=== PATIENT | female | born 1955 | race Two or more races ===

== ENCOUNTER → 2016-12-12 | Outpatient (CLI) | payer MEDICARE, MEDICAID ==
[~2016-12-12] MED LIST: ALPR0.254 PO; CAR3125T PO; CARV6.2551 PO; LEVO50TA7 PO; LOSA25TA9 PO; NIFE30TA66 PO; SEVE800T8 PO; SIMV-8 PO; WARF5TAB PO
== END | disposition home or self-care (01) ==
LOC: Rad HDHVI 11:39
PROVIDERS: ATTEND Internal Medicine Cardiovascular Disease
DX: S22.39XA Fracture of one rib, unspecified side, initial encounter for closed fracture (principal); J90 Pleural effusion, not elsewhere classified; E78.5 Hyperlipidemia, unspecified; R55 Syncope and collapse; R09.89 Other specified symptoms and signs involving the circulatory and respiratory systems; X58.XXXA Exposure to other specified factors, initial encounter; Y93.89 Activity, other specified; Y92.89 Other specified places as the place of occurrence of the external cause; Y99.8 Other external cause status
CPT/HCPCS: 71250

== ENCOUNTER → 2017-09-11 | Outpatient (CLI) | payer MEDICARE, MEDICAID | END | disposition home or self-care (01) | LOC: Rad HDHVI 13:44 | PROVIDERS: ATTEND Internal Medicine Cardiovascular Disease | DX: I08.8 Other rheumatic multiple valve diseases (principal); I25.10 Atherosclerotic heart disease of native coronary artery without angina pectoris; Z95.1 Presence of aortocoronary bypass graft; Z95.2 Presence of prosthetic heart valve | CPT/HCPCS: 93306 ==

== ENCOUNTER 2017-11-11 18:50 | Inpatient (IN) | payer MEDICARE, MEDICAID ==
[~2017-11-11] VITALS: Ht 30.5 cm; Wt 54.2 kg
[2017-11-11 20:08] LABS: Basophils # (auto) 0.1 uL; Eosinophils # (auto) 0 uL; Eosinophils % (auto) 0.4 % (0.0-7.0); Lymphocytes # (auto) 0.9 uL; Monocytes # (auto) 0.3 uL; Neutrophils # (auto) 7.7 uL
[2017-11-11 20:10] LABS: Basophils % (auto) 0.8 % (0.0-2.0); Hematocrit 37.6 % (36.0-46.0); Hemoglobin 12.3 g/dL (12.2-16.2); Lymphocytes % (auto) 10.1 % (10.0-50.0); Mean Corpuscular Hemoglobin 32.7 pg (28.0-32.0); Mean Corpuscular Hgb Conc. 32.7 g/dL (32.0-36.0); Mean Corpuscular Volume 100.1 fL (80.0-100.0); Monocytes % (auto) 3.2 % (0.0-12.0); Neutrophils % (auto) 85.5 % (37.0-80.0); Platelet Count (auto) 133 10^3/uL (140-450); Red Blood Cells 3.76 10^6/uL (4.0-5.20); Red Cell Distribution Width 17.2 % (11.8-14.3)
[2017-11-11 20:28] LABS: Albumin 3.9 g/dL (3.4-5.0); Anion Gap 16 (5-15); Aspartate Aminotransferase 8 U/L (15-37); BUN/Creatinine Ratio 9.5; Blood Urea Nitrogen 68 mg/dL (7-18); Calcium 8.1 mg/dL (8.5-10.1); Carbon Dioxide 25 mmol/L (21-32); Chloride 97 mmol/L (98-107); GFR African American 7 mL/min; GFR Non-African American 6 mL/min; Glucose 131 mg/dL (74-106); Magnesium 3.3 mg/dL (1.6-2.6); Sodium 138 mmol/L (136-145)
[2017-11-11 20:36] LABS: Alanine Aminotransferase 26 U/L (13-56); Alkaline Phosphatase 408 U/L (45-117); Bilirubin, Total 0.2 mg/dL (0.2-1.0); Total Protein 8.9 g/dL (6.4-8.2)
[2017-11-11 20:45] LABS: Potassium 7.4 mmol/L (3.5-5.1)
[2017-11-11] MEDS ORDERED: InsuLIN REG 1unit/0.01ml Soln (100units/ml) IV ONE (21:30)
[2017-11-11] MEDS ORDERED: SODIUM BICARBONATE 8.4 % INJ 50ML VIAL IV ONE (21:30)
[2017-11-11] MEDS ORDERED: SODIUM POLYSTYRENE SULF 15GM/60ML SUSP PO ONE (21:30)
[2017-11-11] MEDS ORDERED: CALCIUM GLUC 4.65meq/50ml D5AE 50 ML IV ONE (21:30)
[2017-11-11] MEDS ORDERED: DEXTROSE (50%) 50ML SYRG IV ONE (21:30)
[2017-11-12] MEDS ORDERED: SODIUM POLYSTYRENE SULF 15GM/60ML SUSP PO ONE ×3 (00:15→01:30)
[2017-11-12] MEDS ORDERED: SODIUM POLYSTYRENE SULF 15GM/60ML SUSP ONE ×3 (00:19→01:19)
[2017-11-12] MEDS ORDERED: cloNIDine HCL 0.1 MG TAB PO ONE (02:00)
[2017-11-12] MEDS ORDERED: NITROGLYCERIN 0.4 MG SL TAB SL PRN (02:45)
[2017-11-12] MEDS ORDERED: MORPHINE SULFATE 8mg/ml INJ SDV IV PRN (02:45)
[2017-11-12] MEDS ORDERED: SODIUM CHL 0.9% 1000 ML BAG XX ONE (10:15)
[2017-11-12] MEDS ORDERED: EPOETIN ALFA 10,000 UNIT/1 ML VIAL IV ONE (10:15)
[2017-11-12 18:28] VITALS: BP 158/78
[2017-11-12] MEDS ORDERED: ALPRAZolam 0.25 MG TAB PO PRN (19:00)
[2017-11-12 20:00] VITALS: BP 143/68
[2017-11-12 20:19] LABS: INR 2.81 (0.9-1.15)
[2017-11-12 20:20] VITALS: BP 163/85
[2017-11-12 22:00] VITALS: BP 143/68
[2017-11-12] MEDS: ATORVASTATIN 20 MG TAB PO SCH (22:06)
[2017-11-12] MEDS: CARVEDILOL 12.5 MG TAB PO SCH (22:07)
[2017-11-12] MEDS: TEMAZEPAM 15 MG CAP PO PRN (23:27)
[2017-11-13] VITALS (7 sets, daily range): BP systolic 121–162; BP diastolic 47–82
[2017-11-13 06:06] LABS: Basophils # (auto) 0 uL; Basophils % (auto) 0.5 % (0.0-2.0); Eosinophils # (auto) 0.1 uL; Eosinophils % (auto) 1.3 % (0.0-7.0); Hematocrit 35.8 % (36.0-46.0); Hemoglobin 11.6 g/dL (12.2-16.2); Lymphocytes # (auto) 1.1 uL; Lymphocytes % (auto) 20.2 % (10.0-50.0); Mean Corpuscular Hemoglobin 32.6 pg (28.0-32.0); Mean Corpuscular Hgb Conc. 32.4 g/dL (32.0-36.0); Mean Corpuscular Volume 100.8 fL (80.0-100.0); Monocytes # (auto) 0.6 uL; Monocytes % (auto) 11.3 % (0.0-12.0); Neutrophils # (auto) 3.5 uL; Neutrophils % (auto) 66.7 % (37.0-80.0); Nucleated Red Blood Cells % 0.1 %; Platelet Count (auto) 135 10^3/uL (140-450); Red Blood Cells 3.55 10^6/uL (4.0-5.20); Red Cell Distribution Width 17.4 % (11.8-14.3); White Blood Cell 5.2 10^3/uL (4.4-10.8)
[2017-11-13 06:18] LABS: INR 2.38 (0.9-1.15); Partial Thromboplastin Time 59.2 sec (22.64-33.71); Prothrombin Time 26.2 sec (9.37-12.3)
[2017-11-13 06:23] LABS: Calcium 8.6 mg/dL (8.5-10.1); Potassium 3.9 mmol/L (3.5-5.1)
[2017-11-13 06:33] LABS: BUN/Creatinine Ratio 5.8
[2017-11-13] MEDS: LEVOTHYROXINE SODIUM 50 MCG TAB PO SCH (06:54)
[2017-11-13] MEDS: SEVELAMER 800 MG TAB PO SCH ×3 (08:00→16:46)
[2017-11-13 09:10] LABS: Urine Bacteria MOD /hpf (None Seen); Urine Blood 1+ /uL (Negative); Urine Specific Gravity 1.009 (1.001-1.035); Urine WBC 13 /hpf (0 - 5)
[2017-11-13] MEDS ORDERED: ACETAMINOPHEN 325 MG TAB PO PRN (10:00)
[2017-11-13] MEDS: CARVEDILOL 12.5 MG TAB PO SCH ×2 (10:29→22:48)
[2017-11-13] MEDS: NIFEdipine ER 30 MG TAB PO SCH (10:29)
[2017-11-13] MEDS ORDERED: hydrALAZINE HCL 25 MG TAB PO ONE (14:45)
[2017-11-13] MEDS ORDERED: WARFARIN SODIUM 5 MG TAB PO SCH (17:00)
[2017-11-13] MEDS: hydrALAZINE HCL 25 MG TAB PO SCH (22:47)
[2017-11-13] MEDS: ATORVASTATIN 20 MG TAB PO SCH (22:48)
[2017-11-13] MEDS: TEMAZEPAM 15 MG CAP PO PRN (22:49)
[2017-11-13] MEDS ORDERED: ONDANSETRON HCL 4 MG/2 ML VIAL IV PRN (23:15)
[2017-11-14 05:00] VITALS: BP 148/73
[2017-11-14] MEDS: hydrALAZINE HCL 25 MG TAB PO SCH ×2 (05:47→16:19)
[2017-11-14 06:02] LABS: INR 1.82 (0.9-1.15)
[2017-11-14] MEDS: LEVOTHYROXINE SODIUM 50 MCG TAB PO SCH (06:10)
[2017-11-14] MEDS: SEVELAMER 800 MG TAB PO SCH ×2 (08:38→11:48)
[2017-11-14 08:55] VITALS: BP 156/77
[2017-11-14] MEDS ORDERED: SODIUM CHL 0.9% 1000 ML BAG XX ONE (09:00)
[2017-11-14 09:14] VITALS: BP 156/77
[2017-11-14] MEDS ORDERED: EPOETIN ALFA 10,000 UNIT/1 ML VIAL IV ONE (10:00)
[2017-11-14] MEDS: NIFEdipine ER 30 MG TAB PO SCH (10:23)
[2017-11-14] MEDS: CARVEDILOL 12.5 MG TAB PO SCH (10:25)
[2017-11-14 16:41] VITALS: BP 147/76
[2017-11-14 17:22] VITALS: BP 154/94
== END 2017-11-14 17:15 | disposition home or self-care (01) | DRG 682 ==
LOC: ER 18:50 → TELE 18:51 → TELE-WESTW 11-12 17:17
PROVIDERS: ADMIT Internal Medicine Cardiovascular Disease; ATTEND Internal Medicine Cardiovascular Disease
PROC: 5A1D70Z Performance of Urinary Filtration, Intermittent, Less than 6 Hours Per Day (ICD-10-PCS; principal; 2017-11-12)
PROC: 5A1D70Z Performance of Urinary Filtration, Intermittent, Less than 6 Hours Per Day (ICD-10-PCS; 2017-11-14)
DX: I12.0 Hypertensive chronic kidney disease with stage 5 chronic kidney disease or end stage renal disease (principal); N18.6 End stage renal disease; E87.5 Hyperkalemia; K31.84 Gastroparesis; I25.10 Atherosclerotic heart disease of native coronary artery without angina pectoris; K29.70 Gastritis, unspecified, without bleeding; K57.30 Diverticulosis of large intestine without perforation or abscess without bleeding; Z83.3 Family history of diabetes mellitus; Z95.1 Presence of aortocoronary bypass graft; Z99.2 Dependence on renal dialysis; Z79.899 Other long term (current) drug therapy
CPT/HCPCS: 36415; 74176; 80048; 80053; 81001; 83735; 84132; 84484; 85025; 85610; 85730; 87081; 90935; 93005; 99291; J0610; J1642; J1815; J2405

== ENCOUNTER 2017-12-31 16:12 | Emergency (ER) | payer MEDICARE, MEDICAID ==
[~2017-12-31] VITALS: Ht 152.4 cm; Wt 57.6 kg
[2017-12-31] MEDS ORDERED: LORazepam 2MG/ML-1ML VIAL IV ONE (18:45)
[2017-12-31] MEDS ORDERED: LORazepam 2MG/ML-1ML VIAL IM ONE (20:00)
[2017-12-31 20:09] VITALS: BP 145/96
== END 2017-12-31 20:10 | disposition home or self-care (01) ==
LOC: MERGE 16:12 → ER 16:12 → EDBD 16:12 → ER 20:10
DX: F41.9 Anxiety disorder, unspecified (principal); R07.9 Chest pain, unspecified; N18.9 Chronic kidney disease, unspecified; K21.9 Gastro-esophageal reflux disease without esophagitis; Z95.0 Presence of cardiac pacemaker
CPT/HCPCS: 93005; 96372; 99284; J2060

== ENCOUNTER → 2018-01-10 | Outpatient (CLI) | payer MEDICARE, MEDICAID | END | disposition home or self-care (01) | LOC: Rad HDHVI 13:02 | PROVIDERS: ATTEND Internal Medicine Cardiovascular Disease | DX: I10 Essential (primary) hypertension (principal); E78.5 Hyperlipidemia, unspecified; F43.9 Reaction to severe stress, unspecified; F41.9 Anxiety disorder, unspecified; K21.9 Gastro-esophageal reflux disease without esophagitis; I12.9 Hypertensive chronic kidney disease with stage 1 through stage 4 chronic kidney disease, or unspecified chronic kidney disease; N18.9 Chronic kidney disease, unspecified; Z79.899 Other long term (current) drug therapy | CPT/HCPCS: 93306 ==

== ENCOUNTER → 2018-02-20 | Outpatient (CLI) | payer MEDICARE, MEDICAID ==
[~2018-02-20] VITALS: Ht 30.5 cm; Wt 0.5 kg
[~2018-02-20] MED LIST changes: +ADENOSINE 47 MG in GIVE UN-DILUTED 0 ML IV ONE; +ADENOSINE 90 MG/30 ML INJ IV ONE
[2018-02-20 12:16] LABS: Urine Blood Negative /uL (Negative)
[2018-02-20 12:38] LABS: Basophils # (auto) 0 uL; Eosinophils # (auto) 0.1 uL; Eosinophils % (auto) 1.3 % (0.0-7.0); Hematocrit 36.7 % (36.0-46.0); Hemoglobin 11.8 g/dL (12.2-16.2); Lymphocytes # (auto) 0.9 uL; Lymphocytes % (auto) 18.7 % (10.0-50.0); Mean Corpuscular Hemoglobin 32.6 pg (28.0-32.0); Mean Corpuscular Hgb Conc. 32.1 g/dL (32.0-36.0); Mean Corpuscular Volume 101.5 fL (80.0-100.0); Monocytes # (auto) 0.6 uL; Monocytes % (auto) 12.1 % (0.0-12.0); Neutrophils # (auto) 3.1 uL; Neutrophils % (auto) 66.9 % (37.0-80.0); Nucleated Red Blood Cells % 0.3 %; Red Blood Cells 3.62 10^6/uL (4.0-5.20); Red Cell Distribution Width 16.7 % (11.8-14.3); White Blood Cell 4.6 10^3/uL (4.4-10.8)
[2018-02-20 12:39] LABS: Platelet Count (auto) 74 10^3/uL (140-450)
[2018-02-20 13:01] LABS: Free T4 (Free Thyroxine) 0.79 ng/dL (0.89-1.76)
[2018-02-20 13:31] LABS: Albumin 3.5 g/dL (3.4-5.0); BUN/Creatinine Ratio 6.5; Bilirubin, Total 0.5 mg/dL (0.2-1.0); Calcium 8.1 mg/dL (8.5-10.1); Potassium 4.6 mmol/L (3.5-5.1); Total Protein 7.5 g/dL (6.4-8.2)
== END | disposition home or self-care (01) ==
LOC: Rad HDHVI 07:55
PROVIDERS: ATTEND Internal Medicine
DX: Z00.01 Encounter for general adult medical examination with abnormal findings (principal); I12.9 Hypertensive chronic kidney disease with stage 1 through stage 4 chronic kidney disease, or unspecified chronic kidney disease; E11.22 Type 2 diabetes mellitus with diabetic chronic kidney disease; N18.3 Chronic kidney disease, stage 3 (moderate); E03.9 Hypothyroidism, unspecified; E55.9 Vitamin D deficiency, unspecified; D51.9 Vitamin B12 deficiency anemia, unspecified; N39.0 Urinary tract infection, site not specified; R07.89 Other chest pain; E78.5 Hyperlipidemia, unspecified; F43.9 Reaction to severe stress, unspecified; F41.9 Anxiety disorder, unspecified; G47.00 Insomnia, unspecified; G47.33 Obstructive sleep apnea (adult) (pediatric)
CPT/HCPCS: 36415; 78452; 80053; 80061; 81003; 82306; 82607; 83036; 84439; 84443; 85025; 87086; 93005; 96374; 96375; A9500; J0153

== ENCOUNTER 2018-03-22 16:49 | Inpatient (IN) | payer MEDICARE, MEDICAID ==
[~2018-03-22] VITALS: Ht 157.5 cm; Wt 57.7 kg
[~2018-03-22 16:49] MED LIST changes: -ADENOSINE 47 MG in GIVE UN-DILUTED 0 ML IV ONE; -ADENOSINE 90 MG/30 ML INJ IV ONE
[2018-03-22] MEDS ORDERED: LORazepam 2MG/ML-1ML VIAL IV ONE (17:00)
[2018-03-22] MEDS ORDERED: SODIUM CHLORIDE 0.9% 1,000 ML IV ONE (17:00)
[2018-03-22 17:40] LABS: Basophils # (auto) 0 uL; Eosinophils # (auto) 0.1 uL; Eosinophils % (auto) 1.9 % (0.0-7.0); Hematocrit 28.3 % (36.0-46.0); Hemoglobin 9.7 g/dL (12.2-16.2); Lymphocytes # (auto) 1.1 uL; Lymphocytes % (auto) 22.1 % (10.0-50.0); Mean Corpuscular Hemoglobin 33.1 pg (28.0-32.0); Mean Corpuscular Hgb Conc. 34.2 g/dL (32.0-36.0); Mean Corpuscular Volume 96.9 fL (80.0-100.0); Monocytes # (auto) 0.5 uL; Monocytes % (auto) 10.5 % (0.0-12.0); Neutrophils # (auto) 3.1 uL; Neutrophils % (auto) 64.5 % (37.0-80.0); Platelet Count (auto) 69 10^3/uL (140-450); Red Blood Cells 2.92 10^6/uL (4.0-5.20); Red Cell Distribution Width 15.4 % (11.8-14.3); White Blood Cell 4.8 10^3/uL (4.4-10.8)
[2018-03-22 17:52] LABS: INR 1.15 (0.9-1.15); Partial Thromboplastin Time 27.5 sec (23.78-33.04); Prothrombin Time 12.2 sec (9.27-12.13)
[2018-03-22 18:02] LABS: Alanine Aminotransferase 69 U/L (13-56); Albumin 3.3 g/dL (3.4-5.0); Alkaline Phosphatase 404 U/L (45-117); Anion Gap 10 (5-15); Aspartate Aminotransferase 23 U/L (15-37); BUN/Creatinine Ratio 5.9; Bilirubin, Total 0.3 mg/dL (0.2-1.0); Blood Urea Nitrogen 33 mg/dL (7-18); Calcium 7.1 mg/dL (8.5-10.1); Carbon Dioxide 26 mmol/L (21-32); Chloride 95 mmol/L (98-107); GFR African American 10 mL/min; GFR Non-African American 8 mL/min; Glucose 132 mg/dL (74-106); Magnesium 2.5 mg/dL (1.6-2.6); Potassium 4.8 mmol/L (3.5-5.1); Sodium 131 mmol/L (136-145); Total Protein 7.3 g/dL (6.4-8.2)
[2018-03-22] MEDS ORDERED: FUROSEMIDE 40 MG/4 ML VIAL IV ONE (19:00)
[2018-03-22] MEDS ORDERED: ALPRAZolam 0.25 MG TAB PO PRN (19:30)
[2018-03-22] MEDS ORDERED: PROMETHAZINE HCL 25 MG/ML 1ML IV PRN (19:30)
[2018-03-22] MEDS ORDERED: NITROGLYCERIN 0.4 MG SL TAB SL PRN (19:30)
[2018-03-22] MEDS ORDERED: ALBUTEROL SULF 2.5 MG/0.5ML(0.5%) NEB SOLN NEB PRN (19:30)
[2018-03-22] MEDS ORDERED: LORazepam 0.5 MG TAB PO PRN (19:30)
[2018-03-22] MEDS ORDERED: LACTULOSE 20Gm/30ML SOLN PO PRN (19:30)
[2018-03-22] MEDS ORDERED: ACETAMINOPHEN 500 MG TAB PO PRN (19:30)
[2018-03-22] MEDS ORDERED: MORPHINE SULF INJ 2 MG/ML SYRINGE 1ML IV PRN ×2 (19:30)
[2018-03-22] MEDS ORDERED: DEXTROSE (50%) 50ML SYRG IV PRN (19:30)
[2018-03-22 21:05] VITALS: BP 164/94
[2018-03-22 22:00] VITALS: BP 164/94
[2018-03-22] MEDS: SODIUM CHLOR 0.9% PF (SALINE LOCK) 10ML VIAL/SYR IV SCH (22:00)
[2018-03-22] MEDS: CARVEDILOL 12.5 MG TAB PO SCH (22:39)
[2018-03-22] MEDS: ATORVASTATIN 20 MG TAB PO SCH (22:39)
[2018-03-22] MEDS: TEMAZEPAM 15 MG CAP PO PRN (22:40)
[2018-03-22 22:56] VITALS: BP 165/79
[2018-03-23 05:00] VITALS: BP 145/81
[2018-03-23 06:33] LABS: Albumin 3.3 g/dL (3.4-5.0); BUN/Creatinine Ratio 6.1; Bilirubin, Total 0.4 mg/dL (0.2-1.0); Potassium 4.3 mmol/L (3.5-5.1); Total Protein 6.9 g/dL (6.4-8.2)
[2018-03-23] MEDS: LEVOTHYROXINE SODIUM 50 MCG TAB PO SCH (07:29)
[2018-03-23] MEDS: ACCU-CHEK COMFORT CURVE STRIP VI SCH ×5 (07:29→23:43)
[2018-03-23] MEDS: SODIUM CHLOR 0.9% PF (SALINE LOCK) 10ML VIAL/SYR IV SCH ×3 (07:29→22:08)
[2018-03-23 08:00] VITALS: BP 145/81
[2018-03-23] MEDS: SEVELAMER 800 MG TAB PO SCH ×3 (08:00→17:52)
[2018-03-23 08:30] VITALS: BP 152/75
[2018-03-23] MEDS: HYDROcodone-ACET 5/325MG TAB PO PRN ×2 (09:41→16:06)
[2018-03-23] MEDS: CARVEDILOL 12.5 MG TAB PO SCH ×2 (09:42→22:09)
[2018-03-23] MEDS: LOSARTAN POTASSIUM 25 MG TAB PO SCH (09:42)
[2018-03-23] MEDS: NIFEdipine ER 30 MG TAB PO SCH (09:43)
[2018-03-23] MEDS: NITROGLYCERIN 0.2MG/HR TOPICAL PATCH TD SCH (09:45)
[2018-03-23] MEDS ORDERED: ENOXAPARIN SOD 30 MG/0.3 ML SYRINGE SC SCH (10:00)
[2018-03-23] MEDS ORDERED: ASPirin 81 mg TAB PO SCH (10:00)
[2018-03-23] MEDS ORDERED: WARFARIN SODIUM 5 MG TAB PO SCH (10:00)
[2018-03-23 11:59] VITALS: BP 157/84
[2018-03-23] MEDS: ALPRAZolam 0.5 MG TAB PO SCH ×2 (12:41→22:09)
[2018-03-23 17:01] VITALS: BP 159/81
[2018-03-23] MEDS: ATORVASTATIN 20 MG TAB PO SCH (22:09)
[2018-03-23] MEDS: TEMAZEPAM 15 MG CAP PO PRN (22:09)
[2018-03-23 22:18] VITALS: BP 156/86
[2018-03-24] VITALS (7 sets, daily range): BP systolic 149–168; BP diastolic 81–96
[2018-03-24] MEDS: SODIUM CHLOR 0.9% PF (SALINE LOCK) 10ML VIAL/SYR IV SCH ×3 (05:49→21:24)
[2018-03-24] MEDS: ACCU-CHEK COMFORT CURVE STRIP VI SCH ×3 (05:49→18:00)
[2018-03-24 06:30] LABS: Albumin 3.3 g/dL (3.4-5.0); BUN/Creatinine Ratio 8.1; Bilirubin, Total 0.4 mg/dL (0.2-1.0); Calcium 7.7 mg/dL (8.5-10.1); Total Protein 6.9 g/dL (6.4-8.2)
[2018-03-24] MEDS: LEVOTHYROXINE SODIUM 50 MCG TAB PO SCH (06:39)
[2018-03-24] MEDS: SEVELAMER 800 MG TAB PO SCH ×3 (08:03→18:22)
[2018-03-24] MEDS: ALPRAZolam 0.5 MG TAB PO SCH ×2 (09:57→21:25)
[2018-03-24] MEDS: HYDROcodone-ACET 5/325MG TAB PO PRN ×2 (09:57→16:55)
[2018-03-24] MEDS: NIFEdipine ER 30 MG TAB PO SCH (10:00)
[2018-03-24] MEDS: CARVEDILOL 12.5 MG TAB PO SCH ×2 (10:00→21:25)
[2018-03-24] MEDS: LOSARTAN POTASSIUM 25 MG TAB PO SCH (10:00)
[2018-03-24] MEDS: NITROGLYCERIN 0.2MG/HR TOPICAL PATCH TD SCH (10:00)
[2018-03-24] MEDS ORDERED: EPOETIN ALFA 10,000 UNIT/1 ML VIAL IV ONE (14:45)
[2018-03-24] MEDS: ATORVASTATIN 20 MG TAB PO SCH (21:25)
[2018-03-24] MEDS: TEMAZEPAM 15 MG CAP PO PRN (21:26)
[2018-03-25 05:00] VITALS: BP 166/76
[2018-03-25] MEDS: ACCU-CHEK COMFORT CURVE STRIP VI SCH ×5 (05:51→22:18)
[2018-03-25] MEDS: SODIUM CHLOR 0.9% PF (SALINE LOCK) 10ML VIAL/SYR IV SCH ×3 (05:51→22:17)
[2018-03-25] MEDS: LEVOTHYROXINE SODIUM 50 MCG TAB PO SCH (06:05)
[2018-03-25 06:51] LABS: Albumin 3.4 g/dL (3.4-5.0); BUN/Creatinine Ratio 7.2; Bilirubin, Total 0.5 mg/dL (0.2-1.0); Potassium 4.4 mmol/L (3.5-5.1); Total Protein 7.1 g/dL (6.4-8.2)
[2018-03-25 09:00] VITALS: BP 159/74
[2018-03-25] MEDS: NITROGLYCERIN 0.2MG/HR TOPICAL PATCH TD SCH (10:00)
[2018-03-25] MEDS: ALPRAZolam 0.5 MG TAB PO SCH (10:07)
[2018-03-25] MEDS: NIFEdipine ER 30 MG TAB PO SCH (10:08)
[2018-03-25] MEDS: CARVEDILOL 12.5 MG TAB PO SCH ×2 (10:08→22:00)
[2018-03-25] MEDS: LOSARTAN POTASSIUM 25 MG TAB PO SCH (10:09)
[2018-03-25] MEDS: SEVELAMER 800 MG TAB PO SCH ×2 (10:13→17:25)
[2018-03-25] MEDS ORDERED: DILTIAZEM HCL 25 MG/5 ML VIAL IV ONE (12:00)
[2018-03-25] MEDS ORDERED: hydrALAZINE HCL 20 MG/ML VL IV ONE (12:30)
[2018-03-25 13:00] VITALS: BP 182/85
[2018-03-25] MEDS ORDERED: ONDANSETRON HCL 4 MG/2 ML VIAL IV PRN (14:15)
[2018-03-25] MEDS ORDERED: cloNIDine HCL 0.1 MG TAB PO ONE (14:15)
[2018-03-25] MEDS ORDERED: ALPRAZolam 0.5 MG TAB PO PRN (15:15)
[2018-03-25 17:33] VITALS: BP 114/59
[2018-03-25 21:30] VITALS: BP 94/60
[2018-03-25] MEDS: ATORVASTATIN 20 MG TAB PO SCH (22:14)
[2018-03-26 04:54] VITALS: BP 112/63
[2018-03-26] MEDS: ACCU-CHEK COMFORT CURVE STRIP VI SCH ×2 (06:00→11:58)
[2018-03-26] MEDS: SODIUM CHLOR 0.9% PF (SALINE LOCK) 10ML VIAL/SYR IV SCH (06:00)
[2018-03-26] MEDS: LEVOTHYROXINE SODIUM 50 MCG TAB PO SCH (06:17)
[2018-03-26 08:07] VITALS: BP 113/68
[2018-03-26] MEDS: SEVELAMER 800 MG TAB PO SCH ×2 (08:32→12:08)
[2018-03-26] MEDS: LOSARTAN POTASSIUM 25 MG TAB PO SCH (10:26)
[2018-03-26] MEDS: CARVEDILOL 12.5 MG TAB PO SCH (10:26)
[2018-03-26] MEDS: NIFEdipine ER 30 MG TAB PO SCH (10:27)
[2018-03-26 11:33] VITALS: BP 134/72
[2018-03-26 15:07] VITALS: BP 134/72
== END 2018-03-26 15:56 | disposition home or self-care (01) | DRG 291 ==
LOC: EDBD 16:49 → EDUNIT# 16:49 → ER 16:54 → TELE 16:55 → TELE-WESTW 21:06
PROVIDERS: ADMIT Internal Medicine; ATTEND Family Medicine
PROC: 5A1D70Z Performance of Urinary Filtration, Intermittent, Less than 6 Hours Per Day (ICD-10-PCS; principal; 2018-03-24)
DX: I13.2 Hypertensive heart and chronic kidney disease with heart failure and with stage 5 chronic kidney disease, or end stage renal disease (principal); I50.33 Acute on chronic diastolic (congestive) heart failure; N18.6 End stage renal disease; I24.9 Acute ischemic heart disease, unspecified; E78.5 Hyperlipidemia, unspecified; I25.10 Atherosclerotic heart disease of native coronary artery without angina pectoris; E03.9 Hypothyroidism, unspecified; D64.9 Anemia, unspecified; D69.6 Thrombocytopenia, unspecified; E78.00 Pure hypercholesterolemia, unspecified; F41.9 Anxiety disorder, unspecified; Z83.3 Family history of diabetes mellitus; Z95.1 Presence of aortocoronary bypass graft; I25.2 Old myocardial infarction; Z95.5 Presence of coronary angioplasty implant and graft; Z99.2 Dependence on renal dialysis
CPT/HCPCS: 36415; 71045; 80053; 80061; 82550; 82962; 83036; 83735; 83880; 84443; 84484; 85025; 85379; 85610; 85652; 85730; 86141; 87040; 87081; 90935; 93005; 96374; 96375; J0885; J2405

== ENCOUNTER 2018-03-27 12:40 | Inpatient (IN) | payer MEDICARE, MEDICAID ==
[~2018-03-27] VITALS: Ht 162.6 cm; Wt 64.9 kg
[~2018-03-27 12:40] MED LIST changes: -CARV6.2551 PO; +LOSA25TA40 PO; -LOSA25TA9 PO
[2018-03-27] MEDS ORDERED: ALPRAZolam 0.5 MG TAB PO ONE (17:15)
[2018-03-27 17:53] LABS: Urine Bacteria NONE SEEN /hpf (None Seen); Urine Blood TRACE /uL (Negative); Urine Specific Gravity 1.008 (1.001-1.035); Urine WBC 13 /hpf (0 - 5)
[2018-03-27 18:26] LABS: Basophils # (auto) 0 uL; Basophils % (auto) 0.6 % (0.0-2.0); Eosinophils # (auto) 0.1 uL; Eosinophils % (auto) 2.2 % (0.0-7.0); Hematocrit 33.3 % (36.0-46.0); Hemoglobin 11.2 g/dL (12.2-16.2); Lymphocytes % (auto) 14.6 % (10.0-50.0); Mean Corpuscular Hemoglobin 32.6 pg (28.0-32.0); Mean Corpuscular Hgb Conc. 33.6 g/dL (32.0-36.0); Mean Corpuscular Volume 97.3 fL (80.0-100.0); Monocytes # (auto) 0.5 uL; Monocytes % (auto) 7.8 % (0.0-12.0); Neutrophils # (auto) 5.1 uL; Neutrophils % (auto) 74.8 % (37.0-80.0); Nucleated Red Blood Cells % 0.1 %; Platelet Count (auto) 113 10^3/uL (140-450); Red Blood Cells 3.43 10^6/uL (4.0-5.20); Red Cell Distribution Width 15.2 % (11.8-14.3); White Blood Cell 6.8 10^3/uL (4.4-10.8)
[2018-03-27 18:32] LABS: Albumin 3.9 g/dL (3.4-5.0); BUN/Creatinine Ratio 8.3; Bilirubin, Total 0.4 mg/dL (0.2-1.0); Calcium 7.9 mg/dL (8.5-10.1); Total Protein 8.1 g/dL (6.4-8.2)
[2018-03-27 19:02] LABS: Potassium 5.6 mmol/L (3.5-5.1)
[2018-03-27] MEDS ORDERED: InsuLIN REG 1unit/0.01ml Soln (100units/ml) IV ONE (19:15)
[2018-03-27] MEDS ORDERED: SODIUM BICARBONATE 8.4% INJ 50ML SYRINGE IV ONE (19:15)
[2018-03-27] MEDS ORDERED: DEXTROSE (50%) 50ML SYRG IV ONE (19:15)
[2018-03-27] MEDS ORDERED: CALCIUM GLUC 4.65meq/50ml D5AE 50 ML IV ONE (19:15)
[2018-03-27 20:58] LABS: Magnesium 2.8 mg/dL (1.6-2.6)
[2018-03-27 21:45] LABS: INR 1.05 (0.9-1.15); Prothrombin Time 11.2 sec (9.27-12.13)
[2018-03-28] MEDS ORDERED: ONDANSETRON HCL 4 MG/2 ML VIAL IV PRN (06:00)
[2018-03-28] MEDS ORDERED: DEXTROSE (50%) 50ML SYRG IV PRN (06:00)
[2018-03-28] MEDS ORDERED: ACETAMINOPHEN 325 MG TAB PO PRN (06:00)
[2018-03-28] MEDS ORDERED: NIFEdipine 10 MG CAP ONE (06:06)
[2018-03-28] MEDS: ACCU-CHEK COMFORT CURVE STRIP VI SCH ×3 (06:28→17:58)
[2018-03-28] MEDS: InsuLIN REG 1unit/0.01ml Soln (100units/ml) SC SCH ×3 (06:38→17:58)
[2018-03-28] MEDS: LEVOTHYROXINE SODIUM 50 MCG TAB PO SCH (06:54)
[2018-03-28 07:28] LABS: INR 1.06 (0.9-1.15); Partial Thromboplastin Time 33.8 sec (23.78-33.04); Prothrombin Time 11.3 sec (9.27-12.13)
[2018-03-28 07:36] LABS: Albumin 3.6 g/dL (3.4-5.0); BUN/Creatinine Ratio 8.7; Bilirubin, Total 0.4 mg/dL (0.2-1.0); Potassium 5.4 mmol/L (3.5-5.1); Total Protein 7.6 g/dL (6.4-8.2)
[2018-03-28] MEDS: SEVELAMER 800 MG TAB PO SCH ×3 (08:30→17:58)
[2018-03-28] MEDS: NIFEdipine ER 30 MG TAB PO SCH (09:44)
[2018-03-28] MEDS: cefTRIAXone 1GM/10ml IVPUSH 10 ML IV SCH (09:44)
[2018-03-28] MEDS: LOSARTAN POTASSIUM 25 MG TAB PO SCH (09:44)
[2018-03-28] MEDS: PANTOPRAZOLE 40 MG TAB PO SCH (09:44)
[2018-03-28] MEDS: CARVEDILOL 12.5 MG TAB PO SCH ×2 (09:44→21:51)
[2018-03-28] MEDS ORDERED: DOPamine 1600MCG/ML D5W 250 ML IV SCH (10:30)
[2018-03-28] MEDS ORDERED: ATROPINE SULF 1 MG/10ml SYR IV ONE (10:30)
[2018-03-28] MEDS: HYDROcodone-ACET 5/325MG TAB PO PRN ×3 (11:18→23:03)
[2018-03-28] MEDS ORDERED: WARFARIN SODIUM 5 MG TAB PO ONE (17:00)
[2018-03-28 17:04] VITALS: BP 143/59
[2018-03-28] MEDS: ATORVASTATIN 20 MG TAB PO SCH (21:50)
[2018-03-28] MEDS: TEMAZEPAM 15 MG CAP PO PRN (21:51)
[2018-03-28 22:46] VITALS: BP 148/47
[2018-03-29] MEDS: ACCU-CHEK COMFORT CURVE STRIP VI SCH ×4 (00:44→18:10)
[2018-03-29 05:42] VITALS: BP 145/69
[2018-03-29] MEDS: InsuLIN REG 1unit/0.01ml Soln (100units/ml) SC SCH ×4 (06:00→18:00)
[2018-03-29] MEDS: LEVOTHYROXINE SODIUM 50 MCG TAB PO SCH (06:38)
[2018-03-29 07:17] LABS: Basophils # (auto) 0.1 uL; Eosinophils # (auto) 0.2 uL; Eosinophils % (auto) 2.9 % (0.0-7.0); Hematocrit 29.7 % (36.0-46.0); Hemoglobin 10.1 g/dL (12.2-16.2); Lymphocytes % (auto) 18.2 % (10.0-50.0); Mean Corpuscular Hemoglobin 32.7 pg (28.0-32.0); Mean Corpuscular Volume 96.4 fL (80.0-100.0); Monocytes # (auto) 0.8 uL; Monocytes % (auto) 14.8 % (0.0-12.0); Neutrophils # (auto) 3.5 uL; Neutrophils % (auto) 63.1 % (37.0-80.0); Nucleated Red Blood Cells % 0.1 %; Platelet Count (auto) 93 10^3/uL (140-450); Red Blood Cells 3.08 10^6/uL (4.0-5.20); Red Cell Distribution Width 15.7 % (11.8-14.3); White Blood Cell 5.6 10^3/uL (4.4-10.8)
[2018-03-29 07:24] LABS: INR 1.12 (0.9-1.15); Partial Thromboplastin Time 37.6 sec (23.78-33.04); Prothrombin Time 11.9 sec (9.27-12.13)
[2018-03-29 07:29] LABS: Albumin 3.2 g/dL (3.4-5.0); BUN/Creatinine Ratio 6.3; Calcium 8.2 mg/dL (8.5-10.1); Potassium 4.4 mmol/L (3.5-5.1)
[2018-03-29 07:32] LABS: Bilirubin, Total 0.4 mg/dL (0.2-1.0); Total Protein 6.9 g/dL (6.4-8.2)
[2018-03-29 09:00] VITALS: BP 132/87
[2018-03-29] MEDS: cefTRIAXone 1GM/10ml IVPUSH 10 ML IV SCH (09:10)
[2018-03-29] MEDS: SEVELAMER 800 MG TAB PO SCH ×3 (09:10→18:07)
[2018-03-29] MEDS: CARVEDILOL 12.5 MG TAB PO SCH ×2 (09:11→22:43)
[2018-03-29] MEDS: LOSARTAN POTASSIUM 25 MG TAB PO SCH (09:11)
[2018-03-29] MEDS: NIFEdipine ER 30 MG TAB PO SCH (09:12)
[2018-03-29] MEDS: PANTOPRAZOLE 40 MG TAB PO SCH (09:12)
[2018-03-29] MEDS ORDERED: LIDOCAINE 2% JELLY 11ml (GLYDO) ONE (11:47)
[2018-03-29 13:00] VITALS: BP 161/95
[2018-03-29] MEDS ORDERED: PROMETHAZINE HCL 25 MG/ML 1ML IV PRN (15:15)
[2018-03-29] MEDS ORDERED: METOCLOPRAMIDE HCL 5MG/ml INJ 2ml VIAL IV PRN (15:30)
[2018-03-29] MEDS: METOCLOPRAMIDE HCL 5MG/ml INJ 2ml VIAL IV PRN (16:36)
[2018-03-29] MEDS ORDERED: WARFARIN SODIUM 5 MG TAB PO ONE (17:00)
[2018-03-29 18:02] VITALS: BP 163/82
[2018-03-29] MEDS: ALPRAZolam 0.25 MG TAB PO PRN (18:07)
[2018-03-29] MEDS: ATORVASTATIN 20 MG TAB PO SCH (22:40)
[2018-03-29] MEDS: TEMAZEPAM 15 MG CAP PO PRN (22:40)
[2018-03-30] MEDS: ACCU-CHEK COMFORT CURVE STRIP VI SCH ×4 (00:17→18:00)
[2018-03-30 04:41] VITALS: BP 138/75
[2018-03-30] MEDS: InsuLIN REG 1unit/0.01ml Soln (100units/ml) SC SCH ×4 (06:00→18:00)
[2018-03-30] MEDS: LEVOTHYROXINE SODIUM 50 MCG TAB PO SCH (06:02)
[2018-03-30] MEDS: ALPRAZolam 0.25 MG TAB PO PRN (06:19)
[2018-03-30] MEDS: METOCLOPRAMIDE HCL 5MG/ml INJ 2ml VIAL IV PRN (06:38)
[2018-03-30 06:59] LABS: Basophils # (auto) 0.1 uL; Basophils % (auto) 1.1 % (0.0-2.0); Eosinophils # (auto) 0.1 uL; Eosinophils % (auto) 1.7 % (0.0-7.0); Hematocrit 31.2 % (36.0-46.0); Hemoglobin 10.7 g/dL (12.2-16.2); Lymphocytes # (auto) 1.1 uL; Lymphocytes % (auto) 16.9 % (10.0-50.0); Mean Corpuscular Hemoglobin 33.3 pg (28.0-32.0); Mean Corpuscular Hgb Conc. 34.2 g/dL (32.0-36.0); Mean Corpuscular Volume 97.3 fL (80.0-100.0); Monocytes # (auto) 0.8 uL; Monocytes % (auto) 12.5 % (0.0-12.0); Neutrophils # (auto) 4.5 uL; Neutrophils % (auto) 67.8 % (37.0-80.0); Platelet Count (auto) 113 10^3/uL (140-450); Red Blood Cells 3.21 10^6/uL (4.0-5.20); Red Cell Distribution Width 15.7 % (11.8-14.3); White Blood Cell 6.7 10^3/uL (4.4-10.8)
[2018-03-30 07:05] LABS: INR 1.37 (0.9-1.15); Prothrombin Time 14.4 sec (9.27-12.13)
[2018-03-30 07:19] LABS: Calcium 8.5 mg/dL (8.5-10.1); Potassium 4.9 mmol/L (3.5-5.1)
[2018-03-30 09:00] VITALS: BP 169/85
[2018-03-30] MEDS ORDERED: diphenhdrAMINE HCL 50 MG/1 ML VL IV PRN (09:00)
[2018-03-30] MEDS: SEVELAMER 800 MG TAB PO SCH ×3 (09:31→18:19)
[2018-03-30] MEDS: ONDANSETRON HCL 4 MG/2 ML VIAL IV PRN (09:32)
[2018-03-30] MEDS: cefTRIAXone 1GM/10ml IVPUSH 10 ML IV SCH (12:38)
[2018-03-30] MEDS: LOSARTAN POTASSIUM 25 MG TAB PO SCH (12:38)
[2018-03-30] MEDS: NIFEdipine ER 30 MG TAB PO SCH (12:39)
[2018-03-30] MEDS: CARVEDILOL 12.5 MG TAB PO SCH ×2 (12:39→21:51)
[2018-03-30] MEDS: PANTOPRAZOLE 40 MG TAB PO SCH (12:40)
[2018-03-30 13:00] VITALS: BP 152/80
[2018-03-30 17:00] VITALS: BP 157/81
[2018-03-30] MEDS ORDERED: WARFARIN SODIUM 5 MG TAB PO ONE (17:00)
[2018-03-30] MEDS ORDERED: BISACODYL 10 MG RECT SUPP PR ONE (17:30)
[2018-03-30] MEDS: ATORVASTATIN 20 MG TAB PO SCH (21:50)
[2018-03-30] MEDS: TEMAZEPAM 15 MG CAP PO PRN (21:50)
[2018-03-30 22:00] VITALS: BP 148/76
[2018-03-31] MEDS: ACCU-CHEK COMFORT CURVE STRIP VI SCH ×3 (00:24→12:22)
[2018-03-31 05:26] VITALS: BP 142/69
[2018-03-31] MEDS: InsuLIN REG 1unit/0.01ml Soln (100units/ml) SC SCH ×3 (06:00→12:00)
[2018-03-31] MEDS: LEVOTHYROXINE SODIUM 50 MCG TAB PO SCH (06:35)
[2018-03-31 07:36] LABS: Basophils # (auto) 0.1 uL; Basophils % (auto) 1.1 % (0.0-2.0); Eosinophils # (auto) 0.2 uL; Eosinophils % (auto) 2.8 % (0.0-7.0); Hematocrit 28.9 % (36.0-46.0); Hemoglobin 9.5 g/dL (12.2-16.2); Lymphocytes % (auto) 16.6 % (10.0-50.0); Mean Corpuscular Hemoglobin 31.9 pg (28.0-32.0); Mean Corpuscular Hgb Conc. 32.7 g/dL (32.0-36.0); Mean Corpuscular Volume 97.5 fL (80.0-100.0); Monocytes # (auto) 0.8 uL; Monocytes % (auto) 13.4 % (0.0-12.0); Neutrophils # (auto) 3.8 uL; Neutrophils % (auto) 66.1 % (37.0-80.0); Platelet Count (auto) 73 10^3/uL (140-450); Red Blood Cells 2.97 10^6/uL (4.0-5.20); Red Cell Distribution Width 15.7 % (11.8-14.3); White Blood Cell 5.7 10^3/uL (4.4-10.8)
[2018-03-31 07:48] LABS: INR 1.96 (0.9-1.15); Prothrombin Time 20.2 sec (9.27-12.13)
[2018-03-31 08:00] VITALS: BP_SYST 135; BP_SYST 158; BP_DIAS 71; BP_DIAS 73
[2018-03-31] MEDS: ONDANSETRON HCL 4 MG/2 ML VIAL IV PRN (09:01)
[2018-03-31] MEDS: SEVELAMER 800 MG TAB PO SCH ×2 (09:01→14:39)
[2018-03-31] MEDS: cefTRIAXone 1GM/10ml IVPUSH 10 ML IV SCH (09:01)
[2018-03-31] MEDS: PANTOPRAZOLE 40 MG TAB PO SCH (09:01)
[2018-03-31] MEDS: CARVEDILOL 12.5 MG TAB PO SCH (09:02)
[2018-03-31] MEDS: NIFEdipine ER 30 MG TAB PO SCH (09:03)
[2018-03-31] MEDS: LOSARTAN POTASSIUM 25 MG TAB PO SCH (09:04)
[2018-03-31 10:49] VITALS: BP 135/72
[2018-03-31 12:00] VITALS: BP 148/69
== END 2018-03-31 14:25 | disposition home or self-care (01) | DRG 291 ==
LOC: ER 12:40 → EDBD 12:40 → OVERFLOW 12:41 → EAST 03-28 15:18
PROVIDERS: ADMIT Nurse Practitioner; ATTEND Internal Medicine Cardiovascular Disease
PROC: 5A1D70Z Performance of Urinary Filtration, Intermittent, Less than 6 Hours Per Day (ICD-10-PCS; principal; 2018-03-28)
PROC: 5A1D70Z Performance of Urinary Filtration, Intermittent, Less than 6 Hours Per Day (ICD-10-PCS; 2018-03-30)
DX: I13.2 Hypertensive heart and chronic kidney disease with heart failure and with stage 5 chronic kidney disease, or end stage renal disease (principal); N18.6 End stage renal disease; N39.0 Urinary tract infection, site not specified; J98.11 Atelectasis; I50.32 Chronic diastolic (congestive) heart failure; E87.5 Hyperkalemia; E11.65 Type 2 diabetes mellitus with hyperglycemia; E11.22 Type 2 diabetes mellitus with diabetic chronic kidney disease; D63.1 Anemia in chronic kidney disease; E78.5 Hyperlipidemia, unspecified; F41.9 Anxiety disorder, unspecified; F32.9 Major depressive disorder, single episode, unspecified; Z83.3 Family history of diabetes mellitus; Z95.5 Presence of coronary angioplasty implant and graft; I25.2 Old myocardial infarction; Z95.1 Presence of aortocoronary bypass graft; Z95.2 Presence of prosthetic heart valve; Z99.2 Dependence on renal dialysis; Z79.4 Long term (current) use of insulin
CPT/HCPCS: 36415; 71045; 80048; 80053; 81001; 82962; 83735; 83880; 84132; 84443; 84484; 85025; 85610; 85730; 87081; 90935; 93005; 94761; 96374; 96375; J0610; J0696; J1815; J2405

== ENCOUNTER 2018-06-01 13:03 | Inpatient (IN) | payer MEDICARE, MEDICAID ==
[~2018-06-01] VITALS: Ht 154.9 cm; Wt 60.2 kg
[2018-06-01] MEDS ORDERED: SODIUM CHLORIDE 0.9% 1,000 ML IV ONE (13:53)
[2018-06-01] MEDS ORDERED: ALBUTEROL SULF 2.5 MG/0.5ML(0.5%) NEB SOLN NEB ONE (14:00)
[2018-06-01] MEDS ORDERED: IPRATROPIUM BROM 0.5 MG/2.5ML INH SOL NEB ONE (14:00)
[2018-06-01 14:26] LABS: Eosinophils # (auto) 0 uL; Eosinophils % (auto) 0.3 % (0.0-7.0); Lymphocytes # (auto) 0.3 uL; Lymphocytes % (auto) 4.6 % (10.0-50.0); Monocytes # (auto) 0.3 uL; Neutrophils % (auto) 90.7 % (37.0-80.0)
[2018-06-01 14:27] LABS: Basophils # (auto) 0 uL; Basophils % (auto) 0.4 % (0.0-2.0); Hematocrit 35.4 % (36.0-46.0); Hemoglobin 11.6 g/dL (12.2-16.2); Mean Corpuscular Hemoglobin 32.8 pg (28.0-32.0); Mean Corpuscular Hgb Conc. 32.8 g/dL (32.0-36.0); Mean Corpuscular Volume 99.9 fL (80.0-100.0); Neutrophils # (auto) 6.7 uL; Nucleated Red Blood Cells % 0.1 %; Red Blood Cells 3.54 10^6/uL (4.0-5.20); Red Cell Distribution Width 16.4 % (11.8-14.3); White Blood Cell 7.4 10^3/uL (4.4-10.8)
[2018-06-01 14:54] LABS: Albumin 3.3 g/dL (3.4-5.0); Calcium 7.3 mg/dL (8.5-10.1); Magnesium 2.5 mg/dL (1.6-2.6); Potassium 3.9 mmol/L (3.5-5.1)
[2018-06-01 15:00] LABS: BUN/Creatinine Ratio 8.4; Bilirubin, Total 0.3 mg/dL (0.2-1.0); Total Protein 7.4 g/dL (6.4-8.2)
[2018-06-01] MEDS ORDERED: ONDANSETRON HCL 4 MG/2 ML VIAL IV ONE ×2 (15:15→16:15)
[2018-06-01] MEDS ORDERED: MORPHINE SULFATE 4 MG/ML SYR/VIAL IV ONE ×2 (15:15→16:15)
[2018-06-01 15:29] LABS: Platelet Count (auto) 55 10^3/uL (140-450)
[2018-06-01] MEDS ORDERED: FUROSEMIDE 40 MG/4 ML VIAL IV ONE (15:45)
[2018-06-01] MEDS ORDERED: cloNIDine HCL 0.1 MG TAB PO PRN (17:30)
[2018-06-01] MEDS ORDERED: DEXTROSE (50%) 50ML SYRG IV PRN (17:30)
[2018-06-01] MEDS ORDERED: NITROGLYCERIN 0.4 MG SL TAB SL PRN ×2 (17:45)
[2018-06-01] MEDS ORDERED: MORPHINE SULFATE 4 MG/ML SYR/VIAL IV PRN ×2 (17:45)
[2018-06-01] MEDS ORDERED: METOCLOPRAMIDE HCL 10 MG TAB PO PRN (17:45)
[2018-06-01] MEDS ORDERED: ACETAMINOPHEN 325 MG TAB PO PRN (17:45)
[2018-06-01] MEDS ORDERED: ALUM & MAG HYDROX-SIMETH LIQ(MAALOX) 30 ML PO ONE (17:45)
[2018-06-01] MEDS ORDERED: LORazepam 0.5 MG TAB PO PRN (17:45)
[2018-06-01] MEDS: SEVELAMER 800 MG TAB PO SCH (18:20)
[2018-06-01] MEDS ORDERED: ENOXAPARIN SOD 60 MG/0.6 ML SYRINGE SC SCH (19:00)
[2018-06-01] MEDS: ATORVASTATIN 20 MG TAB PO SCH (22:00)
[2018-06-01 22:03] LABS: INR 1.36 (0.9-1.15); Partial Thromboplastin Time 41.4 sec (23.78-33.04); Prothrombin Time 14.3 sec (9.27-12.13)
[2018-06-01] MEDS: ACCU-CHEK COMFORT CURVE STRIP VI SCH (22:30)
[2018-06-01] MEDS: SODIUM CHLOR 0.9% PF (SALINE LOCK) 10ML VIAL/SYR IV SCH (22:35)
[2018-06-01] MEDS: InsuLIN REG 1unit/0.01ml Soln (100units/ml) SC SCH (22:37)
[2018-06-01] MEDS: QUEtiapine FUMARATE 100 MG TAB PO SCH (22:44)
[2018-06-01] MEDS: cloNIDine HCL 0.1 MG TAB PO SCH (23:11)
[2018-06-01] MEDS: CARVEDILOL 3.125 MG TAB PO SCH (23:24)
[2018-06-02] VITALS (7 sets, daily range): BP systolic 91–118; BP diastolic 48–62
[2018-06-02 05:45] LABS: Basophils # (auto) 0 uL; Basophils % (auto) 0.2 % (0.0-2.0); Eosinophils # (auto) 0 uL; Hematocrit 31.7 % (36.0-46.0); Hemoglobin 10.4 g/dL (12.2-16.2); Lymphocytes # (auto) 0.6 uL; Lymphocytes % (auto) 4.8 % (10.0-50.0); Mean Corpuscular Hemoglobin 32.8 pg (28.0-32.0); Mean Corpuscular Hgb Conc. 32.9 g/dL (32.0-36.0); Mean Corpuscular Volume 99.7 fL (80.0-100.0); Monocytes # (auto) 1.6 uL; Neutrophils # (auto) 10.2 uL; Platelet Count (auto) 65 10^3/uL (140-450); Red Blood Cells 3.18 10^6/uL (4.0-5.20); Red Cell Distribution Width 16.4 % (11.8-14.3); White Blood Cell 12.4 10^3/uL (4.4-10.8)
[2018-06-02 05:57] LABS: INR 1.59 (0.9-1.15); Prothrombin Time 16.6 sec (9.27-12.13)
[2018-06-02 06:11] LABS: Albumin 2.8 g/dL (3.4-5.0); Calcium 7.8 mg/dL (8.5-10.1); Magnesium 2.5 mg/dL (1.6-2.6)
[2018-06-02 06:15] LABS: BUN/Creatinine Ratio 8.4; Bilirubin, Total 0.4 mg/dL (0.2-1.0); Total Protein 6.3 g/dL (6.4-8.2)
[2018-06-02] MEDS: InsuLIN REG 1unit/0.01ml Soln (100units/ml) SC SCH ×4 (06:34→22:00)
[2018-06-02] MEDS: SODIUM CHLOR 0.9% PF (SALINE LOCK) 10ML VIAL/SYR IV SCH ×3 (06:34→22:30)
[2018-06-02] MEDS: ACCU-CHEK COMFORT CURVE STRIP VI SCH ×4 (06:34→22:29)
[2018-06-02] MEDS: LEVOTHYROXINE SODIUM 50 MCG TAB PO SCH (06:34)
[2018-06-02] MEDS: SEVELAMER 800 MG TAB PO SCH ×3 (08:05→22:28)
[2018-06-02] MEDS ORDERED: HEPARIN SODIUM (PORCINE) 5000 UNITS/ML 1ML VIAL ONE (09:37)
[2018-06-02] MEDS: PANTOPRAZOLE 40 MG TAB PO SCH (09:44)
[2018-06-02] MEDS: CARVEDILOL 3.125 MG TAB PO SCH ×2 (09:45→22:28)
[2018-06-02] MEDS: DOCUSATE SOD 100 MG CAP PO SCH (09:47)
[2018-06-02] MEDS: cloNIDine HCL 0.1 MG TAB PO SCH (09:49)
[2018-06-02] MEDS: ASCORBIC ACID 500 MG TAB PO SCH (09:50)
[2018-06-02] MEDS: HEPARIN SODIUM (PORCINE) 5000 UNITS/ML 1ML VIAL SC SCH ×2 (09:51→22:00)
[2018-06-02] MEDS ORDERED: LOSARTAN POTASSIUM 50 MG TAB PO SCH (10:00)
[2018-06-02] MEDS ORDERED: NIFEdipine ER 30 MG TAB PO SCH (10:00)
[2018-06-02] MEDS ORDERED: CAR3125T OR ×2 (12:58)
[2018-06-02] MEDS ORDERED: CAR3125T PO (12:58)
[2018-06-02] MEDS ORDERED: ALBUTEROL SULF 2.5 MG/0.5ML(0.5%) NEB SOLN NEB PRN (13:00)
[2018-06-02] MEDS ORDERED: WARF4TAB33 PO (13:00)
[2018-06-02] MEDS ORDERED: PANT1INJ3 IV (13:03)
[2018-06-02] MEDS ORDERED: NIFE30TA76 PO (13:03)
[2018-06-02] MEDS ORDERED: MET2I IM (13:03)
[2018-06-02] MEDS ORDERED: LOSA-46 PO (13:03)
[2018-06-02] MEDS ORDERED: LEVOFLOXACIN 250MG 50 ML IV ONE (13:18)
[2018-06-02] MEDS: CLINDAMYCIN 600MG IV 50 ML IV SCH ×2 (13:27→22:30)
[2018-06-02] MEDS: HYDROcodone-ACET 5/325MG TAB PO PRN (15:27)
[2018-06-02] MEDS: IPRATROPIUM BROM 0.5 MG/2.5ML INH SOL NEB SCH (18:22)
[2018-06-02] MEDS: ALBUTEROL SULF 2.5 MG/0.5ML(0.5%) NEB SOLN NEB SCH (18:22)
[2018-06-02 19:18] LABS: Urine Bacteria NONE SEEN /hpf (None Seen); Urine Blood TRACE /uL (Negative); Urine Specific Gravity 1.015 (1.001-1.035); Urine WBC 2 /hpf (0 - 5)
[2018-06-02] MEDS: ATORVASTATIN 20 MG TAB PO SCH (22:28)
[2018-06-02] MEDS: QUEtiapine FUMARATE 100 MG TAB PO SCH (22:28)
[2018-06-02] MEDS: ZOLPIDEM TARTRATE 5 MG TAB PO PRN (23:50)
[2018-06-03] VITALS (15 sets, daily range): BP systolic 96–123; BP diastolic 49–65
[2018-06-03] MEDS: IPRATROPIUM BROM 0.5 MG/2.5ML INH SOL NEB SCH ×4 (00:08→18:44)
[2018-06-03] MEDS: ALBUTEROL SULF 2.5 MG/0.5ML(0.5%) NEB SOLN NEB SCH ×4 (00:08→18:44)
[2018-06-03 05:01] LABS: Basophils # (auto) 0 uL; Basophils % (auto) 0.3 % (0.0-2.0); Eosinophils # (auto) 0.2 uL; Eosinophils % (auto) 1.7 % (0.0-7.0); Hemoglobin 9.8 g/dL (12.2-16.2); Lymphocytes # (auto) 0.7 uL; Lymphocytes % (auto) 6.1 % (10.0-50.0); Mean Corpuscular Hemoglobin 32.1 pg (28.0-32.0); Mean Corpuscular Hgb Conc. 32.6 g/dL (32.0-36.0); Mean Corpuscular Volume 98.7 fL (80.0-100.0); Monocytes % (auto) 8.9 % (0.0-12.0); Neutrophils # (auto) 9.6 uL; Platelet Count (auto) 69 10^3/uL (140-450); Red Blood Cells 3.04 10^6/uL (4.0-5.20); Red Cell Distribution Width 16.8 % (11.8-14.3); White Blood Cell 11.6 10^3/uL (4.4-10.8)
[2018-06-03 05:09] LABS: Albumin 2.8 g/dL (3.4-5.0); BUN/Creatinine Ratio 9.5; Calcium 8.1 mg/dL (8.5-10.1)
[2018-06-03 05:11] LABS: Bilirubin, Total 0.5 mg/dL (0.2-1.0); Total Protein 6.6 g/dL (6.4-8.2)
[2018-06-03 05:14] LABS: Potassium 5.6 mmol/L (3.5-5.1)
[2018-06-03 05:22] LABS: INR 1.66 (0.9-1.15); Partial Thromboplastin Time 53.7 sec (23.78-33.04); Prothrombin Time 17.3 sec (9.27-12.13)
[2018-06-03] MEDS: CLINDAMYCIN 600MG IV 50 ML IV SCH ×3 (05:33→21:20)
[2018-06-03] MEDS: SODIUM CHLOR 0.9% PF (SALINE LOCK) 10ML VIAL/SYR IV SCH ×3 (05:33→21:54)
[2018-06-03] MEDS: ACCU-CHEK COMFORT CURVE STRIP VI SCH ×4 (05:56→21:54)
[2018-06-03] MEDS: InsuLIN REG 1unit/0.01ml Soln (100units/ml) SC SCH ×4 (05:56→21:54)
[2018-06-03] MEDS ORDERED: SODIUM BICARBONATE 8.4 % INJ 50ML VIAL IV ONE (06:00)
[2018-06-03] MEDS ORDERED: CALCIUM GLUC 4.65meq/50ml D5AE 50 ML IV ONE (06:00)
[2018-06-03] MEDS ORDERED: DEXTROSE (50%) 50ML SYRG IV ONE (06:00)
[2018-06-03] MEDS ORDERED: InsuLIN REG 1unit/0.01ml Soln (100units/ml) IV ONE (06:15)
[2018-06-03] MEDS: LEVOTHYROXINE SODIUM 50 MCG TAB PO SCH (06:22)
[2018-06-03] MEDS: SEVELAMER 800 MG TAB PO SCH ×3 (08:00→17:56)
[2018-06-03] MEDS ORDERED: LIDOCAINE 2%HCL (LOCAL ANESTH.) INJ 20ML MDV ONE (08:43)
[2018-06-03] MEDS ORDERED: IOHEXOL 350 MG/ML 100ML IJ ONE (08:43)
[2018-06-03] MEDS ORDERED: ANGIOMAX 250 MG VIAL IV ONE (09:26)
[2018-06-03] MEDS ORDERED: fentaNYL CITRATE 100 MCG/2 ML VL ONE (09:26)
[2018-06-03] MEDS ORDERED: MIDAZOLAM HCL 1MG/1ML-2 ML VIAL ONE (09:26)
[2018-06-03] MEDS ORDERED: SODIUM CHL 0.9% 0 ML ONE (09:27)
[2018-06-03] MEDS: ASCORBIC ACID 500 MG TAB PO SCH (10:00)
[2018-06-03] MEDS: ASPirin 81 mg TAB PO SCH (10:00)
[2018-06-03] MEDS: PANTOPRAZOLE 40 MG TAB PO SCH (10:00)
[2018-06-03] MEDS: CARVEDILOL 3.125 MG TAB PO SCH ×2 (10:00→21:21)
[2018-06-03] MEDS: DOCUSATE SOD 100 MG CAP PO SCH (10:00)
[2018-06-03] MEDS ORDERED: LEVOFLOXACIN 250MG 50 ML IV SCH (10:00)
[2018-06-03] MEDS: ONDANSETRON HCL 4 MG/2 ML VIAL IV PRN (15:51)
[2018-06-03] MEDS ORDERED: WARFARIN SODIUM 2 MG TAB PO ONE (17:00)
[2018-06-03] MEDS: HYDROcodone-ACET 5/325MG TAB PO PRN (20:10)
[2018-06-03] MEDS: ATORVASTATIN 20 MG TAB PO SCH (21:21)
[2018-06-03] MEDS: QUEtiapine FUMARATE 100 MG TAB PO SCH (21:21)
[2018-06-03] MEDS: ZOLPIDEM TARTRATE 5 MG TAB PO PRN (21:55)
[2018-06-04] VITALS (8 sets, daily range): BP systolic 89–146; BP diastolic 48–86
[2018-06-04] MEDS: ALBUTEROL SULF 2.5 MG/0.5ML(0.5%) NEB SOLN NEB SCH ×4 (01:21→18:59)
[2018-06-04] MEDS: IPRATROPIUM BROM 0.5 MG/2.5ML INH SOL NEB SCH ×4 (01:21→18:59)
[2018-06-04 05:42] LABS: INR 1.85 (0.9-1.15); Prothrombin Time 19.1 sec (9.27-12.13)
[2018-06-04] MEDS: CLINDAMYCIN 600MG IV 50 ML IV SCH ×3 (06:14→22:12)
[2018-06-04] MEDS: InsuLIN REG 1unit/0.01ml Soln (100units/ml) SC SCH (06:15)
[2018-06-04] MEDS: SODIUM CHLOR 0.9% PF (SALINE LOCK) 10ML VIAL/SYR IV SCH ×3 (06:15→21:54)
[2018-06-04] MEDS: LEVOTHYROXINE SODIUM 50 MCG TAB PO SCH (06:15)
[2018-06-04] MEDS: ACCU-CHEK COMFORT CURVE STRIP VI SCH (06:17)
[2018-06-04] MEDS: SEVELAMER 800 MG TAB PO SCH ×3 (08:00→18:19)
[2018-06-04] MEDS ORDERED: diphenhdrAMINE HCL 50 MG/1 ML VL IV ONE (10:15)
[2018-06-04] MEDS: DOCUSATE SOD 100 MG CAP PO SCH (12:11)
[2018-06-04] MEDS: LEVOFLOXACIN 500MG 100 ML IV SCH (12:11)
[2018-06-04] MEDS: PANTOPRAZOLE 40 MG TAB PO SCH (12:12)
[2018-06-04] MEDS: ASCORBIC ACID 500 MG TAB PO SCH (12:12)
[2018-06-04] MEDS: ASPirin 81 mg TAB PO SCH (12:13)
[2018-06-04 12:41] LABS: BUN/Creatinine Ratio 7.9; Calcium 8.4 mg/dL (8.5-10.1); Magnesium 2.6 mg/dL (1.6-2.6)
[2018-06-04 12:44] LABS: Bilirubin, Total 0.5 mg/dL (0.2-1.0); Total Protein 7.8 g/dL (6.4-8.2)
[2018-06-04] MEDS: CARVEDILOL 3.125 MG TAB PO SCH ×2 (14:34→22:13)
[2018-06-04] MEDS: HYDROcodone-ACET 5/325MG TAB PO PRN ×2 (17:18→21:58)
[2018-06-04] MEDS: QUEtiapine FUMARATE 100 MG TAB PO SCH (21:54)
[2018-06-04] MEDS: ATORVASTATIN 20 MG TAB PO SCH (21:54)
[2018-06-04] MEDS: CINACALCET HYDROCHLORIDE 30 MG TAB PO SCH (21:54)
[2018-06-04] MEDS: ALPRAZolam 0.5 MG TAB PO PRN (22:00)
[2018-06-04] MEDS: ZOLPIDEM TARTRATE 5 MG TAB PO PRN (22:00)
[2018-06-05] VITALS (9 sets, daily range): BP systolic 94–126; BP diastolic 57–88
[2018-06-05] MEDS ORDERED: TEMAZEPAM 15 MG CAP PO ONE (02:30)
[2018-06-05 05:14] LABS: Basophils # (auto) 0 uL; Basophils % (auto) 0.4 % (0.0-2.0); Eosinophils # (auto) 0.1 uL; Eosinophils % (auto) 1.7 % (0.0-7.0); Hematocrit 28.8 % (36.0-46.0); Hemoglobin 9.5 g/dL (12.2-16.2); Lymphocytes # (auto) 0.6 uL; Lymphocytes % (auto) 8.9 % (10.0-50.0); Mean Corpuscular Hemoglobin 32.5 pg (28.0-32.0); Mean Corpuscular Hgb Conc. 32.8 g/dL (32.0-36.0); Mean Corpuscular Volume 98.9 fL (80.0-100.0); Monocytes # (auto) 0.7 uL; Monocytes % (auto) 11.1 % (0.0-12.0); Neutrophils # (auto) 4.9 uL; Neutrophils % (auto) 77.9 % (37.0-80.0); Platelet Count (auto) 106 10^3/uL (140-450); Red Blood Cells 2.91 10^6/uL (4.0-5.20); Red Cell Distribution Width 16.6 % (11.8-14.3); White Blood Cell 6.4 10^3/uL (4.4-10.8)
[2018-06-05 05:24] LABS: INR 2.95 (0.9-1.15); Prothrombin Time 29.7 sec (9.27-12.13)
[2018-06-05 05:28] LABS: Albumin 2.6 g/dL (3.4-5.0); Potassium 4.8 mmol/L (3.5-5.1)
[2018-06-05 05:31] LABS: BUN/Creatinine Ratio 7.6
[2018-06-05 05:33] LABS: Bilirubin, Total 0.5 mg/dL (0.2-1.0); Total Protein 6.7 g/dL (6.4-8.2)
[2018-06-05] MEDS: CLINDAMYCIN 600MG IV 50 ML IV SCH ×3 (05:58→21:15)
[2018-06-05] MEDS: SODIUM CHLOR 0.9% PF (SALINE LOCK) 10ML VIAL/SYR IV SCH ×3 (05:58→21:15)
[2018-06-05] MEDS: ALBUTEROL SULF 2.5 MG/0.5ML(0.5%) NEB SOLN NEB SCH ×4 (06:22→17:39)
[2018-06-05] MEDS: IPRATROPIUM BROM 0.5 MG/2.5ML INH SOL NEB SCH ×4 (06:22→17:39)
[2018-06-05] MEDS: LEVOTHYROXINE SODIUM 50 MCG TAB PO SCH (06:52)
[2018-06-05] MEDS: SEVELAMER 800 MG TAB PO SCH ×4 (08:18→18:21)
[2018-06-05] MEDS: PANTOPRAZOLE 40 MG TAB PO SCH (10:48)
[2018-06-05] MEDS: ASPirin 81 mg TAB PO SCH (10:51)
[2018-06-05] MEDS: ASCORBIC ACID 500 MG TAB PO SCH (10:51)
[2018-06-05] MEDS: DOCUSATE SOD 100 MG CAP PO SCH (10:51)
[2018-06-05] MEDS: CARVEDILOL 3.125 MG TAB PO SCH ×2 (10:52→21:20)
[2018-06-05] MEDS ORDERED: WARFARIN SODIUM 5 MG TAB PO ONE (17:00)
[2018-06-05] MEDS: CINACALCET HYDROCHLORIDE 30 MG TAB PO SCH (21:15)
[2018-06-05] MEDS: QUEtiapine FUMARATE 100 MG TAB PO SCH (21:15)
[2018-06-05] MEDS: ATORVASTATIN 20 MG TAB PO SCH (21:15)
[2018-06-05] MEDS: ZOLPIDEM TARTRATE 5 MG TAB PO PRN (22:58)
[2018-06-06] VITALS: BP 135/89
[2018-06-06] MEDS: HYDROcodone-ACET 5/325MG TAB PO PRN ×2 (00:13→12:32)
[2018-06-06] MEDS: IPRATROPIUM BROM 0.5 MG/2.5ML INH SOL NEB SCH ×4 (00:20→18:13)
[2018-06-06] MEDS: ALBUTEROL SULF 2.5 MG/0.5ML(0.5%) NEB SOLN NEB SCH ×4 (00:20→18:13)
[2018-06-06 04:00] VITALS: BP 98/63
[2018-06-06 05:21] LABS: INR 2.57 (0.9-1.15); Prothrombin Time 26.1 sec (9.27-12.13)
[2018-06-06] MEDS: CLINDAMYCIN 600MG IV 50 ML IV SCH ×3 (06:17→22:06)
[2018-06-06] MEDS: LEVOTHYROXINE SODIUM 50 MCG TAB PO SCH (06:17)
[2018-06-06] MEDS: SODIUM CHLOR 0.9% PF (SALINE LOCK) 10ML VIAL/SYR IV SCH ×3 (06:17→22:05)
[2018-06-06 08:00] VITALS: BP 110/78
[2018-06-06] MEDS: SEVELAMER 800 MG TAB PO SCH ×3 (09:01→17:25)
[2018-06-06] MEDS: DOCUSATE SOD 100 MG CAP PO SCH (09:58)
[2018-06-06] MEDS: ASCORBIC ACID 500 MG TAB PO SCH (09:58)
[2018-06-06] MEDS: PANTOPRAZOLE 40 MG TAB PO SCH (09:58)
[2018-06-06] MEDS: LEVOFLOXACIN 500MG 100 ML IV SCH (09:58)
[2018-06-06] MEDS: CARVEDILOL 3.125 MG TAB PO SCH ×2 (10:00→22:06)
[2018-06-06] MEDS: ASPirin 81 mg TAB PO SCH (10:00)
[2018-06-06 11:53] VITALS: BP 123/83
[2018-06-06] MEDS ORDERED: SODIUM CHL 0.9% 1000 ML BAG XX ONE (12:45)
[2018-06-06] MEDS ORDERED: EPOETIN ALFA 10,000 UNIT/1 ML VIAL IV ONE (12:45)
[2018-06-06] MEDS ORDERED: diphenhdrAMINE HCL 25 MG CAP PO PRN (14:15)
[2018-06-06 15:49] VITALS: BP 153/82
[2018-06-06] MEDS ORDERED: WARFARIN SODIUM 1 MG TAB PO ONE (17:00)
[2018-06-06 19:46] VITALS: BP 135/76
[2018-06-06] MEDS: QUEtiapine FUMARATE 100 MG TAB PO SCH (22:04)
[2018-06-06] MEDS: ATORVASTATIN 20 MG TAB PO SCH (22:05)
[2018-06-06] MEDS: CINACALCET HYDROCHLORIDE 30 MG TAB PO SCH (22:08)
[2018-06-06] MEDS: ALPRAZolam 0.5 MG TAB PO PRN (22:16)
[2018-06-07] VITALS: BP 132/72
[2018-06-07] MEDS: ALBUTEROL SULF 2.5 MG/0.5ML(0.5%) NEB SOLN NEB SCH ×4 (00:08→18:33)
[2018-06-07] MEDS: IPRATROPIUM BROM 0.5 MG/2.5ML INH SOL NEB SCH ×4 (00:08→18:33)
[2018-06-07 04:00] VITALS: BP 122/78
[2018-06-07 05:54] LABS: INR 3.24 (0.9-1.15); Prothrombin Time 32.4 sec (9.27-12.13)
[2018-06-07] MEDS: SODIUM CHLOR 0.9% PF (SALINE LOCK) 10ML VIAL/SYR IV SCH ×3 (05:56→21:55)
[2018-06-07] MEDS: CLINDAMYCIN 600MG IV 50 ML IV SCH ×3 (05:56→21:51)
[2018-06-07] MEDS: LEVOTHYROXINE SODIUM 50 MCG TAB PO SCH (06:00)
[2018-06-07 08:20] VITALS: BP 125/63
[2018-06-07] MEDS: SEVELAMER 800 MG TAB PO SCH ×3 (08:54→17:36)
[2018-06-07] MEDS: DOCUSATE SOD 100 MG CAP PO SCH (09:07)
[2018-06-07] MEDS: PANTOPRAZOLE 40 MG TAB PO SCH (09:07)
[2018-06-07] MEDS: CARVEDILOL 3.125 MG TAB PO SCH ×2 (09:07→21:51)
[2018-06-07] MEDS: ASCORBIC ACID 500 MG TAB PO SCH (09:07)
[2018-06-07] MEDS: ASPirin 81 mg TAB PO SCH (09:08)
[2018-06-07] MEDS ORDERED: DIGOXIN 0.125 MG TAB PO SCH (10:00)
[2018-06-07 12:00] VITALS: BP 130/71
[2018-06-07] MEDS: HYDROcodone-ACET 5/325MG TAB PO PRN (13:09)
[2018-06-07 15:54] VITALS: BP 130/70
[2018-06-07 19:54] VITALS: BP 131/70
[2018-06-07] MEDS: QUEtiapine FUMARATE 100 MG TAB PO SCH (21:49)
[2018-06-07] MEDS: ATORVASTATIN 20 MG TAB PO SCH (21:51)
[2018-06-07] MEDS: CINACALCET HYDROCHLORIDE 30 MG TAB PO SCH (21:52)
[2018-06-07] MEDS: ZOLPIDEM TARTRATE 5 MG TAB PO PRN (23:24)
[2018-06-08] VITALS: BP_SYST 124; BP_SYST 140; BP_DIAS 69; BP_DIAS 80
[2018-06-08] MEDS: ONDANSETRON HCL 4 MG/2 ML VIAL IV PRN (00:30)
[2018-06-08] MEDS: IPRATROPIUM BROM 0.5 MG/2.5ML INH SOL NEB SCH ×3 (00:36→12:10)
[2018-06-08] MEDS: ALBUTEROL SULF 2.5 MG/0.5ML(0.5%) NEB SOLN NEB SCH ×3 (00:36→12:10)
[2018-06-08 04:00] VITALS: BP 103/47
[2018-06-08] MEDS: CLINDAMYCIN 600MG IV 50 ML IV SCH (05:29)
[2018-06-08] MEDS: SODIUM CHLOR 0.9% PF (SALINE LOCK) 10ML VIAL/SYR IV SCH (05:29)
[2018-06-08 05:48] LABS: INR 3.06 (0.9-1.15); Prothrombin Time 30.7 sec (9.27-12.13)
[2018-06-08] MEDS: LEVOTHYROXINE SODIUM 50 MCG TAB PO SCH (06:26)
[2018-06-08 08:00] VITALS: BP 119/63
[2018-06-08] MEDS: SEVELAMER 800 MG TAB PO SCH (08:00)
[2018-06-08] MEDS ORDERED: EPOETIN ALFA 10,000 UNIT/1 ML VIAL IV ONE (09:45)
[2018-06-08] MEDS: LEVOFLOXACIN 500MG 100 ML IV SCH (10:32)
[2018-06-08] MEDS: ASPirin 81 mg TAB PO SCH (10:33)
[2018-06-08] MEDS: ASCORBIC ACID 500 MG TAB PO SCH (10:34)
[2018-06-08] MEDS: DOCUSATE SOD 100 MG CAP PO SCH (10:34)
[2018-06-08] MEDS: PANTOPRAZOLE 40 MG TAB PO SCH (10:34)
[2018-06-08 11:53] VITALS: BP 141/82
[2018-06-08] MEDS: CARVEDILOL 3.125 MG TAB PO SCH (11:53)
[2018-06-08 11:58] VITALS: BP 141/82
[2018-06-08] MEDS ORDERED: WARFARIN SODIUM 2 MG TAB PO ONE (17:00)
== END 2018-06-08 14:50 | disposition home or self-care (01) | DRG 280 ==
LOC: EDBD 13:03 → EDUNIT# 13:07 → ER 13:07 → TELE 17:44 → DOU IN ICU 23:30
PROVIDERS: ADMIT Internal Medicine; ATTEND Family Medicine
PROC: B2111ZZ Fluoroscopy of Multiple Coronary Arteries using Low Osmolar Contrast (ICD-10-PCS; principal; 2018-06-03)
PROC: 4A023N8 Measurement of Cardiac Sampling and Pressure, Bilateral, Percutaneous Approach (ICD-10-PCS; 2018-06-03)
PROC: B2151ZZ Fluoroscopy of Left Heart using Low Osmolar Contrast (ICD-10-PCS; 2018-06-03)
PROC: 5A1D70Z Performance of Urinary Filtration, Intermittent, Less than 6 Hours Per Day (ICD-10-PCS; 2018-06-04)
PROC: 5A1D70Z Performance of Urinary Filtration, Intermittent, Less than 6 Hours Per Day (ICD-10-PCS; 2018-06-06)
PROC: 5A1D70Z Performance of Urinary Filtration, Intermittent, Less than 6 Hours Per Day (ICD-10-PCS; 2018-06-08)
DX: I21.4 Non-ST elevation (NSTEMI) myocardial infarction (principal); N18.6 End stage renal disease; I50.31 Acute diastolic (congestive) heart failure; I13.2 Hypertensive heart and chronic kidney disease with heart failure and with stage 5 chronic kidney disease, or end stage renal disease; I48.92 Unspecified atrial flutter; E44.1 Mild protein-calorie malnutrition; I25.10 Atherosclerotic heart disease of native coronary artery without angina pectoris; E11.22 Type 2 diabetes mellitus with diabetic chronic kidney disease; E83.51 Hypocalcemia; I27.20 Pulmonary hypertension, unspecified; I35.0 Nonrheumatic aortic (valve) stenosis; I48.0 Paroxysmal atrial fibrillation; Z95.0 Presence of cardiac pacemaker; Z95.1 Presence of aortocoronary bypass graft; Z95.2 Presence of prosthetic heart valve; Z99.2 Dependence on renal dialysis; D64.9 Anemia, unspecified; E03.9 Hypothyroidism, unspecified; F32.9 Major depressive disorder, single episode, unspecified; J44.9 Chronic obstructive pulmonary disease, unspecified; Z79.01 Long term (current) use of anticoagulants; Z68.25 Body mass index [BMI] 25.0-25.9, adult
CPT/HCPCS: 36415; 36600; 71045; 71046; 80053; 80061; 81001; 82805; 82962; 83036; 83735; 83880; 84443; 84484; 85025; 85610; 85730; 86850; 86900; 86901; 87070; 87077; 87081; 87086; 87186; 87205; 87804; 90935; 93005; 94640; 94761; 96372; 96374; 96375; 96376; 97163; A6257; G0378; J0610; J0885; J1815; J1956; J2250; J2405; J3490

== ENCOUNTER 2018-06-16 10:53 | Emergency (ER) | payer MEDICARE, MEDICAID ==
[~2018-06-16] VITALS: Ht 170.2 cm; Wt 56.7 kg
[~2018-06-16 10:53] MED LIST changes: -ALPR0.254 PO; +CAR3125T OR; -CAR3125T PO; +LOSA-46 PO; -LOSA25TA40 PO; +MET2I IM; -NIFE30TA66 PO; +NIFE30TA76 PO; +PANT1INJ3 IV; -SEVE800T8 PO; -SIMV-8 PO; +WARF4TAB33 PO; -WARF5TAB PO
[2018-06-16 11:00] VITALS: BP 138/58
[2018-06-16] MEDS ORDERED: methylPREDNISolone SOD SUCC 125 MG/2 ML VL IM ONE (13:30)
== END 2018-06-16 14:30 | disposition home or self-care (01) ==
LOC: ER 10:53
DX: T78.40XA Allergy, unspecified, initial encounter (principal); R22.9 Localized swelling, mass and lump, unspecified; E11.22 Type 2 diabetes mellitus with diabetic chronic kidney disease; I12.0 Hypertensive chronic kidney disease with stage 5 chronic kidney disease or end stage renal disease; N18.6 End stage renal disease; Z99.2 Dependence on renal dialysis; Z79.899 Other long term (current) drug therapy; Z79.01 Long term (current) use of anticoagulants; X58.XXXA Exposure to other specified factors, initial encounter; Z95.0 Presence of cardiac pacemaker
CPT/HCPCS: 96372; 99283; J2930

== ENCOUNTER → 2018-06-20 | Outpatient (CLI) | payer MEDICARE, MEDICAID ==
[2018-06-20 15:55] VITALS: BP 140/80
[2018-06-20 16:39] VITALS: BP 152/65
== END | disposition home or self-care (01) ==
LOC: CHF HDHVI 15:51
PROVIDERS: ATTEND Internal Medicine
DX: I27.21 Secondary pulmonary arterial hypertension (principal); R06.00 Dyspnea, unspecified
CPT/HCPCS: 93701; 94618; G0463

== ENCOUNTER → 2018-06-24 | Outpatient (CLI) | payer MEDICARE, MEDICAID ==
[2018-06-24 09:40] VITALS: BP 143/73
[2018-06-24 10:06] VITALS: BP 134/67
[2018-06-24 13:21] LABS: Potassium 4.7 mmol/L (3.5-5.1)
[2018-06-24 13:35] LABS: Calcium 7.3 mg/dL (8.5-10.1)
== END | disposition home or self-care (01) ==
LOC: CHF HDHVI 09:39
PROVIDERS: ATTEND Internal Medicine
DX: I10 Essential (primary) hypertension (principal); I27.20 Pulmonary hypertension, unspecified; R00.2 Palpitations
CPT/HCPCS: 36415; 80048; G0463

== ENCOUNTER → 2018-07-17 | Outpatient (CLI) | payer MEDICARE, MEDICAID ==
[~2018-07-17] VITALS: Ht 165.1 cm; Wt 57.0 kg
[~2018-07-17] MED LIST changes: +CYANOCOBALAMIN (B-12) 1000 MCG/1 ML VIAL IM ONE; +CYANOCOBALAMIN (B-12) 1000 MCG/1 ML VIAL ONE
[2018-07-17 11:25] VITALS: BP 125/66
--- NOTE | 2018-07-17 11:25 | NUR ---
CHF PT TO CHF CLINIC FOR 1 WEEK F/U AFTER STARTED ON NEW MEDICATION SILDENAFIL X 1 WEEK.
[2018-07-17 12:20] VITALS: BP 128/70
--- NOTE | 2018-07-17 12:20 | NUR ---
CHF Discharge Instructions See e-MAR for any mediations given with this visit. Patient education given on disease process. Patient verbalized understanding. VIT B 12 1000MCG IM R DELTOID. CARDIODYNAMICS PROVIDED. Previous labs reviewed. RESUME COUMADIN 5 MG 1 PO QD . Patient discharged in stable condition with after care instructions and follow up appointment. FOLLOW UP IN 1 WEEK FOR PTINR AND MEDICATION MANAGEMENT AND EFFECT.
== END | disposition home or self-care (01) ==
LOC: CHF HDHVI 11:26
PROVIDERS: ATTEND Internal Medicine Cardiovascular Disease
DX: I27.21 Secondary pulmonary arterial hypertension (principal); I13.2 Hypertensive heart and chronic kidney disease with heart failure and with stage 5 chronic kidney disease, or end stage renal disease; E11.22 Type 2 diabetes mellitus with diabetic chronic kidney disease; N18.6 End stage renal disease; I50.32 Chronic diastolic (congestive) heart failure; I25.10 Atherosclerotic heart disease of native coronary artery without angina pectoris; I48.0 Paroxysmal atrial fibrillation; I25.2 Old myocardial infarction; J44.9 Chronic obstructive pulmonary disease, unspecified; E03.9 Hypothyroidism, unspecified; E78.5 Hyperlipidemia, unspecified; F32.9 Major depressive disorder, single episode, unspecified; K21.9 Gastro-esophageal reflux disease without esophagitis; F41.9 Anxiety disorder, unspecified; Z79.4 Long term (current) use of insulin; Z79.01 Long term (current) use of anticoagulants; Z79.899 Other long term (current) drug therapy; Z95.1 Presence of aortocoronary bypass graft; Z95.5 Presence of coronary angioplasty implant and graft; E78.00 Pure hypercholesterolemia, unspecified; Z99.2 Dependence on renal dialysis
CPT/HCPCS: 85610; 93701; 96372; G0463; J3420

== ENCOUNTER → 2018-07-24 | Outpatient (CLI) | payer MEDICARE, MEDICAID ==
[~2018-07-24] MED LIST changes: -CYANOCOBALAMIN (B-12) 1000 MCG/1 ML VIAL IM ONE; -CYANOCOBALAMIN (B-12) 1000 MCG/1 ML VIAL ONE
[2018-07-24 09:45] VITALS: BP 147/83
--- NOTE | 2018-07-24 09:45 | NUR ---
CHF PT TO CHF CLINIC FOR MD DARNELL ORDERED CARDIODYNAMICS AND PTINR
[2018-07-24 10:23] VITALS: BP 155/75
--- NOTE | 2018-07-24 10:23 | NUR ---
CHF Discharge Instructions See e-MAR for any mediations given with this visit. Patient education given on disease process. Patient verbalized understanding. Previous labs reviewed. Patient discharged in stable condition with after care instructions and follow up appointment. F/U WITH DR. FAEY 07/31/18
== END | disposition home or self-care (01) ==
LOC: CHF HDHVI 09:49
PROVIDERS: ATTEND Internal Medicine Cardiovascular Disease
DX: I12.0 Hypertensive chronic kidney disease with stage 5 chronic kidney disease or end stage renal disease (principal); E11.22 Type 2 diabetes mellitus with diabetic chronic kidney disease; N18.6 End stage renal disease; I27.21 Secondary pulmonary arterial hypertension; R06.02 Shortness of breath; R79.1 Abnormal coagulation profile
CPT/HCPCS: 85610; 93701; G0463

== ENCOUNTER 2019-01-08 16:24 | Inpatient (IN) | payer MEDICARE, MEDICAID ==
[~2019-01-08] VITALS: Ht 152.4 cm; Wt 63.9 kg
[2019-01-08 17:58] LABS: Basophils # (auto) 0.1 uL; Eosinophils # (auto) 0 uL; Hematocrit 31.1 % (36.0-46.0); Lymphocytes # (auto) 0.7 uL; Monocytes # (auto) 0.7 uL; Neutrophils # (auto) 7.6 uL; White Blood Cell 9.1 10^3/uL (4.4-10.8)
[2019-01-08 17:59] LABS: Basophils % (auto) 0.6 % (0.0-2.0); Eosinophils % (auto) 0.3 % (0.0-7.0); Hemoglobin 10.4 g/dL (12.2-16.2); Lymphocytes % (auto) 7.7 % (10.0-50.0); Mean Corpuscular Hemoglobin 34.5 pg (28.0-32.0); Mean Corpuscular Hgb Conc. 33.3 g/dL (32.0-36.0); Mean Corpuscular Volume 103.6 fL (80.0-100.0); Monocytes % (auto) 7.6 % (0.0-12.0); Neutrophils % (auto) 83.8 % (37.0-80.0); Nucleated Red Blood Cells % 0.1 %; Platelet Count (auto) 133 10^3/uL (140-450); Red Cell Distribution Width 18.4 % (11.8-14.3)
[2019-01-08 18:13] LABS: Alanine Aminotransferase 20 U/L (13-56); Albumin 4.1 g/dL (3.4-5.0); Anion Gap 10 (5-15); Aspartate Aminotransferase 10 U/L (15-37); BUN/Creatinine Ratio 7.8; Blood Urea Nitrogen 49 mg/dL (7-18); Carbon Dioxide 28 mmol/L (21-32); Chloride 98 mmol/L (98-107); GFR African American 9 mL/min; GFR Non-African American 7 mL/min; Glucose 106 mg/dL (74-106); Potassium 3.9 mmol/L (3.5-5.1); Sodium 136 mmol/L (136-145)
[2019-01-08 18:18] LABS: Alkaline Phosphatase 679 U/L (45-117); Bilirubin, Total 0.3 mg/dL (0.2-1.0); Total Protein 8.2 g/dL (6.4-8.2)
[2019-01-08] MEDS ORDERED: SODIUM CHLORIDE 0.9% 1,000 ML IV ONE (23:30)
[2019-01-08] MEDS ORDERED: MORPHINE SULFATE 4 MG/ML SYR/VIAL IV ONE (23:30)
[2019-01-08] MEDS ORDERED: ONDANSETRON HCL 4 MG/2 ML VIAL IV ONE (23:30)
[2019-01-09] MEDS ORDERED: LORazepam 2MG/ML-1ML VIAL IV ONE (02:30)
[2019-01-09] MEDS ORDERED: DEXTROSE (50%) 50ML SYRG IV PRN (04:45)
[2019-01-09] MEDS ORDERED: HYDROcodone-ACET 5/325MG TAB PO PRN (04:45)
[2019-01-09] MEDS: cefTRIAXone 1GM/50ML D5W 50 ML IV SCH ×2 (04:45→11:14)
[2019-01-09] MEDS: SODIUM CHLORIDE 0.9% 1,000 ML IV SCH ×3 (05:12→11:35)
[2019-01-09 05:40] VITALS: BP 132/68
--- NOTE | 2019-01-09 05:40 | NUR ---
MS admit from ER TRAV [facility] admitted to tele/MS. Patient oriented to Chloe Kaiser, primary RN, unit, room, bed, and unit policies regarding patient care and visiting hours. Patient weighed by bed scale and encouraged to call if they need something. All questions and concerns addressed, patient verbalized understanding.
--- NOTE | 2019-01-09 05:57 | NUR ---
Home medications: Patient verbalized she will have son bring her home medications when he visits for review of home medications.
[2019-01-09] MEDS: ACCU-CHEK COMFORT CURVE STRIP VI SCH ×3 (05:59→18:00)
[2019-01-09] MEDS: InsuLIN REG 1unit/0.01ml Soln (100units/ml) SC SCH ×3 (06:00→18:00)
[2019-01-09] MEDS: MORPHINE SULFATE 4 MG/ML SYR/VIAL IV PRN ×2 (06:05→19:11)
[2019-01-09] MEDS: ACETAMINOPHEN 325 MG TAB PO PRN (06:12)
[2019-01-09 06:31] LABS: INR 1.54 (0.9-1.15); Partial Thromboplastin Time 42.6 sec (23.64-32.05)
[2019-01-09] MEDS ORDERED: metroNIDAZOLE 500MG/100ML 100 ML IV ONE (07:30)
--- NOTE | 2019-01-09 07:30 | NUR ---
Opening Shift Note Assuming care of patient at this time. Patient is awake, alert, and oriented. Patient denies pain at this time. Bed is locked and lowered with side rails up x2. Instructed patient on the plan of care for today and to call for assistance as needed. Call light within reach. Will continue to round hourly and as needed.
[2019-01-09] MEDS: LEVOTHYROXINE SODIUM 50 MCG TAB PO SCH (07:51)
--- NOTE | 2019-01-09 07:54 | NUR ---
[facility] SWAB SENT TO LAB.
[2019-01-09 09:00] VITALS: BP 127/72
[2019-01-09] MEDS: PANTOPRAZOLE 40 MG TAB PO SCH (11:22)
[2019-01-09] MEDS: NIFEdipine ER 30 MG TAB PO SCH (11:23)
[2019-01-09] MEDS: LOSARTAN POTASSIUM 50 MG TAB PO SCH (11:29)
[2019-01-09] MEDS: CARVEDILOL 3.125 MG TAB PO SCH ×2 (11:30→21:24)
--- NOTE | 2019-01-09 11:48 | NUR ---
Call to Dr. Alcantar Office Patient is a Tues/Thurs/Sat dialysis patient. Left a message with office to contact and acute nurse to see about getting patient placed on the schedule for today.
[2019-01-09 13:00] VITALS: BP 141/67
[2019-01-09] MEDS: metroNIDAZOLE 500MG/100ML 100 ML IV SCH ×2 (14:00→21:23)
[2019-01-09] MEDS ORDERED: SODIUM CHL 0.9% 1000 ML BAG XX ONE (14:30)
[2019-01-09] MEDS ORDERED: PHYTONADIONE (VIT K)10 MG/ML 1ML VIAL SUBCUT ONE ×2 (15:30→19:00)
[2019-01-09 16:22] LABS: Basophils # (auto) 0 uL; Eosinophils # (auto) 0 uL; Hematocrit 29.4 % (36.0-46.0); Lymphocytes # (auto) 0.4 uL; Mean Corpuscular Volume 104.3 fL (80.0-100.0); Neutrophils # (auto) 6.3 uL
[2019-01-09 16:24] LABS: Basophils % (auto) 0.3 % (0.0-2.0); Hemoglobin 9.8 g/dL (12.2-16.2); Lymphocytes % (auto) 5.7 % (10.0-50.0); Mean Corpuscular Hemoglobin 34.7 pg (28.0-32.0); Mean Corpuscular Hgb Conc. 33.2 g/dL (32.0-36.0); Monocytes # (auto) 0.3 uL; Monocytes % (auto) 4.8 % (0.0-12.0); Neutrophils % (auto) 89.2 % (37.0-80.0); Platelet Count (auto) 87 10^3/uL (140-450); Red Blood Cells 2.82 10^6/uL (4.0-5.20); Red Cell Distribution Width 17.8 % (11.8-14.3); White Blood Cell 7.1 10^3/uL (4.4-10.8)
[2019-01-09 17:00] VITALS: BP 171/76
[2019-01-09 17:10] LABS: Phosphorus 2.2 mg/dL (2.5-4.90); Uric Acid 4.2 mg/dL (2.6-6.0)
--- NOTE | 2019-01-09 19:00 | NUR ---
Dialysis Patient has received dialysis. 3L taken off, BP is 131/70.
--- NOTE | 2019-01-09 19:28 | NUR ---
Closing Note Patient is resting in bed. Dialysis has been completed. Patient is medicated for pain. Family, daughter, at bedside. Report given. Will endorse care to the textile machine maintenance mechanic RN.
[2019-01-09] MEDS ORDERED: EPOETIN ALFA 4,000 UNIT/ML VL SC ONE (21:00)
[2019-01-09 22:00] VITALS: BP 135/69
[2019-01-10] MEDS: ACCU-CHEK COMFORT CURVE STRIP VI SCH ×3 (00:24→12:00)
[2019-01-10 05:00] VITALS: BP 94/43
[2019-01-10] MEDS: InsuLIN REG 1unit/0.01ml Soln (100units/ml) SC SCH ×3 (05:39→12:00)
[2019-01-10] MEDS: metroNIDAZOLE 500MG/100ML 100 ML IV SCH ×3 (05:39→22:30)
[2019-01-10] MEDS: LEVOTHYROXINE SODIUM 50 MCG TAB PO SCH (05:39)
--- NOTE | 2019-01-10 07:30 | NUR ---
Opening Shift Note Assuming care of patient at this time. Patient is awake, alert, and oriented. Patient denies pain at this time. Bed is locked and lowered with side rails up x2. Instructed patient on the plan of care for today and to call for assistance as needed. Patient is aware of surgery today and to not have anything to eat or drink before procedure. Call light within reach. Will continue to round hourly and as needed.
--- NOTE | 2019-01-10 08:45 | NUR ---
Patient off Unit Took patient to OR at this time for procedure. Belongings left in room. No family at bedside or in waiting room.
[2019-01-10] MEDS ORDERED: ceFAZolin 1GM/50ML 50 ML IV ONE (08:51)
[2019-01-10] MEDS: CARVEDILOL 3.125 MG TAB PO SCH ×2 (08:59→22:00)
[2019-01-10 09:00] VITALS: BP 89/46
[2019-01-10] MEDS: NIFEdipine ER 30 MG TAB PO SCH (09:00)
[2019-01-10] MEDS: LOSARTAN POTASSIUM 50 MG TAB PO SCH (09:00)
[2019-01-10 09:17] LABS: Basophils # (auto) 0.1 uL; Basophils % (auto) 0.7 % (0.0-2.0); Eosinophils # (auto) 0.1 uL; Eosinophils % (auto) 0.7 % (0.0-7.0); Hematocrit 30.1 % (36.0-46.0); Hemoglobin 9.8 g/dL (12.2-16.2); Lymphocytes # (auto) 0.9 uL; Lymphocytes % (auto) 11.1 % (10.0-50.0); Mean Corpuscular Hemoglobin 35.1 pg (28.0-32.0); Mean Corpuscular Hgb Conc. 32.6 g/dL (32.0-36.0); Mean Corpuscular Volume 107.8 fL (80.0-100.0); Monocytes # (auto) 0.9 uL; Monocytes % (auto) 10.9 % (0.0-12.0); Neutrophils # (auto) 6.2 uL; Neutrophils % (auto) 76.6 % (37.0-80.0); Nucleated Red Blood Cells % 0.1 %; Platelet Count (auto) 104 10^3/uL (140-450); Red Blood Cells 2.79 10^6/uL (4.0-5.20); Red Cell Distribution Width 19.3 % (11.8-14.3); White Blood Cell 8.1 10^3/uL (4.4-10.8)
[2019-01-10 09:23] LABS: Alanine Aminotransferase 12 U/L (13-56); Albumin 3.1 g/dL (3.4-5.0); Anion Gap 6 (5-15); Aspartate Aminotransferase 6 U/L (15-37); Bilirubin, Direct < 0.1 mg/dL (0-0.2); Blood Urea Nitrogen 33 mg/dL (7-18); Calcium 7.1 mg/dL (8.5-10.1); Carbon Dioxide 30 mmol/L (21-32); Chloride 102 mmol/L (98-107); Glucose 85 mg/dL (74-106); INR 1.4 (0.9-1.15); Magnesium 2.7 mg/dL (1.6-2.6); Partial Thromboplastin Time 46.6 sec (23.64-32.05); Potassium 3.9 mmol/L (3.5-5.1); Sodium 138 mmol/L (136-145)
[2019-01-10 09:26] LABS: Alkaline Phosphatase 436 U/L (45-117); BUN/Creatinine Ratio 6.1; Bilirubin, Total 0.4 mg/dL (0.2-1.0); GFR African American 10 mL/min; GFR Non-African American 8 mL/min; Total Protein 6.8 g/dL (6.4-8.2)
[2019-01-10] MEDS ORDERED: POVIDONE IODINE 10 % TOPICAL OINT 30GM TOP ONE (09:38)
[2019-01-10] MEDS: PANTOPRAZOLE 40 MG TAB PO SCH (10:00)
[2019-01-10] MEDS ORDERED: NEOSTIGMINE 1 MG/ML INJ (10mg/10ML VIAL) IV ONE (10:06)
[2019-01-10] MEDS ORDERED: SUCCINYLCHOLINE CHLORIDE 20 MG/ML 10ML VIAL IV ONE (10:06)
[2019-01-10] MEDS ORDERED: MIDAZOLAM HCL 1MG/1ML-2 ML VIAL ONE (10:10)
[2019-01-10] MEDS ORDERED: fentaNYL CITRATE 100 MCG/2 ML VL ONE (10:10)
[2019-01-10] MEDS ORDERED: MEPERIDINE HCL (25 MG/ML) 1ML VIAL ONE (10:10)
[2019-01-10] MEDS ORDERED: ETOMIDATE (2MG/ML) 20ML VIAL IV ONE (10:30)
[2019-01-10] MEDS ORDERED: DexAMETHasone SOD PHOS 10MG/1ML VIAL INJ ONE (10:30)
[2019-01-10] MEDS ORDERED: ROCURONIUM 10MG/ML 10ML VIAL IV ONE (10:53)
[2019-01-10] MEDS ORDERED: GLYCOPYRROLATE 0.2 MG/ML 1ML VIAL ONE (11:33)
--- NOTE | 2019-01-10 12:50 | NUR ---
Back on Unit Patient is back on unit at this time. 3 incisions to abdomen appear to be dry and intact, discoloration from betadine. Patient is verbalizing pain of 7/10. Will medicate per doctor's orders.
--- NOTE | 2019-01-10 12:52 | NUR ---
Abdominal Binder Abdominal binder applied with Mame fast food assistant restaurant manager. Patient tolerated well.
[2019-01-10] MEDS: MORPHINE SULFATE 4 MG/ML SYR/VIAL IV PRN (13:04)
[2019-01-10] MEDS: ONDANSETRON HCL 4 MG/2 ML VIAL IV PRN (13:11)
[2019-01-10] MEDS: SODIUM CHLORIDE 0.9% 1,000 ML IV SCH (16:30)
[2019-01-10 17:00] VITALS: BP 99/62
--- NOTE | 2019-01-10 18:00 | NUR ---
Refusing Accuchecks Patient is still refusing accuchecks. Patient states that she is not diabetic. Educated patient, however, patient continues to refuse.
[2019-01-10] MEDS: cefTRIAXone 1GM/50ML D5W 50 ML IV SCH (19:01)
--- NOTE | 2019-01-10 19:08 | NUR ---
Closing Shift Note Patient is resting in bed. Patient denies pain. Patient states that she is tired and wants something to help her sleep tonight. Report given. Will endorse care to the j2ee developer RN.
--- NOTE | 2019-01-10 19:09 | NUR ---
Page to hospitalist Patient is requesting something to help her sleep. Page to hospitalist at this time.
--- NOTE | 2019-01-10 19:15 | NUR ---
Call from hospitalist Dr. Lovelace has called back. New orders given.
--- NOTE | 2019-01-10 20:00 | NUR ---
OPENING NOTE RECEIVED REPORT FROM DAYSHIFT RN. ASSUMING ROLE OF CARE OF PATIENT AT THIS TIME. PATIENT SHOWING NO SIGN OF DISTRESS, SHORTNESS OF BREATH, AND PATIENT STATES PAIN IS 7/10 FROM ABDOMEN. WILL MEDICATE PATIENT PER PROTOCOL. PATIENT EDUCATED ON PLAN OF CARE FOR THE NIGHT AND PATIENT VERBALIZED UNDERSTANDING. BED LOWERED, CALL LIGHT WITHIN REACH, DRESSINGS ARE CLEAN DRY AND INTACT. WILL CONTINUE TO MONITOR AND ROUND EVERY HOUR AND NEEDED.
[2019-01-10 22:00] VITALS: BP 101/42
[2019-01-10] MEDS: TEMAZEPAM 15 MG CAP PO PRN (22:32)
[2019-01-11] VITALS (14 sets, daily range): BP systolic 83–143; BP diastolic 43–67
--- NOTE | 2019-01-11 | NUR ---
HOSPITALIST PAGED PATIENT'S BP WAS 80/34 HIGHEST WITH LOWEST BEING 67/34. PATIENT'S CURRENTLY ON 60ML/HR OF NS. PATIENT HAD A LAP APPE TODAY AND COMPLAINING OF 8/10 PAIN FROM ABDOMEN. PATIENT DENYING CHEST PAIN AT THE TIME. PATIENT STATES THEY FEEL SHORT OF BREATH BUT O2 IS SATURATING AT 94% ON ROOM AIR. WILL AWAIT CALL BACK OR ORDERS.
[2019-01-11] MEDS ORDERED: SODIUM CHLORIDE 0.9% 500 ML IV ONE (01:00)
--- NOTE | 2019-01-11 02:29 | NUR ---
BP RECHECKED BP IS 86/55. MAP IS 66. WILL CONTINUE TO MONITOR.
[2019-01-11] MEDS: SODIUM CHLORIDE 0.9% 1,000 ML IV SCH ×2 (04:13→17:10)
[2019-01-11 05:56] LABS: INR 1.21 (0.9-1.15)
[2019-01-11] MEDS ORDERED: ALPR-140 PO (05:59)
[2019-01-11] MEDS ORDERED: QUET100T46 PO (05:59)
[2019-01-11 06:00] LABS: Hematocrit 22.6 % (36.0-46.0)
[2019-01-11] MEDS: LEVOTHYROXINE SODIUM 50 MCG TAB PO SCH (06:02)
[2019-01-11] MEDS: metroNIDAZOLE 500MG/100ML 100 ML IV SCH ×3 (06:02→22:04)
[2019-01-11 06:03] LABS: Hemoglobin 7.1 g/dL (12.2-16.2)
[2019-01-11 06:12] LABS: Potassium 4.5 mmol/L (3.5-5.1)
[2019-01-11 06:17] LABS: Calcium 6.4 mg/dL (8.5-10.1)
--- NOTE | 2019-01-11 06:18 | NUR ---
HGB DROPPED TO 7.8 FROM 9.2 THIS MORNING AWAITING CALL FROM HOSPITALIST. WILL ENDORSE TO DAYSHIFT NEEDED. Addendum: 01/11/19 at 0621 by VIRAJ NUR RN INCISION FROM PROCEDURE ASSESSED. NO SIGNS OF BLEEDING OR HEMATOMA NOTED AT THIS TIME.
--- NOTE | 2019-01-11 06:35 | NUR ---
HOSPITALIST PAGED AGAIN AWAITING CALL BACK FOR ORDERS.
[2019-01-11] MEDS ORDERED: SODIUM CHL 0.9% 1000 ML BAG XX ONE (07:00)
--- NOTE | 2019-01-11 07:18 | NUR ---
HOSPITALIST INFORMED OF PATIENT'S HGB. NO ORDERS PLACED AT THIS TIME AND WILL CONTINUE TO MONITOR.
--- NOTE | 2019-01-11 07:30 | NUR ---
Opening Shift Note Assumed care of patient, awake and alert. No S/S of distress/SOB or pain. Instructed on POC and to call for assist PRN, will continue to monitor for changes Q1hr and PRN. PT IS SIN[place] SPEAKING. SPEAKING SPEAKING STAFF AT BEDSIDE TO INTERPRET.
--- NOTE | 2019-01-11 08:20 | NUR ---
DIALYSIS SPOKE TO RECOVERY AUDITOR. SCHEDULE PUSHED BACK TO TOMORROW MORNING PER MD ORDER.
[2019-01-11] MEDS: PANTOPRAZOLE 40 MG TAB PO SCH (09:01)
[2019-01-11] MEDS: CARVEDILOL 3.125 MG TAB PO SCH ×2 (09:01→22:04)
[2019-01-11] MEDS: cefTRIAXone 1GM/50ML D5W 50 ML IV SCH (09:01)
--- NOTE | 2019-01-11 10:15 | NUR ---
DR MEADE MADE AWARE OF PT'S HGB LEVEL AND DROPPING BLOOD PRESSURE. NEW ORDERS RECEIVED AND CARRIED OUT.
[2019-01-11] MEDS ORDERED: POLYETHYLENE GLYCOL 17 GM PWDR PO ONE (11:15)
--- NOTE | 2019-01-11 11:15 | NUR ---
PATIENT REPORTS THAT SHE IS WALKING FINE AND DOES NOT NEED P.T.
[2019-01-11 11:46] LABS: Hemoglobin 7.1 g/dL (12.2-16.2)
[2019-01-11 11:48] LABS: Hematocrit 22.5 % (36.0-46.0)
--- NOTE | 2019-01-11 13:53 | NUR ---
NUTRITION ASSESSMENT NOTES Please refer to link notes of nutrition screen form filed under the intervention section of the plan of care for further details. Est. Needs: 1250 kcal to 1550 kcal (20-25 kcal/kgBW), 75 gms to 93 gms pro (1.2-1.5 gms/kgBW d/t ESRD on HD). Will continue to monitor pertinent labs and reassess nutrient need prn Thank you. Addendum: 01/11/19 at [address] Amended: Links added. Addendum: 01/11/19 at [address] CORRECTION on Nutrition Notes: Pt's s/p Appy yesterday, not lap griffin. Thank you.
--- NOTE | 2019-01-11 17:12 | NUR ---
BLOOD TRANSFUSION STARTED PT EDUCATED ON ADVERSE REACTIONS TO WATCH OUT FOR. PT VERBALIZED UNDERSTANDING. NO DISTRESS NOTED.
--- NOTE | 2019-01-11 20:00 | NUR ---
OPENING SHIFT NOTE RECEIVED REPORT FROM DAYSHIFT RN. PATIENT RESTING COMFORTABLY IN BED TALKING ON PHONE. NO S/S OF DISTRESS OR SOB, PATIENT DENIES PAIN AT THIS TIME. PATIENT A/O X4, AMBULATORY. BLOOD IS INFUSING TO RIGHT WRIST IV AT 100 MLS/HR, PATIENT TOLERATING WELL, NO S/S OF ADVERSE REACTION. PT IS S/P LAP APPI ON 01/10, 3 MIDLINE ABDOMINAL INCISIONS ARE CLEAN, DRY, AND INTACT, BETADINE STILL ON DRESSINGS FROM 01/10. PATIENT DENIES ABDOMINAL PAIN, ABDOMINAL BINDER IN PLACE. UPDATED PATIENT ON POC, VERBALIZED UNDERSTANDING. BED LOCKED IN LOW POSITION, CALL LIGHT WITHIN REACH. WILL CONTINUE TO MONITOR PATIENT Q1HR AND PRN.
--- NOTE | 2019-01-11 20:12 | NUR ---
BLOOD TRANSFUSION COMPLETE PATIENT TOLERATED WELL, NO S/S OF ADVERSE REACTION. VS STABLE AND WNL. WILL CONTINUE TO MONITOR PATIENT.
[2019-01-11] MEDS ORDERED: EPOETIN ALFA 4,000 UNIT/ML VL SC ONE (21:00)
[2019-01-11] MEDS: TEMAZEPAM 15 MG CAP PO PRN (22:05)
[2019-01-11] MEDS: ONDANSETRON HCL 4 MG/2 ML VIAL IV PRN (22:53)
[2019-01-12 05:33] VITALS: BP 151/70
[2019-01-12] MEDS: metroNIDAZOLE 500MG/100ML 100 ML IV SCH ×3 (05:47→21:43)
[2019-01-12] MEDS: SODIUM CHLORIDE 0.9% 1,000 ML IV SCH ×2 (05:47→19:50)
[2019-01-12] MEDS: LEVOTHYROXINE SODIUM 50 MCG TAB PO SCH (06:28)
[2019-01-12 07:05] LABS: Basophils # (auto) 0 uL; Basophils % (auto) 0.6 % (0.0-2.0); Eosinophils # (auto) 0 uL; Eosinophils % (auto) 0.3 % (0.0-7.0); Hematocrit 25.9 % (36.0-46.0); Hemoglobin 7.9 g/dL (12.2-16.2); Lymphocytes # (auto) 0.8 uL; Lymphocytes % (auto) 11.3 % (10.0-50.0); Mean Corpuscular Hemoglobin 33.1 pg (28.0-32.0); Mean Corpuscular Hgb Conc. 30.6 g/dL (32.0-36.0); Mean Corpuscular Volume 108.4 fL (80.0-100.0); Monocytes # (auto) 0.8 uL; Monocytes % (auto) 11.4 % (0.0-12.0); Neutrophils # (auto) 5.6 uL; Neutrophils % (auto) 76.4 % (37.0-80.0); Nucleated Red Blood Cells % 0.4 %; Platelet Count (auto) 138 10^3/uL (140-450); Red Blood Cells 2.39 10^6/uL (4.0-5.20); White Blood Cell 7.3 10^3/uL (4.4-10.8)
[2019-01-12 07:08] LABS: Red Cell Distribution Width 23.8 % (11.8-14.3)
[2019-01-12 07:11] LABS: Calcium 7.2 mg/dL (8.5-10.1); Potassium 4.2 mmol/L (3.5-5.1)
[2019-01-12 07:14] LABS: BUN/Creatinine Ratio 7.9
--- NOTE | 2019-01-12 07:30 | NUR ---
Opening Shift Note Assumed care of patient, awake and alert. No S/S of distress/SOB or pain. Instructed on POC and to call for assist PRN, will continue to monitor for changes Q1hr and PRN.
--- NOTE | 2019-01-12 08:30 | NUR ---
HEMODIALYSIS AT BEDSIDE.
[2019-01-12 09:51] VITALS: BP 145/69
[2019-01-12] MEDS: ONDANSETRON HCL 4 MG/2 ML VIAL IV PRN ×2 (10:03→19:54)
[2019-01-12] MEDS: PANTOPRAZOLE 40 MG TAB PO SCH (10:04)
[2019-01-12] MEDS: cefTRIAXone 1GM/50ML D5W 50 ML IV SCH (10:04)
[2019-01-12] MEDS: CARVEDILOL 3.125 MG TAB PO SCH ×2 (13:05→21:42)
--- NOTE | 2019-01-12 15:40 | NUR ---
Rounds Patient awake and alert. No S/S of distress/SOB or pain. Will continue to monitor changes q1hr and PRN. FAMILY AT BEDSIDE.
[2019-01-12 16:18] VITALS: BP 154/76
--- NOTE | 2019-01-12 19:08 | NUR ---
CLOSING NOTES Patient awake and alert. No S/S of distress/SOB or pain.
--- NOTE | 2019-01-12 19:40 | NUR ---
OPENING SHIFT NOTE RECEIVED REPORT FROM DAYSHIFT RN. PATIENT SITTING IN BEDSIDE CHAIR. NO S/S OF DISTRESS OR SOB, PATIENT DENIES PAIN AT THIS TIME. PATIENT A/O X4, AMBULATORY WITH ASSIST. UPDATED PATIENT ON POC, VERBALIZED UNDERSTANDING. BED LOCKED IN LOW POSITION, CALL LIGHT WITHIN REACH. WILL CONTINUE TO MONITOR PATIENT Q1HR AND PRN.
[2019-01-12 21:30] VITALS: BP 148/75
[2019-01-12] MEDS ORDERED: EPOETIN ALFA 10,000 UNIT/1 ML VIAL ONE (21:52)
[2019-01-13 05:00] VITALS: BP 128/58
[2019-01-13] MEDS: metroNIDAZOLE 500MG/100ML 100 ML IV SCH (06:42)
[2019-01-13] MEDS: LEVOTHYROXINE SODIUM 50 MCG TAB PO SCH (06:43)
--- NOTE | 2019-01-13 07:05 | NUR ---
Opening Shift Note Assumed care of patient, awake and alert, sitting up in bed. No S/S of distress/SOB, no pain noted or reported at this time. Respirations are even and unlabored. Instructed on POC and instructed to call for assistance as needed, pt. verbalized understanding. Bed locked in lowest position, side rails up x2, call light within reach. Will continue to monitor for changes Q1hr and PRN.
[2019-01-13 08:37] VITALS: BP 139/61
[2019-01-13 08:41] LABS: Eosinophils # (auto) 0.1 uL; Hemoglobin 7.6 g/dL (12.2-16.2); Lymphocytes # (auto) 0.5 uL; Monocytes # (auto) 0.7 uL; Neutrophils # (auto) 4.1 uL; Nucleated Red Blood Cells % 0.1 %; White Blood Cell 5.4 10^3/uL (4.4-10.8)
[2019-01-13 08:43] LABS: Basophils # (auto) 0.1 uL; Eosinophils % (auto) 1.5 % (0.0-7.0); Lymphocytes % (auto) 9.1 % (10.0-50.0); Mean Corpuscular Hemoglobin 33.2 pg (28.0-32.0); Mean Corpuscular Volume 100.5 fL (80.0-100.0); Monocytes % (auto) 12.6 % (0.0-12.0); Neutrophils % (auto) 75.8 % (37.0-80.0); Platelet Count (auto) 93 10^3/uL (140-450); Red Blood Cells 2.29 10^6/uL (4.0-5.20)
[2019-01-13 08:55] LABS: BUN/Creatinine Ratio 5.7; Calcium 7.5 mg/dL (8.5-10.1); Potassium 3.9 mmol/L (3.5-5.1)
[2019-01-13] MEDS: SODIUM CHLORIDE 0.9% 1,000 ML IV SCH (09:10)
[2019-01-13 09:56] LABS: Folate (Folic Acid) 16.86 ng/mL (5.38-24)
[2019-01-13] MEDS: cefTRIAXone 1GM/50ML D5W 50 ML IV SCH (10:13)
[2019-01-13] MEDS: PANTOPRAZOLE 40 MG TAB PO SCH (10:13)
[2019-01-13] MEDS: CARVEDILOL 3.125 MG TAB PO SCH (10:13)
[2019-01-13] MEDS ORDERED: HYDROcodone-ACET 5/325MG TAB PO PRN (11:15)
[2019-01-13] MEDS ORDERED: METR500T PO (11:24)
[2019-01-13] MEDS ORDERED: LEVO500T21 PO (11:24)
[2019-01-13] MEDS ORDERED: LEVOFLOXACIN 250 MG TAB PO SCH (11:30)
[2019-01-13] MEDS: ACETAMINOPHEN 325 MG TAB PO PRN (12:12)
[2019-01-13 13:00] VITALS: BP 164/82
[2019-01-13] MEDS ORDERED: metroNIDAZOLE 500 MG TAB PO SCH (14:00)
[2019-01-13 17:00] VITALS: BP 143/68
[2019-01-13] MEDS ORDERED: WARFARIN SODIUM 2 MG TAB PO ONE (17:00)
--- NOTE | 2019-01-13 17:11 | NUR ---
assessment Patient is a 63 year old Estonian speaking female. Sabrina PEREA translated for us. Prior to admission patient lived home with her son Augustine and functioned with Augustine's assistance. Patient has been informed of consult for SNF placement. Patient agrees to SNF. Patient has been given [facility], [facility], and [facility] for choice. Patient request [facility]. Ss consult SNF placement faxed to [facility] ph:[phone] fx: [phone]. Per Jeet [facility] and accepting MD is Dr. Neeraj Esquivel. General transport to p/u pt between [id number]. Reported to Kristin PEREA. Pt agrees to discharge plan to [facility]. Addendum: 01/13/19 at 1721 by Althea Worthington Amended: Links added.
--- NOTE | 2019-01-13 18:43 | NUR ---
Care endorsed to night nurse RN. No S/s of distress or SOB.
--- NOTE | 2019-01-13 19:34 | NUR ---
Report given to Jessenia at [facility].
--- NOTE | 2019-01-13 19:45 | NUR ---
OPENING SHIFT NOTE RECEIVED REPORT FROM DAYSHIFT RN. PATIENT SITTING IN BEDSIDE CHAIR. NO S/S OF DISTRESS OR SOB, PATIENT DENIES PAIN AT THIS TIME. PATIENT A/O X4, AMBULATORY WITH ASSIST. UPDATED PATIENT ON POC, VERBALIZED UNDERSTANDING. PATIENT AWARE OF TRANSFER TO [facility] ONCE TRANSPORT ARRIVES. WILL CONTINUE TO MONITOR PATIENT Q1HR AND PRN.
--- NOTE | 2019-01-13 20:00 | NUR ---
PATIENT DISCHARGED TO SNF PATIENT TRANSPORTED OFF FLOOR VIA WHEELCHAIR. ALL QUESTIONS AND CONCERNS ADDRESSED AND PATIENT VERBALIZED AND ACKNOWLEDGED TRANSFER. IV TO RIGHT WRIST REMOVED, CATHETER INTACT, PATIENT TOLERATED WELL. NO S/S OF DISTRESS OR SOB. PATIENT REMAINS STABLE. PATIENT TAKEN OFF FLOOR WITH ALL BELONGINGS.
[2019-01-14] MEDS ORDERED: LEVOFLOXACIN 250 MG TAB PO SCH (10:00)
== END 2019-01-13 20:00 | DRG 853 ==
LOC: EDUNIT# 16:24 → EDBD 16:24 → ER 16:35 → WEST WING 16:36
PROVIDERS: ADMIT Nurse Practitioner; ATTEND Internal Medicine
PROC: 5A1D70Z Performance of Urinary Filtration, Intermittent, Less than 6 Hours Per Day (ICD-10-PCS; 2019-01-09)
PROC: 0DTJ4ZZ Resection of Appendix, Percutaneous Endoscopic Approach (ICD-10-PCS; principal; 2019-01-10 10:23)
PROC: 5A1D70Z Performance of Urinary Filtration, Intermittent, Less than 6 Hours Per Day (ICD-10-PCS; 2019-01-12)
DX: A41.9 Sepsis, unspecified organism (principal); N18.6 End stage renal disease; K35.80 Unspecified acute appendicitis; D68.9 Coagulation defect, unspecified; I13.2 Hypertensive heart and chronic kidney disease with heart failure and with stage 5 chronic kidney disease, or end stage renal disease; J84.9 Interstitial pulmonary disease, unspecified; E03.9 Hypothyroidism, unspecified; D63.8 Anemia in other chronic diseases classified elsewhere; K80.20 Calculus of gallbladder without cholecystitis without obstruction; I25.10 Atherosclerotic heart disease of native coronary artery without angina pectoris; Z95.1 Presence of aortocoronary bypass graft; E11.22 Type 2 diabetes mellitus with diabetic chronic kidney disease; I50.9 Heart failure, unspecified; D53.9 Nutritional anemia, unspecified; D63.1 Anemia in chronic kidney disease; F41.9 Anxiety disorder, unspecified; K38.1 Appendicular concretions; E78.5 Hyperlipidemia, unspecified; I48.0 Paroxysmal atrial fibrillation; I70.0 Atherosclerosis of aorta; K21.9 Gastro-esophageal reflux disease without esophagitis; K44.9 Diaphragmatic hernia without obstruction or gangrene; K57.30 Diverticulosis of large intestine without perforation or abscess without bleeding; N28.1 Cyst of kidney, acquired; Z99.2 Dependence on renal dialysis; I25.2 Old myocardial infarction; Z83.3 Family history of diabetes mellitus; Z86.73 Personal history of transient ischemic attack (TIA), and cerebral infarction without residual deficits; Z95.2 Presence of prosthetic heart valve; Z79.899 Other long term (current) drug therapy
CPT/HCPCS: 36415; 71045; 74176; 76700; 76705; 80048; 80053; 80076; 82306; 82746; 82962; 83036; 83690; 83735; 83970; 84100; 84439; 84443; 84484; 84550; 85014; 85018; 85025; 85610; 85730; 86850; 86900; 86901; 86920; 87040; 87081; 90935; 93005; 94761; 96361; 96365; 96367; 96375; G0378; J0330; J0690; J0696; J0885; J1100; J2250; J2405; J3430; J3490

== ENCOUNTER → 2019-01-31 | Outpatient (CLI) | payer MEDICARE, MEDICAID ==
[~2019-01-31] MED LIST changes: +ALPR-140 PO; +LEVO500T21 PO; +METR500T PO; +QUET100T46 PO
[2019-01-31 12:06] LABS: Urine Blood Negative /uL (Negative); Urine Specific Gravity 1.007 (1.001-1.035)
[2019-01-31 12:17] LABS: Basophils # (auto) 0 uL; Basophils % (auto) 0.9 % (0.0-2.0); Eosinophils # (auto) 0.1 uL; Hematocrit 33.5 % (36.0-46.0); Hemoglobin 11.1 g/dL (12.2-16.2); Lymphocytes # (auto) 0.7 uL; Lymphocytes % (auto) 15.1 % (10.0-50.0); Mean Corpuscular Hemoglobin 33.2 pg (28.0-32.0); Mean Corpuscular Volume 100.7 fL (80.0-100.0); Monocytes # (auto) 0.4 uL; Monocytes % (auto) 8.7 % (0.0-12.0); Neutrophils # (auto) 3.6 uL; Neutrophils % (auto) 74.3 % (37.0-80.0); Platelet Count (auto) 119 10^3/uL (140-450); Red Blood Cells 3.33 10^6/uL (4.0-5.20); Red Cell Distribution Width 19.6 % (11.8-14.3); White Blood Cell 4.9 10^3/uL (4.4-10.8)
[2019-01-31 12:26] LABS: Albumin 3.3 g/dL (3.4-5.0); Calcium 7.6 mg/dL (8.5-10.1); Potassium 4.5 mmol/L (3.5-5.1)
[2019-01-31 12:32] LABS: BUN/Creatinine Ratio 5.1; Bilirubin, Total 0.4 mg/dL (0.2-1.0); Total Protein 7.3 g/dL (6.4-8.2)
[2019-01-31 12:47] LABS: Free T4 (Free Thyroxine) 1.17 ng/dL (0.89-1.76)
== END | disposition home or self-care (01) ==
LOC: Rad HDHVI 09:37
PROVIDERS: ATTEND Internal Medicine Cardiovascular Disease
DX: I08.3 Combined rheumatic disorders of mitral, aortic and tricuspid valves (principal); E03.9 Hypothyroidism, unspecified; D51.9 Vitamin B12 deficiency anemia, unspecified; I13.2 Hypertensive heart and chronic kidney disease with heart failure and with stage 5 chronic kidney disease, or end stage renal disease; N18.6 End stage renal disease; I50.9 Heart failure, unspecified; N39.0 Urinary tract infection, site not specified; I27.21 Secondary pulmonary arterial hypertension; Z79.899 Other long term (current) drug therapy
CPT/HCPCS: 36415; 80053; 80061; 81003; 82306; 82607; 83036; 84439; 84443; 85025; 87086; 93306

== ENCOUNTER → 2019-02-17 | Outpatient (CLI) | payer MEDICARE, MEDICAID ==
[~2019-02-17] VITALS: Ht 152.4 cm; Wt 60.8 kg
[~2019-02-17] MED LIST changes: +ADENOSINE 51 MG in GIVE UN-DILUTED 0 ML IV ONE; +ADENOSINE 90 MG/30 ML INJ IV ONE; -LOSA-46 PO; +LOSA-69 PO
== END | disposition home or self-care (01) ==
LOC: Rad HDHVI 13:50
PROVIDERS: ATTEND Internal Medicine Cardiovascular Disease
DX: I12.0 Hypertensive chronic kidney disease with stage 5 chronic kidney disease or end stage renal disease (principal); N18.6 End stage renal disease; I27.21 Secondary pulmonary arterial hypertension; N28.9 Disorder of kidney and ureter, unspecified; Z90.49 Acquired absence of other specified parts of digestive tract; Z79.01 Long term (current) use of anticoagulants
CPT/HCPCS: 78452; 93005; 96374; 96375; A9500; J0153

== ENCOUNTER 2019-02-18 13:40 | Emergency (ER) | payer MEDICARE, MEDICAID ==
[~2019-02-18] VITALS: Ht 162.6 cm; Wt 52.2 kg
[~2019-02-18 13:40] MED LIST changes: -ADENOSINE 51 MG in GIVE UN-DILUTED 0 ML IV ONE; -ADENOSINE 90 MG/30 ML INJ IV ONE
[2019-02-18 15:13] VITALS: BP 162/82
[2019-02-18 15:36] LABS: Partial Thromboplastin Time 61.3 sec (23.64-32.05)
[2019-02-18 15:39] LABS: Albumin 3.2 g/dL (3.4-5.0); Calcium 7.9 mg/dL (8.5-10.1); Potassium 3.8 mmol/L (3.5-5.1)
[2019-02-18 15:43] LABS: BUN/Creatinine Ratio 4.2; Bilirubin, Total 0.4 mg/dL (0.2-1.0); Total Protein 7.1 g/dL (6.4-8.2)
[2019-02-18 15:57] LABS: INR 7.06 (0.9-1.15)
[2019-02-18 16:10] LABS: Basophils # (auto) 0 uL; Basophils % (auto) 0.9 % (0.0-2.0); Eosinophils # (auto) 0.1 uL; Eosinophils % (auto) 1.5 % (0.0-7.0); Hematocrit 35.3 % (36.0-46.0); Lymphocytes # (auto) 0.9 uL; Lymphocytes % (auto) 19.3 % (10.0-50.0); Mean Corpuscular Hemoglobin 33.7 pg (28.0-32.0); Mean Corpuscular Volume 99.3 fL (80.0-100.0); Monocytes # (auto) 0.6 uL; Monocytes % (auto) 11.7 % (0.0-12.0); Neutrophils # (auto) 3.3 uL; Neutrophils % (auto) 66.6 % (37.0-80.0); Nucleated Red Blood Cells % 0.2 %; Platelet Count (auto) 101 10^3/uL (140-450); Red Blood Cells 3.56 10^6/uL (4.0-5.20); Red Cell Distribution Width 18.3 % (11.8-14.3); White Blood Cell 4.9 10^3/uL (4.4-10.8)
== END 2019-02-18 17:49 | disposition home or self-care (01) ==
LOC: EDUNIT# 13:40 → EDBD 13:40 → ER 13:43
DX: T82.838A Hemorrhage due to vascular prosthetic devices, implants and grafts, initial encounter (principal); E11.22 Type 2 diabetes mellitus with diabetic chronic kidney disease; I12.0 Hypertensive chronic kidney disease with stage 5 chronic kidney disease or end stage renal disease; N18.6 End stage renal disease; I48.91 Unspecified atrial fibrillation; E78.5 Hyperlipidemia, unspecified; I25.2 Old myocardial infarction; K21.9 Gastro-esophageal reflux disease without esophagitis; Z86.73 Personal history of transient ischemic attack (TIA), and cerebral infarction without residual deficits; Z99.2 Dependence on renal dialysis; Z79.4 Long term (current) use of insulin; Z79.899 Other long term (current) drug therapy
CPT/HCPCS: 36415; 80053; 85610; 85730; 93005

== ENCOUNTER → 2019-03-12 | Outpatient (CLI) | payer MEDICARE, MEDICAID ==
[~2019-03-12] MED LIST changes: +CYANOCOBALAMIN (B-12) 1000 MCG/1 ML VIAL IM ONE; +CYANOCOBALAMIN (B-12) 1000 MCG/1 ML VIAL ONE
[2019-03-12 14:01] VITALS: BP 154/86
[2019-03-12 14:07] VITALS: BP 154/86
--- NOTE | 2019-03-12 14:07 | NUR ---
IN FOR PAH FOLLOW UP. INR CHECK 2.2 WITH NO CHANGE TO COUMADIN DOSING AT 5 MG DAILY. CONTINUE SAME DOSING OF PAH MEDICATIONS. ALL LABS AND STATUS AND EDUCATION DONE WITH USE OF CHAIR UPHOLSTERER. REPEAT BACK INSTRUCTIONS OBTAINED. Discharge Instructions See e-MAR for any mediations given with this visit. Patient education given on disease process. Patient verbalized understanding. Previous labs reviewed. Patient discharged in stable condition with after care instructions and follow up appointment FOR 03/18/[address] FAYE. MEDICATION ADMINISTRATION VIT B12 IM TO RIGHT DELTOID AT 1401
== END | disposition home or self-care (01) ==
LOC: CHF HDHVI 12:57
PROVIDERS: ATTEND Internal Medicine Cardiovascular Disease
DX: I13.2 Hypertensive heart and chronic kidney disease with heart failure and with stage 5 chronic kidney disease, or end stage renal disease (principal); E11.22 Type 2 diabetes mellitus with diabetic chronic kidney disease; I50.9 Heart failure, unspecified; N18.6 End stage renal disease; R53.83 Other fatigue; I25.2 Old myocardial infarction; I48.91 Unspecified atrial fibrillation; I27.21 Secondary pulmonary arterial hypertension; K21.9 Gastro-esophageal reflux disease without esophagitis; E03.9 Hypothyroidism, unspecified; E78.5 Hyperlipidemia, unspecified; Z90.49 Acquired absence of other specified parts of digestive tract; Z79.899 Other long term (current) drug therapy; Z79.4 Long term (current) use of insulin; Z86.73 Personal history of transient ischemic attack (TIA), and cerebral infarction without residual deficits; Z99.2 Dependence on renal dialysis; Z79.01 Long term (current) use of anticoagulants
CPT/HCPCS: 96372; G0463; J3420

== ENCOUNTER → 2019-03-28 | Outpatient (CLI) | payer MEDICARE, MEDICAID ==
[~2019-03-28] MED LIST changes: -CYANOCOBALAMIN (B-12) 1000 MCG/1 ML VIAL IM ONE; -CYANOCOBALAMIN (B-12) 1000 MCG/1 ML VIAL ONE
[2019-03-28 09:20] VITALS: BP 164/76
[2019-03-28 09:55] VITALS: BP 179/78
--- NOTE | 2019-03-28 13:16 | NUR ---
IN TO CLINIC FOR CHF FOLLOWUP. USE OF REMOTE SENSING ANALYST FOR VISIT. INR RESULT DOWN AFTER BEING ELEVATED LAST WEEK. CLINIC PROVIDER CONSULTED AND ORDERS RECEIVED. CONTINUE COUMADIN 5 MG ON ODD DAYS AND COUMADIN 6 MG ON EVEN DAYS AND RTC ON NEXT Sunday04/04/19. DISCHARGED TO SELF CARE IN NO DISTRESS OR DISCOMFORT.
== END | disposition home or self-care (01) ==
LOC: CHF HDHVI 09:35
PROVIDERS: ATTEND Internal Medicine Cardiovascular Disease
DX: I13.2 Hypertensive heart and chronic kidney disease with heart failure and with stage 5 chronic kidney disease, or end stage renal disease (principal); I50.9 Heart failure, unspecified; N18.6 End stage renal disease
CPT/HCPCS: 85610; G0463

== ENCOUNTER → 2019-04-04 | Outpatient (CLI) | payer MEDICARE, MEDICAID ==
[~2019-04-04] MED LIST changes: +CYANOCOBALAMIN (B-12) 1000 MCG/1 ML VIAL IM ONE; +CYANOCOBALAMIN (B-12) 1000 MCG/1 ML VIAL ONE
[2019-04-04 13:00] VITALS: BP 141/69
[2019-04-04 13:19] VITALS: BP 138/67
--- NOTE | 2019-04-04 13:19 | NUR ---
CHF CLINIC Discharge Instructions See e-MAR for any mediations given with this visit. Patient education given on disease process. Patient verbalized understanding. Previous labs reviewed. Patient discharged in stable condition with after care instructions and follow up appointment. NOTE B12 IM R DELTOID ADMIN BY KAYA PRESTON INR 3.3, PATIENT DOSE CHANGED BACK TO 5MG DAILY, PATIENT VERBALIZED UNDERSTANDING.
== END | disposition home or self-care (01) ==
LOC: CHF HDHVI 12:53
PROVIDERS: ATTEND Internal Medicine Cardiovascular Disease
DX: I13.0 Hypertensive heart and chronic kidney disease with heart failure and stage 1 through stage 4 chronic kidney disease, or unspecified chronic kidney disease (principal); E11.22 Type 2 diabetes mellitus with diabetic chronic kidney disease; N18.6 End stage renal disease; I50.9 Heart failure, unspecified; R53.83 Other fatigue; I48.91 Unspecified atrial fibrillation; I27.21 Secondary pulmonary arterial hypertension; I25.2 Old myocardial infarction; K21.9 Gastro-esophageal reflux disease without esophagitis; E78.5 Hyperlipidemia, unspecified; E03.9 Hypothyroidism, unspecified; Z79.01 Long term (current) use of anticoagulants; Z79.4 Long term (current) use of insulin; Z79.899 Other long term (current) drug therapy; Z86.73 Personal history of transient ischemic attack (TIA), and cerebral infarction without residual deficits; Z90.49 Acquired absence of other specified parts of digestive tract; Z95.2 Presence of prosthetic heart valve; Z99.2 Dependence on renal dialysis
CPT/HCPCS: 96372; G0463; J3420

== ENCOUNTER → 2019-04-11 | Outpatient (CLI) | payer MEDICARE, MEDICAID ==
[~2019-04-11] MED LIST changes: -CYANOCOBALAMIN (B-12) 1000 MCG/1 ML VIAL IM ONE; -CYANOCOBALAMIN (B-12) 1000 MCG/1 ML VIAL ONE
[2019-04-11 10:30] VITALS: BP 146/79
[2019-04-11 10:43] VITALS: BP 145/76
--- NOTE | 2019-04-11 10:43 | NUR ---
CHF CLINIC Discharge Instructions See e-MAR for any mediations given with this visit. Patient education given on disease process. Patient verbalized understanding. Previous labs reviewed. Patient discharged in stable condition with after care instructions and follow up appointment IN ONE WEEK. NOTE INR 1.7 ON 5MG COUMADIN DAILY, PATIENT MEDICATION ADJUSTED TO 5MG/6MG ALTERNATING DAYS.
== END | disposition home or self-care (01) ==
LOC: CHF HDHVI 10:57
PROVIDERS: ATTEND Internal Medicine
DX: I13.2 Hypertensive heart and chronic kidney disease with heart failure and with stage 5 chronic kidney disease, or end stage renal disease (principal); E11.22 Type 2 diabetes mellitus with diabetic chronic kidney disease; I50.9 Heart failure, unspecified; N18.6 End stage renal disease; Z95.2 Presence of prosthetic heart valve
CPT/HCPCS: 85610; G0463

== ENCOUNTER → 2019-04-18 | Outpatient (CLI) | payer MEDICARE, MEDICAID ==
[2019-04-18 16:20] LABS: INR 1.26 (0.9-1.15); Partial Thromboplastin Time 33.1 sec (23.64-32.05)
== END | disposition home or self-care (01) ==
LOC: LAB 14:01
PROVIDERS: ATTEND Internal Medicine
DX: R79.1 Abnormal coagulation profile (principal); I13.2 Hypertensive heart and chronic kidney disease with heart failure and with stage 5 chronic kidney disease, or end stage renal disease; E11.22 Type 2 diabetes mellitus with diabetic chronic kidney disease; N18.6 End stage renal disease; I50.9 Heart failure, unspecified
CPT/HCPCS: 36415; 85610; 85730

== ENCOUNTER → 2019-05-02 | Outpatient (CLI) | payer MEDICARE, MEDICAID ==
[~2019-05-02] MED LIST changes: +CARV3.1240 PO; +CLON0.1T PO; +LEVO100T8 PO; -PANT1INJ3 IV; +PANT1INJ3 PO; +SILD50TA42 PO; +WARF5TAB71 PO
== END | disposition home or self-care (01) ==
LOC: LAB 11:49
PROVIDERS: ATTEND Internal Medicine
DX: R79.1 Abnormal coagulation profile (principal)
CPT/HCPCS: 85610

== ENCOUNTER → 2019-05-09 | Outpatient (CLI) | payer MEDICARE, MEDICAID ==
[~2019-05-09] MED LIST changes: -CARV3.1240 PO; -CLON0.1T PO; +CYANOCOBALAMIN (B-12) 1000 MCG/1 ML VIAL IM ONE; +CYANOCOBALAMIN (B-12) 1000 MCG/1 ML VIAL ONE; -LEVO100T8 PO; +PANT1INJ3 IV; -PANT1INJ3 PO; -SILD50TA42 PO; -WARF5TAB71 PO
[2019-05-09 11:50] VITALS: BP 148/62
[2019-05-09 12:11] VITALS: BP 122/67
--- NOTE | 2019-05-09 12:11 | NUR ---
IN TO CLINIC FOR INR CHECK. INR RESULT 1.8 WITH PT TAKING 5 MG PO DAILY. CONTINUE TO REINFORCE TEACHING AND DIET PRECAUTION REGARDING INTERACTIONS WITH COUMADIN AND DIETARY ITEMS HIGH IN VITAMIN K. USE OF GANG PUSHER WITH REPEAT BACK INSTRUCTIONS OBTAINED. DECLINES QUESTIONS. DISCHARGED TO SELF CARE IN NO DISTRESS OR DISCOMFORT. MEDICATION ADMINISTRATION VITAMIN B12 1000 MCG IM TO RIGHT DELTOID AT 1209
== END | disposition home or self-care (01) ==
LOC: CHF HDHVI 11:45
PROVIDERS: ATTEND Internal Medicine Cardiovascular Disease
DX: I13.2 Hypertensive heart and chronic kidney disease with heart failure and with stage 5 chronic kidney disease, or end stage renal disease (principal); N18.6 End stage renal disease; I50.9 Heart failure, unspecified; I48.91 Unspecified atrial fibrillation; I27.21 Secondary pulmonary arterial hypertension; I25.2 Old myocardial infarction; K21.9 Gastro-esophageal reflux disease without esophagitis; E78.5 Hyperlipidemia, unspecified; E03.9 Hypothyroidism, unspecified; Z79.01 Long term (current) use of anticoagulants; Z79.899 Other long term (current) drug therapy; Z90.49 Acquired absence of other specified parts of digestive tract; Z79.4 Long term (current) use of insulin; Z86.73 Personal history of transient ischemic attack (TIA), and cerebral infarction without residual deficits
CPT/HCPCS: 85610; 96372; G0463; J3420

== ENCOUNTER → 2019-05-16 | Outpatient (CLI) | payer MEDICARE, MEDICAID ==
[~2019-05-16] MED LIST changes: -CYANOCOBALAMIN (B-12) 1000 MCG/1 ML VIAL IM ONE; -CYANOCOBALAMIN (B-12) 1000 MCG/1 ML VIAL ONE
[2019-05-16 12:05] VITALS: BP 112/57
[2019-05-16 12:24] VITALS: BP 114/57
--- NOTE | 2019-05-16 12:24 | NUR ---
CHF CLINIC Discharge Instructions See e-MAR for any mediations given with this visit. Patient education given on disease process. Patient verbalized understanding. Previous labs reviewed. Patient discharged in stable condition with after care instructions and follow up appointment. NOTE PATIENT INR 6.5, HOLD COUMADIN TONIGHT AND RESUME TOMORROW. RETURN NEXT WEEK FOR RECHECK.
== END | disposition home or self-care (01) ==
LOC: CHF HDHVI 12:29
PROVIDERS: ATTEND Internal Medicine Cardiovascular Disease
DX: E78.5 Hyperlipidemia, unspecified (principal); I13.0 Hypertensive heart and chronic kidney disease with heart failure and stage 1 through stage 4 chronic kidney disease, or unspecified chronic kidney disease; I50.9 Heart failure, unspecified; N18.6 End stage renal disease; R79.1 Abnormal coagulation profile
CPT/HCPCS: 85610; G0463

== ENCOUNTER → 2019-05-23 | Outpatient (CLI) | payer MEDICARE, MEDICAID ==
[~2019-05-23] MED LIST changes: +CARV3.1240 PO; +CLON0.1T PO; +LEVO100T8 PO; -PANT1INJ3 IV; +PANT1INJ3 PO; +SILD50TA42 PO; +WARF5TAB71 PO
== END | disposition home or self-care (01) ==
LOC: CHF HDHVI 13:33
PROVIDERS: ATTEND Internal Medicine Cardiovascular Disease
DX: R79.1 Abnormal coagulation profile (principal); I13.2 Hypertensive heart and chronic kidney disease with heart failure and with stage 5 chronic kidney disease, or end stage renal disease; E11.22 Type 2 diabetes mellitus with diabetic chronic kidney disease; N18.6 End stage renal disease; I50.9 Heart failure, unspecified; F32.9 Major depressive disorder, single episode, unspecified; F41.9 Anxiety disorder, unspecified; Z98.890 Other specified postprocedural states; Z83.3 Family history of diabetes mellitus
CPT/HCPCS: 85610

== ENCOUNTER → 2019-05-29 | Outpatient (CLI) | payer MEDICARE, MEDICAID ==
[~2019-05-29] MED LIST changes: -CAR3125T OR; -LEVO500T21 PO; -LEVO50TA7 PO; -LOSA-69 PO; -MET2I IM; -METR500T PO; -NIFE30TA76 PO; -WARF4TAB33 PO
== END | disposition home or self-care (01) ==
LOC: LAB 12:59
PROVIDERS: ATTEND Internal Medicine Cardiovascular Disease
DX: R79.1 Abnormal coagulation profile (principal); F32.9 Major depressive disorder, single episode, unspecified; F41.9 Anxiety disorder, unspecified; E11.22 Type 2 diabetes mellitus with diabetic chronic kidney disease; I13.2 Hypertensive heart and chronic kidney disease with heart failure and with stage 5 chronic kidney disease, or end stage renal disease; I50.9 Heart failure, unspecified; N18.6 End stage renal disease; I25.2 Old myocardial infarction; Z95.1 Presence of aortocoronary bypass graft; Z95.0 Presence of cardiac pacemaker
CPT/HCPCS: 85610

== ENCOUNTER 2019-06-02 07:10 | Day surgery (SDC) | payer MEDICARE, MEDICAID ==
[~2019-06-02] VITALS: Ht 154.9 cm; Wt 57.0 kg
[2019-06-02 07:55] LABS: Basophils # (auto) 0 uL; Eosinophils # (auto) 0.1 uL; Hemoglobin 9.4 g/dL (12.2-16.2); Lymphocytes # (auto) 0.8 uL; Monocytes # (auto) 0.4 uL; White Blood Cell 4.1 10^3/uL (4.4-10.8)
[2019-06-02 07:58] LABS: Basophils % (auto) 0.8 % (0.0-2.0); Eosinophils % (auto) 1.6 % (0.0-7.0); Hematocrit 27.1 % (36.0-46.0); Lymphocytes % (auto) 19.6 % (10.0-50.0); Mean Corpuscular Hemoglobin 34.1 pg (28.0-32.0); Mean Corpuscular Hgb Conc. 34.6 g/dL (32.0-36.0); Mean Corpuscular Volume 98.6 fL (80.0-100.0); Monocytes % (auto) 9.2 % (0.0-12.0); Neutrophils # (auto) 2.8 uL; Neutrophils % (auto) 68.8 % (37.0-80.0); Platelet Count (auto) 124 10^3/uL (140-450); Red Blood Cells 2.74 10^6/uL (4.0-5.20); Red Cell Distribution Width 17.2 % (11.8-14.3)
[2019-06-02] MEDS ORDERED: LIDOCAINE VISCOUS 2% 15ML UD ONE (08:27)
[2019-06-02] MEDS ORDERED: NALOXONE HCL 0.4 MG/ML VIAL ONE (08:27)
[2019-06-02] MEDS ORDERED: SODIUM CHLORIDE LOCK 10 ML ONE (08:27)
[2019-06-02] MEDS ORDERED: FLUMAZENIL 0.1 MG/ML INJ 10ML MDV IV ONE (08:27)
[2019-06-02] MEDS ORDERED: diphenhdrAMINE HCL 50 MG/1 ML VL ONE (08:29)
[2019-06-02 08:51] LABS: Partial Thromboplastin Time 27.1 sec (23.64-32.05)
[2019-06-02] MEDS: fentaNYL CITRATE 100 MCG/2 ML VL ONE ×4 (09:11→09:32)
[2019-06-02] MEDS: MIDAZOLAM HCL 5 MG/ML-1ML VIAL ONE ×3 (09:11→09:29)
[2019-06-02 10:07] VITALS: BP 121/68
== END 2019-06-02 10:20 | disposition home or self-care (01) ==
LOC: GI 07:10
PROVIDERS: ATTEND Internal Medicine Gastroenterology
DX: K92.1 Melena (principal); R12 Heartburn; K59.00 Constipation, unspecified; K57.30 Diverticulosis of large intestine without perforation or abscess without bleeding; K64.8 Other hemorrhoids; I10 Essential (primary) hypertension; E03.9 Hypothyroidism, unspecified; I25.2 Old myocardial infarction; Z95.0 Presence of cardiac pacemaker; Z98.890 Other specified postprocedural states; Z79.891 Long term (current) use of opiate analgesic; Z79.01 Long term (current) use of anticoagulants; Z79.890 Hormone replacement therapy; Z79.899 Other long term (current) drug therapy
CPT/HCPCS: 36415; 43235; 45378; 85025; 85610; 85730; J1200; J2250; J3010; J7030; 99153; G0500

== ENCOUNTER → 2019-06-02 | Outpatient (CLI) | payer MEDICARE, MEDICAID | END | disposition home or self-care (01) | LOC: LAB 11:29 | PROVIDERS: ATTEND Internal Medicine Cardiovascular Disease | DX: R79.1 Abnormal coagulation profile (principal); I48.91 Unspecified atrial fibrillation; F41.9 Anxiety disorder, unspecified; I63.9 Cerebral infarction, unspecified; E11.22 Type 2 diabetes mellitus with diabetic chronic kidney disease; I13.11 Hypertensive heart and chronic kidney disease without heart failure, with stage 5 chronic kidney disease, or end stage renal disease; N18.6 End stage renal disease; Z95.0 Presence of cardiac pacemaker | CPT/HCPCS: 85610 ==

== ENCOUNTER → 2019-06-06 | Outpatient (CLI) | payer MEDICARE, MEDICAID | END | disposition home or self-care (01) | LOC: CHF HDHVI 10:22 | PROVIDERS: ATTEND Internal Medicine Cardiovascular Disease | DX: R79.1 Abnormal coagulation profile (principal); I48.91 Unspecified atrial fibrillation; F41.9 Anxiety disorder, unspecified; E11.22 Type 2 diabetes mellitus with diabetic chronic kidney disease; I12.0 Hypertensive chronic kidney disease with stage 5 chronic kidney disease or end stage renal disease; N18.6 End stage renal disease; K21.9 Gastro-esophageal reflux disease without esophagitis; I25.2 Old myocardial infarction; Z86.73 Personal history of transient ischemic attack (TIA), and cerebral infarction without residual deficits; Z95.0 Presence of cardiac pacemaker | CPT/HCPCS: 85610 ==

== ENCOUNTER → 2019-06-12 | Outpatient (CLI) | payer MEDICARE, MEDICAID | END | disposition home or self-care (01) | LOC: CHF HDHVI 12:15 | PROVIDERS: ATTEND Internal Medicine Cardiovascular Disease | DX: R79.1 Abnormal coagulation profile (principal) | CPT/HCPCS: 85610 ==

== ENCOUNTER → 2019-06-24 | Outpatient (CLI) | payer MEDICARE, MEDICAID ==
[~2019-06-24] MED LIST changes: +ALPR0.25 PO; +CYANOCOBALAMIN (B-12) 1000 MCG/1 ML VIAL IM ONE; +CYANOCOBALAMIN (B-12) 1000 MCG/1 ML VIAL ONE; +HYDR-4833 PO; +LACT10SO3 PO; +NIFE30TA76 PO; +PANT40TA2 PO; +SEVE800T8 PO; +SILD20TA12 PO; +SUCR1TAB38 PO
[2019-06-24 11:03] VITALS: BP 116/57
--- NOTE | 2019-06-24 11:03 | NUR ---
CHF PT ARRIVED TO THE CHF CLINIC FOR WEEKLY INR CHECK AND PAH F/U
[2019-06-24 13:07] VITALS: BP 146/70
--- NOTE | 2019-06-24 13:07 | NUR ---
Discharge Instructions See e-MAR for any mediations given with this visit. Patient education given on disease process. Patient verbalized understanding. Previous labs reviewed. Patient discharged in stable condition with after care instructions and follow up appointment. MEDICATIONS VITAMIN B12 IM LOT #[id number] EXP 02/[address] FAYE TODAY INR 0F 7 ADDRESSED ORDERS RECEIVED TOO HOLD COUMADIN TONIGHT THEN TAKE 3MG SUNDAY EVENING AND 5 MG SUNDAY EVENING AND RETURN TO CLINIC ON SUNDAY FOR INR BEFORE HEMODIALYSIS
== END | disposition home or self-care (01) ==
LOC: CHF HDHVI 11:15
PROVIDERS: ATTEND Internal Medicine
DX: I27.21 Secondary pulmonary arterial hypertension (principal); I13.2 Hypertensive heart and chronic kidney disease with heart failure and with stage 5 chronic kidney disease, or end stage renal disease; E11.22 Type 2 diabetes mellitus with diabetic chronic kidney disease; N18.6 End stage renal disease; I50.9 Heart failure, unspecified; I25.2 Old myocardial infarction; I48.91 Unspecified atrial fibrillation; F41.9 Anxiety disorder, unspecified; K21.9 Gastro-esophageal reflux disease without esophagitis; E03.9 Hypothyroidism, unspecified; F32.9 Major depressive disorder, single episode, unspecified; E78.5 Hyperlipidemia, unspecified; Z79.01 Long term (current) use of anticoagulants; Z79.891 Long term (current) use of opiate analgesic; Z79.899 Other long term (current) drug therapy; Z86.73 Personal history of transient ischemic attack (TIA), and cerebral infarction without residual deficits; Z95.1 Presence of aortocoronary bypass graft
CPT/HCPCS: 85610; 93701; 96372; G0463; J3420

== ENCOUNTER → 2019-06-26 | Outpatient (CLI) | payer MEDICARE, MEDICAID ==
[~2019-06-26] MED LIST changes: -ALPR0.25 PO; -CYANOCOBALAMIN (B-12) 1000 MCG/1 ML VIAL IM ONE; -CYANOCOBALAMIN (B-12) 1000 MCG/1 ML VIAL ONE; -HYDR-4833 PO; -LACT10SO3 PO; -NIFE30TA76 PO; -PANT40TA2 PO; -SEVE800T8 PO; -SILD20TA12 PO; -SUCR1TAB38 PO
[2019-06-26 09:50] VITALS: BP 114/65
--- NOTE | 2019-06-26 09:50 | NUR ---
CHF PT A/0 X 3 O DISTRESS VS STABLE . PT IS A DIALYSIS PT AND HAD HER FISTULA ACCESSED YESTERDAY AND IT BLED A LITTLE. THE RN PLACED A 4X4 ON TOP AND WRAPPED LIGHTLY WITH COBAN. PT FELT IT MIGHT BE A LITTLE WET. REMOVED DRESSING 4X4 HAD MODERATE AMOUNT OF DRY BLOOD ON DRESSING. CLEANSED WITH CHLORAPREP, COVERED WITH CLEAN DRESSING AND LIGHT COBAN. PT HAS APPOINTMENT WITH DIALYSIS DOCTOR TOMORROW. ADVISED TO KEEP AN EYE ON IT AND GO INTO THE ER IF BLEEDING STARTS AGAIN. KAYA PRESTON EXPLAINED IN [place]
[2019-06-26 10:10] VITALS: BP 119/61
== END | disposition home or self-care (01) ==
LOC: CHF HDHVI 10:07
PROVIDERS: ATTEND Internal Medicine
DX: L98.8 Other specified disorders of the skin and subcutaneous tissue (principal)
CPT/HCPCS: G0463

== ENCOUNTER → 2019-07-04 | Outpatient (CLI) | payer MEDICARE, MEDICAID ==
[~2019-07-04] MED LIST changes: +ALPR0.25 PO; +HYDR-4833 PO; +LACT10SO3 PO; +NIFE30TA76 PO; +PANT40TA2 PO; +SEVE800T8 PO; +SILD20TA12 PO; +SUCR1TAB38 PO
[2019-07-04 11:21] VITALS: BP 126/70
[2019-07-04 12:00] VITALS: BP 139/58
--- NOTE | 2019-07-04 12:00 | NUR ---
Pre-Op Discharge Summary: See e-MAR for any medications given for this visit. Pre-op orders received and carried out per MD of EKG, LABS and chest xrays. Patient given a copy of EKG with instructions to go to [facility] out patient for further follow up care. NOTE INR 2.8, PATIENT WILL CONTINUE 5MG DAILY DOSE OF COUMADIN.
[2019-07-04 12:03] LABS: Basophils # (auto) 0 uL; Eosinophils # (auto) 0.1 uL; Eosinophils % (auto) 1.4 % (0.0-7.0); Hemoglobin 11.1 g/dL (12.2-16.2); Lymphocytes # (auto) 0.9 uL; Lymphocytes % (auto) 17.4 % (10.0-50.0); Monocytes # (auto) 0.5 uL; Red Cell Distribution Width 15.5 % (11.8-14.3)
[2019-07-04 12:05] LABS: Potassium 4.6 mmol/L (3.5-5.1)
[2019-07-04 12:06] LABS: Basophils % (auto) 0.7 % (0.0-2.0); Mean Corpuscular Hemoglobin 35.6 pg (28.0-32.0); Mean Corpuscular Hgb Conc. 33.8 g/dL (32.0-36.0); Mean Corpuscular Volume 105.6 fL (80.0-100.0); Monocytes % (auto) 9.7 % (0.0-12.0); Neutrophils # (auto) 3.7 uL; Neutrophils % (auto) 70.8 % (37.0-80.0); Platelet Count (auto) 122 10^3/uL (140-450); Red Blood Cells 3.12 10^6/uL (4.0-5.20); White Blood Cell 5.2 10^3/uL (4.4-10.8)
[2019-07-04 12:09] LABS: INR 2.12 (0.9-1.15); Partial Thromboplastin Time 40.7 sec (23.64-32.05)
== END | disposition home or self-care (01) ==
LOC: Rad HDHVI 09:59
PROVIDERS: ATTEND Internal Medicine Cardiovascular Disease
DX: Z01.812 Encounter for preprocedural laboratory examination (principal); I70.0 Atherosclerosis of aorta; M40.209 Unspecified kyphosis, site unspecified; M47.9 Spondylosis, unspecified
CPT/HCPCS: 36415; 71046; 80048; 85025; 85610; 85730; 93005; G0463

== ENCOUNTER 2019-07-11 07:43 | Day surgery (SDC) | payer MEDICARE, MEDICAID ==
[~2019-07-11] VITALS: Ht 152.4 cm; Wt 58.0 kg
[~2019-07-11 07:43] MED LIST changes: -ALPR-140 PO; -PANT1INJ3 PO; -SILD50TA42 PO
== END 2019-07-11 10:45 | disposition home or self-care (01) ==
LOC: CATH 07:43
PROVIDERS: ATTEND Internal Medicine
DX: Z53.8 Procedure and treatment not carried out for other reasons (principal); R06.02 Shortness of breath; Z95.1 Presence of aortocoronary bypass graft; E78.5 Hyperlipidemia, unspecified; I11.0 Hypertensive heart disease with heart failure; I50.9 Heart failure, unspecified

== ENCOUNTER → 2019-07-18 | Outpatient (CLI) | payer MEDICARE, MEDICAID | END | disposition home or self-care (01) | LOC: LAB 11:10 | PROVIDERS: ATTEND Internal Medicine | DX: R79.1 Abnormal coagulation profile (principal) | CPT/HCPCS: 85610 ==

== ENCOUNTER → 2019-07-25 | Outpatient (CLI) | payer MEDICARE, MEDICAID | END | disposition home or self-care (01) | LOC: LAB 12:26 | PROVIDERS: ATTEND Internal Medicine Cardiovascular Disease | DX: R79.1 Abnormal coagulation profile (principal) | CPT/HCPCS: 85610 ==

== ENCOUNTER → 2019-07-28 | Outpatient (CLI) | payer MEDICARE, MEDICAID ==
[~2019-07-28] MED LIST changes: +NIFE1TAB31 PO; -NIFE30TA76 PO
== END | disposition home or self-care (01) ==
LOC: LAB 11:02
PROVIDERS: ATTEND Internal Medicine
DX: R79.1 Abnormal coagulation profile (principal)
CPT/HCPCS: 85610

== ENCOUNTER → 2019-08-01 | Outpatient (CLI) | payer MEDICARE, MEDICAID | END | disposition home or self-care (01) | LOC: LAB 09:29 | PROVIDERS: ATTEND Internal Medicine Cardiovascular Disease | DX: R79.1 Abnormal coagulation profile (principal) | CPT/HCPCS: 85610 ==

== ENCOUNTER → 2019-08-08 | Outpatient (CLI) | payer MEDICARE, MEDICAID | END | disposition home or self-care (01) | LOC: LAB 10:27 | PROVIDERS: ATTEND Internal Medicine | DX: R79.1 Abnormal coagulation profile (principal) | CPT/HCPCS: 85610 ==

== ENCOUNTER → 2019-08-15 | Outpatient (CLI) | payer MEDICARE, MEDICAID | END | disposition home or self-care (01) | LOC: CHF HDHVI 10:50 | PROVIDERS: ATTEND Internal Medicine | DX: R79.1 Abnormal coagulation profile (principal) | CPT/HCPCS: 85610 ==

== ENCOUNTER → 2019-08-22 | Outpatient (CLI) | payer MEDICARE, MEDICAID | END | disposition home or self-care (01) | LOC: LAB 09:44 | PROVIDERS: ATTEND Internal Medicine | DX: R79.1 Abnormal coagulation profile (principal) | CPT/HCPCS: 85610 ==

== ENCOUNTER → 2019-08-29 | Outpatient (CLI) | payer MEDICARE, MEDICAID | END | disposition home or self-care (01) | LOC: LAB 10:31 | PROVIDERS: ATTEND Internal Medicine | DX: R79.1 Abnormal coagulation profile (principal) | CPT/HCPCS: 85610 ==

== ENCOUNTER → 2019-09-05 | Outpatient (CLI) | payer MEDICARE, MEDICAID | END | disposition home or self-care (01) | LOC: LAB 09:33 | PROVIDERS: ATTEND Internal Medicine | DX: R79.1 Abnormal coagulation profile (principal) | CPT/HCPCS: 85610 ==

== ENCOUNTER → 2019-09-12 | Outpatient (CLI) | payer MEDICARE, MEDICAID ==
[~2019-09-12] MED LIST changes: +CYANOCOBALAMIN (B-12) 1000 MCG/1 ML VIAL IM ONE; +CYANOCOBALAMIN (B-12) 1000 MCG/1 ML VIAL ONE
[2019-09-12 09:30] VITALS: BP 143/74
--- NOTE | 2019-09-12 09:30 | NUR ---
CHF PT AT THE CLINIC FOR TX AND MONTHLY PAH FOLLOW UP. A/O VSS
--- NOTE | 2019-09-12 10:30 | NUR ---
Discharge Instructions See e-MAR for any mediations given with this visit. Patient education given on disease process. Patient verbalized understanding. Previous labs reviewed. Patient discharged in stable condition with after care instructions and follow up appointment. MEDICATIONS VITAMIN B12 1000 MCG IM RIGHT DELTOID LOT # [id number] EXP 02/09 CARDIODYNAMICS DONE BY NERY PRESTON REVIEWED BY JAMEL PEREA PT CURRENTLY ON SILDENAFIL 20 MG TID TOLERATING THERAPY
[2019-09-15 14:56] VITALS: BP 143/74
== END | disposition home or self-care (01) ==
LOC: LAB 09:31
PROVIDERS: ATTEND Internal Medicine
DX: I27.21 Secondary pulmonary arterial hypertension (principal); R53.83 Other fatigue; R79.1 Abnormal coagulation profile
CPT/HCPCS: 85610; 93701; 96372; G0463; J3420

== ENCOUNTER → 2019-09-26 | Outpatient (CLI) | payer MEDICARE, MEDICAID ==
[~2019-09-26] MED LIST changes: -CYANOCOBALAMIN (B-12) 1000 MCG/1 ML VIAL IM ONE; -CYANOCOBALAMIN (B-12) 1000 MCG/1 ML VIAL ONE
== END | disposition home or self-care (01) ==
LOC: LAB 08:59
PROVIDERS: ATTEND Internal Medicine
DX: R79.1 Abnormal coagulation profile (principal)
CPT/HCPCS: 85610

== ENCOUNTER → 2019-10-03 | Outpatient (CLI) | payer MEDICARE, MEDICAID | END | disposition home or self-care (01) | LOC: LAB 09:48 | PROVIDERS: ATTEND Internal Medicine Cardiovascular Disease | DX: R79.1 Abnormal coagulation profile (principal) | CPT/HCPCS: 85610 ==

== ENCOUNTER → 2019-10-06 | Outpatient (CLI) | payer MEDICARE, MEDICAID ==
--- NOTE | 2019-10-06 10:10 | NUR ---
PATIENT INR 1.3 AFTER HOLDING COUMADIN FOR 5 DAYS FOR A DENTAL PROCEDURE, ON 3MG/5MG. PATIENT INSTRUCTED IN [place] TO TAKE 6MG/5MG AND RETURN IN ONE WEEK FOR RECHECK, PATIENT VERBALIZED UNDERSTANDING.
== END | disposition home or self-care (01) ==
LOC: LAB 09:57
PROVIDERS: ATTEND Internal Medicine Cardiovascular Disease
DX: R79.1 Abnormal coagulation profile (principal)
CPT/HCPCS: 85610

== ENCOUNTER 2019-11-26 19:49 | Inpatient (IN) | payer MEDICARE, MEDICAID ==
[~2019-11-26] VITALS: Ht 162.6 cm; Wt 64.9 kg
[2019-11-26] MEDS ORDERED: ACCU-CHEK COMFORT CURVE STRIP VI ONE (20:00)
[2019-11-26 21:04] LABS: Calcium 8.1 mg/dL (8.5-10.1); Potassium 3.5 mmol/L (3.5-5.1)
[2019-11-26 21:05] LABS: Lymphocytes # (auto) 0.6 10 ^3/uL (0.4-5.4)
[2019-11-26 21:07] LABS: Albumin 3.2 g/dL (3.4-5.0); BUN/Creatinine Ratio 5.5; Bilirubin, Total 0.3 mg/dL (0.2-1.0); Magnesium 2.2 mg/dL (1.6-2.6); Total Protein 7.6 g/dL (6.4-8.2)
[2019-11-26 21:15] LABS: Basophils # (auto) 0 10 ^3/uL (0-0.2); Basophils % (auto) 0.5 % (0.0-2.0); Eosinophils # (auto) 0.3 10 ^3/uL (0-0.8); Eosinophils % (auto) 3.4 % (0.0-7.0); Hemoglobin 9.5 g/dL (12.2-16.2); Mean Corpuscular Hemoglobin 32.2 pg (28.0-32.0); Mean Corpuscular Hgb Conc. 32.9 g/dL (32.0-36.0); Mean Corpuscular Volume 97.9 fL (80.0-100.0); Monocytes # (auto) 0.8 10 ^3/uL (0-1.3); Monocytes % (auto) 10.1 % (0.0-12.0); Neutrophils # (auto) 5.9 10 ^3/uL (1.6-8.6); Nucleated Red Blood Cells % 0.1 %; Platelet Count (auto) 74 10^3/uL (140-450); Red Blood Cells 2.96 10^6/uL (4.0-5.20); Red Cell Distribution Width 14.8 % (11.8-14.3); White Blood Cell 7.5 10^3/uL (4.4-10.8)
[2019-11-26 21:21] LABS: INR 1.07 (0.9-1.15); Partial Thromboplastin Time 26.8 sec (23.64-32.05)
[2019-11-26 22:00] VITALS: BP 160/93
[2019-11-26] MEDS ORDERED: TEMAZEPAM 15 MG CAP PO PRN (22:15)
[2019-11-26] MEDS ORDERED: MORPHINE SULF INJ 2 MG/ML SYRINGE 1ML IV PRN (22:15)
[2019-11-26] MEDS ORDERED: ACETAMINOPHEN 325 MG TAB PO PRN (22:15)
[2019-11-26] MEDS ORDERED: ONDANSETRON HCL 4 MG/2 ML VIAL IV PRN (22:15)
[2019-11-26] MEDS ORDERED: NITROGLYCERIN 0.4 MG SL TAB SL PRN (22:15)
[2019-11-27 05:00] VITALS: BP 136/74
[2019-11-27 05:47] LABS: Basophils # (auto) 0 10 ^3/uL (0-0.2); Basophils % (auto) 0.8 % (0.0-2.0); Eosinophils # (auto) 0.1 10 ^3/uL (0-0.8); Eosinophils % (auto) 1.6 % (0.0-7.0); Hematocrit 26.5 % (36.0-46.0); Hemoglobin 8.9 g/dL (12.2-16.2); Lymphocytes # (auto) 0.9 10 ^3/uL (0.4-5.4); Lymphocytes % (auto) 16.5 % (10.0-50.0); Mean Corpuscular Hemoglobin 32.4 pg (28.0-32.0); Mean Corpuscular Hgb Conc. 33.3 g/dL (32.0-36.0); Mean Corpuscular Volume 97.1 fL (80.0-100.0); Monocytes # (auto) 0.5 10 ^3/uL (0-1.3); Monocytes % (auto) 8.6 % (0.0-12.0); Neutrophils # (auto) 4.1 10 ^3/uL (1.6-8.6); Neutrophils % (auto) 72.5 % (37.0-80.0); Platelet Count (auto) 73 10^3/uL (140-450); Red Blood Cells 2.73 10^6/uL (4.0-5.20); Red Cell Distribution Width 14.5 % (11.8-14.3); White Blood Cell 5.6 10^3/uL (4.4-10.8)
[2019-11-27 06:01] LABS: INR 1.09 (0.9-1.15)
[2019-11-27 06:07] LABS: Calcium 8.5 mg/dL (8.5-10.1); Potassium 4.4 mmol/L (3.5-5.1)
[2019-11-27 06:13] LABS: BUN/Creatinine Ratio 5.5
[2019-11-27] MEDS ORDERED: LEVOTHYROXINE SODIUM 25 MCG TAB PO SCH (07:00)
[2019-11-27] MEDS: SEVELAMER 800 MG TAB PO SCH ×3 (07:47→17:55)
[2019-11-27] MEDS: SILDENAFIL CITRATE 20 MG TAB PO SCH ×3 (08:10→20:09)
[2019-11-27 09:00] VITALS: BP 137/67
[2019-11-27] MEDS: PANTOPRAZOLE 40 MG TAB PO SCH (09:43)
[2019-11-27] MEDS: NIFEdipine ER 30 MG TAB PO SCH (09:45)
[2019-11-27] MEDS ORDERED: CARVEDILOL 3.125 MG TAB PO SCH (10:00)
[2019-11-27] MEDS: CARVEDILOL 12.5 MG TAB PO SCH ×2 (12:30→22:03)
[2019-11-27 13:00] VITALS: BP 145/75
[2019-11-27 17:00] VITALS: BP 113/60
[2019-11-27] MEDS ORDERED: WARFARIN SODIUM 1 MG TAB PO ONE (17:00)
[2019-11-27] MEDS: QUEtiapine FUMARATE 100 MG TAB PO SCH ×2 (20:09→21:37)
[2019-11-27] MEDS: ALPRAZolam 0.25 MG TAB PO SCH ×2 (20:09→21:37)
[2019-11-27 22:00] VITALS: BP 132/69
[2019-11-28] VITALS (7 sets, daily range): BP systolic 135–155; BP diastolic 67–95
[2019-11-28 06:11] LABS: Basophils # (auto) 0.1 10 ^3/uL (0-0.2); Eosinophils # (auto) 0.3 10 ^3/uL (0-0.8); Eosinophils % (auto) 6.5 % (0.0-7.0); Hemoglobin 8.5 g/dL (12.2-16.2); Lymphocytes # (auto) 1.2 10 ^3/uL (0.4-5.4); Lymphocytes % (auto) 24.6 % (10.0-50.0); Mean Corpuscular Hemoglobin 31.2 pg (28.0-32.0); Mean Corpuscular Hgb Conc. 32.6 g/dL (32.0-36.0); Mean Corpuscular Volume 95.8 fL (80.0-100.0); Monocytes # (auto) 0.5 10 ^3/uL (0-1.3); Monocytes % (auto) 10.9 % (0.0-12.0); Neutrophils # (auto) 2.9 10 ^3/uL (1.6-8.6); Nucleated Red Blood Cells % 0.1 %; Platelet Count (auto) 92 10^3/uL (140-450); Red Blood Cells 2.71 10^6/uL (4.0-5.20); Red Cell Distribution Width 14.5 % (11.8-14.3)
[2019-11-28 06:17] LABS: % Iron Saturation 23.8 % (15-50); INR 1.05 (0.9-1.15)
[2019-11-28 06:19] LABS: Calcium 8.1 mg/dL (8.5-10.1); Potassium 4.5 mmol/L (3.5-5.1)
[2019-11-28 06:30] LABS: Magnesium 2.4 mg/dL (1.6-2.6)
[2019-11-28] MEDS ORDERED: SODIUM CHL 0.9% 1000 ML BAG XX ONE (07:00)
[2019-11-28] MEDS: SILDENAFIL CITRATE 20 MG TAB PO SCH ×2 (08:00→14:00)
[2019-11-28] MEDS: SEVELAMER 800 MG TAB PO SCH (08:00)
[2019-11-28] MEDS: CARVEDILOL 12.5 MG TAB PO SCH ×2 (09:52→09:55)
[2019-11-28] MEDS: PANTOPRAZOLE 40 MG TAB PO SCH (09:53)
[2019-11-28] MEDS: NIFEdipine ER 30 MG TAB PO SCH ×2 (09:53→09:56)
[2019-11-28] MEDS ORDERED: WARFARIN SODIUM 2.5 MG TAB PO ONE (17:00)
[2019-11-28] MEDS ORDERED: EPOETIN ALFA 10,000 UNIT/1 ML VIAL SC ONE (21:00)
== END 2019-11-28 16:55 | disposition home or self-care (01) | DRG 280 ==
LOC: EDBD 19:49 → ER 19:52 → TELE-WESTW 19:53
PROVIDERS: ADMIT Nurse Practitioner; ATTEND Internal Medicine
PROC: 4B02XSZ Measurement of Cardiac Pacemaker, External Approach (ICD-10-PCS; 2019-11-27)
PROC: 5A1D70Z Performance of Urinary Filtration, Intermittent, Less than 6 Hours Per Day (ICD-10-PCS; principal; 2019-11-28)
DX: I13.2 Hypertensive heart and chronic kidney disease with heart failure and with stage 5 chronic kidney disease, or end stage renal disease (principal); I21.A1 Myocardial infarction type 2; N18.6 End stage renal disease; R55 Syncope and collapse; I25.110 Atherosclerotic heart disease of native coronary artery with unstable angina pectoris; D63.8 Anemia in other chronic diseases classified elsewhere; I50.9 Heart failure, unspecified; D69.6 Thrombocytopenia, unspecified; E03.9 Hypothyroidism, unspecified; E05.90 Thyrotoxicosis, unspecified without thyrotoxic crisis or storm; E78.5 Hyperlipidemia, unspecified; K57.30 Diverticulosis of large intestine without perforation or abscess without bleeding; I48.0 Paroxysmal atrial fibrillation; E86.9 Volume depletion, unspecified; K21.9 Gastro-esophageal reflux disease without esophagitis; F41.9 Anxiety disorder, unspecified; F17.200 Nicotine dependence, unspecified, uncomplicated; Z90.49 Acquired absence of other specified parts of digestive tract; Z86.73 Personal history of transient ischemic attack (TIA), and cerebral infarction without residual deficits; Z83.3 Family history of diabetes mellitus; Z79.01 Long term (current) use of anticoagulants; Z95.0 Presence of cardiac pacemaker; Z95.1 Presence of aortocoronary bypass graft; Z95.2 Presence of prosthetic heart valve; Z88.1 Allergy status to other antibiotic agents
CPT/HCPCS: 36415; 70450; 71045; 74176; 78582; 80048; 80053; 80061; 82150; 82728; 82962; 83540; 83550; 83690; 83735; 83880; 84443; 84484; 85025; 85379; 85610; 85730; 87081; 90935; 93005; 93306; 93886; G0378; J0885; J1642

== ENCOUNTER → 2019-12-11 | Outpatient (CLI) | payer MEDICARE, MEDICAID ==
[~2019-12-11] MED LIST changes: -LEVO100T8 PO
== END | disposition home or self-care (01) ==
LOC: Rad HDHVI 08:49
PROVIDERS: ATTEND Internal Medicine Cardiovascular Disease
DX: I08.8 Other rheumatic multiple valve diseases (principal); I10 Essential (primary) hypertension; Z95.2 Presence of prosthetic heart valve; Z87.898 Personal history of other specified conditions
CPT/HCPCS: 85610; 93306

== ENCOUNTER → 2019-12-30 | Outpatient (CLI) | payer MEDICARE, MEDICAID ==
[~2019-12-30] VITALS: Ht 154.9 cm; Wt 62.6 kg
[~2019-12-30] MED LIST changes: +ADENOSINE 53 MG in GIVE UN-DILUTED 0 ML IV ONE; +ADENOSINE 90 MG/30 ML INJ IV ONE; +LEV100T PO; +WARF1TAB36 PO
== END | disposition home or self-care (01) ==
LOC: Rad HDHVI 08:49
PROVIDERS: ATTEND Internal Medicine
DX: I10 Essential (primary) hypertension (principal); I25.10 Atherosclerotic heart disease of native coronary artery without angina pectoris; R79.1 Abnormal coagulation profile
CPT/HCPCS: 78452; 85610; 93005; 96374; 96375; A9500; J0153

== ENCOUNTER 2020-01-03 09:59 | Emergency (ER) | payer MEDICARE, MEDICAID ==
[~2020-01-03] VITALS: Ht 154.9 cm; Wt 63.5 kg
[~2020-01-03 09:59] MED LIST changes: -ADENOSINE 53 MG in GIVE UN-DILUTED 0 ML IV ONE; -ADENOSINE 90 MG/30 ML INJ IV ONE; -LEV100T PO; -WARF1TAB36 PO
[2020-01-03 10:16] VITALS: BP 135/66
== END 2020-01-03 11:26 | disposition left against medical advice (07) ==
LOC: ER 09:59
DX: R07.9 Chest pain, unspecified (principal); Z53.21 Procedure and treatment not carried out due to patient leaving prior to being seen by health care provider
CPT/HCPCS: 71045

== ENCOUNTER 2020-01-05 03:06 | Inpatient (IN) | payer MEDICARE, MEDICAID ==
[~2020-01-05] VITALS: Ht 154.9 cm; Wt 65.7 kg
[2020-01-05 04:12] LABS: Basophils # (auto) 0 10 ^3/uL (0-0.2); Basophils % (auto) 0.9 % (0.0-2.0); Eosinophils # (auto) 0.2 10 ^3/uL (0-0.8); Eosinophils % (auto) 4.2 % (0.0-7.0); Hematocrit 31.7 % (36.0-46.0); Hemoglobin 10.1 g/dL (12.2-16.2); Lymphocytes # (auto) 0.9 10 ^3/uL (0.4-5.4); Lymphocytes % (auto) 16.2 % (10.0-50.0); Mean Corpuscular Hgb Conc. 31.9 g/dL (32.0-36.0); Mean Corpuscular Volume 100.1 fL (80.0-100.0); Monocytes # (auto) 0.5 10 ^3/uL (0-1.3); Monocytes % (auto) 10.4 % (0.0-12.0); Neutrophils # (auto) 3.6 10 ^3/uL (1.6-8.6); Neutrophils % (auto) 68.3 % (37.0-80.0); Nucleated Red Blood Cells % 0.2 %; Platelet Count (auto) 82 10^3/uL (140-450); Red Blood Cells 3.16 10^6/uL (4.0-5.20); Red Cell Distribution Width 18.2 % (11.8-14.3); White Blood Cell 5.3 10^3/uL (4.4-10.8)
[2020-01-05 04:29] LABS: INR 1.23 (0.9-1.15); Partial Thromboplastin Time 32.3 sec (23.64-32.05)
[2020-01-05 04:30] LABS: Albumin 3.1 g/dL (3.4-5.0); Anion Gap 9 (5-15); Blood Urea Nitrogen 38 mg/dL (7-18); Calcium 8.3 mg/dL (8.5-10.1); Carbon Dioxide 24 mmol/L (21-32); Chloride 102 mmol/L (98-107); Glucose 90 mg/dL (74-106); Magnesium 2.9 mg/dL (1.6-2.6); Potassium 4.8 mmol/L (3.5-5.1); Sodium 135 mmol/L (136-145)
[2020-01-05 04:50] LABS: Alanine Aminotransferase 43 U/L (13-56); Alkaline Phosphatase 295 U/L (45-117); Aspartate Aminotransferase 16 U/L (15-37); BUN/Creatinine Ratio 5.4; Bilirubin, Total 0.3 mg/dL (0.2-1.0); GFR African American 7 mL/min; GFR Non-African American 6 mL/min; Total Protein 6.4 g/dL (6.4-8.2)
[2020-01-05] MEDS ORDERED: IOHEXOL 350 MG/ML 100ML IJ ONE (05:58)
[2020-01-05] MEDS ORDERED: HYDROcodone-ACET 5/325MG TAB PO PRN ×2 (06:15)
[2020-01-05] MEDS ORDERED: ACETAMINOPHEN 325 MG TAB PO PRN (06:15)
[2020-01-05] MEDS ORDERED: ONDANSETRON HCL 4 MG/2 ML VIAL IV PRN (06:15)
[2020-01-05] MEDS ORDERED: cloNIDine HCL 0.1 MG TAB PO PRN (06:15)
[2020-01-05] MEDS ORDERED: DOCUSATE SOD 100 MG CAP PO PRN (06:15)
[2020-01-05] MEDS ORDERED: MORPHINE SULF INJ 2 MG/ML SYRINGE 1ML IV PRN (06:15)
[2020-01-05 07:49] LABS: Basophils # (auto) 0 10 ^3/uL (0-0.2); Eosinophils # (auto) 0.2 10 ^3/uL (0-0.8); Eosinophils % (auto) 3.7 % (0.0-7.0); Hematocrit 30.5 % (36.0-46.0); Hemoglobin 9.8 g/dL (12.2-16.2); Lymphocytes # (auto) 0.7 10 ^3/uL (0.4-5.4); Lymphocytes % (auto) 14.9 % (10.0-50.0); Mean Corpuscular Hemoglobin 32.3 pg (28.0-32.0); Mean Corpuscular Hgb Conc. 32.2 g/dL (32.0-36.0); Mean Corpuscular Volume 100.5 fL (80.0-100.0); Monocytes # (auto) 0.5 10 ^3/uL (0-1.3); Monocytes % (auto) 10.7 % (0.0-12.0); Neutrophils # (auto) 3.2 10 ^3/uL (1.6-8.6); Neutrophils % (auto) 69.7 % (37.0-80.0); Nucleated Red Blood Cells % 0.1 %; Platelet Count (auto) 75 10^3/uL (140-450); Red Blood Cells 3.04 10^6/uL (4.0-5.20); White Blood Cell 4.6 10^3/uL (4.4-10.8)
[2020-01-05 08:07] LABS: Potassium 5.2 mmol/L (3.5-5.1)
[2020-01-05 08:21] LABS: BUN/Creatinine Ratio 5.2
[2020-01-05] MEDS: SEVELAMER 800 MG TAB PO SCH ×3 (08:29→17:59)
[2020-01-05 09:34] VITALS: BP 157/92
[2020-01-05 09:52] VITALS: BP 157/92
[2020-01-05] MEDS: NIFEdipine ER 30 MG TAB PO SCH (10:00)
[2020-01-05] MEDS ORDERED: WARFARIN SODIUM 5 MG TAB PO SCH ×2 (10:00→17:00)
[2020-01-05] MEDS: PANTOPRAZOLE 40 MG TAB PO SCH (10:00)
[2020-01-05] MEDS: CARVEDILOL 3.125 MG TAB PO SCH ×2 (10:02→21:37)
[2020-01-05 13:00] VITALS: BP 159/82
[2020-01-05] MEDS: SILDENAFIL CITRATE 20 MG TAB PO SCH ×2 (14:37→21:37)
[2020-01-05] MEDS: ALPRAZolam 0.25 MG TAB PO SCH ×2 (14:37→21:38)
[2020-01-05 16:49] VITALS: BP 174/91
[2020-01-05 21:00] VITALS: BP 156/79
[2020-01-05] MEDS ORDERED: QUEtiapine FUMARATE 100 MG TAB PO SCH (22:00)
[2020-01-06 04:30] VITALS: BP 148/70
[2020-01-06] MEDS: SILDENAFIL CITRATE 20 MG TAB PO SCH (05:28)
[2020-01-06] MEDS: ALPRAZolam 0.25 MG TAB PO SCH (05:28)
[2020-01-06 05:50] LABS: Basophils # (auto) 0 10 ^3/uL (0-0.2); Eosinophils # (auto) 0.2 10 ^3/uL (0-0.8); Eosinophils % (auto) 4.6 % (0.0-7.0); Hematocrit 28.6 % (36.0-46.0); Hemoglobin 9.2 g/dL (12.2-16.2); Lymphocytes # (auto) 0.8 10 ^3/uL (0.4-5.4); Lymphocytes % (auto) 16.3 % (10.0-50.0); Mean Corpuscular Hemoglobin 32.1 pg (28.0-32.0); Mean Corpuscular Hgb Conc. 32.2 g/dL (32.0-36.0); Mean Corpuscular Volume 99.6 fL (80.0-100.0); Monocytes # (auto) 0.5 10 ^3/uL (0-1.3); Monocytes % (auto) 10.4 % (0.0-12.0); Neutrophils # (auto) 3.2 10 ^3/uL (1.6-8.6); Neutrophils % (auto) 67.7 % (37.0-80.0); Nucleated Red Blood Cells % 0.2 %; Platelet Count (auto) 83 10^3/uL (140-450); Red Blood Cells 2.87 10^6/uL (4.0-5.20); Red Cell Distribution Width 18.4 % (11.8-14.3); White Blood Cell 4.7 10^3/uL (4.4-10.8)
[2020-01-06 06:09] LABS: INR 1.47 (0.9-1.15)
[2020-01-06 06:23] LABS: Potassium 4.9 mmol/L (3.5-5.1)
[2020-01-06 06:31] LABS: BUN/Creatinine Ratio 5.1; Calcium 8.1 mg/dL (8.5-10.1)
[2020-01-06] MEDS: SEVELAMER 800 MG TAB PO SCH ×2 (08:01→12:29)
[2020-01-06 09:06] VITALS: BP 140/71
[2020-01-06] MEDS: PANTOPRAZOLE 40 MG TAB PO SCH (09:45)
[2020-01-06] MEDS ORDERED: LEV100T PO (11:10)
[2020-01-06] MEDS ORDERED: WARF1TAB36 PO (11:10)
[2020-01-06 12:26] VITALS: BP 140/71
[2020-01-06] MEDS: NIFEdipine ER 30 MG TAB PO SCH (12:29)
[2020-01-06] MEDS: CARVEDILOL 3.125 MG TAB PO SCH (12:30)
[2020-01-06 12:51] VITALS: BP 142/76
[2020-01-06] MEDS ORDERED: EPOETIN ALFA 10,000 UNIT/1 ML VIAL IV ONE (21:00)
== END 2020-01-06 14:00 | disposition home health service (06) | DRG 291 ==
LOC: EDBD 03:06 → ER 03:15 → EDUNIT# 03:15 → TELE 03:16 → TELE-WESTW 09:14
PROVIDERS: ADMIT Hospitalist; ATTEND Internal Medicine
PROC: 5A1D70Z Performance of Urinary Filtration, Intermittent, Less than 6 Hours Per Day (ICD-10-PCS; principal; 2020-01-06)
DX: I13.2 Hypertensive heart and chronic kidney disease with heart failure and with stage 5 chronic kidney disease, or end stage renal disease (principal); N18.6 End stage renal disease; I50.43 Acute on chronic combined systolic (congestive) and diastolic (congestive) heart failure; J91.8 Pleural effusion in other conditions classified elsewhere; E87.1 Hypo-osmolality and hyponatremia; E87.5 Hyperkalemia; I48.0 Paroxysmal atrial fibrillation; I25.10 Atherosclerotic heart disease of native coronary artery without angina pectoris; D63.1 Anemia in chronic kidney disease; I27.21 Secondary pulmonary arterial hypertension; D69.6 Thrombocytopenia, unspecified; E03.9 Hypothyroidism, unspecified; E78.5 Hyperlipidemia, unspecified; Z83.3 Family history of diabetes mellitus; Z95.0 Presence of cardiac pacemaker; Z95.1 Presence of aortocoronary bypass graft; Z95.2 Presence of prosthetic heart valve; Z88.1 Allergy status to other antibiotic agents
CPT/HCPCS: 36415; 71045; 71275; 80048; 80053; 80061; 83735; 83880; 84484; 85025; 85379; 85610; 85730; 87081; 90935; G0378

== ENCOUNTER → 2020-01-09 | Outpatient (CLI) | payer MEDICARE, MEDICAID ==
[~2020-01-09] MED LIST changes: +LEV100T PO; +WARF1TAB36 PO
== END | disposition home or self-care (01) ==
LOC: LAB 09:10
PROVIDERS: ATTEND Internal Medicine
DX: R79.1 Abnormal coagulation profile (principal)
CPT/HCPCS: 85610

== ENCOUNTER → 2020-01-16 | Outpatient (CLI) | payer MEDICARE, MEDICAID ==
[~2020-01-16] MED LIST changes: -WARF5TAB71 PO
== END | disposition home or self-care (01) ==
LOC: CHF HDHVI 11:25
PROVIDERS: ATTEND Internal Medicine
DX: R79.1 Abnormal coagulation profile (principal)
CPT/HCPCS: 85610

== ENCOUNTER → 2020-01-26 | Outpatient (CLI) | payer MEDICARE, MEDICAID | END | disposition home or self-care (01) | LOC: LAB 10:27 | PROVIDERS: ATTEND Internal Medicine Cardiovascular Disease | DX: R79.1 Abnormal coagulation profile (principal) | CPT/HCPCS: 85610 ==

== ENCOUNTER → 2020-02-02 | Outpatient (CLI) | payer MEDICARE, MEDICAID ==
[~2020-02-02] MED LIST changes: +BISA10SU45 PO; +CAR3125T PO; +NIFE1TAB36 PO; +ONDA-144 PO; +PANT40T PO; +SUCR1TAB22 PO; -SUCR1TAB38 PO; +WARF3TAB22 PO
== END | disposition home or self-care (01) ==
LOC: CHF HDHVI 11:17
PROVIDERS: ATTEND Internal Medicine
DX: R79.1 Abnormal coagulation profile (principal)
CPT/HCPCS: 85610

== ENCOUNTER → 2020-02-20 | Outpatient (CLI) | payer MEDICARE, MEDICAID ==
[~2020-02-20] VITALS: Ht 30.5 cm; Wt 0.5 kg
[~2020-02-20] MED LIST changes: -BISA10SU45 PO; -CAR3125T PO; +CYANOCOBALAMIN (B-12) 1000 MCG/1 ML VIAL IM ONE; +CYANOCOBALAMIN (B-12) 1000 MCG/1 ML VIAL ONE; -NIFE1TAB36 PO; -ONDA-144 PO; -PANT40T PO; -WARF3TAB22 PO
[2020-02-20 10:00] VITALS: BP 168/77
[2020-02-20 10:55] VITALS: BP 171/84
--- NOTE | 2020-02-20 10:55 | NUR ---
Discharge Instructions See e-MAR for any mediations given with this visit. Patient education given on disease process. Patient verbalized understanding. Previous labs reviewed. Patient discharged in stable condition with after care instructions and follow up appointment. Note b12 IM R deltoid admin by Glory PRESTON.
[2020-02-20 12:00] LABS: Basophils # (auto) 0 10 ^3/uL (0-0.2); Basophils % (auto) 0.9 % (0.0-2.0); Eosinophils # (auto) 0.1 10 ^3/uL (0-0.8); Eosinophils % (auto) 2.3 % (0.0-7.0); Hematocrit 33.8 % (36.0-46.0); Lymphocytes # (auto) 0.6 10 ^3/uL (0.4-5.4); Lymphocytes % (auto) 12.4 % (10.0-50.0); Mean Corpuscular Hemoglobin 31.6 pg (28.0-32.0); Mean Corpuscular Hgb Conc. 32.5 g/dL (32.0-36.0); Mean Corpuscular Volume 97.4 fL (80.0-100.0); Monocytes # (auto) 0.4 10 ^3/uL (0-1.3); Monocytes % (auto) 9.2 % (0.0-12.0); Neutrophils # (auto) 3.7 10 ^3/uL (1.6-8.6); Neutrophils % (auto) 75.2 % (37.0-80.0); Nucleated Red Blood Cells % 0.2 %; Platelet Count (auto) 73 10^3/uL (140-450); Red Blood Cells 3.47 10^6/uL (4.0-5.20); Red Cell Distribution Width 16.7 % (11.8-14.3); White Blood Cell 4.9 10^3/uL (4.4-10.8)
[2020-02-20 12:07] LABS: Albumin 3.2 g/dL (3.4-5.0); Calcium 7.4 mg/dL (8.5-10.1)
[2020-02-20 12:10] LABS: Bilirubin, Total 0.4 mg/dL (0.2-1.0); Total Protein 7.2 g/dL (6.4-8.2)
[2020-02-20 12:12] LABS: INR 3.77 (0.9-1.15); Partial Thromboplastin Time 47.2 sec (23.0-31.2)
== END | disposition home or self-care (01) ==
LOC: LAB 10:03
PROVIDERS: ATTEND Internal Medicine
DX: I13.2 Hypertensive heart and chronic kidney disease with heart failure and with stage 5 chronic kidney disease, or end stage renal disease (principal); I50.42 Chronic combined systolic (congestive) and diastolic (congestive) heart failure; N18.6 End stage renal disease; R79.1 Abnormal coagulation profile; R53.83 Other fatigue; I25.10 Atherosclerotic heart disease of native coronary artery without angina pectoris; I27.21 Secondary pulmonary arterial hypertension; D64.9 Anemia, unspecified; E78.5 Hyperlipidemia, unspecified; E03.9 Hypothyroidism, unspecified; I48.0 Paroxysmal atrial fibrillation; Z95.1 Presence of aortocoronary bypass graft
CPT/HCPCS: 36415; 80053; 82607; 83735; 85025; 85610; 85730; 96372; G0463; J3420

== ENCOUNTER → 2020-02-27 | Outpatient (CLI) | payer MEDICARE, MEDICAID ==
[~2020-02-27] MED LIST changes: +BISA10SU45 PO; +CAR3125T PO; -CYANOCOBALAMIN (B-12) 1000 MCG/1 ML VIAL IM ONE; -CYANOCOBALAMIN (B-12) 1000 MCG/1 ML VIAL ONE; +NIFE1TAB36 PO; +ONDA-144 PO; +PANT40T PO; +WARF3TAB22 PO
== END | disposition home or self-care (01) ==
LOC: LAB 10:03
PROVIDERS: ATTEND Internal Medicine
DX: R79.1 Abnormal coagulation profile (principal)

== ENCOUNTER → 2020-03-05 | Outpatient (CLI) | payer MEDICARE, MEDICAID ==
[2020-03-05 09:30] VITALS: BP 134/65
[2020-03-05 09:54] VITALS: BP 136/63
[2020-03-05 11:57] LABS: Basophils # (auto) 0 10 ^3/uL (0-0.2); Basophils % (auto) 0.7 % (0.0-2.0); Eosinophils # (auto) 0.1 10 ^3/uL (0-0.8); Eosinophils % (auto) 2.5 % (0.0-7.0); Hematocrit 36.2 % (36.0-46.0); Hemoglobin 11.5 g/dL (12.2-16.2); Lymphocytes # (auto) 0.7 10 ^3/uL (0.4-5.4); Mean Corpuscular Hgb Conc. 31.8 g/dL (32.0-36.0); Mean Corpuscular Volume 97.2 fL (80.0-100.0); Monocytes # (auto) 0.6 10 ^3/uL (0-1.3); Monocytes % (auto) 11.3 % (0.0-12.0); Neutrophils % (auto) 72.5 % (37.0-80.0); Nucleated Red Blood Cells % 0.1 %; Platelet Count (auto) 83 10^3/uL (140-450); Red Blood Cells 3.72 10^6/uL (4.0-5.20); White Blood Cell 5.5 10^3/uL (4.4-10.8)
[2020-03-05 12:19] LABS: INR 1.77 (0.9-1.15); Partial Thromboplastin Time 36.2 sec (23.0-31.2)
[2020-03-05 12:21] LABS: Potassium 4.1 mmol/L (3.5-5.1)
[2020-03-05 12:22] LABS: Calcium 7.6 mg/dL (8.5-10.1)
== END | disposition home or self-care (01) ==
LOC: Rad HDHVI 09:01
PROVIDERS: ATTEND Internal Medicine
DX: Z01.812 Encounter for preprocedural laboratory examination (principal); I51.7 Cardiomegaly
CPT/HCPCS: 36415; 71046; 80048; 85025; 85610; 85730; 93005; G0463

== ENCOUNTER 2020-03-11 08:57 | Day surgery (SDC) | payer MEDICARE, MEDICAID ==
[~2020-03-11] VITALS: Ht 154.9 cm; Wt 70.0 kg
[2020-03-11] MEDS ORDERED: LIDOCAINE 2%HCL (LOCAL ANESTH.) INJ 20ML MDV ONE (10:10)
[2020-03-11] MEDS ORDERED: fentaNYL CITRATE 100 MCG/2 ML VL ONE (10:10)
[2020-03-11] MEDS ORDERED: ANGIOMAX 250 MG VIAL IV ONE (10:10)
[2020-03-11] MEDS ORDERED: MIDAZOLAM HCL 1MG/1ML-2 ML VIAL ONE (10:10)
[2020-03-11] MEDS ORDERED: SODIUM CHL 0.9% 0 ML ONE (10:10)
[2020-03-11] MEDS ORDERED: IODIXANOL 320MG/ML 100ML BTL IV ONE (10:10)
[2020-03-11] MEDS ORDERED: NITROGLYCERIN 5MG/ML 10ML VIAL IV ONE (10:15)
[2020-03-11] MEDS ORDERED: diphenhdrAMINE HCL 50 MG/1 ML VL ONE (10:25)
[2020-03-11] MEDS ORDERED: ONDANSETRON HCL 4 MG/2 ML VIAL IV PRN (11:15)
[2020-03-11] MEDS ORDERED: HYDROcodone-ACET 5/325MG TAB PO PRN (11:15)
[2020-03-11] MEDS ORDERED: ACETAMINOPHEN 500 MG TAB PO PRN (11:15)
== END 2020-03-11 15:30 | disposition home or self-care (01) ==
LOC: CATH 08:57 → MERGE 08:57 → CATH 15:30
PROVIDERS: ATTEND Internal Medicine Cardiovascular Disease
DX: R07.89 Other chest pain (principal); I25.2 Old myocardial infarction; I25.810 Atherosclerosis of coronary artery bypass graft(s) without angina pectoris; I12.0 Hypertensive chronic kidney disease with stage 5 chronic kidney disease or end stage renal disease; N18.6 End stage renal disease; K21.9 Gastro-esophageal reflux disease without esophagitis; Z99.2 Dependence on renal dialysis; Z95.1 Presence of aortocoronary bypass graft; Z79.899 Other long term (current) drug therapy; Z98.890 Other specified postprocedural states; Z11.59 Encounter for screening for other viral diseases
CPT/HCPCS: 93458; C1760; C1894; J1200; J1644; J2250; J3010; J7030; Q9967; U0003; 99152; J3490

== ENCOUNTER → 2020-03-12 | Outpatient (CLI) | payer MEDICARE, MEDICAID | END | disposition home or self-care (01) | LOC: LAB 11:43 | PROVIDERS: ATTEND Internal Medicine Cardiovascular Disease | DX: R79.1 Abnormal coagulation profile (principal) ==

== ENCOUNTER → 2020-03-19 | Outpatient (CLI) | payer MEDICARE, MEDICAID | END | disposition home or self-care (01) | LOC: LAB 11:10 | PROVIDERS: ATTEND Internal Medicine | DX: R79.1 Abnormal coagulation profile (principal) | CPT/HCPCS: 85610 ==

== ENCOUNTER → 2020-03-26 | Outpatient (CLI) | payer MEDICARE, MEDICAID | END | disposition home or self-care (01) | LOC: LAB 11:20 | PROVIDERS: ATTEND Internal Medicine | DX: R79.1 Abnormal coagulation profile (principal) | CPT/HCPCS: 85610 ==

== ENCOUNTER → 2020-04-02 | Outpatient (CLI) | payer MEDICARE, MEDICAID ==
[~2020-04-02] MED LIST changes: +CYANOCOBALAMIN (B-12) 1000 MCG/1 ML VIAL IM ONE; +CYANOCOBALAMIN (B-12) 1000 MCG/1 ML VIAL ONE
[2020-04-02 10:00] VITALS: BP 132/64
[2020-04-02 10:20] VITALS: BP 132/70
[2020-04-02 12:35] LABS: Basophils # (auto) 0 10 ^3/uL (0-0.2); Basophils % (auto) 0.9 % (0.0-2.0); Eosinophils # (auto) 0.2 10 ^3/uL (0-0.8); Eosinophils % (auto) 4.3 % (0.0-7.0); Hematocrit 31.9 % (36.0-46.0); Hemoglobin 10.4 g/dL (12.2-16.2); Lymphocytes # (auto) 0.7 10 ^3/uL (0.4-5.4); Lymphocytes % (auto) 13.6 % (10.0-50.0); Mean Corpuscular Hemoglobin 31.7 pg (28.0-32.0); Mean Corpuscular Hgb Conc. 32.7 g/dL (32.0-36.0); Monocytes # (auto) 0.5 10 ^3/uL (0-1.3); Monocytes % (auto) 10.4 % (0.0-12.0); Neutrophils # (auto) 3.4 10 ^3/uL (1.6-8.6); Neutrophils % (auto) 70.8 % (37.0-80.0); Platelet Count (auto) 77 10^3/uL (140-450); Red Blood Cells 3.29 10^6/uL (4.0-5.20); Red Cell Distribution Width 17.8 % (11.8-14.3); White Blood Cell 4.9 10^3/uL (4.4-10.8)
[2020-04-02 12:47] LABS: Albumin 3.4 g/dL (3.4-5.0); Calcium 7.3 mg/dL (8.5-10.1); Magnesium 2.8 mg/dL (1.6-2.6); Potassium 4.4 mmol/L (3.5-5.1)
[2020-04-02 12:52] LABS: BUN/Creatinine Ratio 5.9; Bilirubin, Total 0.4 mg/dL (0.2-1.0); Total Protein 7.1 g/dL (6.4-8.2)
[2020-04-02 12:55] LABS: INR 2.45 (0.9-1.15); Partial Thromboplastin Time 42.7 sec (23.0-31.2)
== END | disposition home or self-care (01) ==
LOC: CHF HDHVI 09:54
PROVIDERS: ATTEND Internal Medicine
DX: I48.0 Paroxysmal atrial fibrillation (principal); I13.2 Hypertensive heart and chronic kidney disease with heart failure and with stage 5 chronic kidney disease, or end stage renal disease; N18.6 End stage renal disease; I50.42 Chronic combined systolic (congestive) and diastolic (congestive) heart failure; I25.10 Atherosclerotic heart disease of native coronary artery without angina pectoris; I27.21 Secondary pulmonary arterial hypertension; I25.2 Old myocardial infarction; G89.4 Chronic pain syndrome; R79.1 Abnormal coagulation profile; K21.9 Gastro-esophageal reflux disease without esophagitis; E78.5 Hyperlipidemia, unspecified; E03.9 Hypothyroidism, unspecified; Z79.899 Other long term (current) drug therapy; Z95.1 Presence of aortocoronary bypass graft; Z99.2 Dependence on renal dialysis
CPT/HCPCS: 36415; 80053; 82306; 82607; 83036; 83735; 83880; 85025; 85610; 85730; 94618; 96372; G0463; J3420

== ENCOUNTER → 2020-04-09 | Outpatient (CLI) | payer MEDICARE, MEDICAID ==
[~2020-04-09] MED LIST changes: -CYANOCOBALAMIN (B-12) 1000 MCG/1 ML VIAL IM ONE; -CYANOCOBALAMIN (B-12) 1000 MCG/1 ML VIAL ONE
== END | disposition home or self-care (01) ==
LOC: LAB 09:58
PROVIDERS: ATTEND Internal Medicine Cardiovascular Disease
DX: R79.1 Abnormal coagulation profile (principal)
CPT/HCPCS: 85610

== ENCOUNTER → 2020-04-16 | Outpatient (CLI) | payer MEDICARE, MEDICAID | END | disposition home or self-care (01) | LOC: LAB 09:41 | PROVIDERS: ATTEND Internal Medicine Cardiovascular Disease | DX: R79.1 Abnormal coagulation profile (principal) | CPT/HCPCS: 85610 ==

== ENCOUNTER → 2020-04-30 | Outpatient (CLI) | payer MEDICARE, MEDICAID | END | disposition home or self-care (01) | LOC: LAB 10:34 | PROVIDERS: ATTEND Internal Medicine | DX: R79.1 Abnormal coagulation profile (principal) | CPT/HCPCS: 85610 ==

== ENCOUNTER → 2020-05-07 | Outpatient (CLI) | payer MEDICARE, MEDICAID ==
[~2020-05-07] MED LIST changes: +CYANOCOBALAMIN (B-12) 1000 MCG/1 ML VIAL IM ONE; +CYANOCOBALAMIN (B-12) 1000 MCG/1 ML VIAL ONE
[2020-05-07 10:30] VITALS: BP 181/76
--- NOTE | 2020-05-07 10:30 | NUR ---
Patient in clinic for monthly PAH visit, AAOx4, ambulatory, breathing even and unlabored. Patient states she is waiting for a kidney transplant.
[2020-05-07 11:15] VITALS: BP 171/82
--- NOTE | 2020-05-07 11:15 | NUR ---
Discharge Instructions See e-MAR for any mediations given with this visit. Patient education given on disease process. Patient verbalized understanding. Previous labs reviewed. Patient discharged in stable condition with after care instructions and follow up appointment. Note B12 IM R deltoid admin by Glory PRESTON. Unable to draw blood work, pt says she will bring her labs from dialysis. INR 1.5 increased coumadin from 3/4mg to 4mg daily and redraw in one week.
== END | disposition home or self-care (01) ==
LOC: LAB 10:14
PROVIDERS: ATTEND Internal Medicine
DX: R79.1 Abnormal coagulation profile (principal); I13.2 Hypertensive heart and chronic kidney disease with heart failure and with stage 5 chronic kidney disease, or end stage renal disease; I50.42 Chronic combined systolic (congestive) and diastolic (congestive) heart failure; N18.6 End stage renal disease; I25.10 Atherosclerotic heart disease of native coronary artery without angina pectoris; I27.21 Secondary pulmonary arterial hypertension; I25.2 Old myocardial infarction; I48.0 Paroxysmal atrial fibrillation; R53.83 Other fatigue; G89.4 Chronic pain syndrome; K21.9 Gastro-esophageal reflux disease without esophagitis; E78.5 Hyperlipidemia, unspecified; E03.9 Hypothyroidism, unspecified; R06.02 Shortness of breath; Z95.1 Presence of aortocoronary bypass graft; Z95.4 Presence of other heart-valve replacement; Z79.899 Other long term (current) drug therapy; Z99.2 Dependence on renal dialysis
CPT/HCPCS: 96372; G0463; J3420

== ENCOUNTER → 2020-05-14 | Outpatient (CLI) | payer MEDICARE, MEDICAID ==
[~2020-05-14] MED LIST changes: -CYANOCOBALAMIN (B-12) 1000 MCG/1 ML VIAL IM ONE; -CYANOCOBALAMIN (B-12) 1000 MCG/1 ML VIAL ONE
== END | disposition home or self-care (01) ==
LOC: LAB 10:14
PROVIDERS: ATTEND Internal Medicine Cardiovascular Disease
DX: R79.1 Abnormal coagulation profile (principal)
CPT/HCPCS: 85610

== ENCOUNTER → 2020-05-21 | Outpatient (CLI) | payer MEDICARE, MEDICAID | END | disposition home or self-care (01) | LOC: LAB 10:11 | PROVIDERS: ATTEND Internal Medicine Cardiovascular Disease | DX: R79.1 Abnormal coagulation profile (principal) | CPT/HCPCS: 85610 ==

== ENCOUNTER → 2020-06-11 | Outpatient (CLI) | payer MEDICARE, MEDICAID | END | disposition home or self-care (01) | LOC: LAB 09:57 | PROVIDERS: ATTEND Internal Medicine Cardiovascular Disease | DX: R79.1 Abnormal coagulation profile (principal) | CPT/HCPCS: 85610 ==

== ENCOUNTER → 2020-07-13 | Outpatient (CLI) | payer MEDICARE, MEDICAID ==
[~2020-07-13] MED LIST changes: +IOHEXOL 350 MG/ML 100ML IJ ONE
[2020-07-13 10:50] VITALS: BP 180/81
[2020-07-13 11:30] VITALS: BP 178/74
[2020-07-13 12:01] LABS: Basophils # (auto) 0.1 10 ^3/uL (0-0.2); Basophils % (auto) 1.1 % (0.0-2.0); Eosinophils # (auto) 0.2 10 ^3/uL (0-0.8); Eosinophils % (auto) 4.2 % (0.0-7.0); Hematocrit 31.3 % (36.0-46.0); Hemoglobin 10.2 g/dL (12.2-16.2); Lymphocytes # (auto) 0.6 10 ^3/uL (0.4-5.4); Lymphocytes % (auto) 11.3 % (10.0-50.0); Mean Corpuscular Hemoglobin 32.9 pg (28.0-32.0); Mean Corpuscular Hgb Conc. 32.5 g/dL (32.0-36.0); Mean Corpuscular Volume 101.2 fL (80.0-100.0); Monocytes # (auto) 0.5 10 ^3/uL (0-1.3); Monocytes % (auto) 9.8 % (0.0-12.0); Neutrophils # (auto) 3.8 10 ^3/uL (1.6-8.6); Neutrophils % (auto) 73.6 % (37.0-80.0); Nucleated Red Blood Cells % 0.1 %; Platelet Count (auto) 81 10^3/uL (140-450); Red Blood Cells 3.09 10^6/uL (4.0-5.20); Red Cell Distribution Width 18.9 % (11.8-14.3); White Blood Cell 5.1 10^3/uL (4.4-10.8)
[2020-07-13 12:12] LABS: Albumin 3.3 g/dL (3.4-5.0); Calcium 8.3 mg/dL (8.5-10.1); Potassium 4.1 mmol/L (3.5-5.1)
[2020-07-13 12:17] LABS: BUN/Creatinine Ratio 3.8; Bilirubin, Total 0.5 mg/dL (0.2-1.0)
== END | disposition home or self-care (01) ==
LOC: Rad HDHVI 10:20
PROVIDERS: ATTEND Internal Medicine
DX: I67.82 Cerebral ischemia (principal); I67.2 Cerebral atherosclerosis; I27.0 Primary pulmonary hypertension; G31.9 Degenerative disease of nervous system, unspecified; I50.23 Acute on chronic systolic (congestive) heart failure; R55 Syncope and collapse; D64.9 Anemia, unspecified; E55.9 Vitamin D deficiency, unspecified; R79.1 Abnormal coagulation profile; G93.89 Other specified disorders of brain
CPT/HCPCS: 36415; 70470; 80053; 82306; 83735; 83880; 85025; 85610; G0463; Q9967

== ENCOUNTER → 2020-07-19 | Outpatient (CLI) | payer MEDICARE, MEDICAID ==
[~2020-07-19] MED LIST changes: -IOHEXOL 350 MG/ML 100ML IJ ONE
== END | disposition home or self-care (01) ==
LOC: Rad HDHVI 09:14
PROVIDERS: ATTEND Internal Medicine Cardiovascular Disease
DX: R79.1 Abnormal coagulation profile (principal)
CPT/HCPCS: 85610

== ENCOUNTER → 2020-08-24 | Outpatient (CLI) | payer MEDICARE, MEDICAID | END | disposition home or self-care (01) | LOC: LAB 10:02 | PROVIDERS: ATTEND Internal Medicine | DX: R79.1 Abnormal coagulation profile (principal) | CPT/HCPCS: 85610 ==

== ENCOUNTER 2020-09-01 19:02 | Emergency (ER) | payer MEDICARE, MEDICAID ==
[~2020-09-01] VITALS: Ht 165.1 cm; Wt 54.4 kg
[2020-09-01] MEDS ORDERED: hydrALAZINE HCL 20 MG/ML VL IV ONE (20:00)
[2020-09-01 20:46] LABS: Eosinophils # (auto) 0 10 ^3/uL (0-0.8); Hemoglobin 10.5 g/dL (12.2-16.2); Lymphocytes # (auto) 0.7 10 ^3/uL (0.4-5.4); Monocytes # (auto) 0.7 10 ^3/uL (0-1.3); Nucleated Red Blood Cells % 0.1 %
[2020-09-01 20:48] LABS: Basophils # (auto) 0.1 10 ^3/uL (0-0.2); Basophils % (auto) 1.2 % (0.0-2.0); Eosinophils % (auto) 0.5 % (0.0-7.0); Hematocrit 31.8 % (36.0-46.0); Lymphocytes % (auto) 14.7 % (10.0-50.0); Mean Corpuscular Hemoglobin 34.5 pg (28.0-32.0); Mean Corpuscular Hgb Conc. 33.1 g/dL (32.0-36.0); Mean Corpuscular Volume 104.3 fL (80.0-100.0); Monocytes % (auto) 14.2 % (0.0-12.0); Neutrophils # (auto) 3.5 10 ^3/uL (1.6-8.6); Neutrophils % (auto) 69.4 % (37.0-80.0); Platelet Count (auto) 50 10^3/uL (140-450); Red Blood Cells 3.05 10^6/uL (4.0-5.20); Red Cell Distribution Width 18.4 % (11.8-14.3)
[2020-09-01 21:04] LABS: Albumin 3.4 g/dL (3.4-5.0); Calcium 8.6 mg/dL (8.5-10.1); Potassium 4.1 mmol/L (3.5-5.1)
[2020-09-01 21:11] LABS: Bilirubin, Total 0.7 mg/dL (0.2-1.0); Total Protein 7.3 g/dL (6.4-8.2)
[2020-09-01 22:39] LABS: INR 1.38 (0.9-1.15); Partial Thromboplastin Time 30.7 sec (23.0-31.2)
[2020-09-01] MEDS ORDERED: hydrALAZINE HCL 20 MG/ML VL IV STA (22:41)
[2020-09-01 23:07] VITALS: BP 186/83
== END 2020-09-01 23:28 | disposition short-term general hospital (02) ==
LOC: ER 19:02 → EDBD 19:02 → ER 23:28
DX: S06.5X9A Traumatic subdural hemorrhage with loss of consciousness of unspecified duration, initial encounter (principal); S05.11XA Contusion of eyeball and orbital tissues, right eye, initial encounter; I12.0 Hypertensive chronic kidney disease with stage 5 chronic kidney disease or end stage renal disease; N18.6 End stage renal disease; R55 Syncope and collapse; D63.1 Anemia in chronic kidney disease; X58.XXXA Exposure to other specified factors, initial encounter; Y93.89 Activity, other specified; Y92.89 Other specified places as the place of occurrence of the external cause; Y99.8 Other external cause status
CPT/HCPCS: 36415; 70450; 70480; 70486; 71045; 72125; 80053; 83605; 83735; 84484; 85025; 85610; 85730; 93005; 96374; 99291; J0360

== ENCOUNTER 2020-10-11 15:58 | Inpatient (IN) | payer MEDICARE, MEDICAID ==
[~2020-10-11] VITALS: Ht 162.6 cm; Wt 59.3 kg
[2020-10-11 16:59] LABS: Basophils # (auto) 0 10 ^3/uL (0-0.2); Eosinophils # (auto) 0 10 ^3/uL (0-0.8); Eosinophils % (auto) 0.6 % (0.0-7.0); Lymphocytes # (auto) 0.3 10 ^3/uL (0.4-5.4); Lymphocytes % (auto) 4.9 % (10.0-50.0); Mean Corpuscular Hgb Conc. 33.8 g/dL (32.0-36.0); Neutrophils # (auto) 5.8 10 ^3/uL (1.6-8.6); Red Blood Cells 2.75 10^6/uL (4.0-5.20); White Blood Cell 6.5 10^3/uL (4.4-10.8)
[2020-10-11 17:03] LABS: Basophils % (auto) 0.4 % (0.0-2.0); Hematocrit 28.6 % (36.0-46.0); Hemoglobin 9.6 g/dL (12.2-16.2); Mean Corpuscular Hemoglobin 35.1 pg (28.0-32.0); Mean Corpuscular Volume 103.9 fL (80.0-100.0); Monocytes # (auto) 0.3 10 ^3/uL (0-1.3); Monocytes % (auto) 5.2 % (0.0-12.0); Neutrophils % (auto) 88.9 % (37.0-80.0); Nucleated Red Blood Cells % 0.1 %; Platelet Count (auto) 37 10^3/uL (140-450); Red Cell Distribution Width 16.8 % (11.8-14.3)
[2020-10-11 17:14] LABS: INR 1.09 (0.9-1.15); Partial Thromboplastin Time 28.2 sec (23.0-31.2)
[2020-10-11 17:15] LABS: Albumin 3.4 g/dL (3.4-5.0); Calcium 8.8 mg/dL (8.5-10.1); Potassium 5.5 mmol/L (3.5-5.1)
[2020-10-11 17:20] LABS: BUN/Creatinine Ratio 6.2; Bilirubin, Total 0.6 mg/dL (0.2-1.0)
[2020-10-11] MEDS ORDERED: NITROGLYCERIN 0.4 MG SL TAB SL PRN (18:45)
[2020-10-11] MEDS ORDERED: ONDANSETRON ODT 4 MG TAB PO PRN (18:45)
[2020-10-11] MEDS ORDERED: MORPHINE SULF INJ 2 MG/ML SYRINGE 1ML IV PRN (18:45)
[2020-10-11] MEDS ORDERED: HYDROcodone-ACET 10/325MG TAB PO PRN (18:45)
[2020-10-11] MEDS ORDERED: LACTULOSE 20Gm/30ML SOLN PO PRN ×2 (18:45→19:15)
[2020-10-11 22:00] VITALS: BP 159/97
[2020-10-11] MEDS: SUCRALFATE 1 GM TAB PO SCH (23:18)
[2020-10-11] MEDS: SILDENAFIL CITRATE 20 MG TAB PO SCH (23:19)
[2020-10-11] MEDS: CARVEDILOL 3.125 MG TAB PO SCH (23:19)
[2020-10-11] MEDS: ALPRAZolam 0.25 MG TAB PO SCH (23:19)
[2020-10-12 05:00] VITALS: BP 158/97
[2020-10-12] MEDS: SILDENAFIL CITRATE 20 MG TAB PO SCH ×3 (06:19→21:11)
[2020-10-12] MEDS: SUCRALFATE 1 GM TAB PO SCH ×4 (06:20→21:04)
[2020-10-12] MEDS: PANTOPRAZOLE 40 MG TAB PO SCH (06:20)
[2020-10-12] MEDS: ALPRAZolam 0.25 MG TAB PO SCH ×3 (06:20→21:11)
[2020-10-12] MEDS: LEVOTHYROXINE SODIUM 100 MCG TAB PO SCH (06:20)
[2020-10-12 06:45] LABS: Basophils # (auto) 0 10 ^3/uL (0-0.2); Eosinophils # (auto) 0.1 10 ^3/uL (0-0.8); Lymphocytes # (auto) 0.7 10 ^3/uL (0.4-5.4); Monocytes # (auto) 0.5 10 ^3/uL (0-1.3); Monocytes % (auto) 8.7 % (0.0-12.0); Red Cell Distribution Width 17.4 % (11.8-14.3)
[2020-10-12 06:48] LABS: Calcium 9.4 mg/dL (8.5-10.1)
[2020-10-12 06:49] LABS: Basophils % (auto) 0.7 % (0.0-2.0); Eosinophils % (auto) 1.3 % (0.0-7.0); Hematocrit 29.9 % (36.0-46.0); Hemoglobin 10.1 g/dL (12.2-16.2); Mean Corpuscular Hemoglobin 35.4 pg (28.0-32.0); Mean Corpuscular Hgb Conc. 33.7 g/dL (32.0-36.0); Mean Corpuscular Volume 104.9 fL (80.0-100.0); Neutrophils % (auto) 75.3 % (37.0-80.0); Nucleated Red Blood Cells % 0.1 %; Platelet Count (auto) 49 10^3/uL (140-450); Red Blood Cells 2.85 10^6/uL (4.0-5.20); White Blood Cell 5.2 10^3/uL (4.4-10.8)
[2020-10-12 06:52] LABS: INR 1.09 (0.9-1.15)
[2020-10-12 06:54] LABS: Potassium 5.9 mmol/L (3.5-5.1)
[2020-10-12 06:55] LABS: BUN/Creatinine Ratio 6.4
[2020-10-12 08:30] VITALS: BP 177/89
[2020-10-12] MEDS: SEVELAMER 800 MG TAB PO SCH ×3 (08:39→18:12)
[2020-10-12 08:41] VITALS: BP 177/89
[2020-10-12] MEDS: NIFEdipine ER 30 MG TAB PO SCH (09:02)
[2020-10-12] MEDS: CARVEDILOL 3.125 MG TAB PO SCH ×2 (09:02→21:11)
[2020-10-12] MEDS ORDERED: SODIUM CHL 0.9% 1000 ML BAG XX ONE (10:45)
[2020-10-12 13:04] VITALS: BP 166/90
[2020-10-12 16:44] VITALS: BP 186/87
[2020-10-12] MEDS ORDERED: WARFARIN SODIUM 1 MG TAB PO SCH (18:00)
[2020-10-12] MEDS: cloNIDine HCL 0.1 MG TAB PO PRN (18:21)
[2020-10-12] MEDS ORDERED: EPOETIN ALFA-EPBX 10,000 UNIT/1ML VIAL SC ONE (21:00)
[2020-10-12 22:00] VITALS: BP 181/86
[2020-10-13 05:09] VITALS: BP 139/71
[2020-10-13] MEDS: SILDENAFIL CITRATE 20 MG TAB PO SCH ×2 (06:05→14:18)
[2020-10-13] MEDS: ALPRAZolam 0.25 MG TAB PO SCH ×2 (06:05→14:18)
[2020-10-13] MEDS: PANTOPRAZOLE 40 MG TAB PO SCH (06:06)
[2020-10-13] MEDS: SUCRALFATE 1 GM TAB PO SCH ×3 (06:06→16:31)
[2020-10-13] MEDS: LEVOTHYROXINE SODIUM 100 MCG TAB PO SCH (06:06)
[2020-10-13] MEDS: SEVELAMER 800 MG TAB PO SCH ×2 (08:04→12:13)
[2020-10-13 08:05] VITALS: BP 134/60
[2020-10-13 09:00] VITALS: BP 134/60
[2020-10-13] MEDS: NIFEdipine ER 30 MG TAB PO SCH (09:04)
[2020-10-13] MEDS: CARVEDILOL 3.125 MG TAB PO SCH (09:04)
[2020-10-13 10:43] LABS: Albumin 3.5 g/dL (3.4-5.0); Calcium 9.5 mg/dL (8.5-10.1); Potassium 4.8 mmol/L (3.5-5.1)
[2020-10-13 10:47] LABS: BUN/Creatinine Ratio 5.3; Bilirubin, Total 0.5 mg/dL (0.2-1.0); Total Protein 7.4 g/dL (6.4-8.2)
[2020-10-13 10:51] LABS: INR 1.08 (0.9-1.15)
[2020-10-13 13:00] VITALS: BP 166/86
[2020-10-13 15:54] VITALS: BP 166/86
[2020-10-13] MEDS: cloNIDine HCL 0.1 MG TAB PO PRN (16:31)
[2020-10-13 16:50] VITALS: BP 183/103
[2020-10-14] MEDS ORDERED: SODIUM CHL 0.9% 1000 ML BAG XX ONE (07:00)
[2020-10-14] MEDS ORDERED: EPOETIN ALFA-EPBX 10,000 UNIT/1ML VIAL SC ONE (21:00)
[2020-10-14] MEDS ORDERED: EPOETIN ALFA-EPBX 4,000 UNIT/ML VIAL SC ONE (21:00)
== END 2020-10-13 17:25 | disposition home or self-care (01) | DRG 205 ==
LOC: ER 15:58 → EDBD 15:58 → TELE 19:01 → TELE-WESTW 22:49
PROVIDERS: ADMIT Internal Medicine Cardiovascular Disease; ATTEND Internal Medicine Cardiovascular Disease
PROC: 5A1D70Z Performance of Urinary Filtration, Intermittent, Less than 6 Hours Per Day (ICD-10-PCS; principal; 2020-10-12)
DX: M94.0 Chondrocostal junction syndrome [Tietze] (principal); N18.6 End stage renal disease; I50.21 Acute systolic (congestive) heart failure; J96.90 Respiratory failure, unspecified, unspecified whether with hypoxia or hypercapnia; I13.2 Hypertensive heart and chronic kidney disease with heart failure and with stage 5 chronic kidney disease, or end stage renal disease; I16.0 Hypertensive urgency; E87.5 Hyperkalemia; D63.1 Anemia in chronic kidney disease; Z20.822 Contact with and (suspected) exposure to COVID-19; I48.91 Unspecified atrial fibrillation; I25.10 Atherosclerotic heart disease of native coronary artery without angina pectoris; Z99.2 Dependence on renal dialysis; Z88.8 Allergy status to other drugs, medicaments and biological substances; Z95.1 Presence of aortocoronary bypass graft
CPT/HCPCS: 36415; 71045; 80048; 80053; 82306; 83880; 83970; 84100; 84484; 85025; 85610; 85730; 87081; 87426; 90935; 93005; G0378; Q0162

== ENCOUNTER → 2020-12-30 | Outpatient (CLI) | payer MEDICARE, MEDICAID ==
[~2020-12-30] MED LIST changes: +NIFE1TAB30 PO
== END | disposition home or self-care (01) ==
LOC: Rad HDHVI 08:01
PROVIDERS: ATTEND Internal Medicine
DX: I10 Essential (primary) hypertension (principal); E78.5 Hyperlipidemia, unspecified
CPT/HCPCS: 93306

== ENCOUNTER 2021-01-03 14:47 | Inpatient (IN) | payer MEDICARE, MEDICAID ==
[~2021-01-03] VITALS: Ht 152.4 cm; Wt 57.7 kg
[~2021-01-03 14:47] MED LIST changes: -NIFE1TAB30 PO; -QUET100T46 PO; +QUET100T47 PO
[2021-01-03 15:30] LABS: Eosinophils # (auto) 0.3 10 ^3/uL (0-0.8); Eosinophils % (auto) 3.1 % (0.0-7.0); Hemoglobin 9.1 g/dL (12.2-16.2); Lymphocytes # (auto) 0.7 10 ^3/uL (0.4-5.4); Neutrophils # (auto) 7.5 10 ^3/uL (1.6-8.6); Nucleated Red Blood Cells % 0.1 %
[2021-01-03 15:31] LABS: Basophils # (auto) 0 10 ^3/uL (0-0.2); Basophils % (auto) 0.5 % (0.0-2.0); Hematocrit 26.9 % (36.0-46.0); Lymphocytes % (auto) 7.6 % (10.0-50.0); Mean Corpuscular Hemoglobin 34.7 pg (28.0-32.0); Mean Corpuscular Hgb Conc. 33.7 g/dL (32.0-36.0); Monocytes % (auto) 10.5 % (0.0-12.0); Neutrophils % (auto) 78.3 % (37.0-80.0); Red Blood Cells 2.61 10^6/uL (4.0-5.20); Red Cell Distribution Width 15.2 % (11.8-14.3); White Blood Cell 9.5 10^3/uL (4.4-10.8)
[2021-01-03 15:48] LABS: Albumin 3.1 g/dL (3.4-5.0); Anion Gap 8 (5-15); Blood Urea Nitrogen 30 mg/dL (7-18); Calcium 7.7 mg/dL (8.5-10.1); Carbon Dioxide 26 mmol/L (21-32); Chloride 105 mmol/L (98-107); Glucose 134 mg/dL (74-106); Potassium 4.2 mmol/L (3.5-5.1); Sodium 139 mmol/L (136-145)
[2021-01-03 15:50] LABS: Alanine Aminotransferase 19 U/L (13-56); Aspartate Aminotransferase 10 U/L (15-37); BUN/Creatinine Ratio 5.6; GFR African American 10 mL/min; GFR Non-African American 9 mL/min
[2021-01-03 15:53] LABS: Alkaline Phosphatase 298 U/L (45-117); Bilirubin, Total 0.4 mg/dL (0.2-1.0); Total Protein 7.3 g/dL (6.4-8.2)
[2021-01-03] MEDS ORDERED: NIFE1TAB30 PO (17:28)
[2021-01-03] MEDS ORDERED: NITROGLYCERIN 0.4 MG SL TAB SL PRN (17:45)
[2021-01-03] MEDS ORDERED: ONDANSETRON ODT 4 MG TAB PO PRN (17:45)
[2021-01-03] MEDS: SEVELAMER 800 MG TAB PO SCH (18:36)
[2021-01-03] MEDS: MORPHINE SULFATE INJECTION 2 MG/ML SYRG IV PRN (20:05)
[2021-01-03] MEDS: CARVEDILOL 3.125 MG TAB PO SCH (21:36)
[2021-01-03] MEDS: QUEtiapine FUMARATE 100 MG TAB PO SCH (21:36)
[2021-01-03 23:18] VITALS: BP 186/95
[2021-01-04] MEDS: HYDROcodone-ACET 5/325MG TAB PO PRN ×3 (01:03→11:33)
[2021-01-04 05:11] VITALS: BP 145/81
[2021-01-04] MEDS: ALPRAZolam 0.25 MG TAB PO PRN ×2 (06:45→13:19)
[2021-01-04] MEDS: SEVELAMER 800 MG TAB PO SCH ×3 (08:50→18:47)
[2021-01-04] MEDS: CARVEDILOL 3.125 MG TAB PO SCH ×2 (08:56→22:45)
[2021-01-04] MEDS: cloNIDine HCL 0.1 MG TAB PO SCH (08:56)
[2021-01-04] MEDS: LEVOTHYROXINE SODIUM 100 MCG TAB PO SCH (08:57)
[2021-01-04 09:14] VITALS: BP 160/91
[2021-01-04] MEDS ORDERED: CARVEDILOL 3.125 MG TAB PO SCH (10:00)
[2021-01-04 13:00] VITALS: BP 194/106
[2021-01-04] MEDS ORDERED: NIFEdipine ER 30 MG TAB PO ONE ×2 (13:15→16:15)
[2021-01-04] MEDS: MORPHINE SULFATE INJECTION 2 MG/ML SYRG IV PRN (15:20)
[2021-01-04 16:46] VITALS: BP 172/111
[2021-01-04 22:00] VITALS: BP 144/81
[2021-01-04] MEDS: NIFEdipine ER 30 MG TAB PO SCH (22:45)
[2021-01-04] MEDS: QUEtiapine FUMARATE 100 MG TAB PO SCH (22:46)
[2021-01-05 05:00] VITALS: BP 117/61
[2021-01-05 09:30] VITALS: BP 136/72
[2021-01-05] MEDS: cloNIDine HCL 0.1 MG TAB PO SCH ×2 (09:48→10:00)
[2021-01-05] MEDS: LEVOTHYROXINE SODIUM 100 MCG TAB PO SCH (09:48)
[2021-01-05] MEDS: CARVEDILOL 3.125 MG TAB PO SCH ×3 (09:49→21:11)
[2021-01-05] MEDS: NIFEdipine ER 30 MG TAB PO SCH ×3 (09:49→21:11)
[2021-01-05] MEDS: SEVELAMER 800 MG TAB PO SCH ×3 (09:50→18:16)
[2021-01-05 10:00] VITALS: BP 140/76
[2021-01-05 13:00] VITALS: BP 136/76
[2021-01-05 17:03] VITALS: BP 136/76
[2021-01-05] MEDS: QUEtiapine FUMARATE 100 MG TAB PO SCH (21:11)
[2021-01-05] MEDS: ALPRAZolam 0.25 MG TAB PO PRN (21:12)
[2021-01-05 22:00] VITALS: BP 145/76
[2021-01-06 05:00] VITALS: BP 139/78
[2021-01-06 09:19] VITALS: BP 152/78
[2021-01-06] MEDS: LEVOTHYROXINE SODIUM 100 MCG TAB PO SCH (09:26)
[2021-01-06] MEDS: SEVELAMER 800 MG TAB PO SCH (09:45)
[2021-01-06] MEDS: NIFEdipine ER 30 MG TAB PO SCH (09:46)
[2021-01-06] MEDS: CARVEDILOL 3.125 MG TAB PO SCH (09:46)
[2021-01-06] MEDS: cloNIDine HCL 0.1 MG TAB PO SCH (09:46)
[2021-01-06 13:00] VITALS: BP 146/77
[2021-01-06 15:22] VITALS: BP 152/78
[2021-01-06] MEDS ORDERED: ISOSORBIDE MONONITRATE ER 60 MG TAB PO ONE ×2 (15:45→17:00)
[2021-01-06] MEDS ORDERED: traMADol HCL 50 MG TAB PO PRN (15:45)
[2021-01-06] MEDS ORDERED: HYDROcodone-ACET 10/325MG TAB PO PRN (15:45)
[2021-01-06 16:30] VITALS: BP 179/86
[2021-01-06 18:53] VITALS: BP 157/74
[2021-01-06] MEDS ORDERED: ISOSORBIDE MONONITRATE ER 60 MG TAB PO SCH (22:00)
[2021-01-07] MEDS ORDERED: SODIUM CHL 0.9% 1000 ML BAG XX ONE (07:00)
[2021-01-07] MEDS ORDERED: EPOETIN ALFA-EPBX 10,000 UNIT/1ML VIAL SC ONE (21:00)
== END 2021-01-06 19:10 | disposition home or self-care (01) | DRG 312 ==
LOC: EDUNIT# 14:47 → EDBD 14:47 → ER 14:47 → TELE 17:40 → TELE-WESTW 22:15
PROVIDERS: ADMIT Internal Medicine Cardiovascular Disease; ATTEND Internal Medicine Cardiovascular Disease
PROC: 5A1D70Z Performance of Urinary Filtration, Intermittent, Less than 6 Hours Per Day (ICD-10-PCS; principal; 2021-01-05)
DX: I95.3 Hypotension of hemodialysis (principal); N18.6 End stage renal disease; I24.9 Acute ischemic heart disease, unspecified; D68.59 Other primary thrombophilia; I13.2 Hypertensive heart and chronic kidney disease with heart failure and with stage 5 chronic kidney disease, or end stage renal disease; R09.89 Other specified symptoms and signs involving the circulatory and respiratory systems; I50.9 Heart failure, unspecified; I49.5 Sick sinus syndrome; I48.91 Unspecified atrial fibrillation; E78.5 Hyperlipidemia, unspecified; D63.1 Anemia in chronic kidney disease; Z20.822 Contact with and (suspected) exposure to COVID-19; I25.10 Atherosclerotic heart disease of native coronary artery without angina pectoris; Z95.1 Presence of aortocoronary bypass graft; Z99.2 Dependence on renal dialysis
CPT/HCPCS: 36415; 71045; 80053; 83880; 84484; 85025; 87081; 87340; 87426; 90935; 93005; 96374; G0378; Q0162

== ENCOUNTER 2021-01-11 07:58 | Inpatient (IN) | payer MEDICARE, MEDICAID ==
[~2021-01-11] VITALS: Ht 175.3 cm; Wt 55.8 kg
[~2021-01-11 07:58] MED LIST changes: -BISA10SU45 PO; -CAR3125T PO; -LACT10SO3 PO; +NIFE1TAB30 PO; -NIFE1TAB31 PO; -NIFE1TAB36 PO; -PANT40T PO; -PANT40TA2 PO; +QUET100T46 PO; -QUET100T47 PO; -SILD20TA12 PO; -SUCR1TAB22 PO; -WARF1TAB36 PO; -WARF3TAB22 PO
[2021-01-11] MEDS ORDERED: ACETAMINOPHEN 500 MG TAB PO ONE (08:45)
[2021-01-11] MEDS ORDERED: ACETAMINOPHEN 650 MG RECT SUPP PR ONE (09:15)
[2021-01-11] MEDS ORDERED: PIPERACILLIN-TAZOB 3.375GM 100 ML IV ONE (09:15)
[2021-01-11 10:06] LABS: Urine Bacteria NONE SEEN /hpf (None Seen); Urine Blood 2+ /uL (Negative); Urine Specific Gravity 1.011 (1.001-1.035); Urine WBC 25 /hpf (0 - 5)
[2021-01-11 10:09] LABS: Basophils # (auto) 0 10 ^3/uL (0-0.2); Basophils % (auto) 0.2 % (0.0-2.0); Eosinophils # (auto) 0 10 ^3/uL (0-0.8); Hematocrit 29.3 % (36.0-46.0); Hemoglobin 9.8 g/dL (12.2-16.2); Lymphocytes # (auto) 0.5 10 ^3/uL (0.4-5.4); Lymphocytes % (auto) 2.1 % (10.0-50.0); Mean Corpuscular Hemoglobin 34.7 pg (28.0-32.0); Mean Corpuscular Hgb Conc. 33.4 g/dL (32.0-36.0); Monocytes # (auto) 1.7 10 ^3/uL (0-1.3); Monocytes % (auto) 8.2 % (0.0-12.0); Neutrophils # (auto) 18.9 10 ^3/uL (1.6-8.6); Neutrophils % (auto) 89.5 % (37.0-80.0); Nucleated Red Blood Cells % 0.4 %; Red Blood Cells 2.82 10^6/uL (4.0-5.20); Red Cell Distribution Width 17.1 % (11.8-14.3); White Blood Cell 21.1 10^3/uL (4.4-10.8)
[2021-01-11 10:25] LABS: Albumin 2.8 g/dL (3.4-5.0); BUN/Creatinine Ratio 4.3; Calcium 7.7 mg/dL (8.5-10.1)
[2021-01-11 10:29] LABS: Bilirubin, Total 0.9 mg/dL (0.2-1.0); Total Protein 7.1 g/dL (6.4-8.2)
[2021-01-11] MEDS ORDERED: ACETAMINOPHEN 650 MG RECT SUPP PR PRN (14:15)
[2021-01-11] MEDS ORDERED: NITROGLYCERIN 0.4 MG SL TAB SL PRN (14:15)
[2021-01-11] MEDS ORDERED: VANCOMYCIN 750mg/250ml 250 ML IV ONE (16:15)
[2021-01-11] MEDS ORDERED: VANCOMYCIN PER PHARMACY 0 MG IV SCH (16:15)
[2021-01-11] MEDS: MORPHINE SULF INJ 2 MG/ML SYRINGE 1ML IV PRN ×2 (17:07→23:59)
[2021-01-11] MEDS ORDERED: KETOROLAC TROMETH 30 MG/ML 1ML VIAL IV ONE (17:15)
[2021-01-11] MEDS: SEVELAMER 800 MG TAB PO SCH (17:18)
[2021-01-11] MEDS ORDERED: KETOROLAC TROMETH 30 MG/ML 1ML VIAL ONE (17:22)
[2021-01-11] MEDS ORDERED: PIPERACILLIN-TAZO 4.5GM 100 ML IV SCH (18:00)
[2021-01-11] MEDS: QUEtiapine FUMARATE 100 MG TAB PO SCH (21:47)
[2021-01-11] MEDS: CARVEDILOL 3.125 MG TAB PO SCH (21:48)
[2021-01-11] MEDS ORDERED: PIPERACILLIN-TAZOB 2.25GM 50 ML IV SCH (22:00)
[2021-01-12] MEDS: PIPERACILLIN-TAZOB 2.25GM 50 ML IV SCH ×3 (02:36→19:07)
[2021-01-12] MEDS ORDERED: SODIUM CHL 0.9% 1000 ML BAG XX ONE (07:00)
[2021-01-12] MEDS: LEVOTHYROXINE SODIUM 100 MCG TAB PO SCH (07:03)
[2021-01-12 07:44] LABS: Basophils # (auto) 0 10 ^3/uL (0-0.2); Basophils % (auto) 0.1 % (0.0-2.0); Eosinophils # (auto) 0.1 10 ^3/uL (0-0.8); Eosinophils % (auto) 0.3 % (0.0-7.0); Hematocrit 27.2 % (36.0-46.0); Lymphocytes # (auto) 0.6 10 ^3/uL (0.4-5.4); Lymphocytes % (auto) 2.6 % (10.0-50.0); Mean Corpuscular Hemoglobin 34.5 pg (28.0-32.0); Mean Corpuscular Hgb Conc. 33.1 g/dL (32.0-36.0); Monocytes # (auto) 1.7 10 ^3/uL (0-1.3); Monocytes % (auto) 7.1 % (0.0-12.0); Neutrophils # (auto) 21.2 10 ^3/uL (1.6-8.6); Neutrophils % (auto) 89.9 % (37.0-80.0); Nucleated Red Blood Cells % 0.1 %; Red Blood Cells 2.62 10^6/uL (4.0-5.20); Red Cell Distribution Width 17.4 % (11.8-14.3); White Blood Cell 23.6 10^3/uL (4.4-10.8)
[2021-01-12] MEDS ORDERED: PIPERACILLIN-TAZOB 0.75 GM in D5W 5% 50 ML IV SCH (08:00)
[2021-01-12] MEDS: SEVELAMER 800 MG TAB PO SCH ×3 (08:00→18:00)
[2021-01-12] MEDS ORDERED: DOPamine 1600MCG/ML D5W 250 ML IV ONE (08:02)
[2021-01-12] MEDS: DOPamine 1600MCG/ML D5W 250 ML IV SCH (08:07)
[2021-01-12] MEDS: CARVEDILOL 3.125 MG TAB PO SCH (08:17)
[2021-01-12 08:21] LABS: BUN/Creatinine Ratio 3.2
[2021-01-12 08:23] LABS: Calcium 5.4 mg/dL (8.5-10.1); Potassium 6.3 mmol/L (3.5-5.1)
[2021-01-12] MEDS: ONDANSETRON HCL 4 MG/2 ML VIAL IV PRN (08:49)
[2021-01-12] MEDS ORDERED: VANCOMYCIN 1GM/250ML 250 ML IV ONE ×2 (09:30→10:22)
[2021-01-12] MEDS ORDERED: InsuLIN REG 1unit/0.01ml Soln (100units/ml) IV ONE (10:00)
[2021-01-12] MEDS ORDERED: SODIUM BICARBONATE 8.4 % INJ 50ML VIAL IV ONE (10:00)
[2021-01-12] MEDS ORDERED: ALBUTEROL SULF 2.5 MG/0.5ML(0.5%) NEB SOLN NEB ONE (10:00)
[2021-01-12] MEDS ORDERED: DEXTROSE (50%) 50ML SYRG IV ONE (10:00)
[2021-01-12] MEDS ORDERED: CALCIUM GLUC 1,000mg/50ml-NS 50 ML IV ONE (10:00)
[2021-01-12] MEDS ORDERED: NIFEdipine ER 30 MG TAB PO SCH (10:00)
[2021-01-12] MEDS ORDERED: PANTOPRAZOLE 40 MG/10 ML VIAL INJ IV ONE (10:50)
[2021-01-12] MEDS ORDERED: WARF3TAB22 PO (11:10)
[2021-01-12] MEDS ORDERED: PANT40T PO (11:10)
[2021-01-12] MEDS: PANTOPRAZOLE 40 MG/10 ML VIAL INJ IV SCH ×2 (11:10→22:23)
[2021-01-12] MEDS ORDERED: SILD20TA2 PO (11:10)
[2021-01-12] MEDS: MORPHINE SULF INJ 2 MG/ML SYRINGE 1ML IV PRN (11:18)
[2021-01-12] MEDS ORDERED: LORazepam 2MG/ML-1ML VIAL IV PRN (12:30)
[2021-01-12] MEDS ORDERED: HYDROmorphone HCL 2 MG/ML VL IV PRN (12:30)
[2021-01-12] MEDS ORDERED: LORazepam 2MG/ML-1ML VIAL ONE (12:38)
[2021-01-12] MEDS ORDERED: ALBUMIN 25% 100 ML IV ONE (14:00)
[2021-01-12] MEDS ORDERED: VANCOMYCIN IV ONE (14:15)
[2021-01-12] MEDS ORDERED: D5W 5% IV ONE (14:15)
[2021-01-12] MEDS ORDERED: CLON0.3T PO (16:21)
[2021-01-12] MEDS ORDERED: LEVO50TA7 PO (16:21)
[2021-01-12] MEDS ORDERED: CARV12.544 PO (16:21)
[2021-01-12] MEDS ORDERED: NIFE1TAB36 PO (16:21)
[2021-01-12] MEDS ORDERED: WARF4TAB33 PO (16:24)
[2021-01-12 17:50] LABS: Calcium 7.9 mg/dL (8.5-10.1); Potassium 4.1 mmol/L (3.5-5.1)
[2021-01-12 17:53] LABS: BUN/Creatinine Ratio 5.8
[2021-01-12] MEDS ORDERED: EPOETIN ALFA-EPBX 10,000 UNIT/1ML VIAL SC ONE (21:00)
[2021-01-12 21:26] LABS: INR 1.54 (0.9-1.15)
[2021-01-12] MEDS: QUEtiapine FUMARATE 100 MG TAB PO SCH (22:23)
[2021-01-12 22:33] LABS: Basophils # (auto) 0.1 10 ^3/uL (0-0.2); Basophils % (auto) 0.4 % (0.0-2.0); Eosinophils # (auto) 0.1 10 ^3/uL (0-0.8); Eosinophils % (auto) 0.3 % (0.0-7.0); White Blood Cell 20.1 10^3/uL (4.4-10.8)
[2021-01-12 22:35] LABS: Hematocrit 25.9 % (36.0-46.0); Hemoglobin 8.5 g/dL (12.2-16.2); Lymphocytes # (auto) 0.7 10 ^3/uL (0.4-5.4); Lymphocytes % (auto) 3.5 % (10.0-50.0); Mean Corpuscular Hemoglobin 34.1 pg (28.0-32.0); Mean Corpuscular Volume 103.2 fL (80.0-100.0); Monocytes # (auto) 1.5 10 ^3/uL (0-1.3); Monocytes % (auto) 7.4 % (0.0-12.0); Neutrophils # (auto) 17.8 10 ^3/uL (1.6-8.6); Neutrophils % (auto) 88.4 % (37.0-80.0); Nucleated Red Blood Cells % 0.1 %; Red Blood Cells 2.51 10^6/uL (4.0-5.20); Red Cell Distribution Width 17.3 % (11.8-14.3)
[2021-01-13] VITALS (50 sets, daily range): BP systolic 85–139; BP diastolic 39–70
[2021-01-13] MEDS: PIPERACILLIN-TAZOB 2.25GM 50 ML IV SCH ×3 (02:00→17:52)
[2021-01-13] MEDS: DOPamine 1600MCG/ML D5W 250 ML IV SCH (03:41)
[2021-01-13 05:08] LABS: Hemoglobin 9.1 g/dL (12.2-16.2); Mean Corpuscular Hgb Conc. 33.4 g/dL (32.0-36.0); Monocytes # (auto) 1.5 10 ^3/uL (0-1.3); Monocytes % (auto) 8.2 % (0.0-12.0); Nucleated Red Blood Cells % 0.1 %; Red Cell Distribution Width 17.5 % (11.8-14.3)
[2021-01-13 05:10] LABS: Basophils # (auto) 0.1 10 ^3/uL (0-0.2); Basophils % (auto) 0.5 % (0.0-2.0); Eosinophils # (auto) 0.3 10 ^3/uL (0-0.8); Eosinophils % (auto) 1.4 % (0.0-7.0); Hematocrit 27.3 % (36.0-46.0); Lymphocytes # (auto) 0.6 10 ^3/uL (0.4-5.4); Lymphocytes % (auto) 3.3 % (10.0-50.0); Mean Corpuscular Hemoglobin 34.4 pg (28.0-32.0); Mean Corpuscular Volume 102.8 fL (80.0-100.0); Neutrophils # (auto) 15.6 10 ^3/uL (1.6-8.6); Neutrophils % (auto) 86.6 % (37.0-80.0); Red Blood Cells 2.65 10^6/uL (4.0-5.20)
[2021-01-13] MEDS: LEVOTHYROXINE SODIUM 100 MCG TAB PO SCH (07:00)
[2021-01-13] MEDS: SEVELAMER 800 MG TAB PO SCH ×3 (08:00→17:33)
[2021-01-13 08:52] LABS: Basophils # (auto) 0.1 10 ^3/uL (0-0.2); Hemoglobin 8.3 g/dL (12.2-16.2); Monocytes # (auto) 1.1 10 ^3/uL (0-1.3); Monocytes % (auto) 7.3 % (0.0-12.0)
[2021-01-13 08:54] LABS: Basophils % (auto) 0.4 % (0.0-2.0); Eosinophils # (auto) 0.1 10 ^3/uL (0-0.8); Eosinophils % (auto) 0.7 % (0.0-7.0); Hematocrit 24.5 % (36.0-46.0); Lymphocytes # (auto) 0.7 10 ^3/uL (0.4-5.4); Lymphocytes % (auto) 4.2 % (10.0-50.0); Mean Corpuscular Hemoglobin 34.8 pg (28.0-32.0); Mean Corpuscular Hgb Conc. 33.8 g/dL (32.0-36.0); Mean Corpuscular Volume 102.8 fL (80.0-100.0); Neutrophils # (auto) 13.7 10 ^3/uL (1.6-8.6); Neutrophils % (auto) 87.4 % (37.0-80.0); Red Blood Cells 2.39 10^6/uL (4.0-5.20); Red Cell Distribution Width 17.3 % (11.8-14.3); White Blood Cell 15.7 10^3/uL (4.4-10.8)
[2021-01-13 08:57] LABS: INR 1.4 (0.9-1.15)
[2021-01-13 09:14] LABS: Albumin 2.4 g/dL (3.4-5.0); Calcium 7.7 mg/dL (8.5-10.1); Potassium 4.8 mmol/L (3.5-5.1)
[2021-01-13 09:17] LABS: Bilirubin, Total 0.7 mg/dL (0.2-1.0); Total Protein 6.1 g/dL (6.4-8.2)
[2021-01-13 09:21] LABS: BUN/Creatinine Ratio 7.7
[2021-01-13] MEDS: PANTOPRAZOLE 40 MG/10 ML VIAL INJ IV SCH ×2 (11:08→21:17)
[2021-01-13] MEDS: QUEtiapine FUMARATE 100 MG TAB PO SCH (21:17)
[2021-01-13 23:03] LABS: Basophils # (auto) 0.1 10 ^3/uL (0-0.2); Eosinophils # (auto) 0.1 10 ^3/uL (0-0.8); Lymphocytes # (auto) 0.6 10 ^3/uL (0.4-5.4); Nucleated Red Blood Cells % 0.1 %; White Blood Cell 12.5 10^3/uL (4.4-10.8)
[2021-01-13 23:06] LABS: Basophils % (auto) 0.5 % (0.0-2.0); Eosinophils % (auto) 0.7 % (0.0-7.0); Hematocrit 23.2 % (36.0-46.0); Hemoglobin 7.9 g/dL (12.2-16.2); Lymphocytes % (auto) 5.1 % (10.0-50.0); Mean Corpuscular Hemoglobin 34.8 pg (28.0-32.0); Mean Corpuscular Volume 102.5 fL (80.0-100.0); Monocytes # (auto) 1.2 10 ^3/uL (0-1.3); Monocytes % (auto) 9.3 % (0.0-12.0); Neutrophils # (auto) 10.5 10 ^3/uL (1.6-8.6); Neutrophils % (auto) 84.4 % (37.0-80.0); Red Blood Cells 2.26 10^6/uL (4.0-5.20); Red Cell Distribution Width 16.4 % (11.8-14.3)
[2021-01-14] VITALS (15 sets, daily range): BP systolic 94–161; BP diastolic 37–68
[2021-01-14] MEDS: ALPRAZolam 0.25 MG TAB PO PRN (01:06)
[2021-01-14] MEDS: PIPERACILLIN-TAZOB 2.25GM 50 ML IV SCH ×3 (01:21→18:15)
[2021-01-14] MEDS: LEVOTHYROXINE SODIUM 100 MCG TAB PO SCH (06:34)
[2021-01-14 06:43] LABS: BUN/Creatinine Ratio 8.6; Calcium 7.5 mg/dL (8.5-10.1); Potassium 4.7 mmol/L (3.5-5.1)
[2021-01-14] MEDS ORDERED: SODIUM CHL 0.9% 1000 ML BAG XX ONE (07:00)
[2021-01-14] MEDS: SEVELAMER 800 MG TAB PO SCH (07:47)
[2021-01-14] MEDS ORDERED: CALCIUM GLUC 1,000mg/50ml-NS 50 ML IV ONE (09:30)
[2021-01-14] MEDS: PANTOPRAZOLE 40 MG/10 ML VIAL INJ IV SCH ×2 (09:59→21:04)
[2021-01-14] MEDS: CALCIUM ACETATE 667 MG CAP PO SCH ×2 (10:00→18:15)
[2021-01-14 10:38] LABS: Basophils # (auto) 0 10 ^3/uL (0-0.2); Basophils % (auto) 0.4 % (0.0-2.0); Eosinophils # (auto) 0.2 10 ^3/uL (0-0.8); Lymphocytes # (auto) 0.6 10 ^3/uL (0.4-5.4); Nucleated Red Blood Cells % 0.1 %; Red Cell Distribution Width 16.9 % (11.8-14.3)
[2021-01-14 10:40] LABS: Eosinophils % (auto) 2.1 % (0.0-7.0); Hematocrit 23.5 % (36.0-46.0); Hemoglobin 7.8 g/dL (12.2-16.2); Lymphocytes % (auto) 5.9 % (10.0-50.0); Mean Corpuscular Hemoglobin 34.5 pg (28.0-32.0); Mean Corpuscular Hgb Conc. 33.3 g/dL (32.0-36.0); Mean Corpuscular Volume 103.4 fL (80.0-100.0); Monocytes % (auto) 9.3 % (0.0-12.0); Neutrophils # (auto) 8.5 10 ^3/uL (1.6-8.6); Neutrophils % (auto) 82.3 % (37.0-80.0); Red Blood Cells 2.28 10^6/uL (4.0-5.20); White Blood Cell 10.3 10^3/uL (4.4-10.8)
[2021-01-14] MEDS ORDERED: EPOETIN ALFA-EPBX 10,000 UNIT/1ML VIAL SC ONE (21:00)
[2021-01-14] MEDS: QUEtiapine FUMARATE 100 MG TAB PO SCH (21:05)
[2021-01-14] MEDS: HYDROcodone-ACET 5/325MG TAB PO PRN (21:18)
[2021-01-14 22:58] LABS: Basophils # (auto) 0.1 10 ^3/uL (0-0.2); Eosinophils # (auto) 0.2 10 ^3/uL (0-0.8); Hemoglobin 7.8 g/dL (12.2-16.2); Monocytes # (auto) 1.3 10 ^3/uL (0-1.3); Neutrophils # (auto) 8.5 10 ^3/uL (1.6-8.6); Nucleated Red Blood Cells % 0.1 %
[2021-01-14 23:00] LABS: Basophils % (auto) 0.5 % (0.0-2.0); Eosinophils % (auto) 1.7 % (0.0-7.0); Hematocrit 22.9 % (36.0-46.0); Lymphocytes # (auto) 0.7 10 ^3/uL (0.4-5.4); Lymphocytes % (auto) 6.4 % (10.0-50.0); Mean Corpuscular Hemoglobin 34.8 pg (28.0-32.0); Mean Corpuscular Hgb Conc. 33.9 g/dL (32.0-36.0); Mean Corpuscular Volume 102.7 fL (80.0-100.0); Monocytes % (auto) 11.9 % (0.0-12.0); Neutrophils % (auto) 79.5 % (37.0-80.0); Red Blood Cells 2.23 10^6/uL (4.0-5.20); Red Cell Distribution Width 16.8 % (11.8-14.3); White Blood Cell 10.6 10^3/uL (4.4-10.8)
[2021-01-15] MEDS: PIPERACILLIN-TAZOB 2.25GM 50 ML IV SCH ×3 (01:34→18:00)
[2021-01-15 04:53] VITALS: BP 111/53
[2021-01-15] MEDS: LEVOTHYROXINE SODIUM 100 MCG TAB PO SCH (06:34)
[2021-01-15 07:01] LABS: Albumin 2.2 g/dL (3.4-5.0); Calcium 7.7 mg/dL (8.5-10.1); Potassium 5.2 mmol/L (3.5-5.1)
[2021-01-15 07:04] LABS: BUN/Creatinine Ratio 8.2; Bilirubin, Total 0.8 mg/dL (0.2-1.0); Total Protein 6.1 g/dL (6.4-8.2)
[2021-01-15] MEDS: CALCIUM ACETATE 667 MG CAP PO SCH ×3 (08:03→18:00)
[2021-01-15 08:15] VITALS: BP 134/67
[2021-01-15 08:50] VITALS: BP 134/67
[2021-01-15] MEDS: PANTOPRAZOLE 40 MG/10 ML VIAL INJ IV SCH ×2 (10:53→21:13)
[2021-01-15 11:13] LABS: Mean Corpuscular Hemoglobin 33.5 pg (28.0-32.0); Monocytes # (auto) 1.2 10 ^3/uL (0-1.3)
[2021-01-15 11:15] LABS: Basophils # (auto) 0 10 ^3/uL (0-0.2); Basophils % (auto) 0.4 % (0.0-2.0); Eosinophils # (auto) 0.2 10 ^3/uL (0-0.8); Eosinophils % (auto) 1.9 % (0.0-7.0); Hematocrit 25.5 % (36.0-46.0); Hemoglobin 8.2 g/dL (12.2-16.2); Lymphocytes # (auto) 0.7 10 ^3/uL (0.4-5.4); Lymphocytes % (auto) 5.9 % (10.0-50.0); Mean Corpuscular Hgb Conc. 32.1 g/dL (32.0-36.0); Mean Corpuscular Volume 104.2 fL (80.0-100.0); Monocytes % (auto) 10.6 % (0.0-12.0); Neutrophils % (auto) 81.2 % (37.0-80.0); Red Blood Cells 2.45 10^6/uL (4.0-5.20); Red Cell Distribution Width 17.6 % (11.8-14.3); White Blood Cell 11.1 10^3/uL (4.4-10.8)
[2021-01-15 13:00] VITALS: BP 137/70
[2021-01-15 17:10] VITALS: BP 144/66
[2021-01-15] MEDS: HYDROcodone-ACET 5/325MG TAB PO PRN (20:05)
[2021-01-15] MEDS: QUEtiapine FUMARATE 100 MG TAB PO SCH (21:14)
[2021-01-15 22:00] VITALS: BP 148/70
[2021-01-15] MEDS ORDERED: VANCOMYCIN 1GM/250ML 250 ML IV ONE (23:30)
[2021-01-16] MEDS: PIPERACILLIN-TAZOB 2.25GM 50 ML IV SCH ×3 (01:21→18:05)
[2021-01-16 05:00] VITALS: BP 122/55
[2021-01-16] MEDS: LEVOTHYROXINE SODIUM 100 MCG TAB PO SCH (06:36)
[2021-01-16 07:11] LABS: Basophils # (auto) 0 10 ^3/uL (0-0.2); Eosinophils # (auto) 0.2 10 ^3/uL (0-0.8); Hemoglobin 7.6 g/dL (12.2-16.2); Lymphocytes # (auto) 0.8 10 ^3/uL (0.4-5.4); Lymphocytes % (auto) 7.9 % (10.0-50.0); Monocytes # (auto) 1.6 10 ^3/uL (0-1.3); Neutrophils # (auto) 7.7 10 ^3/uL (1.6-8.6); Nucleated Red Blood Cells % 0.1 %; White Blood Cell 10.4 10^3/uL (4.4-10.8)
[2021-01-16 07:12] LABS: Basophils % (auto) 0.4 % (0.0-2.0); Eosinophils % (auto) 1.7 % (0.0-7.0); Hematocrit 22.5 % (36.0-46.0); Mean Corpuscular Hemoglobin 34.9 pg (28.0-32.0); Mean Corpuscular Volume 102.8 fL (80.0-100.0); Monocytes % (auto) 15.4 % (0.0-12.0); Neutrophils % (auto) 74.6 % (37.0-80.0); Red Blood Cells 2.19 10^6/uL (4.0-5.20); Red Cell Distribution Width 17.1 % (11.8-14.3)
[2021-01-16 07:26] LABS: Calcium 8.2 mg/dL (8.5-10.1); Potassium 3.9 mmol/L (3.5-5.1)
[2021-01-16 07:29] LABS: BUN/Creatinine Ratio 6.1
[2021-01-16] MEDS: CALCIUM ACETATE 667 MG CAP PO SCH ×3 (08:08→18:07)
[2021-01-16 08:15] VITALS: BP 123/56
[2021-01-16 08:30] VITALS: BP 123/56
[2021-01-16] MEDS: PANTOPRAZOLE 40 MG/10 ML VIAL INJ IV SCH ×2 (09:50→22:22)
[2021-01-16 11:20] LABS: Hematocrit 23.2 % (36.0-46.0); Hemoglobin 7.7 g/dL (12.2-16.2); Mean Corpuscular Hemoglobin 34.5 pg (28.0-32.0); Mean Corpuscular Hgb Conc. 33.4 g/dL (32.0-36.0); Mean Corpuscular Volume 103.2 fL (80.0-100.0); Red Blood Cells 2.24 10^6/uL (4.0-5.20); Red Cell Distribution Width 17.1 % (11.8-14.3); White Blood Cell 9.9 10^3/uL (4.4-10.8)
[2021-01-16 11:35] LABS: Band Neutrophils % (manual) 0; Basophils % (manual) 0 (0.0-2.0); Blast Cells 0; Metamyelocytes % 0; Myelocytes % 0; Promyelocytes % 0; Reactive Lymphocytes 0
[2021-01-16 12:16] LABS: Eosinophils % (manual) 2 (0-7); Lymphocytes % (manual) 8 (10.0-50.0); Monocytes % (manual) 17 (0-12)
[2021-01-16 13:00] VITALS: BP 130/56
[2021-01-16] MEDS: HYDROcodone-ACET 5/325MG TAB PO PRN (16:45)
[2021-01-16] MEDS: ONDANSETRON HCL 4 MG/2 ML VIAL IV PRN (18:13)
[2021-01-16 22:00] VITALS: BP 144/73
[2021-01-16] MEDS: QUEtiapine FUMARATE 100 MG TAB PO SCH (22:22)
[2021-01-16] MEDS: ALPRAZolam 0.25 MG TAB PO PRN (22:28)
[2021-01-16 22:29] LABS: Hemoglobin 7.8 g/dL (12.2-16.2)
[2021-01-16 22:31] LABS: Hematocrit 24.1 % (36.0-46.0); Mean Corpuscular Hemoglobin 33.8 pg (28.0-32.0); Mean Corpuscular Hgb Conc. 32.5 g/dL (32.0-36.0); Mean Corpuscular Volume 104.1 fL (80.0-100.0); Red Blood Cells 2.31 10^6/uL (4.0-5.20); Red Cell Distribution Width 17.2 % (11.8-14.3)
[2021-01-16 22:40] LABS: Basophils % (manual) 0 (0.0-2.0); Blast Cells 0; Metamyelocytes % 0; Promyelocytes % 0; Reactive Lymphocytes 0
[2021-01-16 22:52] LABS: Band Neutrophils % (manual) 11; Eosinophils % (manual) 2 (0-7); Lymphocytes % (manual) 9 (10.0-50.0); Myelocytes % 1
[2021-01-16 22:53] LABS: Monocytes % (manual) 14 (0-12)
[2021-01-17] VITALS (7 sets, daily range): BP systolic 122–158; BP diastolic 56–80
[2021-01-17] MEDS: PIPERACILLIN-TAZOB 2.25GM 50 ML IV SCH ×3 (01:11→17:59)
[2021-01-17 05:26] LABS: Hematocrit 22.7 % (36.0-46.0); Hemoglobin 7.9 g/dL (12.2-16.2); Mean Corpuscular Hemoglobin 36.2 pg (28.0-32.0); Mean Corpuscular Hgb Conc. 34.6 g/dL (32.0-36.0); Mean Corpuscular Volume 104.5 fL (80.0-100.0); Red Blood Cells 2.18 10^6/uL (4.0-5.20); Red Cell Distribution Width 17.1 % (11.8-14.3); White Blood Cell 8.7 10^3/uL (4.4-10.8)
[2021-01-17 05:28] LABS: Basophils % (manual) 0 (0.0-2.0); Blast Cells 0; Metamyelocytes % 0; Myelocytes % 0; Promyelocytes % 0; Reactive Lymphocytes 0
[2021-01-17 05:34] LABS: Potassium 4.5 mmol/L (3.5-5.1)
[2021-01-17 05:37] LABS: BUN/Creatinine Ratio 6.3; Calcium 8.1 mg/dL (8.5-10.1)
[2021-01-17 06:30] LABS: Eosinophils % (manual) 4 (0-7); Monocytes % (manual) 16 (0-12)
[2021-01-17] MEDS: LEVOTHYROXINE SODIUM 100 MCG TAB PO SCH (06:30)
[2021-01-17 06:31] LABS: Band Neutrophils % (manual) 10; Lymphocytes % (manual) 11 (10.0-50.0)
[2021-01-17] MEDS: CALCIUM ACETATE 667 MG CAP PO SCH ×3 (09:31→17:59)
[2021-01-17] MEDS: PANTOPRAZOLE 40 MG/10 ML VIAL INJ IV SCH ×2 (09:31→21:28)
[2021-01-17] MEDS: HYDROcodone-ACET 5/325MG TAB PO PRN ×2 (12:08→20:19)
[2021-01-17] MEDS: ONDANSETRON HCL 4 MG/2 ML VIAL IV PRN (18:22)
[2021-01-17] MEDS: ALPRAZolam 0.25 MG TAB PO PRN (20:20)
[2021-01-17] MEDS: QUEtiapine FUMARATE 100 MG TAB PO SCH (21:28)
[2021-01-18] MEDS: PIPERACILLIN-TAZOB 2.25GM 50 ML IV SCH ×3 (04:30→17:18)
[2021-01-18 05:00] VITALS: BP 157/68
[2021-01-18] MEDS: LEVOTHYROXINE SODIUM 100 MCG TAB PO SCH (06:58)
[2021-01-18] MEDS ORDERED: SODIUM CHL 0.9% 1000 ML BAG XX ONE (07:00)
[2021-01-18 07:53] LABS: Hemoglobin 7.9 g/dL (12.2-16.2)
[2021-01-18 07:54] LABS: Hematocrit 23.7 % (36.0-46.0); Mean Corpuscular Hemoglobin 34.8 pg (28.0-32.0); Mean Corpuscular Hgb Conc. 33.2 g/dL (32.0-36.0); Mean Corpuscular Volume 104.6 fL (80.0-100.0); Red Blood Cells 2.27 10^6/uL (4.0-5.20); Red Cell Distribution Width 17.3 % (11.8-14.3); White Blood Cell 8.3 10^3/uL (4.4-10.8)
[2021-01-18 08:00] VITALS: BP 176/54
[2021-01-18] MEDS: CALCIUM ACETATE 667 MG CAP PO SCH ×3 (08:00→17:18)
[2021-01-18 08:10] LABS: BUN/Creatinine Ratio 6.4; Calcium 8.3 mg/dL (8.5-10.1); Potassium 5.1 mmol/L (3.5-5.1)
[2021-01-18 08:12] LABS: Blast Cells 0; Promyelocytes % 0; Reactive Lymphocytes 0
[2021-01-18] MEDS: PANTOPRAZOLE 40 MG/10 ML VIAL INJ IV SCH ×2 (08:45→21:48)
[2021-01-18] MEDS: HYDROcodone-ACET 5/325MG TAB PO PRN (08:56)
[2021-01-18 09:46] LABS: Band Neutrophils % (manual) 5; Basophils % (manual) 1 (0.0-2.0); Eosinophils % (manual) 7 (0-7); Lymphocytes % (manual) 9 (10.0-50.0); Metamyelocytes % 3; Monocytes % (manual) 5 (0-12); Myelocytes % 1
[2021-01-18] MEDS ORDERED: LIDOCAINE VISCOUS 2% 15ML UD ONE (11:18)
[2021-01-18] MEDS ORDERED: SODIUM CHLORIDE LOCK 10 ML ONE (11:18)
[2021-01-18] MEDS ORDERED: diphenhdrAMINE HCL 50 MG/1 ML VL ONE (11:19)
[2021-01-18] MEDS ORDERED: fentaNYL CITRATE 100 MCG/2 ML VL ONE (11:19)
[2021-01-18] MEDS: MIDAZOLAM HCL 5 MG/ML-1ML VIAL ONE ×2 (12:55→12:58)
[2021-01-18] MEDS ORDERED: dilTIAZem 25 MG/5 ML VIAL IV ONE (14:15)
[2021-01-18] MEDS: cloNIDine HCL 0.1 MG TAB PO PRN (16:38)
[2021-01-18 17:00] VITALS: BP 166/86
[2021-01-18] MEDS ORDERED: EPOETIN ALFA-EPBX 10,000 UNIT/1ML VIAL SC ONE (21:00)
[2021-01-18] MEDS: QUEtiapine FUMARATE 100 MG TAB PO SCH (21:48)
[2021-01-18] MEDS: ALPRAZolam 0.25 MG TAB PO PRN (21:49)
[2021-01-18 22:05] VITALS: BP 141/60
[2021-01-19] MEDS: PANTOPRAZOLE 40 MG/10 ML VIAL INJ IV SCH ×3 (00:09→21:23)
[2021-01-19] MEDS: HYDROcodone-ACET 5/325MG TAB PO PRN ×2 (00:09→14:15)
[2021-01-19] MEDS: PIPERACILLIN-TAZOB 2.25GM 50 ML IV SCH ×3 (01:08→18:04)
[2021-01-19] MEDS ORDERED: AMIODARONE HCL 200 MG TAB PO ONE (01:15)
[2021-01-19 05:18] VITALS: BP 140/58
[2021-01-19] MEDS: LEVOTHYROXINE SODIUM 100 MCG TAB PO SCH (05:48)
[2021-01-19 07:29] LABS: BUN/Creatinine Ratio 5.6; Calcium 8.4 mg/dL (8.5-10.1); Potassium 4.5 mmol/L (3.5-5.1)
[2021-01-19 09:00] VITALS: BP 136/54
[2021-01-19] MEDS: CALCIUM ACETATE 667 MG CAP PO SCH ×3 (09:14→18:04)
[2021-01-19] MEDS: AMIODARONE HCL 200 MG TAB PO SCH ×2 (09:15→21:24)
[2021-01-19 13:00] VITALS: BP 126/72
[2021-01-19 16:57] VITALS: BP 146/76
[2021-01-19] MEDS: ENOXAPARIN SOD 60 MG/0.6 ML SYRINGE SC SCH (18:04)
[2021-01-19] MEDS: QUEtiapine FUMARATE 100 MG TAB PO SCH (21:24)
[2021-01-19 22:00] VITALS: BP 149/72
[2021-01-20 05:00] VITALS: BP 125/63
[2021-01-20] MEDS: PIPERACILLIN-TAZOB 2.25GM 50 ML IV SCH ×3 (06:07→17:23)
[2021-01-20] MEDS: LEVOTHYROXINE SODIUM 100 MCG TAB PO SCH (06:07)
[2021-01-20 06:11] LABS: Basophils # (auto) 0.1 10 ^3/uL (0-0.2); Basophils % (auto) 0.7 % (0.0-2.0); Eosinophils # (auto) 0.2 10 ^3/uL (0-0.8); Hemoglobin 7.4 g/dL (12.2-16.2); Mean Corpuscular Volume 102.9 fL (80.0-100.0); Monocytes # (auto) 0.7 10 ^3/uL (0-1.3); Monocytes % (auto) 8.5 % (0.0-12.0); White Blood Cell 8.7 10^3/uL (4.4-10.8)
[2021-01-20 06:14] LABS: Eosinophils % (auto) 2.3 % (0.0-7.0); Hematocrit 21.7 % (36.0-46.0); Lymphocytes % (auto) 11.7 % (10.0-50.0); Mean Corpuscular Hemoglobin 35.1 pg (28.0-32.0); Mean Corpuscular Hgb Conc. 34.2 g/dL (32.0-36.0); Neutrophils # (auto) 6.7 10 ^3/uL (1.6-8.6); Neutrophils % (auto) 76.8 % (37.0-80.0); Red Blood Cells 2.11 10^6/uL (4.0-5.20); Red Cell Distribution Width 17.1 % (11.8-14.3)
[2021-01-20 06:29] LABS: BUN/Creatinine Ratio 5.7; Calcium 8.4 mg/dL (8.5-10.1); Potassium 5.2 mmol/L (3.5-5.1)
[2021-01-20] MEDS ORDERED: SODIUM CHL 0.9% 1000 ML BAG XX ONE (07:00)
[2021-01-20] MEDS: PANTOPRAZOLE 40 MG/10 ML VIAL INJ IV SCH ×2 (09:18→21:56)
[2021-01-20] MEDS: CALCIUM ACETATE 667 MG CAP PO SCH ×3 (09:18→18:00)
[2021-01-20] MEDS: AMIODARONE HCL 200 MG TAB PO SCH ×2 (09:19→21:56)
[2021-01-20] MEDS: cloNIDine HCL 0.1 MG TAB PO PRN ×2 (11:20→17:23)
[2021-01-20] MEDS: ALPRAZolam 0.25 MG TAB PO PRN ×2 (12:10→22:15)
[2021-01-20 12:55] VITALS: BP 188/98
[2021-01-20 17:00] VITALS: BP 176/79
[2021-01-20] MEDS: ENOXAPARIN SOD 60 MG/0.6 ML SYRINGE SC SCH (17:23)
[2021-01-20] MEDS ORDERED: EPOETIN ALFA-EPBX 10,000 UNIT/1ML VIAL SC ONE (21:00)
[2021-01-20] MEDS: QUEtiapine FUMARATE 100 MG TAB PO SCH (21:56)
[2021-01-20 22:00] VITALS: BP 137/66
[2021-01-21] VITALS (12 sets, daily range): BP systolic 125–149; BP diastolic 55–87
[2021-01-21] MEDS: PIPERACILLIN-TAZOB 2.25GM 50 ML IV SCH ×3 (02:00→18:00)
[2021-01-21] MEDS: LEVOTHYROXINE SODIUM 100 MCG TAB PO SCH (09:10)
[2021-01-21] MEDS: AMIODARONE HCL 200 MG TAB PO SCH (09:10)
[2021-01-21] MEDS: CALCIUM ACETATE 667 MG CAP PO SCH ×3 (09:10→18:09)
[2021-01-21] MEDS: PANTOPRAZOLE 40 MG/10 ML VIAL INJ IV SCH (09:11)
[2021-01-21] MEDS ORDERED: VANCOMYCIN 750mg/250ml 250 ML IV ONE (15:30)
[2021-01-21] MEDS: ENOXAPARIN SOD 60 MG/0.6 ML SYRINGE SC SCH (16:21)
== END 2021-01-21 20:20 | disposition home or self-care (01) | DRG 871 ==
LOC: ER 07:58 → EDBD 07:58 → TELE 14:12 → DOU IN ICU 01-13 00:06 → TELE-WESTW 01-14 18:04
PROVIDERS: ADMIT Internal Medicine Cardiovascular Disease; ATTEND Internal Medicine Cardiovascular Disease
PROC: 05H933Z Insertion of Infusion Device into Right Brachial Vein, Percutaneous Approach (ICD-10-PCS; 2021-01-11)
PROC: B54MZZA Ultrasonography of Right Upper Extremity Veins, Guidance (ICD-10-PCS; 2021-01-11)
PROC: 5A1D70Z Performance of Urinary Filtration, Intermittent, Less than 6 Hours Per Day (ICD-10-PCS; 2021-01-12)
PROC: 0D9670Z Drainage of Stomach with Drainage Device, Via Natural or Artificial Opening (ICD-10-PCS; 2021-01-12)
PROC: 5A1D70Z Performance of Urinary Filtration, Intermittent, Less than 6 Hours Per Day (ICD-10-PCS; 2021-01-15)
PROC: 0DB68ZX Excision of Stomach, Via Natural or Artificial Opening Endoscopic, Diagnostic (ICD-10-PCS; 2021-01-18)
PROC: 5A1D70Z Performance of Urinary Filtration, Intermittent, Less than 6 Hours Per Day (ICD-10-PCS; 2021-01-18)
PROC: 0DB98ZX Excision of Duodenum, Via Natural or Artificial Opening Endoscopic, Diagnostic (ICD-10-PCS; principal; 2021-01-18 12:50)
PROC: 5A1D70Z Performance of Urinary Filtration, Intermittent, Less than 6 Hours Per Day (ICD-10-PCS; 2021-01-20)
PROC: 30230N1 Transfusion of Nonautologous Red Blood Cells into Peripheral Vein, Open Approach (ICD-10-PCS; 2021-01-21)
DX: A41.89 Other specified sepsis (principal); N18.6 End stage renal disease; J18.9 Pneumonia, unspecified organism; R65.21 Severe sepsis with septic shock; K29.91 Gastroduodenitis, unspecified, with bleeding; K29.71 Gastritis, unspecified, with bleeding; I24.9 Acute ischemic heart disease, unspecified; D68.59 Other primary thrombophilia; I13.2 Hypertensive heart and chronic kidney disease with heart failure and with stage 5 chronic kidney disease, or end stage renal disease; A41.01 Sepsis due to Methicillin susceptible Staphylococcus aureus; Z20.822 Contact with and (suspected) exposure to COVID-19; D63.1 Anemia in chronic kidney disease; E87.5 Hyperkalemia; R09.89 Other specified symptoms and signs involving the circulatory and respiratory systems; E83.51 Hypocalcemia; I25.5 Ischemic cardiomyopathy; R59.0 Localized enlarged lymph nodes; I25.10 Atherosclerotic heart disease of native coronary artery without angina pectoris; I48.91 Unspecified atrial fibrillation; I50.9 Heart failure, unspecified; K31.84 Gastroparesis; K44.9 Diaphragmatic hernia without obstruction or gangrene; Z86.711 Personal history of pulmonary embolism; Z99.2 Dependence on renal dialysis; Z95.1 Presence of aortocoronary bypass graft
CPT/HCPCS: 36415; 36600; 43239; 70450; 71045; 74018; 74176; 80048; 80053; 80202; 81001; 82805; 83605; 83880; 84100; 84484; 85007; 85025; 85027; 85049; 85610; 86850; 86900; 86901; 86920; 87040; 87077; 87081; 87186; 87340; 87426; 90935; 93005; 94640; A4565; C9113; G0378; J1815; J1885; J2250; J2405; J2543; J7060; P9047

== ENCOUNTER → 2021-01-25 | Outpatient (CLI) | payer MEDICARE, MEDICAID ==
[~2021-01-25] MED LIST changes: +CARV12.544 PO; -CARV3.1240 PO; -CLON0.1T PO; +CLON0.3T PO; -LEV100T PO; +LEVO50TA7 PO; -NIFE1TAB30 PO; +NIFE1TAB36 PO; +PANT40T PO; +SILD20TA2 PO; +WARF3TAB22 PO; +WARF4TAB33 PO
== END | disposition home or self-care (01) ==
LOC: Rad HDHVI 12:18
PROVIDERS: ATTEND Internal Medicine
DX: Z03.89 Encounter for observation for other suspected diseases and conditions ruled out (principal)
CPT/HCPCS: 73060

== ENCOUNTER 2021-03-15 12:58 | Emergency (ER) | payer MEDICARE, MEDICAID ==
[~2021-03-15] VITALS: Ht 152.4 cm; Wt 52.6 kg
[2021-03-15 14:10] LABS: Basophils # (auto) 0.1 10 ^3/uL (0-0.2); Eosinophils # (auto) 0.1 10 ^3/uL (0-0.8); Mean Corpuscular Hemoglobin 33.5 pg (28.0-32.0); Red Cell Distribution Width 18.4 % (11.8-14.3)
[2021-03-15 14:12] LABS: Basophils % (auto) 0.9 % (0.0-2.0); Eosinophils % (auto) 1.2 % (0.0-7.0); Hematocrit 26.7 % (36.0-46.0); Hemoglobin 8.7 g/dL (12.2-16.2); Lymphocytes # (auto) 0.7 10 ^3/uL (0.4-5.4); Lymphocytes % (auto) 8.7 % (10.0-50.0); Mean Corpuscular Hgb Conc. 32.7 g/dL (32.0-36.0); Mean Corpuscular Volume 102.5 fL (80.0-100.0); Monocytes # (auto) 0.8 10 ^3/uL (0-1.3); Monocytes % (auto) 10.2 % (0.0-12.0); Neutrophils # (auto) 6.2 10 ^3/uL (1.6-8.6); Red Blood Cells 2.61 10^6/uL (4.0-5.20); White Blood Cell 7.9 10^3/uL (4.4-10.8)
[2021-03-15 14:44] LABS: INR 1.27 (0.9-1.15); Partial Thromboplastin Time 30.5 sec (23.6-33.0)
[2021-03-15 15:29] LABS: Alanine Aminotransferase 18 U/L (13-56); Albumin 2.8 g/dL (3.4-5.0); Anion Gap 7 (5-15); Blood Urea Nitrogen 26 mg/dL (7-18); Calcium 7.4 mg/dL (8.5-10.1); Carbon Dioxide 27 mmol/L (21-32); Chloride 106 mmol/L (98-107); Glucose 128 mg/dL (74-106); Potassium 4.4 mmol/L (3.5-5.1); Sodium 140 mmol/L (136-145)
[2021-03-15 15:33] LABS: Alkaline Phosphatase 326 U/L (45-117); Aspartate Aminotransferase 9 U/L (15-37); BUN/Creatinine Ratio 5.4; Bilirubin, Total 0.5 mg/dL (0.2-1.0); GFR African American 12 mL/min; GFR Non-African American 10 mL/min; Total Protein 7.9 g/dL (6.4-8.2)
[2021-03-15] MEDS ORDERED: HYDROcodone-ACET 5/325MG TAB PO ONE (18:45)
[2021-03-15 20:00] VITALS: BP 174/96
== END 2021-03-16 09:18 | disposition home or self-care (01) ==
LOC: ER 12:58
DX: T82.838A Hemorrhage due to vascular prosthetic devices, implants and grafts, initial encounter (principal); I13.2 Hypertensive heart and chronic kidney disease with heart failure and with stage 5 chronic kidney disease, or end stage renal disease; N18.6 End stage renal disease; I50.9 Heart failure, unspecified; D63.8 Anemia in other chronic diseases classified elsewhere; E44.0 Moderate protein-calorie malnutrition; I48.91 Unspecified atrial fibrillation; I25.810 Atherosclerosis of coronary artery bypass graft(s) without angina pectoris; E78.5 Hyperlipidemia, unspecified; Z99.2 Dependence on renal dialysis; Z95.0 Presence of cardiac pacemaker; Z68.22 Body mass index [BMI] 22.0-22.9, adult; Z79.899 Other long term (current) drug therapy
CPT/HCPCS: 36415; 71045; 80053; 84484; 85025; 85610; 85730

== ENCOUNTER 2021-03-16 13:33 | Emergency (ER) | payer MEDICARE, MEDICAID ==
[~2021-03-16] VITALS: Ht 154.9 cm; Wt 49.9 kg
[2021-03-16] MEDS ORDERED: LIDOCAINE 2%HCL (LOCAL ANESTH.) INJ 20ML MDV ONE (18:25)
[2021-03-16] MEDS ORDERED: HYDROcodone-ACET 5/325MG TAB PO ONE (19:00)
[2021-03-16] MEDS ORDERED: SODIUM CHL 0.9% IV ONE (19:15)
[2021-03-16] MEDS ORDERED: DESMOPRESSIN IV ONE (19:15)
[2021-03-16 19:28] LABS: Basophils # (auto) 0.1 10 ^3/uL (0-0.2); Eosinophils # (auto) 0.1 10 ^3/uL (0-0.8); Hemoglobin 7.8 g/dL (12.2-16.2); Monocytes # (auto) 0.9 10 ^3/uL (0-1.3); Nucleated Red Blood Cells % 0.1 %
[2021-03-16 19:30] LABS: Basophils % (auto) 0.9 % (0.0-2.0); Eosinophils % (auto) 0.7 % (0.0-7.0); Hematocrit 23.7 % (36.0-46.0); Lymphocytes # (auto) 0.6 10 ^3/uL (0.4-5.4); Lymphocytes % (auto) 6.1 % (10.0-50.0); Mean Corpuscular Hemoglobin 33.5 pg (28.0-32.0); Mean Corpuscular Hgb Conc. 32.8 g/dL (32.0-36.0); Monocytes % (auto) 8.9 % (0.0-12.0); Neutrophils # (auto) 8.7 10 ^3/uL (1.6-8.6); Neutrophils % (auto) 83.4 % (37.0-80.0); Red Blood Cells 2.32 10^6/uL (4.0-5.20); Red Cell Distribution Width 18.5 % (11.8-14.3); White Blood Cell 10.5 10^3/uL (4.4-10.8)
[2021-03-16 19:45] LABS: Calcium 7.6 mg/dL (8.5-10.1); Potassium 4.7 mmol/L (3.5-5.1)
[2021-03-16 19:49] LABS: INR 1.28 (0.9-1.15); Partial Thromboplastin Time 31.3 sec (23.6-33.0)
[2021-03-16] MEDS ORDERED: cloNIDine HCL 0.1 MG TAB ONE (22:31)
[2021-03-16] MEDS ORDERED: cloNIDine HCL 0.1 MG TAB PO ONE (22:45)
[2021-03-17] MEDS ORDERED: CALCIUM GLUC 1,000mg/50ml-NS 50 ML IV ONE ×2 (01:00)
[2021-03-17 05:30] VITALS: BP 152/71
[2021-03-17] MEDS ORDERED: HYDROcodone-ACET 5/325MG TAB PO ONE (06:00)
== END 2021-03-17 06:08 | disposition home or self-care (01) ==
LOC: EDBD 13:33 → ER 13:33
DX: T82.838A Hemorrhage due to vascular prosthetic devices, implants and grafts, initial encounter (principal); D64.9 Anemia, unspecified; E83.51 Hypocalcemia; I48.91 Unspecified atrial fibrillation; I25.810 Atherosclerosis of coronary artery bypass graft(s) without angina pectoris; I13.2 Hypertensive heart and chronic kidney disease with heart failure and with stage 5 chronic kidney disease, or end stage renal disease; N18.6 End stage renal disease; I50.9 Heart failure, unspecified; E78.5 Hyperlipidemia, unspecified; Z79.899 Other long term (current) drug therapy; Z99.2 Dependence on renal dialysis
CPT/HCPCS: 12001; 36415; 80048; 85025; 85610; 85730; 86850; 86900; 86901; 86920; 93005; 96365; 96366; 96368; 99285; J0610; J2597; J7030; 96367

== ENCOUNTER 2021-05-15 05:05 | Inpatient (IN) | payer MEDICARE, MEDICAID ==
[~2021-05-15] VITALS: Ht 157.5 cm; Wt 54.4 kg
[~2021-05-15 05:05] MED LIST changes: -QUET100T46 PO; +QUET100T47 PO
[2021-05-15] MEDS ORDERED: ASPirin 81 mg TAB PO ONE (06:45)
[2021-05-15 07:01] LABS: Basophils # (auto) 0.1 10 ^3/uL (0-0.2); Basophils % (auto) 0.7 % (0.0-2.0); Eosinophils # (auto) 0.1 10 ^3/uL (0-0.8); Eosinophils % (auto) 1.3 % (0.0-7.0); Hemoglobin 10.4 g/dL (12.2-16.2); Lymphocytes # (auto) 0.8 10 ^3/uL (0.4-5.4); Lymphocytes % (auto) 8.8 % (10.0-50.0); Mean Corpuscular Hemoglobin 33.9 pg (28.0-32.0); Mean Corpuscular Hgb Conc. 33.6 g/dL (32.0-36.0); Mean Corpuscular Volume 100.9 fL (80.0-100.0); Monocytes # (auto) 0.8 10 ^3/uL (0-1.3); Monocytes % (auto) 9.6 % (0.0-12.0); Neutrophils % (auto) 79.6 % (37.0-80.0); Red Blood Cells 3.08 10^6/uL (4.0-5.20); Red Cell Distribution Width 23.3 % (11.8-14.3); White Blood Cell 8.8 10^3/uL (4.4-10.8)
[2021-05-15 07:05] LABS: Anion Gap 9 (5-15); Blood Urea Nitrogen 55 mg/dL (7-18); Calcium 7.4 mg/dL (8.5-10.1); Carbon Dioxide 23 mmol/L (21-32); Chloride 100 mmol/L (98-107); Glucose 130 mg/dL (74-106); Potassium 5.3 mmol/L (3.5-5.1); Sodium 132 mmol/L (136-145)
[2021-05-15 07:13] LABS: Alanine Aminotransferase 22 U/L (13-56); Alkaline Phosphatase 456 U/L (45-117); Aspartate Aminotransferase 14 U/L (15-37); BUN/Creatinine Ratio 10.1; Bilirubin, Total 0.5 mg/dL (0.2-1.0); GFR African American 10 mL/min; GFR Non-African American 8 mL/min; Total Protein 8.6 g/dL (6.4-8.2)
[2021-05-15 07:14] LABS: INR 1.19 (0.9-1.15)
[2021-05-15] MEDS ORDERED: ONDANSETRON HCL 4 MG/2 ML VIAL IV PRN (07:30)
[2021-05-15] MEDS: MORPHINE SULFATE INJECTION 2 MG/ML SYRG IV PRN ×3 (07:40→20:32)
[2021-05-15] MEDS ORDERED: MORPHINE SULFATE INJECTION 2 MG/ML SYRG IV PRN (10:30)
[2021-05-15] MEDS ORDERED: NITROGLYCERIN 0.4 MG SL TAB SL PRN (10:30)
[2021-05-15] MEDS ORDERED: LORazepam 2MG/ML-1ML VIAL IV ONE (10:30)
[2021-05-15] MEDS ORDERED: BUMETANIDE 2.5mg/10ml (0.25 mg/ml) INJ IV ONE (13:30)
[2021-05-15] MEDS ORDERED: ALUM & MAG HYDROX-SIMETH LIQ(MAALOX) 30 ML PO PRN (14:00)
[2021-05-15] MEDS: SILDENAFIL CITRATE 20 MG TAB PO SCH ×2 (14:00→22:28)
[2021-05-15] MEDS ORDERED: ACETAMINOPHEN 325 MG TAB PO PRN (14:00)
[2021-05-15] MEDS ORDERED: DOCUSATE SOD 100 MG CAP PO PRN (14:00)
[2021-05-15] MEDS: DOXYCYCLINE 100MG/250ML 250 ML IV SCH (14:15)
[2021-05-15] MEDS ORDERED: DOXYCYCLINE 100MG/250ML 250 ML IV ONE (14:15)
[2021-05-15] MEDS ORDERED: WARFARIN SODIUM 2 MG TAB PO ONE (17:00)
[2021-05-15] MEDS: BUMETANIDE 2.5mg/10ml (0.25 mg/ml) INJ IV SCH (17:19)
[2021-05-15] MEDS: SEVELAMER 800 MG TAB PO SCH (17:19)
[2021-05-15 17:36] LABS: Cholesterol 82 mg/dL (< 200); HDL Cholesterol 52 mg/dL (40-59); LDL Cholesterol 31 mg/dL (< 100); Triglycerides 61 mg/dL (< 150)
[2021-05-15] MEDS: LORazepam 0.5 MG TAB PO PRN (20:23)
[2021-05-15 22:00] VITALS: BP 183/112
[2021-05-15] MEDS: QUEtiapine FUMARATE 100 MG TAB PO SCH (22:28)
[2021-05-15] MEDS: ATORVASTATIN 20 MG TAB PO SCH (22:28)
[2021-05-15] MEDS: CARVEDILOL 12.5 MG TAB PO SCH (22:29)
[2021-05-15] MEDS: hydrALAZINE HCL 20 MG/ML VL IV PRN (23:57)
[2021-05-16] MEDS: MORPHINE SULFATE INJECTION 2 MG/ML SYRG IV PRN ×5 (00:19→23:58)
[2021-05-16] MEDS: DOXYCYCLINE 100MG/250ML 250 ML IV SCH ×2 (03:00→13:54)
[2021-05-16 05:00] VITALS: BP 124/75
[2021-05-16] MEDS: SILDENAFIL CITRATE 20 MG TAB PO SCH ×3 (05:48→21:29)
[2021-05-16] MEDS: BUMETANIDE 2.5mg/10ml (0.25 mg/ml) INJ IV SCH ×2 (05:49→17:13)
[2021-05-16 06:46] LABS: Basophils # (auto) 0.1 10 ^3/uL (0-0.2); Basophils % (auto) 0.7 % (0.0-2.0); Eosinophils # (auto) 0.1 10 ^3/uL (0-0.8); Eosinophils % (auto) 0.9 % (0.0-7.0); Lymphocytes # (auto) 0.8 10 ^3/uL (0.4-5.4); Lymphocytes % (auto) 8.2 % (10.0-50.0); Mean Corpuscular Hemoglobin 32.4 pg (28.0-32.0); Mean Corpuscular Hgb Conc. 32.2 g/dL (32.0-36.0); Mean Corpuscular Volume 100.6 fL (80.0-100.0); Monocytes # (auto) 0.9 10 ^3/uL (0-1.3); Monocytes % (auto) 8.9 % (0.0-12.0); Neutrophils # (auto) 8.3 10 ^3/uL (1.6-8.6); Neutrophils % (auto) 81.3 % (37.0-80.0); Nucleated Red Blood Cells % 0.2 %; Red Blood Cells 2.78 10^6/uL (4.0-5.20); Red Cell Distribution Width 21.6 % (11.8-14.3); White Blood Cell 10.2 10^3/uL (4.4-10.8)
[2021-05-16 09:00] VITALS: BP 128/77
[2021-05-16 09:22] LABS: Magnesium 2.7 mg/dL (1.6-2.6); Phosphorus 3.7 mg/dL (2.5-4.90)
[2021-05-16 09:25] LABS: INR 1.34 (0.9-1.15); Partial Thromboplastin Time 27.4 sec (23.6-33.0)
[2021-05-16] MEDS: PANTOPRAZOLE 40 MG TAB PO SCH (09:27)
[2021-05-16] MEDS: SEVELAMER 800 MG TAB PO SCH ×3 (09:27→17:13)
[2021-05-16] MEDS: NIFEdipine ER 30 MG TAB PO SCH (09:28)
[2021-05-16] MEDS: CHOLECALCIFEROL (VITD3) 2,000 UNIT CAP/TAB PO SCH (09:28)
[2021-05-16] MEDS: LEVOTHYROXINE SODIUM 50 MCG TAB PO SCH (09:28)
[2021-05-16] MEDS: CARVEDILOL 12.5 MG TAB PO SCH ×2 (09:29→21:29)
[2021-05-16] MEDS ORDERED: ISOSORBIDE MONONITRATE ER 60 MG TAB PO SCH (10:00)
[2021-05-16 13:00] VITALS: BP 125/72
[2021-05-16] MEDS: DOBUTamine 1000MCG/ML 250 ML IV SCH (13:00)
[2021-05-16 16:34] LABS: INR 1.65 (0.9-1.15); Partial Thromboplastin Time 33.9 sec (23.6-33.0)
[2021-05-16 17:00] VITALS: BP 135/61
[2021-05-16] MEDS ORDERED: WARFARIN SODIUM 2 MG TAB PO ONE (17:00)
[2021-05-16] MEDS: QUEtiapine FUMARATE 100 MG TAB PO SCH (21:28)
[2021-05-16] MEDS: LORazepam 0.5 MG TAB PO PRN (21:28)
[2021-05-16] MEDS: ATORVASTATIN 20 MG TAB PO SCH (21:28)
[2021-05-16 22:21] VITALS: BP 150/101
[2021-05-16 22:51] VITALS: BP 148/95
[2021-05-17] VITALS (58 sets, daily range): BP systolic 89–185; BP diastolic 33–120
[2021-05-17] MEDS: BUMETANIDE 2.5mg/10ml (0.25 mg/ml) INJ IV SCH ×2 (05:32→18:46)
[2021-05-17] MEDS: SILDENAFIL CITRATE 20 MG TAB PO SCH ×3 (05:33→22:25)
[2021-05-17] MEDS: MORPHINE SULFATE INJECTION 2 MG/ML SYRG IV PRN ×2 (05:34→16:41)
[2021-05-17] MEDS ORDERED: SODIUM CHL 0.9% 1000 ML BAG XX ONE (07:00)
[2021-05-17 07:17] LABS: Basophils # (auto) 0 10 ^3/uL (0-0.2); Basophils % (auto) 0.4 % (0.0-2.0); Eosinophils # (auto) 0.2 10 ^3/uL (0-0.8); Hematocrit 25.4 % (36.0-46.0); Hemoglobin 8.4 g/dL (12.2-16.2); Lymphocytes # (auto) 0.7 10 ^3/uL (0.4-5.4); Mean Corpuscular Hemoglobin 33.4 pg (28.0-32.0); Mean Corpuscular Volume 101.4 fL (80.0-100.0); Monocytes # (auto) 0.6 10 ^3/uL (0-1.3); Monocytes % (auto) 7.7 % (0.0-12.0); Neutrophils # (auto) 6.8 10 ^3/uL (1.6-8.6); Neutrophils % (auto) 81.9 % (37.0-80.0); Nucleated Red Blood Cells % 0.1 %; Red Blood Cells 2.51 10^6/uL (4.0-5.20); White Blood Cell 8.3 10^3/uL (4.4-10.8)
[2021-05-17 07:28] LABS: INR 2.05 (0.9-1.15)
[2021-05-17] MEDS: SEVELAMER 800 MG TAB PO SCH ×3 (09:34→18:00)
[2021-05-17] MEDS: cefTRIAXone 1GM/50ML D5W 50 ML IV SCH (09:34)
[2021-05-17] MEDS: CARVEDILOL 12.5 MG TAB PO SCH ×2 (10:00→22:25)
[2021-05-17] MEDS: NIFEdipine ER 30 MG TAB PO SCH (10:00)
[2021-05-17] MEDS: CHOLECALCIFEROL (VITD3) 2,000 UNIT CAP/TAB PO SCH (10:10)
[2021-05-17] MEDS: PANTOPRAZOLE 40 MG TAB PO SCH (10:10)
[2021-05-17] MEDS: LEVOTHYROXINE SODIUM 50 MCG TAB PO SCH (10:10)
[2021-05-17] MEDS: PROPOFOL 100 ML IV SCH ×2 (11:15→18:56)
[2021-05-17] MEDS ORDERED: PROPOFOL 100 ML IV ONE (11:36)
[2021-05-17] MEDS ORDERED: SODIUM BICARBONATE 8.4% INJ 50ML SYRINGE IV ONE (13:09)
[2021-05-17] MEDS ORDERED: EPINEPHrine HCL 1 MG/10 ML SYRG IV ONE (13:09)
[2021-05-17] MEDS ORDERED: CALCIUM CHLOR(10%) 100MG/ML 10ML SYRINGE IV ONE (13:09)
[2021-05-17] MEDS ORDERED: NOREPINEPHRINE 8 MG/250ML KIT 250 ML IV ONE (13:44)
[2021-05-17] MEDS: NOREPINEPHRINE 8 MG/250ML KIT 250 ML IV SCH (13:45)
[2021-05-17] MEDS: fentaNYL Drip 2500mCg/250mlNS 250 ML IV SCH ×2 (13:45→21:44)
[2021-05-17] MEDS: DOBUTamine 1000MCG/ML 250 ML IV SCH (14:08)
[2021-05-17 14:20] LABS: Basophils # (auto) 0 10 ^3/uL (0-0.2); Basophils % (auto) 0.1 % (0.0-2.0); Eosinophils # (auto) 0 10 ^3/uL (0-0.8); Eosinophils % (auto) 0.2 % (0.0-7.0); Hemoglobin 8.2 g/dL (12.2-16.2); Neutrophils # (auto) 9.3 10 ^3/uL (1.6-8.6)
[2021-05-17 14:22] LABS: Hematocrit 24.7 % (36.0-46.0); Lymphocytes # (auto) 0.3 10 ^3/uL (0.4-5.4); Lymphocytes % (auto) 2.6 % (10.0-50.0); Mean Corpuscular Hemoglobin 33.3 pg (28.0-32.0); Mean Corpuscular Hgb Conc. 33.3 g/dL (32.0-36.0); Mean Corpuscular Volume 100.1 fL (80.0-100.0); Monocytes # (auto) 0.4 10 ^3/uL (0-1.3); Monocytes % (auto) 4.1 % (0.0-12.0); Nucleated Red Blood Cells % 0.1 %; Red Blood Cells 2.46 10^6/uL (4.0-5.20); Red Cell Distribution Width 21.6 % (11.8-14.3)
[2021-05-17] MEDS ORDERED: ALBUMIN 25% 100 ML IV ONE ×2 (14:30→15:30)
[2021-05-17 14:33] LABS: Albumin 2.1 g/dL (3.4-5.0); Calcium 7.3 mg/dL (8.5-10.1); Magnesium 2.8 mg/dL (1.6-2.6)
[2021-05-17 14:36] LABS: BUN/Creatinine Ratio 10.5; Bilirubin, Total 0.5 mg/dL (0.2-1.0); Phosphorus 4.8 mg/dL (2.5-4.90); Total Protein 6.4 g/dL (6.4-8.2)
[2021-05-17 14:40] LABS: Potassium 6.6 mmol/L (3.5-5.1)
[2021-05-17 14:42] LABS: Urine Bacteria MANY /hpf (None Seen); Urine Blood 2+ /uL (Negative); Urine Specific Gravity 1.014 (1.001-1.035); Urine WBC 8 /hpf (0 - 5)
[2021-05-17 14:49] LABS: Alcohol, Urine < 3.0 mg/dL (0-10); Amphetamine Screen, Urine NEGATIVE (NEGATIVE); Barbiturate Scree,Urine NEGATIVE (NEGATIVE); Benzodiazephine Screen, Urine NEGATIVE (NEGATIVE); Cannabinoid Screen, Urine NEGATIVE (NEGATIVE); Cocaine Screen, Urine NEGATIVE (NEGATIVE); Opiate Scree,Urine NEGATIVE (NEGATIVE); Phencyclidine Screen, Urine NEGATIVE (NEGATIVE)
[2021-05-17] MEDS ORDERED: ADENOSINE 6 MG/2 ML INJ IV ONE ×2 (15:00→19:25)
[2021-05-17] MEDS ORDERED: EPOETIN ALFA-EPBX 10,000 UNIT/1ML VIAL SC ONE (21:00)
[2021-05-17] MEDS: QUEtiapine FUMARATE 100 MG TAB PO SCH (22:00)
[2021-05-17] MEDS: ATORVASTATIN 20 MG TAB PO SCH (22:25)
[2021-05-17 22:35] LABS: Hematocrit 24.1 % (36.0-46.0); Hemoglobin 8.1 g/dL (12.2-16.2)
[2021-05-18] VITALS (98 sets, daily range): BP systolic 79–134; BP diastolic 25–59
[2021-05-18 04:35] LABS: Basophils # (auto) 0 10 ^3/uL (0-0.2); Eosinophils # (auto) 0.2 10 ^3/uL (0-0.8); Hemoglobin 7.3 g/dL (12.2-16.2); Lymphocytes # (auto) 0.6 10 ^3/uL (0.4-5.4); Neutrophils # (auto) 5.6 10 ^3/uL (1.6-8.6); Nucleated Red Blood Cells % 0.1 %
[2021-05-18 04:39] LABS: Basophils % (auto) 0.5 % (0.0-2.0); Eosinophils % (auto) 2.8 % (0.0-7.0); Hematocrit 22.5 % (36.0-46.0); Lymphocytes % (auto) 8.2 % (10.0-50.0); Mean Corpuscular Hgb Conc. 32.5 g/dL (32.0-36.0); Mean Corpuscular Volume 101.6 fL (80.0-100.0); Monocytes # (auto) 0.5 10 ^3/uL (0-1.3); Monocytes % (auto) 7.6 % (0.0-12.0); Neutrophils % (auto) 80.9 % (37.0-80.0); Red Blood Cells 2.21 10^6/uL (4.0-5.20)
[2021-05-18 04:48] LABS: Red Cell Distribution Width 21.8 % (11.8-14.3)
[2021-05-18 04:51] LABS: Albumin 2.7 g/dL (3.4-5.0); BUN/Creatinine Ratio 8.2; Calcium 7.6 mg/dL (8.5-10.1); Potassium 5.3 mmol/L (3.5-5.1)
[2021-05-18 04:53] LABS: Bilirubin, Total 0.7 mg/dL (0.2-1.0); Total Protein 6.8 g/dL (6.4-8.2)
[2021-05-18 05:00] LABS: INR 1.77 (0.9-1.15); Partial Thromboplastin Time 33.6 sec (23.6-33.0)
[2021-05-18] MEDS: SILDENAFIL CITRATE 20 MG TAB PO SCH ×3 (06:22→21:57)
[2021-05-18] MEDS: BUMETANIDE 2.5mg/10ml (0.25 mg/ml) INJ IV SCH ×2 (06:31→18:33)
[2021-05-18] MEDS: SEVELAMER 800 MG TAB PO SCH ×3 (08:00→18:33)
[2021-05-18] MEDS: cefTRIAXone 1GM/50ML D5W 50 ML IV SCH (09:30)
[2021-05-18] MEDS: PANTOPRAZOLE 40 MG TAB PO SCH (09:56)
[2021-05-18] MEDS: LEVOTHYROXINE SODIUM 50 MCG TAB PO SCH (09:57)
[2021-05-18] MEDS: CHOLECALCIFEROL (VITD3) 2,000 UNIT CAP/TAB PO SCH (09:57)
[2021-05-18] MEDS: NIFEdipine ER 30 MG TAB PO SCH (10:00)
[2021-05-18] MEDS: CARVEDILOL 12.5 MG TAB PO SCH ×2 (10:00→21:57)
[2021-05-18] MEDS ORDERED: SODIUM CHL 0.9% 1000 ML BAG XX ONE (10:30)
[2021-05-18] MEDS: DOBUTamine 1000MCG/ML 250 ML IV SCH (13:00)
[2021-05-18] MEDS: NOREPINEPHRINE 8 MG/250ML KIT 250 ML IV SCH (13:45)
[2021-05-18] MEDS ORDERED: EPOETIN ALFA-EPBX 10,000 UNIT/1ML VIAL SC ONE (21:00)
[2021-05-18] MEDS: ATORVASTATIN 20 MG TAB PO SCH (21:57)
[2021-05-18] MEDS: QUEtiapine FUMARATE 100 MG TAB PO SCH (21:57)
[2021-05-19] VITALS (59 sets, daily range): BP systolic 70–150; BP diastolic 28–72
[2021-05-19 04:17] LABS: Basophils # (auto) 0 10 ^3/uL (0-0.2); Basophils % (auto) 0.4 % (0.0-2.0); Eosinophils # (auto) 0.3 10 ^3/uL (0-0.8); Eosinophils % (auto) 4.7 % (0.0-7.0); Hematocrit 25.6 % (36.0-46.0); Hemoglobin 8.3 g/dL (12.2-16.2); Lymphocytes # (auto) 0.7 10 ^3/uL (0.4-5.4); Lymphocytes % (auto) 11.5 % (10.0-50.0); Mean Corpuscular Hemoglobin 31.4 pg (28.0-32.0); Mean Corpuscular Hgb Conc. 32.3 g/dL (32.0-36.0); Monocytes # (auto) 0.6 10 ^3/uL (0-1.3); Monocytes % (auto) 9.2 % (0.0-12.0); Neutrophils # (auto) 4.8 10 ^3/uL (1.6-8.6); Neutrophils % (auto) 74.2 % (37.0-80.0); Nucleated Red Blood Cells % 0.2 %; Red Blood Cells 2.64 10^6/uL (4.0-5.20); Red Cell Distribution Width 23.7 % (11.8-14.3); White Blood Cell 6.5 10^3/uL (4.4-10.8)
[2021-05-19 04:32] LABS: BUN/Creatinine Ratio 5.4; Calcium 7.6 mg/dL (8.5-10.1); Potassium 4.4 mmol/L (3.5-5.1)
[2021-05-19] MEDS: BUMETANIDE 2.5mg/10ml (0.25 mg/ml) INJ IV SCH ×2 (06:35→18:38)
[2021-05-19] MEDS: SILDENAFIL CITRATE 20 MG TAB PO SCH ×3 (06:55→21:44)
[2021-05-19] MEDS: SEVELAMER 800 MG TAB PO SCH ×3 (08:38→18:38)
[2021-05-19] MEDS: HYDROcodone-ACET 5/325MG TAB PO PRN ×2 (08:39→20:12)
[2021-05-19] MEDS: cefTRIAXone 1GM/50ML D5W 50 ML IV SCH (09:06)
[2021-05-19] MEDS: LEVOTHYROXINE SODIUM 50 MCG TAB PO SCH (09:28)
[2021-05-19] MEDS: PANTOPRAZOLE 40 MG TAB PO SCH (09:29)
[2021-05-19] MEDS: NIFEdipine ER 30 MG TAB PO SCH (09:29)
[2021-05-19] MEDS: CHOLECALCIFEROL (VITD3) 2,000 UNIT CAP/TAB PO SCH (09:30)
[2021-05-19] MEDS: CARVEDILOL 12.5 MG TAB PO SCH (09:32)
[2021-05-19] MEDS: DOBUTamine 1000MCG/ML 250 ML IV SCH (17:06)
[2021-05-19] MEDS: QUEtiapine FUMARATE 100 MG TAB PO SCH (21:44)
[2021-05-19] MEDS: CARVEDILOL 3.125 MG TAB PO SCH (21:44)
[2021-05-19] MEDS: ATORVASTATIN 20 MG TAB PO SCH (21:44)
[2021-05-20] VITALS (7 sets, daily range): BP systolic 107–162; BP diastolic 53–83
[2021-05-20] MEDS: HYDROcodone-ACET 5/325MG TAB PO PRN ×4 (00:48→22:25)
[2021-05-20] MEDS: BUMETANIDE 2.5mg/10ml (0.25 mg/ml) INJ IV SCH ×2 (06:00→19:01)
[2021-05-20] MEDS: SILDENAFIL CITRATE 20 MG TAB PO SCH ×3 (06:10→22:24)
[2021-05-20 06:31] LABS: Hemoglobin 8.1 g/dL (12.2-16.2)
[2021-05-20 06:34] LABS: Hematocrit 24.7 % (36.0-46.0)
[2021-05-20] MEDS ORDERED: SODIUM CHL 0.9% 1000 ML BAG XX ONE (07:00)
[2021-05-20] MEDS ORDERED: MIDODRINE HCL 10 MG TAB PO ONE (08:30)
[2021-05-20] MEDS: CHOLECALCIFEROL (VITD3) 2,000 UNIT CAP/TAB PO SCH (10:30)
[2021-05-20] MEDS: LEVOTHYROXINE SODIUM 50 MCG TAB PO SCH (10:30)
[2021-05-20] MEDS: PANTOPRAZOLE 40 MG TAB PO SCH (10:30)
[2021-05-20] MEDS: CARVEDILOL 3.125 MG TAB PO SCH ×2 (10:30→22:23)
[2021-05-20] MEDS: NIFEdipine ER 30 MG TAB PO SCH (10:30)
[2021-05-20] MEDS: cefTRIAXone 1GM/50ML D5W 50 ML IV SCH (10:30)
[2021-05-20] MEDS: SEVELAMER 800 MG TAB PO SCH ×3 (10:30→19:01)
[2021-05-20] MEDS: DOBUTamine 1000MCG/ML 250 ML IV SCH (14:05)
[2021-05-20] MEDS ORDERED: EPOETIN ALFA-EPBX 10,000 UNIT/1ML VIAL SC ONE (21:00)
[2021-05-20] MEDS: QUEtiapine FUMARATE 100 MG TAB PO SCH (22:24)
[2021-05-20] MEDS: ATORVASTATIN 20 MG TAB PO SCH (22:24)
[2021-05-21 05:00] VITALS: BP 139/68
[2021-05-21] MEDS: BUMETANIDE 2.5mg/10ml (0.25 mg/ml) INJ IV SCH ×2 (06:04→17:32)
[2021-05-21] MEDS: SILDENAFIL CITRATE 20 MG TAB PO SCH ×3 (06:05→22:00)
[2021-05-21 06:10] LABS: Calcium 8.1 mg/dL (8.5-10.1); Potassium 4.5 mmol/L (3.5-5.1)
[2021-05-21 06:12] LABS: BUN/Creatinine Ratio 4.5
[2021-05-21] MEDS: HYDROcodone-ACET 5/325MG TAB PO PRN ×3 (08:11→22:29)
[2021-05-21] MEDS: SEVELAMER 800 MG TAB PO SCH ×3 (08:22→17:32)
[2021-05-21] MEDS: cefTRIAXone 1GM/50ML D5W 50 ML IV SCH (08:31)
[2021-05-21 08:39] VITALS: BP 119/59
[2021-05-21] MEDS: PANTOPRAZOLE 40 MG TAB PO SCH (10:21)
[2021-05-21] MEDS: CARVEDILOL 3.125 MG TAB PO SCH ×2 (10:21→22:28)
[2021-05-21] MEDS: CHOLECALCIFEROL (VITD3) 2,000 UNIT CAP/TAB PO SCH (10:21)
[2021-05-21] MEDS: NIFEdipine ER 30 MG TAB PO SCH (10:22)
[2021-05-21] MEDS: LEVOTHYROXINE SODIUM 50 MCG TAB PO SCH (10:22)
[2021-05-21 13:00] VITALS: BP 130/56
[2021-05-21] MEDS: DOBUTamine 1000MCG/ML 250 ML IV SCH (15:00)
[2021-05-21 17:00] VITALS: BP 136/67
[2021-05-21] MEDS: LORazepam 0.5 MG TAB PO PRN (20:36)
[2021-05-21 21:58] VITALS: BP 131/58
[2021-05-21] MEDS: QUEtiapine FUMARATE 100 MG TAB PO SCH (22:27)
[2021-05-21] MEDS: ATORVASTATIN 20 MG TAB PO SCH (22:27)
[2021-05-22] MEDS: ONDANSETRON HCL 4 MG/2 ML VIAL IV PRN (01:25)
[2021-05-22 04:45] VITALS: BP 149/72
[2021-05-22 05:52] LABS: Calcium 8.1 mg/dL (8.5-10.1); Potassium 4.7 mmol/L (3.5-5.1)
[2021-05-22 05:56] LABS: BUN/Creatinine Ratio 5.1
[2021-05-22] MEDS: SILDENAFIL CITRATE 20 MG TAB PO SCH ×3 (06:04→22:07)
[2021-05-22] MEDS: BUMETANIDE 2.5mg/10ml (0.25 mg/ml) INJ IV SCH ×2 (06:04→17:30)
[2021-05-22] MEDS: HYDROcodone-ACET 5/325MG TAB PO PRN ×4 (06:15→22:10)
[2021-05-22] MEDS: SEVELAMER 800 MG TAB PO SCH ×3 (08:30→17:30)
[2021-05-22] MEDS: cefTRIAXone 1GM/50ML D5W 50 ML IV SCH (08:53)
[2021-05-22 08:57] VITALS: BP 124/66
[2021-05-22] MEDS: CHOLECALCIFEROL (VITD3) 2,000 UNIT CAP/TAB PO SCH (09:40)
[2021-05-22] MEDS: LEVOTHYROXINE SODIUM 50 MCG TAB PO SCH (09:40)
[2021-05-22] MEDS: NIFEdipine ER 30 MG TAB PO SCH (09:40)
[2021-05-22] MEDS: PANTOPRAZOLE 40 MG TAB PO SCH (09:40)
[2021-05-22] MEDS: CARVEDILOL 3.125 MG TAB PO SCH ×2 (09:41→22:05)
[2021-05-22 12:00] VITALS: BP 131/68
[2021-05-22] MEDS: DOBUTamine 1000MCG/ML 250 ML IV SCH (14:33)
[2021-05-22 16:00] VITALS: BP 139/71
[2021-05-22] MEDS ORDERED: diphenhdrAMINE HCL 25 MG CAP PO PRN (19:15)
[2021-05-22 22:00] VITALS: BP 137/50
[2021-05-22] MEDS: ATORVASTATIN 20 MG TAB PO SCH (22:06)
[2021-05-22] MEDS: QUEtiapine FUMARATE 100 MG TAB PO SCH (22:08)
[2021-05-23 05:00] VITALS: BP 125/66
[2021-05-23] MEDS: BUMETANIDE 2.5mg/10ml (0.25 mg/ml) INJ IV SCH ×2 (06:07→17:42)
[2021-05-23] MEDS: SILDENAFIL CITRATE 20 MG TAB PO SCH ×3 (06:08→21:19)
[2021-05-23 06:19] LABS: BUN/Creatinine Ratio 5.8; Calcium 8.4 mg/dL (8.5-10.1); Potassium 5.3 mmol/L (3.5-5.1)
[2021-05-23] MEDS ORDERED: SODIUM CHL 0.9% 1000 ML BAG XX ONE (07:00)
[2021-05-23 08:00] VITALS: BP 137/73
[2021-05-23] MEDS: HYDROcodone-ACET 5/325MG TAB PO PRN ×2 (08:26→17:18)
[2021-05-23] MEDS: SEVELAMER 800 MG TAB PO SCH ×3 (08:26→17:42)
[2021-05-23] MEDS: cefTRIAXone 1GM/50ML D5W 50 ML IV SCH (08:32)
[2021-05-23] MEDS: CHOLECALCIFEROL (VITD3) 2,000 UNIT CAP/TAB PO SCH (10:30)
[2021-05-23] MEDS: LEVOTHYROXINE SODIUM 50 MCG TAB PO SCH (10:30)
[2021-05-23] MEDS: PANTOPRAZOLE 40 MG TAB PO SCH (10:30)
[2021-05-23] MEDS: CARVEDILOL 3.125 MG TAB PO SCH ×2 (10:30→21:19)
[2021-05-23] MEDS: NIFEdipine ER 30 MG TAB PO SCH (10:30)
[2021-05-23 12:00] VITALS: BP 153/86
[2021-05-23] MEDS ORDERED: HEPARIN 1,000 UNITS/ml 1ML VIAL IV ONE (12:15)
[2021-05-23] MEDS: ONDANSETRON HCL 4 MG/2 ML VIAL IV PRN (13:23)
[2021-05-23 16:00] VITALS: BP 158/82
[2021-05-23] MEDS: DOBUTamine 1000MCG/ML 250 ML IV SCH (17:13)
[2021-05-23] MEDS ORDERED: EPOETIN ALFA-EPBX 10,000 UNIT/1ML VIAL SC ONE (21:00)
[2021-05-23] MEDS: ATORVASTATIN 20 MG TAB PO SCH (21:19)
[2021-05-23] MEDS: QUEtiapine FUMARATE 100 MG TAB PO SCH (21:20)
[2021-05-23 22:00] VITALS: BP 134/71
[2021-05-24 05:00] VITALS: BP 131/58
[2021-05-24] MEDS: BUMETANIDE 2.5mg/10ml (0.25 mg/ml) INJ IV SCH ×2 (05:36→17:37)
[2021-05-24] MEDS: SILDENAFIL CITRATE 20 MG TAB PO SCH ×3 (05:36→21:54)
[2021-05-24] MEDS: HYDROcodone-ACET 5/325MG TAB PO PRN ×2 (05:40→10:57)
[2021-05-24] MEDS: SEVELAMER 800 MG TAB PO SCH ×3 (08:18→17:37)
[2021-05-24] MEDS: cefTRIAXone 1GM/50ML D5W 50 ML IV SCH (08:32)
[2021-05-24 09:00] VITALS: BP 150/72
[2021-05-24] MEDS: LEVOTHYROXINE SODIUM 50 MCG TAB PO SCH (10:28)
[2021-05-24] MEDS: CHOLECALCIFEROL (VITD3) 2,000 UNIT CAP/TAB PO SCH (10:29)
[2021-05-24] MEDS: NIFEdipine ER 30 MG TAB PO SCH (10:29)
[2021-05-24] MEDS: CARVEDILOL 3.125 MG TAB PO SCH ×2 (10:30→21:53)
[2021-05-24] MEDS: PANTOPRAZOLE 40 MG TAB PO SCH (10:51)
[2021-05-24 12:40] VITALS: BP 140/69
[2021-05-24] MEDS: DOBUTamine 1000MCG/ML 250 ML IV SCH (15:00)
[2021-05-24 16:54] VITALS: BP_SYST 144; BP_SYST 154; BP_DIAS 76; BP_DIAS 87
[2021-05-24] MEDS: ATORVASTATIN 20 MG TAB PO SCH (21:53)
[2021-05-24] MEDS: QUEtiapine FUMARATE 100 MG TAB PO SCH (21:54)
[2021-05-24 22:00] VITALS: BP 132/64
[2021-05-24] MEDS: LORazepam 0.5 MG TAB PO PRN (22:52)
[2021-05-25 05:00] VITALS: BP 123/71
[2021-05-25] MEDS: BUMETANIDE 2.5mg/10ml (0.25 mg/ml) INJ IV SCH ×2 (06:08→17:17)
[2021-05-25] MEDS: SILDENAFIL CITRATE 20 MG TAB PO SCH ×3 (06:08→22:01)
[2021-05-25 09:00] VITALS: BP 130/69
[2021-05-25] MEDS: cefTRIAXone 1GM/50ML D5W 50 ML IV SCH (09:42)
[2021-05-25] MEDS: LEVOTHYROXINE SODIUM 50 MCG TAB PO SCH (09:43)
[2021-05-25] MEDS: CHOLECALCIFEROL (VITD3) 2,000 UNIT CAP/TAB PO SCH (09:43)
[2021-05-25] MEDS: CARVEDILOL 3.125 MG TAB PO SCH ×2 (09:44→22:01)
[2021-05-25] MEDS: SEVELAMER 800 MG TAB PO SCH ×3 (09:44→17:16)
[2021-05-25] MEDS: PANTOPRAZOLE 40 MG TAB PO SCH (09:44)
[2021-05-25] MEDS: NIFEdipine ER 30 MG TAB PO SCH (09:45)
[2021-05-25] MEDS: MORPHINE SULFATE INJECTION 2 MG/ML SYRG IV PRN ×2 (12:32→18:15)
[2021-05-25 12:54] VITALS: BP 148/82
[2021-05-25] MEDS ORDERED: SODIUM CHL 0.9% 1000 ML BAG XX ONE (13:45)
[2021-05-25 14:39] LABS: Basophils # (auto) 0.1 10 ^3/uL (0-0.2); Basophils % (auto) 0.8 % (0.0-2.0); Eosinophils # (auto) 0.2 10 ^3/uL (0-0.8); Eosinophils % (auto) 2.8 % (0.0-7.0); Hematocrit 32.6 % (36.0-46.0); Hemoglobin 10.8 g/dL (12.2-16.2); Lymphocytes # (auto) 0.7 10 ^3/uL (0.4-5.4); Mean Corpuscular Hemoglobin 31.4 pg (28.0-32.0); Mean Corpuscular Volume 95.3 fL (80.0-100.0); Monocytes # (auto) 0.6 10 ^3/uL (0-1.3); Neutrophils % (auto) 76.4 % (37.0-80.0); Nucleated Red Blood Cells % 0.1 %; Red Blood Cells 3.42 10^6/uL (4.0-5.20); White Blood Cell 6.6 10^3/uL (4.4-10.8)
[2021-05-25 14:51] LABS: Red Cell Distribution Width 21.4 % (11.8-14.3)
[2021-05-25 16:34] VITALS: BP 170/88
[2021-05-25] MEDS: DOBUTamine 1000MCG/ML 250 ML IV SCH (17:17)
[2021-05-25] MEDS: hydrALAZINE HCL 20 MG/ML VL IV PRN (17:17)
[2021-05-25] MEDS ORDERED: EPOETIN ALFA-EPBX 10,000 UNIT/1ML VIAL SC ONE (21:00)
[2021-05-25 21:52] VITALS: BP 137/65
[2021-05-25] MEDS: ATORVASTATIN 20 MG TAB PO SCH (22:01)
[2021-05-25] MEDS: QUEtiapine FUMARATE 100 MG TAB PO SCH (22:01)
[2021-05-25] MEDS: LORazepam 0.5 MG TAB PO PRN (22:23)
[2021-05-26 04:53] VITALS: BP 122/64
[2021-05-26 06:07] LABS: Basophils # (auto) 0.1 10 ^3/uL (0-0.2); Basophils % (auto) 1.2 % (0.0-2.0); Eosinophils # (auto) 0.2 10 ^3/uL (0-0.8); Eosinophils % (auto) 3.4 % (0.0-7.0); Hematocrit 30.3 % (36.0-46.0); Lymphocytes # (auto) 0.8 10 ^3/uL (0.4-5.4); Lymphocytes % (auto) 15.1 % (10.0-50.0); Mean Corpuscular Hemoglobin 31.5 pg (28.0-32.0); Mean Corpuscular Hgb Conc. 33.1 g/dL (32.0-36.0); Mean Corpuscular Volume 95.1 fL (80.0-100.0); Monocytes # (auto) 0.6 10 ^3/uL (0-1.3); Monocytes % (auto) 10.5 % (0.0-12.0); Neutrophils # (auto) 3.9 10 ^3/uL (1.6-8.6); Neutrophils % (auto) 69.8 % (37.0-80.0); Nucleated Red Blood Cells % 0.2 %; Red Blood Cells 3.19 10^6/uL (4.0-5.20); Red Cell Distribution Width 21.6 % (11.8-14.3); White Blood Cell 5.5 10^3/uL (4.4-10.8)
[2021-05-26 06:19] LABS: Potassium 4.7 mmol/L (3.5-5.1)
[2021-05-26 06:23] LABS: BUN/Creatinine Ratio 5.1; Calcium 8.1 mg/dL (8.5-10.1)
[2021-05-26] MEDS: SILDENAFIL CITRATE 20 MG TAB PO SCH ×3 (06:57→21:46)
[2021-05-26] MEDS: BUMETANIDE 2.5mg/10ml (0.25 mg/ml) INJ IV SCH (06:58)
[2021-05-26] MEDS: MORPHINE SULFATE INJECTION 2 MG/ML SYRG IV PRN (07:00)
[2021-05-26 08:32] VITALS: BP 151/74
[2021-05-26] MEDS: cefTRIAXone 1GM/50ML D5W 50 ML IV SCH (08:44)
[2021-05-26] MEDS: SEVELAMER 800 MG TAB PO SCH ×3 (08:44→18:03)
[2021-05-26] MEDS: CARVEDILOL 3.125 MG TAB PO SCH ×2 (08:45→21:46)
[2021-05-26] MEDS: CHOLECALCIFEROL (VITD3) 2,000 UNIT CAP/TAB PO SCH (08:46)
[2021-05-26] MEDS: NIFEdipine ER 30 MG TAB PO SCH (08:46)
[2021-05-26] MEDS: LEVOTHYROXINE SODIUM 50 MCG TAB PO SCH (08:46)
[2021-05-26] MEDS: PANTOPRAZOLE 40 MG TAB PO SCH (08:46)
[2021-05-26 13:00] VITALS: BP 147/81
[2021-05-26] MEDS: DOBUTamine 1000MCG/ML 250 ML IV SCH (15:00)
[2021-05-26 16:31] VITALS: BP 145/70
[2021-05-26] MEDS: QUEtiapine FUMARATE 100 MG TAB PO SCH (21:46)
[2021-05-26] MEDS: ATORVASTATIN 20 MG TAB PO SCH (21:46)
[2021-05-26 22:00] VITALS: BP 147/79
[2021-05-27 05:00] VITALS: BP 135/70
[2021-05-27] MEDS: SILDENAFIL CITRATE 20 MG TAB PO SCH (05:46)
[2021-05-27 06:19] LABS: Basophils # (auto) 0.1 10 ^3/uL (0-0.2); Basophils % (auto) 1.2 % (0.0-2.0); Eosinophils # (auto) 0.2 10 ^3/uL (0-0.8); Eosinophils % (auto) 3.5 % (0.0-7.0); Hematocrit 30.2 % (36.0-46.0); Hemoglobin 10.1 g/dL (12.2-16.2); Lymphocytes # (auto) 0.9 10 ^3/uL (0.4-5.4); Lymphocytes % (auto) 16.3 % (10.0-50.0); Mean Corpuscular Hemoglobin 31.9 pg (28.0-32.0); Mean Corpuscular Hgb Conc. 33.4 g/dL (32.0-36.0); Mean Corpuscular Volume 95.4 fL (80.0-100.0); Monocytes # (auto) 0.7 10 ^3/uL (0-1.3); Monocytes % (auto) 12.2 % (0.0-12.0); Neutrophils # (auto) 3.8 10 ^3/uL (1.6-8.6); Neutrophils % (auto) 66.8 % (37.0-80.0); Nucleated Red Blood Cells % 0.3 %; Red Blood Cells 3.16 10^6/uL (4.0-5.20); White Blood Cell 5.6 10^3/uL (4.4-10.8)
[2021-05-27 06:29] LABS: Red Cell Distribution Width 21.9 % (11.8-14.3)
[2021-05-27] MEDS ORDERED: SODIUM CHL 0.9% 1000 ML BAG XX ONE (07:00)
[2021-05-27 08:00] VITALS: BP 158/75
[2021-05-27] MEDS: SEVELAMER 800 MG TAB PO SCH (08:47)
[2021-05-27] MEDS: CARVEDILOL 3.125 MG TAB PO SCH (09:08)
[2021-05-27] MEDS: NIFEdipine ER 30 MG TAB PO SCH (09:08)
[2021-05-27] MEDS: LEVOTHYROXINE SODIUM 50 MCG TAB PO SCH (09:09)
[2021-05-27] MEDS: PANTOPRAZOLE 40 MG TAB PO SCH (09:09)
[2021-05-27] MEDS: CHOLECALCIFEROL (VITD3) 2,000 UNIT CAP/TAB PO SCH (09:09)
[2021-05-27] MEDS ORDERED: EPOETIN ALFA-EPBX 10,000 UNIT/1ML VIAL SC ONE (21:00)
== END 2021-05-27 09:50 | DRG 208 ==
LOC: ER 05:05 → EDBD 05:05 → TELE 10:21 → TELE-WESTW 22:00 → ICU WEST 05-17 11:18 → TELE-WESTW 05-19 14:51
PROVIDERS: ADMIT Hospitalist; ATTEND Internal Medicine Cardiovascular Disease
PROC: 30233K1 Transfusion of Nonautologous Frozen Plasma into Peripheral Vein, Percutaneous Approach (ICD-10-PCS; principal; 2021-05-17)
PROC: 5A1935Z Respiratory Ventilation, Less than 24 Consecutive Hours (ICD-10-PCS; 2021-05-17)
PROC: 0BH17EZ Insertion of Endotracheal Airway into Trachea, Via Natural or Artificial Opening (ICD-10-PCS; 2021-05-17)
PROC: 06HN33Z Insertion of Infusion Device into Left Femoral Vein, Percutaneous Approach (ICD-10-PCS; 2021-05-17)
PROC: 5A2204Z Restoration of Cardiac Rhythm, Single (ICD-10-PCS; 2021-05-17)
PROC: 5A1D70Z Performance of Urinary Filtration, Intermittent, Less than 6 Hours Per Day (ICD-10-PCS; 2021-05-17)
PROC: 30233N1 Transfusion of Nonautologous Red Blood Cells into Peripheral Vein, Percutaneous Approach (ICD-10-PCS; 2021-05-17)
PROC: 5A1221J Performance of Cardiac Output, Continuous, Automated (ICD-10-PCS; 2021-05-17)
PROC: 5A1D70Z Performance of Urinary Filtration, Intermittent, Less than 6 Hours Per Day (ICD-10-PCS; 2021-05-18)
PROC: 5A1D70Z Performance of Urinary Filtration, Intermittent, Less than 6 Hours Per Day (ICD-10-PCS; 2021-05-20)
PROC: 5A1D70Z Performance of Urinary Filtration, Intermittent, Less than 6 Hours Per Day (ICD-10-PCS; 2021-05-23)
PROC: 5A1D70Z Performance of Urinary Filtration, Intermittent, Less than 6 Hours Per Day (ICD-10-PCS; 2021-05-25)
PROC: 5A1D70Z Performance of Urinary Filtration, Intermittent, Less than 6 Hours Per Day (ICD-10-PCS; 2021-05-27)
DX: J96.01 Acute respiratory failure with hypoxia (principal); I50.21 Acute systolic (congestive) heart failure; N18.6 End stage renal disease; I46.8 Cardiac arrest due to other underlying condition; I13.2 Hypertensive heart and chronic kidney disease with heart failure and with stage 5 chronic kidney disease, or end stage renal disease; I24.9 Acute ischemic heart disease, unspecified; D68.59 Other primary thrombophilia; E87.1 Hypo-osmolality and hyponatremia; I48.92 Unspecified atrial flutter; I48.91 Unspecified atrial fibrillation; I25.5 Ischemic cardiomyopathy; I27.21 Secondary pulmonary arterial hypertension; K29.70 Gastritis, unspecified, without bleeding; E03.9 Hypothyroidism, unspecified; E78.5 Hyperlipidemia, unspecified; D63.1 Anemia in chronic kidney disease; E87.5 Hyperkalemia; K21.9 Gastro-esophageal reflux disease without esophagitis; E11.22 Type 2 diabetes mellitus with diabetic chronic kidney disease; F41.9 Anxiety disorder, unspecified; I25.10 Atherosclerotic heart disease of native coronary artery without angina pectoris; D53.9 Nutritional anemia, unspecified; Z79.01 Long term (current) use of anticoagulants; Z79.899 Other long term (current) drug therapy; Z95.0 Presence of cardiac pacemaker; Z95.1 Presence of aortocoronary bypass graft; Z98.61 Coronary angioplasty status; Z99.2 Dependence on renal dialysis; I25.2 Old myocardial infarction
CPT/HCPCS: 36415; 36600; 71045; 80048; 80053; 80061; 80307; 81001; 82728; 82805; 82962; 83036; 83735; 83880; 84100; 84484; 85014; 85018; 85025; 85379; 85610; 85730; 86160; 86850; 86900; 86901; 86920; 87040; 87070; 87081; 87086; 87205; 87340; 87426; 90935; 92950; 92960; 93005; 93926; 93971; 94003; 96365; 96375; 97110; 97116; 97163; 97530; G0378; J0153; J0696; J1642; J2405; J2704; J3490; P9047

== ENCOUNTER 2021-08-02 17:04 | Inpatient (IN) | payer MEDICARE, MEDICAID ==
[~2021-08-02] VITALS: Ht 157.5 cm; Wt 56.6 kg
[2021-08-03] LABS: Basophils # (auto) 0 10 ^3/uL (0-0.2); Basophils % (auto) 0.8 % (0.0-2.0); Eosinophils # (auto) 0.2 10 ^3/uL (0-0.8); Eosinophils % (auto) 4.4 % (0.0-7.0); Hematocrit 29.4 % (36.0-46.0); Hemoglobin 9.7 g/dL (12.2-16.2); Lymphocytes # (auto) 0.9 10 ^3/uL (0.4-5.4); Lymphocytes % (auto) 22.1 % (10.0-50.0); Mean Corpuscular Hemoglobin 31.9 pg (28.0-32.0); Mean Corpuscular Hgb Conc. 33.1 g/dL (32.0-36.0); Mean Corpuscular Volume 96.3 fL (80.0-100.0); Monocytes # (auto) 0.7 10 ^3/uL (0-1.3); Monocytes % (auto) 16.1 % (0.0-12.0); Neutrophils # (auto) 2.4 10 ^3/uL (1.6-8.6); Neutrophils % (auto) 56.6 % (37.0-80.0); Nucleated Red Blood Cells % 0.4 %; Red Blood Cells 3.05 10^6/uL (4.0-5.20); Red Cell Distribution Width 16.8 % (11.8-14.3); White Blood Cell 4.2 10^3/uL (4.4-10.8)
[2021-08-03 00:27] LABS: Albumin 3.3 g/dL (3.4-5.0); BUN/Creatinine Ratio 7.5; Calcium 8.5 mg/dL (8.5-10.1); Magnesium 2.4 mg/dL (1.6-2.6); Potassium 4.7 mmol/L (3.5-5.1)
[2021-08-03 00:30] LABS: Bilirubin, Total 0.4 mg/dL (0.2-1.0); Total Protein 7.2 g/dL (6.4-8.2)
[2021-08-03] MEDS: BUDESONIDE (INHALATION) 180 MCG IH IN SCH (07:27)
[2021-08-03] MEDS ORDERED: SODIUM CHLORIDE 0.9% 1,000 ML IV ONE (13:00)
[2021-08-03] MEDS ORDERED: MORPHINE SULFATE INJECTION 2 MG/ML SYRG IV ONE ×2 (13:15→15:00)
[2021-08-03] MEDS ORDERED: LABETALOL HCL 5 MG/ML 4ML SYRINGE IV ONE (13:15)
[2021-08-03] MEDS ORDERED: ONDANSETRON HCL 4 MG/2 ML VIAL IV ONE (13:15)
[2021-08-03] MEDS ORDERED: hydrALAZINE HCL 20 MG/ML VL IV ONE (15:00)
[2021-08-03] MEDS ORDERED: NITROGLYCERIN 0.4 MG SL TAB SL PRN ×2 (17:30→20:30)
[2021-08-03] MEDS ORDERED: MORPHINE SULFATE INJECTION 2 MG/ML SYRG IV PRN ×2 (17:30→20:30)
[2021-08-03] MEDS ORDERED: ALPRAZolam 0.25 MG TAB PO PRN (20:15)
[2021-08-03] MEDS ORDERED: METOPROLOL SUCCINATE XL 50 MG TAB PO ONE (20:15)
[2021-08-03] MEDS ORDERED: REMDESIVIR PER PHARMACY 0 ML IV SCH (20:15)
[2021-08-03] MEDS ORDERED: BUMETANIDE 2.5mg/10ml (0.25 mg/ml) INJ IV ONE (20:15)
[2021-08-03] MEDS ORDERED: ACETAMINOPHEN 500 MG TAB PO PRN (20:15)
[2021-08-03] MEDS ORDERED: DOCUSATE SOD 100 MG CAP PO PRN (20:30)
[2021-08-03] MEDS ORDERED: ALUM & MAG HYDROX-SIMETH LIQ(MAALOX) 30 ML PO PRN (20:30)
[2021-08-03] MEDS ORDERED: ONDANSETRON HCL 4 MG/2 ML VIAL IV PRN (20:30)
[2021-08-03] MEDS: QUEtiapine FUMARATE 100 MG TAB PO SCH (21:52)
[2021-08-03] MEDS: SILDENAFIL CITRATE 20 MG TAB PO SCH (21:52)
[2021-08-03] MEDS: ATORVASTATIN 20 MG TAB PO SCH (21:52)
[2021-08-03] MEDS ORDERED: ISOSORBIDE MONONITRATE 20 MG TAB PO SCH (22:00)
[2021-08-03] MEDS: DOXYCYCLINE 100MG/250ML 250 ML IV SCH (22:10)
[2021-08-04] VITALS (8 sets, daily range): BP systolic 110–168; BP diastolic 61–85
[2021-08-04] MEDS: hydrALAZINE HCL 20 MG/ML VL IV PRN ×2 (00:37→16:52)
[2021-08-04 02:34] LABS: Eosinophils # (auto) 0.1 10 ^3/uL (0-0.8); Hemoglobin 9.2 g/dL (12.2-16.2); Mean Corpuscular Hemoglobin 31.9 pg (28.0-32.0); Mean Corpuscular Volume 96.9 fL (80.0-100.0); Monocytes # (auto) 0.5 10 ^3/uL (0-1.3); Neutrophils # (auto) 1.9 10 ^3/uL (1.6-8.6); Red Blood Cells 2.89 10^6/uL (4.0-5.20); White Blood Cell 3.5 10^3/uL (4.4-10.8)
[2021-08-04 02:35] LABS: Basophils # (auto) 0 10 ^3/uL (0-0.2); Basophils % (auto) 1.2 % (0.0-2.0); Eosinophils % (auto) 3.5 % (0.0-7.0); Lymphocytes % (auto) 27.9 % (10.0-50.0); Mean Corpuscular Hgb Conc. 32.9 g/dL (32.0-36.0); Monocytes % (auto) 13.1 % (0.0-12.0); Neutrophils % (auto) 54.3 % (37.0-80.0); Nucleated Red Blood Cells % 0.1 %; Red Cell Distribution Width 16.8 % (11.8-14.3)
[2021-08-04 02:53] LABS: Calcium 8.3 mg/dL (8.5-10.1); Magnesium 2.4 mg/dL (1.6-2.6); Potassium 4.8 mmol/L (3.5-5.1)
[2021-08-04 02:58] LABS: Bilirubin, Total 0.4 mg/dL (0.2-1.0); Total Protein 6.9 g/dL (6.4-8.2)
[2021-08-04 04:53] LABS: Thyroid Stimulating Hormone 1.68 uIU/mL (0.358-3.74)
[2021-08-04] MEDS: SILDENAFIL CITRATE 20 MG TAB PO SCH ×3 (06:35→21:50)
[2021-08-04] MEDS: BUMETANIDE 2.5mg/10ml (0.25 mg/ml) INJ IV SCH ×2 (06:35→17:58)
[2021-08-04] MEDS ORDERED: SODIUM CHL 0.9% 1000 ML BAG XX ONE (07:00)
[2021-08-04 07:17] LABS: CRP High Sensitivity 1.44 mg/dL (< 0.3)
[2021-08-04] MEDS: LEVOTHYROXINE SODIUM 50 MCG TAB PO SCH (07:39)
[2021-08-04] MEDS: HYDROcodone-ACET 5/325MG TAB PO PRN ×3 (08:34→17:59)
[2021-08-04] MEDS: BUDESONIDE (INHALATION) 180 MCG IH IN SCH ×2 (10:00→21:18)
[2021-08-04 11:04] LABS: Basophils # (auto) 0 10 ^3/uL (0-0.2); Basophils % (auto) 0.5 % (0.0-2.0); Eosinophils # (auto) 0 10 ^3/uL (0-0.8); Hemoglobin 9.8 g/dL (12.2-16.2); Lymphocytes # (auto) 0.5 10 ^3/uL (0.4-5.4); Mean Corpuscular Hgb Conc. 32.8 g/dL (32.0-36.0); Monocytes # (auto) 0.1 10 ^3/uL (0-1.3); Neutrophils # (auto) 2.2 10 ^3/uL (1.6-8.6); White Blood Cell 2.8 10^3/uL (4.4-10.8)
[2021-08-04 11:06] LABS: Hematocrit 29.8 % (36.0-46.0); Lymphocytes % (auto) 17.5 % (10.0-50.0); Mean Corpuscular Hemoglobin 31.7 pg (28.0-32.0); Mean Corpuscular Volume 96.4 fL (80.0-100.0); Monocytes % (auto) 3.8 % (0.0-12.0); Neutrophils % (auto) 77.2 % (37.0-80.0); Nucleated Red Blood Cells % 0.2 %; Red Blood Cells 3.09 10^6/uL (4.0-5.20); Red Cell Distribution Width 16.8 % (11.8-14.3)
[2021-08-04 11:17] LABS: INR 1.64 (0.9-1.15); Partial Thromboplastin Time 37.3 sec (23.6-33.0)
[2021-08-04 11:36] LABS: Magnesium 2.1 mg/dL (1.6-2.6); Phosphorus 3.9 mg/dL (2.5-4.90)
[2021-08-04] MEDS: DexAMETHasone SOD PHOS 10MG/1ML VIAL INJ IV SCH (12:19)
[2021-08-04] MEDS: DOXYCYCLINE 100MG/250ML 250 ML IV SCH (12:19)
[2021-08-04] MEDS: ASPirin 81 mg TAB PO SCH (12:20)
[2021-08-04] MEDS: NIFEdipine ER 30 MG TAB PO SCH (12:20)
[2021-08-04] MEDS: ZINC SULFATE 220mg CAP or TAB PO SCH (12:20)
[2021-08-04] MEDS: CHOLECALCIFEROL (VITD3) 2,000 UNIT CAP/TAB PO SCH (12:21)
[2021-08-04] MEDS: IVERMECTIN 3 MG TAB PO SCH (12:21)
[2021-08-04] MEDS: METOPROLOL SUCCINATE XL 50 MG TAB PO SCH (12:21)
[2021-08-04] MEDS: ASCORBIC ACID 1,000 MG TAB PO SCH (12:21)
[2021-08-04] MEDS ORDERED: REMDESIVIR 200 MG in NS 210ml LOADING DOSE ADULT IV ONE (15:00)
[2021-08-04] MEDS ORDERED: EPOETIN ALFA-EPBX 10,000 UNIT/1ML VIAL SC ONE (21:00)
[2021-08-04] MEDS: ALBUTEROL SULF HFA 90MCG INH 200DOSE IN PRN (21:18)
[2021-08-04] MEDS: QUEtiapine FUMARATE 100 MG TAB PO SCH (21:45)
[2021-08-04] MEDS: ATORVASTATIN 20 MG TAB PO SCH (21:46)
[2021-08-04] MEDS: DOXYCYCLINE 100 MG TAB/CAP PO SCH (21:46)
[2021-08-05] MEDS: ALBUTEROL SULF HFA 90MCG INH 200DOSE IN PRN ×2 (06:14→19:33)
[2021-08-05] MEDS: BUDESONIDE (INHALATION) 180 MCG IH IN SCH ×2 (06:14→19:33)
[2021-08-05] MEDS: SILDENAFIL CITRATE 20 MG TAB PO SCH ×3 (06:28→21:05)
[2021-08-05] MEDS: BUMETANIDE 2.5mg/10ml (0.25 mg/ml) INJ IV SCH ×2 (06:28→18:16)
[2021-08-05] MEDS: LEVOTHYROXINE SODIUM 50 MCG TAB PO SCH (06:28)
[2021-08-05 09:00] VITALS: BP 126/73
[2021-08-05] MEDS: DexAMETHasone SOD PHOS 10MG/1ML VIAL INJ IV SCH (09:47)
[2021-08-05] MEDS: ZINC SULFATE 220mg CAP or TAB PO SCH (09:47)
[2021-08-05] MEDS: ASPirin 81 mg TAB PO SCH (09:47)
[2021-08-05] MEDS: IVERMECTIN 3 MG TAB PO SCH (09:50)
[2021-08-05] MEDS: NIFEdipine ER 30 MG TAB PO SCH (09:50)
[2021-08-05] MEDS: ASCORBIC ACID 1,000 MG TAB PO SCH (09:51)
[2021-08-05] MEDS: CHOLECALCIFEROL (VITD3) 2,000 UNIT CAP/TAB PO SCH (09:51)
[2021-08-05] MEDS: METOPROLOL SUCCINATE XL 50 MG TAB PO SCH (09:51)
[2021-08-05] MEDS: DOXYCYCLINE 100 MG TAB/CAP PO SCH ×2 (09:51→21:05)
[2021-08-05] MEDS: HYDROcodone-ACET 5/325MG TAB PO PRN (09:53)
[2021-08-05 13:00] VITALS: BP 140/94
[2021-08-05] MEDS ORDERED: REMDESIVIR 100mg 100 MG in SODIUM CHL 0.9% 230 ML IV SCH (15:00)
[2021-08-05 17:00] VITALS: BP 127/73
[2021-08-05 17:07] VITALS: BP 127/73
[2021-08-05] MEDS: ATORVASTATIN 20 MG TAB PO SCH (21:05)
[2021-08-05] MEDS: QUEtiapine FUMARATE 100 MG TAB PO SCH (21:05)
[2021-08-05 22:00] VITALS: BP 128/69
== END 2021-08-06 00:18 | DRG 177 ==
LOC: ER 17:04 → EDBD 17:04 → TELE 08-03 17:30 → TELE-WESTW 08-03 23:11
PROVIDERS: ADMIT Hospitalist; ATTEND Internal Medicine Nephrology
PROC: 5A1D70Z Performance of Urinary Filtration, Intermittent, Less than 6 Hours Per Day (ICD-10-PCS; principal; 2021-08-04)
DX: U07.1 COVID-19 (principal); J12.82 Pneumonia due to coronavirus disease 2019; N18.6 End stage renal disease; I50.43 Acute on chronic combined systolic (congestive) and diastolic (congestive) heart failure; J96.01 Acute respiratory failure with hypoxia; J96.02 Acute respiratory failure with hypercapnia; D68.59 Other primary thrombophilia; I13.2 Hypertensive heart and chronic kidney disease with heart failure and with stage 5 chronic kidney disease, or end stage renal disease; I16.1 Hypertensive emergency; I27.21 Secondary pulmonary arterial hypertension; F41.9 Anxiety disorder, unspecified; D53.9 Nutritional anemia, unspecified; K21.9 Gastro-esophageal reflux disease without esophagitis; E03.9 Hypothyroidism, unspecified; I25.10 Atherosclerotic heart disease of native coronary artery without angina pectoris; M54.9 Dorsalgia, unspecified; D89.839 Cytokine release syndrome, grade unspecified; I25.5 Ischemic cardiomyopathy; I48.91 Unspecified atrial fibrillation; Z79.01 Long term (current) use of anticoagulants; Z79.899 Other long term (current) drug therapy; Z99.2 Dependence on renal dialysis; Z95.0 Presence of cardiac pacemaker; Z95.2 Presence of prosthetic heart valve; Z95.1 Presence of aortocoronary bypass graft; Z98.61 Coronary angioplasty status
CPT/HCPCS: 36415; 71045; 80053; 80061; 82306; 82728; 83036; 83605; 83615; 83735; 83880; 84100; 84443; 84484; 85025; 85379; 85610; 85730; 86141; 87040; 87081; 87426; 90935; 93005; 94640; 96361; 96374; 96375; 96376; G0378; J1100; J1642; J2405; J3490

== ENCOUNTER → 2021-09-22 | Outpatient (CLI) | payer MEDICARE, MEDICAID | END | disposition home or self-care (01) | LOC: LAB 09:52 | PROVIDERS: ATTEND Internal Medicine | DX: R79.1 Abnormal coagulation profile (principal) | CPT/HCPCS: 85610 ==

== ENCOUNTER 2021-10-13 08:57 | Inpatient (IN) | payer MEDICARE, MEDICAID ==
[~2021-10-13] VITALS: Ht 152.4 cm; Wt 54.4 kg
[2021-10-13] MEDS ORDERED: ASPirin 81 mg TAB PO ONE (09:00)
[2021-10-13] MEDS ORDERED: FUROSEMIDE 40 MG/4 ML VIAL IV ONE (09:15)
[2021-10-13 10:02] LABS: Albumin 3.6 g/dL (3.4-5.0); Calcium 9.1 mg/dL (8.5-10.1); Potassium 4.5 mmol/L (3.5-5.1)
[2021-10-13 10:08] LABS: BUN/Creatinine Ratio 7.1; Bilirubin, Total 0.5 mg/dL (0.2-1.0)
[2021-10-13 10:35] LABS: Basophils # (auto) 0 10 ^3/uL (0-0.2); Basophils % (auto) 0.6 % (0.0-2.0); Eosinophils # (auto) 0 10 ^3/uL (0-0.8); Eosinophils % (auto) 0.2 % (0.0-7.0); Hematocrit 30.6 % (36.0-46.0); Hemoglobin 10.2 g/dL (12.2-16.2); Lymphocytes # (auto) 0.5 10 ^3/uL (0.4-5.4); Lymphocytes % (auto) 9.2 % (10.0-50.0); Mean Corpuscular Hemoglobin 32.8 pg (28.0-32.0); Mean Corpuscular Hgb Conc. 33.5 g/dL (32.0-36.0); Mean Corpuscular Volume 98.1 fL (80.0-100.0); Monocytes # (auto) 0.3 10 ^3/uL (0-1.3); Monocytes % (auto) 5.6 % (0.0-12.0); Neutrophils # (auto) 4.9 10 ^3/uL (1.6-8.6); Neutrophils % (auto) 84.4 % (37.0-80.0); Nucleated Red Blood Cells % 0.1 %; Red Blood Cells 3.12 10^6/uL (4.0-5.20); Red Cell Distribution Width 17.6 % (11.8-14.3); White Blood Cell 5.8 10^3/uL (4.4-10.8)
[2021-10-13] MEDS ORDERED: MORPHINE SULFATE INJECTION 2 MG/ML SYRG IV ONE (12:15)
[2021-10-13] MEDS ORDERED: LABETALOL HCL 5 MG/ML 4ML SYRINGE IV ONE (12:15)
[2021-10-13] MEDS ORDERED: ONDANSETRON HCL 4 MG/2 ML VIAL IV ONE (12:15)
[2021-10-13] MEDS ORDERED: LABETALOL HCL 5 MG/ML 4ML SYRINGE IV PRN (13:45)
[2021-10-13] MEDS ORDERED: hydrALAZINE HCL 20 MG/ML VL IV PRN (13:45)
[2021-10-13] MEDS ORDERED: NITROGLYCERIN 0.4 MG SL TAB SL PRN (13:45)
[2021-10-13] MEDS ORDERED: MORPHINE SULFATE INJECTION 2 MG/ML SYRG IV PRN ×2 (13:45→14:30)
[2021-10-13] MEDS ORDERED: BUMETANIDE 2.5mg/10ml (0.25 mg/ml) INJ IV ONE (13:45)
[2021-10-13] MEDS ORDERED: PANTOPRAZOLE 40 MG/10 ML VIAL INJ IV ONE (14:30)
[2021-10-13] MEDS ORDERED: DOCUSATE SOD 100 MG CAP PO PRN (14:30)
[2021-10-13] MEDS ORDERED: FERROUS SULFATE 325mg EC TAB PO ONE (14:30)
[2021-10-13] MEDS ORDERED: ONDANSETRON HCL 4 MG/2 ML VIAL IV PRN (14:30)
[2021-10-13] MEDS ORDERED: IPRATROPIUM BROM 0.5 MG/2.5ML INH SOL NEB ONE (14:30)
[2021-10-13] MEDS ORDERED: ALPRAZolam 0.5 MG TAB PO PRN (14:30)
[2021-10-13] MEDS ORDERED: LACTULOSE 20Gm/30ML SOLN PO PRN (14:30)
[2021-10-13] MEDS ORDERED: FOLIC ACID 1 MG TAB PO ONE (14:30)
[2021-10-13] MEDS ORDERED: DOXYCYCLINE 100MG/250ML 250 ML IV SCH (14:30)
[2021-10-13] MEDS ORDERED: HYDROcodone-ACET 5/325MG TAB PO ONE (14:30)
[2021-10-13] MEDS ORDERED: SUCRALFATE 1 GM/10 ML ORAL SUSP PO ONE (14:30)
[2021-10-13] MEDS ORDERED: B-COMPLEX W/ C & FOLIC ACID(NEPHROVITE TAB) PO ONE (14:30)
[2021-10-13] MEDS ORDERED: DOXYCYCLINE 100MG/250ML 250 ML IV ONE (14:30)
[2021-10-13] MEDS ORDERED: ACETAMINOPHEN 325 MG TAB PO PRN (14:30)
[2021-10-13] MEDS ORDERED: HYDROcodone-ACET 5/325MG TAB PO PRN (14:30)
[2021-10-13] MEDS ORDERED: NIFEdipine ER 30 MG TAB PO ONE (14:30)
[2021-10-13 14:49] LABS: Magnesium 2.8 mg/dL (1.6-2.6); Phosphorus 2.2 mg/dL (2.5-4.90)
[2021-10-13 16:36] VITALS: BP 173/103
[2021-10-13] MEDS ORDERED: SUCRALFATE 1 GM/10 ML ORAL SUSP PO SCH (17:00)
[2021-10-13 17:34] LABS: INR 2.09 (0.9-1.15)
[2021-10-13 17:46] LABS: Partial Thromboplastin Time 45.4 sec (23.6-33.0)
[2021-10-13] MEDS ORDERED: SEVELAMER 800 MG TAB PO SCH (18:00)
[2021-10-13] MEDS ORDERED: FERROUS SULFATE 325mg EC TAB PO SCH (18:00)
[2021-10-13] MEDS ORDERED: IPRATROPIUM BROM 0.5 MG/2.5ML INH SOL NEB SCH (18:00)
[2021-10-13] MEDS ORDERED: CARVEDILOL 3.125 MG TAB PO SCH (22:00)
[2021-10-13] MEDS ORDERED: ATORVASTATIN 20 MG TAB PO SCH (22:00)
[2021-10-13] MEDS ORDERED: QUEtiapine FUMARATE 100 MG TAB PO SCH (22:00)
[2021-10-14] MEDS ORDERED: DOXYCYCLINE 100MG/250ML 250 ML IV SCH (02:00)
[2021-10-14] MEDS ORDERED: BUMETANIDE 2.5mg/10ml (0.25 mg/ml) INJ IV SCH (06:00)
[2021-10-14] MEDS ORDERED: LEVOTHYROXINE SODIUM 50 MCG TAB PO SCH (07:00)
[2021-10-14] MEDS ORDERED: PANTOPRAZOLE 40 MG/10 ML VIAL INJ IV SCH (10:00)
[2021-10-14] MEDS ORDERED: ASPirin 81 mg TAB PO SCH (10:00)
[2021-10-14] MEDS ORDERED: B-COMPLEX W/ C & FOLIC ACID(NEPHROVITE TAB) PO SCH (10:00)
[2021-10-14] MEDS ORDERED: FOLIC ACID 1 MG TAB PO SCH (10:00)
[2021-10-14] MEDS ORDERED: CHOLECALCIFEROL (VITD3) 2,000 UNIT CAP/TAB PO SCH (10:00)
[2021-10-14] MEDS ORDERED: CYANOCOBALAMIN 500 MCG TAB PO SCH (10:00)
[2021-10-14] MEDS ORDERED: NIFEdipine ER 30 MG TAB PO SCH (10:00)
[2021-10-14] MEDS ORDERED: THIAMINE HCL 100 MG TAB PO SCH (10:00)
[2021-10-14] MEDS ORDERED: WARF1TAB36 PO (10:10)
[2021-10-14] MEDS ORDERED: TEMA30CA5 PO (10:10)
[2021-10-14] MEDS ORDERED: WARF5TAB71 PO (10:10)
[2021-10-14] MEDS ORDERED: SEVE800T8 PO (10:10)
== END 2021-10-14 16:35 | disposition short-term general hospital (02) | DRG 291 ==
LOC: ER 08:57 → EDBD 08:57 → TELE 13:31
PROVIDERS: ADMIT Hospitalist; ATTEND Hospitalist
DX: I13.2 Hypertensive heart and chronic kidney disease with heart failure and with stage 5 chronic kidney disease, or end stage renal disease (principal); I60.9 Nontraumatic subarachnoid hemorrhage, unspecified; N18.6 End stage renal disease; I50.43 Acute on chronic combined systolic (congestive) and diastolic (congestive) heart failure; I16.1 Hypertensive emergency; D68.59 Other primary thrombophilia; J84.9 Interstitial pulmonary disease, unspecified; I27.21 Secondary pulmonary arterial hypertension; I25.5 Ischemic cardiomyopathy; F41.9 Anxiety disorder, unspecified; K21.9 Gastro-esophageal reflux disease without esophagitis; Z20.822 Contact with and (suspected) exposure to COVID-19; E03.9 Hypothyroidism, unspecified; I25.10 Atherosclerotic heart disease of native coronary artery without angina pectoris; M54.2 Cervicalgia; I48.91 Unspecified atrial fibrillation; Z79.01 Long term (current) use of anticoagulants; Z79.899 Other long term (current) drug therapy; Z95.0 Presence of cardiac pacemaker; Z95.1 Presence of aortocoronary bypass graft; Z98.61 Coronary angioplasty status; Z99.2 Dependence on renal dialysis
CPT/HCPCS: 36415; 70450; 71045; 72125; 80053; 83735; 83880; 84100; 84443; 84484; 85025; 85610; 85730; 87040; 93005; 96365; 96375; 99291; C9113; G0378; J2405; J3490

== ENCOUNTER 2021-11-07 17:15 | Inpatient (IN) | payer MEDICARE, MEDICAID ==
[~2021-11-07] VITALS: Ht 152.4 cm; Wt 53.0 kg
[~2021-11-07 17:15] MED LIST changes: +TEMA30CA5 PO; +WARF1TAB36 PO; -WARF3TAB22 PO; -WARF4TAB33 PO; +WARF5TAB71 PO
[2021-11-07] MEDS ORDERED: cefTRIAXone 1GM/50ML D5W 50 ML IV ONE (18:00)
[2021-11-07] MEDS ORDERED: methylPREDNISolone SOD SUCC 125 MG/2 ML VL IV ONE (18:00)
[2021-11-07] MEDS ORDERED: SUCCINYLCHOLINE CHLORIDE 20 MG/ML 10ML VIAL IV ONE ×2 (19:10→19:15)
[2021-11-07] MEDS ORDERED: ETOMIDATE (2MG/ML) 20ML VIAL IV ONE ×2 (19:10→19:15)
[2021-11-07] MEDS ORDERED: MIDAZOLAM DRIP 50 mg/50mL 50 ML IV ONE (19:19)
[2021-11-07 19:22] LABS: Basophils # (auto) 0 10 ^3/uL (0-0.2); Basophils % (auto) 0.4 % (0.0-2.0); Eosinophils # (auto) 0.1 10 ^3/uL (0-0.8); Eosinophils % (auto) 0.7 % (0.0-7.0); Hematocrit 27.1 % (36.0-46.0); Hemoglobin 9.1 g/dL (12.2-16.2); Lymphocytes # (auto) 0.5 10 ^3/uL (0.4-5.4); Lymphocytes % (auto) 5.8 % (10.0-50.0); Mean Corpuscular Hemoglobin 34.7 pg (28.0-32.0); Mean Corpuscular Hgb Conc. 33.5 g/dL (32.0-36.0); Mean Corpuscular Volume 103.4 fL (80.0-100.0); Monocytes # (auto) 0.7 10 ^3/uL (0-1.3); Neutrophils # (auto) 7.6 10 ^3/uL (1.6-8.6); Neutrophils % (auto) 85.1 % (37.0-80.0); Nucleated Red Blood Cells % 0.1 %; Red Blood Cells 2.62 10^6/uL (4.0-5.20); Red Cell Distribution Width 19.3 % (11.8-14.3); White Blood Cell 8.9 10^3/uL (4.4-10.8)
[2021-11-07 19:28] LABS: Alanine Aminotransferase 38 U/L (13-56); Albumin 3.4 g/dL (3.4-5.0); Anion Gap 12 (5-15); Aspartate Aminotransferase 10 U/L (15-37); BUN/Creatinine Ratio 6.8; Blood Urea Nitrogen 23 mg/dL (7-18); Calcium 8.1 mg/dL (8.5-10.1); Carbon Dioxide 24 mmol/L (21-32); Chloride 104 mmol/L (98-107); GFR African American 17 mL/min; GFR Non-African American 14 mL/min; Glucose 111 mg/dL (74-106); Potassium 3.3 mmol/L (3.5-5.1); Sodium 140 mmol/L (136-145)
[2021-11-07] MEDS: MIDAZOLAM DRIP 50 mg/50mL 50 ML IV SCH ×2 (19:30→23:01)
[2021-11-07 19:31] VITALS: BP 185/90
[2021-11-07 19:31] LABS: Alkaline Phosphatase 357 U/L (45-117); Bilirubin, Total 0.6 mg/dL (0.2-1.0)
[2021-11-07] MEDS ORDERED: PROPOFOL 100 ML IV ONE (19:46)
[2021-11-07] MEDS: PROPOFOL 100 ML IV SCH (19:50)
[2021-11-07] MEDS ORDERED: PROPOFOL 10 MG/ML 20 ML IV ONE (20:00)
[2021-11-07] MEDS ORDERED: ACETAMINOPHEN 650 MG RECT SUPP PR ONE (20:00)
[2021-11-07 21:25] VITALS: BP 121/54
[2021-11-08] VITALS (49 sets, daily range): BP systolic 98–181; BP diastolic 56–87
[2021-11-08] MEDS ORDERED: FUROSEMIDE 40 MG/4 ML VIAL IV ONE (00:15)
[2021-11-08] MEDS: MIDAZOLAM DRIP 50 mg/50mL 50 ML IV SCH ×4 (04:35→20:15)
[2021-11-08] MEDS: PROPOFOL 100 ML IV SCH ×3 (04:36→17:44)
[2021-11-08 11:27] LABS: Anion Gap 22 (5-15); Blood Urea Nitrogen 32 mg/dL (7-18); Calcium 8.1 mg/dL (8.5-10.1); Carbon Dioxide 14 mmol/L (21-32); Chloride 112 mmol/L (98-107); Glucose 170 mg/dL (74-106); Potassium 4.2 mmol/L (3.5-5.1); Sodium 148 mmol/L (136-145)
[2021-11-08 11:37] LABS: BUN/Creatinine Ratio 7.4; GFR African American 13 mL/min; GFR Non-African American 11 mL/min
[2021-11-08] MEDS ORDERED: SODIUM CHL 0.9% 1000 ML BAG XX ONE (11:45)
[2021-11-08] MEDS ORDERED: PANTOPRAZOLE 40 MG/10 ML VIAL INJ IV ONE (12:45)
[2021-11-08] MEDS ORDERED: ONDANSETRON HCL 4 MG/2 ML VIAL IV PRN (12:45)
[2021-11-08] MEDS: SILDENAFIL CITRATE 20 MG TAB PO SCH ×2 (14:11→21:19)
[2021-11-08] MEDS ORDERED: EPOETIN ALFA-EPBX 10,000 UNIT/1ML VIAL SC ONE (21:00)
[2021-11-08] MEDS: QUEtiapine FUMARATE 100 MG TAB PO SCH (21:21)
[2021-11-08] MEDS: CARVEDILOL 12.5 MG TAB PO SCH (21:25)
[2021-11-09] VITALS (67 sets, daily range): BP systolic 104–188; BP diastolic 45–90
[2021-11-09] MEDS ORDERED: hydrALAZINE HCL 20 MG/ML VL ONE (03:11)
[2021-11-09] MEDS ORDERED: hydrALAZINE HCL 20 MG/ML VL IV ONE (03:15)
[2021-11-09] MEDS: PROPOFOL 100 ML IV SCH ×2 (04:11→10:57)
[2021-11-09] MEDS: MIDAZOLAM DRIP 50 mg/50mL 50 ML IV SCH ×5 (04:11→21:15)
[2021-11-09] MEDS: LEVOTHYROXINE SODIUM 50 MCG TAB PO SCH (05:55)
[2021-11-09] MEDS ORDERED: EPOETIN ALFA-EPBX 10,000 UNIT/1ML VIAL IV ONE (08:45)
[2021-11-09] MEDS: SILDENAFIL CITRATE 20 MG TAB PO SCH ×3 (09:08→20:00)
[2021-11-09 09:35] LABS: Basophils # (auto) 0.1 10 ^3/uL (0-0.2); Eosinophils # (auto) 0 10 ^3/uL (0-0.8); Eosinophils % (auto) 0.2 % (0.0-7.0); Hemoglobin 10.1 g/dL (12.2-16.2); Mean Corpuscular Hgb Conc. 33.3 g/dL (32.0-36.0); Monocytes # (auto) 0.7 10 ^3/uL (0-1.3); Nucleated Red Blood Cells % 0.1 %; Red Cell Distribution Width 18.9 % (11.8-14.3)
[2021-11-09 09:37] LABS: Basophils % (auto) 0.7 % (0.0-2.0); Hematocrit 30.4 % (36.0-46.0); Lymphocytes # (auto) 0.5 10 ^3/uL (0.4-5.4); Lymphocytes % (auto) 5.5 % (10.0-50.0); Mean Corpuscular Hemoglobin 34.4 pg (28.0-32.0); Mean Corpuscular Volume 103.3 fL (80.0-100.0); Monocytes % (auto) 7.6 % (0.0-12.0); Neutrophils # (auto) 7.5 10 ^3/uL (1.6-8.6); Red Blood Cells 2.94 10^6/uL (4.0-5.20); White Blood Cell 8.8 10^3/uL (4.4-10.8)
[2021-11-09 09:54] LABS: BUN/Creatinine Ratio 6.5
[2021-11-09 10:13] LABS: Potassium 2.7 mmol/L (3.5-5.1)
[2021-11-09] MEDS: PANTOPRAZOLE 40 MG/10 ML VIAL INJ IV SCH (10:30)
[2021-11-09] MEDS: CARVEDILOL 12.5 MG TAB PO SCH ×2 (11:20→22:00)
[2021-11-09 15:18] LABS: BUN/Creatinine Ratio 6.5; Calcium 8.9 mg/dL (8.5-10.1); Potassium 3.5 mmol/L (3.5-5.1)
[2021-11-09] MEDS ORDERED: ACETAMINOPHEN 650 MG RECT SUPP PR PRN ×2 (16:15→18:00)
[2021-11-09] MEDS: MORPHINE SULFATE INJECTION 2 MG/ML SYRG IV PRN ×2 (16:26→23:26)
[2021-11-09] MEDS: QUEtiapine FUMARATE 100 MG TAB PO SCH (22:00)
[2021-11-10] VITALS (20 sets, daily range): BP systolic 107–181; BP diastolic 52–87
[2021-11-10] MEDS: MIDAZOLAM DRIP 50 mg/50mL 50 ML IV SCH ×2 (02:15→07:15)
[2021-11-10] MEDS: MORPHINE SULFATE INJECTION 2 MG/ML SYRG IV PRN ×2 (06:25→20:04)
[2021-11-10] MEDS: LEVOTHYROXINE SODIUM 50 MCG TAB PO SCH ×2 (07:00→09:19)
[2021-11-10] MEDS: SILDENAFIL CITRATE 20 MG TAB PO SCH ×3 (09:12→20:02)
[2021-11-10] MEDS: PANTOPRAZOLE 40 MG/10 ML VIAL INJ IV SCH (09:14)
[2021-11-10] MEDS: CARVEDILOL 12.5 MG TAB PO SCH ×2 (09:16→21:43)
[2021-11-10] MEDS ORDERED: CARVEDILOL 12.5 MG TAB PO ONE (10:15)
[2021-11-10 12:19] LABS: BUN/Creatinine Ratio 6.5; Calcium 8.4 mg/dL (8.5-10.1); Potassium 3.5 mmol/L (3.5-5.1)
[2021-11-10] MEDS: QUEtiapine FUMARATE 100 MG TAB PO SCH (21:45)
[2021-11-11] VITALS (7 sets, daily range): BP systolic 114–162; BP diastolic 48–89
[2021-11-11 06:26] LABS: Basophils % (auto) 0.7 % (0.0-2.0); Eosinophils # (auto) 0.1 10 ^3/uL (0-0.8); Lymphocytes # (auto) 1.1 10 ^3/uL (0.4-5.4); Monocytes # (auto) 0.8 10 ^3/uL (0-1.3)
[2021-11-11 06:28] LABS: Basophils # (auto) 0.1 10 ^3/uL (0-0.2); Eosinophils % (auto) 1.3 % (0.0-7.0); Hematocrit 23.9 % (36.0-46.0); Lymphocytes % (auto) 15.3 % (10.0-50.0); Mean Corpuscular Hemoglobin 35.1 pg (28.0-32.0); Mean Corpuscular Hgb Conc. 33.5 g/dL (32.0-36.0); Mean Corpuscular Volume 104.5 fL (80.0-100.0); Monocytes % (auto) 10.5 % (0.0-12.0); Neutrophils # (auto) 5.3 10 ^3/uL (1.6-8.6); Neutrophils % (auto) 72.2 % (37.0-80.0); Nucleated Red Blood Cells % 0.1 %; Red Blood Cells 2.29 10^6/uL (4.0-5.20); Red Cell Distribution Width 18.3 % (11.8-14.3); White Blood Cell 7.3 10^3/uL (4.4-10.8)
[2021-11-11 06:42] LABS: Calcium 7.9 mg/dL (8.5-10.1); Potassium 3.5 mmol/L (3.5-5.1)
[2021-11-11 06:47] LABS: BUN/Creatinine Ratio 7.7
[2021-11-11] MEDS ORDERED: SODIUM CHL 0.9% 1000 ML BAG XX ONE (07:00)
[2021-11-11] MEDS: SILDENAFIL CITRATE 20 MG TAB PO SCH ×3 (08:00→20:36)
[2021-11-11] MEDS: CARVEDILOL 12.5 MG TAB PO SCH ×2 (10:00→22:19)
[2021-11-11] MEDS: MORPHINE SULFATE INJECTION 2 MG/ML SYRG IV PRN ×2 (10:32→18:49)
[2021-11-11] MEDS ORDERED: diphenhdrAMINE HCL 25 MG CAP PO PRN (12:30)
[2021-11-11] MEDS: PANTOPRAZOLE 40 MG/10 ML VIAL INJ IV SCH (13:01)
[2021-11-11] MEDS ORDERED: FUROSEMIDE 100 MG/10ML VIAL IV ONE (20:30)
[2021-11-11] MEDS ORDERED: EPOETIN ALFA-EPBX 10,000 UNIT/1ML VIAL SC ONE (21:00)
[2021-11-11] MEDS: IPRATROPIUM BROM 0.5 MG/2.5ML INH SOL NEB SCH (21:39)
[2021-11-11] MEDS: QUEtiapine FUMARATE 100 MG TAB PO SCH (22:20)
[2021-11-12] MEDS: DOCUSATE SOD 100 MG CAP PO PRN ×2 (06:17→21:07)
[2021-11-12] MEDS: LEVOTHYROXINE SODIUM 50 MCG TAB PO SCH (06:18)
[2021-11-12] MEDS: IPRATROPIUM BROM 0.5 MG/2.5ML INH SOL NEB SCH ×3 (06:24→18:16)
[2021-11-12] MEDS: SILDENAFIL CITRATE 20 MG TAB PO SCH ×3 (08:44→20:51)
[2021-11-12 08:45] VITALS: BP 110/73
[2021-11-12] MEDS: PANTOPRAZOLE 40 MG/10 ML VIAL INJ IV SCH (08:45)
[2021-11-12] MEDS: CARVEDILOL 12.5 MG TAB PO SCH ×2 (08:45→20:52)
[2021-11-12 13:00] VITALS: BP 115/59
[2021-11-12 17:00] VITALS: BP 109/55
[2021-11-12] MEDS: MORPHINE SULFATE INJECTION 2 MG/ML SYRG IV PRN (18:55)
[2021-11-12] MEDS: methylPREDNISolone SOD SUCC 40 MG/ML VL IV SCH (20:52)
[2021-11-12] MEDS: QUEtiapine FUMARATE 100 MG TAB PO SCH (20:53)
[2021-11-12 22:00] VITALS: BP 126/80
[2021-11-13] MEDS: IPRATROPIUM BROM 0.5 MG/2.5ML INH SOL NEB SCH ×4 (00:09→18:00)
[2021-11-13 05:14] VITALS: BP 104/54
[2021-11-13] MEDS: LEVOTHYROXINE SODIUM 50 MCG TAB PO SCH (06:15)
[2021-11-13] MEDS ORDERED: SODIUM CHL 0.9% 1000 ML BAG XX ONE (07:00)
[2021-11-13] MEDS: SILDENAFIL CITRATE 20 MG TAB PO SCH ×3 (08:00→21:51)
[2021-11-13 09:00] VITALS: BP 112/73
[2021-11-13] MEDS: CARVEDILOL 12.5 MG TAB PO SCH ×2 (09:09→21:52)
[2021-11-13] MEDS: methylPREDNISolone SOD SUCC 40 MG/ML VL IV SCH ×2 (09:09→21:51)
[2021-11-13] MEDS: PANTOPRAZOLE 40 MG/10 ML VIAL INJ IV SCH (09:09)
[2021-11-13] MEDS: AZITHROMYCIN 250 MG TAB PO SCH (09:10)
[2021-11-13 13:00] VITALS: BP 96/46
[2021-11-13] MEDS: DOCUSATE SOD 100 MG CAP PO PRN (13:53)
[2021-11-13 17:00] VITALS: BP 121/82
[2021-11-13] MEDS: MORPHINE SULFATE INJECTION 2 MG/ML SYRG IV PRN ×2 (17:27→22:48)
[2021-11-13] MEDS ORDERED: EPOETIN ALFA-EPBX 10,000 UNIT/1ML VIAL SC ONE (21:00)
[2021-11-13] MEDS: QUEtiapine FUMARATE 100 MG TAB PO SCH (21:52)
[2021-11-13 22:00] VITALS: BP 125/75
[2021-11-14] MEDS: MORPHINE SULFATE INJECTION 2 MG/ML SYRG IV PRN (04:37)
[2021-11-14 05:07] VITALS: BP 112/76
[2021-11-14] MEDS: LEVOTHYROXINE SODIUM 50 MCG TAB PO SCH (06:16)
[2021-11-14] MEDS ORDERED: SODIUM CHL 0.9% 1000 ML BAG XX ONE (07:00)
[2021-11-14] MEDS: IPRATROPIUM BROM 0.5 MG/2.5ML INH SOL NEB SCH ×5 (07:07→23:25)
[2021-11-14 08:03] LABS: Eosinophils # (auto) 0 10 ^3/uL (0-0.8); Lymphocytes # (auto) 0.6 10 ^3/uL (0.4-5.4); Mean Corpuscular Volume 103.5 fL (80.0-100.0); Monocytes # (auto) 0.2 10 ^3/uL (0-1.3)
[2021-11-14 08:07] LABS: Basophils # (auto) 0 10 ^3/uL (0-0.2); Basophils % (auto) 0.5 % (0.0-2.0); Hematocrit 24.1 % (36.0-46.0); Lymphocytes % (auto) 9.9 % (10.0-50.0); Mean Corpuscular Hemoglobin 34.3 pg (28.0-32.0); Mean Corpuscular Hgb Conc. 33.2 g/dL (32.0-36.0); Monocytes % (auto) 2.9 % (0.0-12.0); Neutrophils # (auto) 5.1 10 ^3/uL (1.6-8.6); Neutrophils % (auto) 86.7 % (37.0-80.0); Red Blood Cells 2.33 10^6/uL (4.0-5.20); Red Cell Distribution Width 17.3 % (11.8-14.3); White Blood Cell 5.9 10^3/uL (4.4-10.8)
[2021-11-14] MEDS: SILDENAFIL CITRATE 20 MG TAB PO SCH ×3 (08:16→20:27)
[2021-11-14 08:23] LABS: BUN/Creatinine Ratio 9.5; Calcium 7.1 mg/dL (8.5-10.1); Potassium 5.4 mmol/L (3.5-5.1)
[2021-11-14 08:45] VITALS: BP 98/67
[2021-11-14] MEDS: CARVEDILOL 12.5 MG TAB PO SCH ×2 (10:00→21:54)
[2021-11-14] MEDS: AZITHROMYCIN 250 MG TAB PO SCH (10:22)
[2021-11-14] MEDS: methylPREDNISolone SOD SUCC 40 MG/ML VL IV SCH ×2 (10:22→21:53)
[2021-11-14] MEDS: PANTOPRAZOLE 40 MG/10 ML VIAL INJ IV SCH (10:22)
[2021-11-14 12:42] VITALS: BP 104/64
[2021-11-14 17:00] VITALS: BP 130/63
[2021-11-14 20:28] VITALS: BP 130/63
[2021-11-14] MEDS ORDERED: EPOETIN ALFA-EPBX 10,000 UNIT/1ML VIAL SC ONE (21:00)
[2021-11-14] MEDS: QUEtiapine FUMARATE 100 MG TAB PO SCH (21:55)
[2021-11-14 22:00] VITALS: BP 112/63
[2021-11-15 05:00] VITALS: BP 134/75
[2021-11-15] MEDS: IPRATROPIUM BROM 0.5 MG/2.5ML INH SOL NEB SCH ×2 (06:14→11:34)
[2021-11-15] MEDS: LEVOTHYROXINE SODIUM 50 MCG TAB PO SCH (06:23)
[2021-11-15] MEDS: AZITHROMYCIN 250 MG TAB PO SCH (08:37)
[2021-11-15] MEDS: PANTOPRAZOLE 40 MG/10 ML VIAL INJ IV SCH (08:37)
[2021-11-15] MEDS: methylPREDNISolone SOD SUCC 40 MG/ML VL IV SCH (08:37)
[2021-11-15] MEDS: SILDENAFIL CITRATE 20 MG TAB PO SCH ×3 (08:38→13:12)
[2021-11-15] MEDS: CARVEDILOL 12.5 MG TAB PO SCH (08:38)
[2021-11-15 09:00] VITALS: BP 113/64
[2021-11-15] MEDS ORDERED: CARVEDILOL 12.5 MG TAB PO SCH (10:00)
[2021-11-15] MEDS ORDERED: MORPHINE SULFATE 4 MG/ML SYR/VIAL IV PRN (12:00)
[2021-11-15 13:00] VITALS: BP 140/79
[2021-11-15 17:01] VITALS: BP 124/65
[2021-11-16] MEDS ORDERED: SODIUM CHL 0.9% 1000 ML BAG XX ONE (07:00)
[2021-11-16] MEDS ORDERED: EPOETIN ALFA-EPBX 10,000 UNIT/1ML VIAL SC ONE (21:00)
== END 2021-11-15 17:30 | disposition home or self-care (01) | DRG 871 ==
LOC: ER 17:15 → EDBD 17:15 → TELE 11-08 00:08 → ICU WEST 11-08 01:28 → TELE-CENTR 11-10 10:47
PROVIDERS: ADMIT Internal Medicine; ATTEND Internal Medicine Cardiovascular Disease
PROC: 5A1945Z Respiratory Ventilation, 24-96 Consecutive Hours (ICD-10-PCS; principal; 2021-11-08)
PROC: 0BH17EZ Insertion of Endotracheal Airway into Trachea, Via Natural or Artificial Opening (ICD-10-PCS; 2021-11-08)
PROC: 5A1D70Z Performance of Urinary Filtration, Intermittent, Less than 6 Hours Per Day (ICD-10-PCS; 2021-11-08)
PROC: 5A1D70Z Performance of Urinary Filtration, Intermittent, Less than 6 Hours Per Day (ICD-10-PCS; 2021-11-09)
PROC: 5A1D70Z Performance of Urinary Filtration, Intermittent, Less than 6 Hours Per Day (ICD-10-PCS; 2021-11-11)
PROC: 5A1D70Z Performance of Urinary Filtration, Intermittent, Less than 6 Hours Per Day (ICD-10-PCS; 2021-11-15)
DX: A41.9 Sepsis, unspecified organism (principal); J96.01 Acute respiratory failure with hypoxia; J18.9 Pneumonia, unspecified organism; N18.6 End stage renal disease; D68.59 Other primary thrombophilia; I13.2 Hypertensive heart and chronic kidney disease with heart failure and with stage 5 chronic kidney disease, or end stage renal disease; J44.0 Chronic obstructive pulmonary disease with (acute) lower respiratory infection; I50.22 Chronic systolic (congestive) heart failure; D63.1 Anemia in chronic kidney disease; I25.5 Ischemic cardiomyopathy; E03.9 Hypothyroidism, unspecified; I27.20 Pulmonary hypertension, unspecified; I25.10 Atherosclerotic heart disease of native coronary artery without angina pectoris; Z20.822 Contact with and (suspected) exposure to COVID-19; I48.91 Unspecified atrial fibrillation; Z95.1 Presence of aortocoronary bypass graft; I25.2 Old myocardial infarction
CPT/HCPCS: 31500; 36415; 36600; 71045; 80048; 80053; 82805; 82962; 83605; 83735; 83880; 84484; 85025; 85379; 87040; 87070; 87081; 87205; 90935; 93005; 94002; 94003; 94640; 94660; 96365; 96375; 97163; 99291; C9113; G0378; J0330; J0696; J1642; J2250; J2704

== ENCOUNTER 2022-01-10 21:16 | Inpatient (IN) | payer MEDICARE, MEDICAID ==
[~2022-01-10] VITALS: Ht 162.6 cm; Wt 51.9 kg
[2022-01-10] MEDS ORDERED: diphenhdrAMINE HCL 50 MG/1 ML VL IV PRN (23:15)
[2022-01-10] MEDS ORDERED: HYDROcodone-ACET 5/325MG TAB PO PRN (23:15)
[2022-01-11] VITALS (63 sets, daily range): BP systolic 89–196; BP diastolic 38–92
[2022-01-11] MEDS ORDERED: MORPHINE SULFATE INJ 2 MG/ml SYRG IV PRN
[2022-01-11] MEDS ORDERED: NITROGLYCERIN 0.4 MG SL TAB SL PRN
[2022-01-11] MEDS: HYDROcodone-ACET 5/325MG TAB PO PRN ×2 (01:00→06:19)
[2022-01-11] MEDS ORDERED: CLON0.1T PO (01:21)
[2022-01-11] MEDS ORDERED: LEV100T PO (01:22)
[2022-01-11] MEDS ORDERED: HYDR-4902 PO (01:23)
[2022-01-11] MEDS ORDERED: CAR3125T PO (01:23)
[2022-01-11] MEDS ORDERED: ACET1CAP14 PO (01:25)
[2022-01-11] MEDS ORDERED: BISA1TAB6 PO (01:27)
[2022-01-11] MEDS ORDERED: SUCR1TAB22 OR (01:31)
[2022-01-11] MEDS ORDERED: LACT10SO70 PO (01:32)
[2022-01-11] MEDS ORDERED: SERT-160 PO (01:34)
[2022-01-11 02:12] LABS: Albumin 3.1 g/dL (3.4-5.0); Anion Gap 10 (5-15); Blood Urea Nitrogen 43 mg/dL (7-18); Calcium 8.1 mg/dL (8.5-10.1); Carbon Dioxide 23 mmol/L (21-32); Chloride 101 mmol/L (98-107); Glucose 86 mg/dL (74-106); Potassium 5.1 mmol/L (3.5-5.1); Sodium 134 mmol/L (136-145)
[2022-01-11 02:13] LABS: Alanine Aminotransferase 21 U/L (13-56); Aspartate Aminotransferase 21 U/L (15-37); BUN/Creatinine Ratio 7.8; GFR African American 10 mL/min; GFR Non-African American 8 mL/min
[2022-01-11 02:17] LABS: Alkaline Phosphatase 437 U/L (45-117); Bilirubin, Total 0.5 mg/dL (0.2-1.0); Total Protein 7.3 g/dL (6.4-8.2)
[2022-01-11 02:32] LABS: Basophils # (auto) 0 10 ^3/uL (0-0.2); Eosinophils # (auto) 0.1 10 ^3/uL (0-0.8); Eosinophils % (auto) 1.2 % (0.0-7.0); Hematocrit 26.5 % (36.0-46.0); Hemoglobin 8.7 g/dL (12.2-16.2); Lymphocytes # (auto) 0.8 10 ^3/uL (0.4-5.4); Mean Corpuscular Hemoglobin 34.7 pg (28.0-32.0)
[2022-01-11 02:34] LABS: Basophils % (auto) 0.6 % (0.0-2.0); Lymphocytes % (auto) 9.7 % (10.0-50.0); Mean Corpuscular Hgb Conc. 32.7 g/dL (32.0-36.0); Mean Corpuscular Volume 106.3 fL (80.0-100.0); Monocytes # (auto) 1.2 10 ^3/uL (0-1.3); Monocytes % (auto) 14.3 % (0.0-12.0); Neutrophils # (auto) 6.1 10 ^3/uL (1.6-8.6); Neutrophils % (auto) 74.2 % (37.0-80.0); Red Cell Distribution Width 16.7 % (11.8-14.3); White Blood Cell 8.3 10^3/uL (4.4-10.8)
[2022-01-11] MEDS ORDERED: ALPRAZolam 0.25 MG TAB PO PRN (02:45)
[2022-01-11] MEDS ORDERED: TEMAZEPAM 15 MG CAP PO PRN (02:45)
[2022-01-11] MEDS ORDERED: ONDANSETRON HCL 4 MG/2 ML VIAL IV PRN (02:45)
[2022-01-11] MEDS ORDERED: VANCOMYCIN 1GM/250ML 250 ML IV ONE (03:30)
[2022-01-11] MEDS: LEVOTHYROXINE SODIUM 100 MCG TAB PO SCH (06:16)
[2022-01-11] MEDS: SUCRALFATE 1 GM TAB PO SCH ×4 (06:16→21:38)
[2022-01-11] MEDS ORDERED: SILDENAFIL CITRATE 20 MG TAB PO SCH (08:00)
[2022-01-11] MEDS ORDERED: cefTRIAXone 1GM/50ML D5W 50 ML IV SCH (09:00)
[2022-01-11] MEDS: PANTOPRAZOLE 40 MG/10 ML VIAL INJ IV SCH (09:51)
[2022-01-11] MEDS: SEVELAMER 800 MG TAB PO SCH ×4 (09:52→16:54)
[2022-01-11] MEDS ORDERED: CARVEDILOL 3.125 MG TAB PO SCH (10:00)
[2022-01-11] MEDS ORDERED: SERTRALINE HCL 50 MG TAB PO SCH (10:00)
[2022-01-11] MEDS ORDERED: SODIUM CHL 0.9% 1000 ML BAG XX ONE (10:15)
[2022-01-11] MEDS ORDERED: SUCCINYLCHOLINE CHLORIDE 20 MG/ML 10ML VIAL IV ONE (10:36)
[2022-01-11] MEDS ORDERED: ETOMIDATE (2MG/ML) 20ML VIAL IV ONE (10:36)
[2022-01-11] MEDS ORDERED: ROCURONIUM 10MG/ML 10ML VIAL IV ONE (10:37)
[2022-01-11] MEDS: MIDAZOLAM DRIP 50 mg/50mL 50 ML IV SCH ×3 (10:45→18:27)
[2022-01-11] MEDS: fentaNYL Drip 2500mCg/250mlNS 250 ML IV SCH (10:45)
[2022-01-11] MEDS: PROPOFOL 100 ML IV SCH ×3 (10:45→23:21)
[2022-01-11] MEDS ORDERED: VANCOMYCIN PER PHARMACY 0 MG IV SCH (10:45)
[2022-01-11] MEDS ORDERED: ENOXAPARIN SOD 30 MG/0.3 ML SYRINGE SC ONE ×2 (10:45→11:00)
[2022-01-11] MEDS ORDERED: PIPERACILLIN-TAZOB 2.25GM 50 ML IV ONE (10:45)
[2022-01-11] MEDS ORDERED: methylPREDNISolone SOD SUCC 125 MG/2 ML VL IV ONE (11:15)
[2022-01-11 11:59] LABS: Partial Thromboplastin Time 63.6 sec (23.6-33.0)
[2022-01-11] MEDS ORDERED: PIPERACILLIN-TAZOB 3.375GM 100 ML IV SCH (12:00)
[2022-01-11 12:01] LABS: Basophils # (auto) 0 10 ^3/uL (0-0.2); Eosinophils # (auto) 0 10 ^3/uL (0-0.8); Monocytes % (auto) 9.2 % (0.0-12.0); Nucleated Red Blood Cells % 0.2 %; White Blood Cell 7.1 10^3/uL (4.4-10.8)
[2022-01-11 12:02] LABS: Basophils % (auto) 0.1 % (0.0-2.0); Eosinophils % (auto) 0.3 % (0.0-7.0); Hematocrit 31.4 % (36.0-46.0); Lymphocytes % (auto) 28.1 % (10.0-50.0); Mean Corpuscular Hemoglobin 34.2 pg (28.0-32.0); Mean Corpuscular Hgb Conc. 31.9 g/dL (32.0-36.0); Mean Corpuscular Volume 107.1 fL (80.0-100.0); Monocytes # (auto) 0.6 10 ^3/uL (0-1.3); Neutrophils # (auto) 4.4 10 ^3/uL (1.6-8.6); Neutrophils % (auto) 62.3 % (37.0-80.0); Red Blood Cells 2.93 10^6/uL (4.0-5.20); Red Cell Distribution Width 16.9 % (11.8-14.3)
[2022-01-11 12:08] LABS: INR 5.11 (0.9-1.15)
[2022-01-11 12:12] LABS: Albumin 3.4 g/dL (3.4-5.0); Calcium 8.5 mg/dL (8.5-10.1)
[2022-01-11 12:17] LABS: BUN/Creatinine Ratio 7.3; Bilirubin, Total 0.6 mg/dL (0.2-1.0); Total Protein 8.3 g/dL (6.4-8.2)
[2022-01-11] MEDS ORDERED: PHYTONADIONE (VIT K)10 MG/ML 1ML VIAL SUBCUT ONE (15:00)
[2022-01-11] MEDS: PIPERACILLIN-TAZOB 2.25GM 50 ML IV SCH (20:40)
[2022-01-11] MEDS ORDERED: EPOETIN ALFA-EPBX 10,000 UNIT/1ML VIAL SC ONE (21:00)
[2022-01-11] MEDS ORDERED: QUEtiapine FUMARATE 100 MG TAB PO SCH (22:00)
[2022-01-12] VITALS (112 sets, daily range): BP systolic 78–174; BP diastolic 26–78
[2022-01-12] MEDS: MIDAZOLAM DRIP 50 mg/50mL 50 ML IV SCH ×4 (02:24→17:07)
[2022-01-12] MEDS: PIPERACILLIN-TAZOB 2.25GM 50 ML IV SCH ×3 (03:51→21:00)
[2022-01-12] MEDS: PROPOFOL 100 ML IV SCH ×2 (04:01→17:07)
[2022-01-12] MEDS ORDERED: ALBUMIN 5% 250 ML IV ONE (05:45)
[2022-01-12] MEDS: fentaNYL Drip 2500mCg/250mlNS 250 ML IV SCH (05:55)
[2022-01-12] MEDS: LEVOTHYROXINE SODIUM 100 MCG TAB PO SCH (06:01)
[2022-01-12] MEDS: SUCRALFATE 1 GM TAB PO SCH ×4 (06:01→21:00)
[2022-01-12 06:07] LABS: Basophils # (auto) 0 10 ^3/uL (0-0.2); Eosinophils # (auto) 0 10 ^3/uL (0-0.8); Hemoglobin 8.4 g/dL (12.2-16.2); Monocytes # (auto) 0.8 10 ^3/uL (0-1.3); Nucleated Red Blood Cells % 0.1 %
[2022-01-12 06:12] LABS: Basophils % (auto) 0.3 % (0.0-2.0); Hematocrit 24.7 % (36.0-46.0); Lymphocytes # (auto) 0.5 10 ^3/uL (0.4-5.4); Lymphocytes % (auto) 8.5 % (10.0-50.0); Mean Corpuscular Hemoglobin 34.7 pg (28.0-32.0); Mean Corpuscular Hgb Conc. 33.8 g/dL (32.0-36.0); Mean Corpuscular Volume 102.6 fL (80.0-100.0); Monocytes % (auto) 12.9 % (0.0-12.0); Neutrophils # (auto) 4.9 10 ^3/uL (1.6-8.6); Neutrophils % (auto) 78.3 % (37.0-80.0); Red Blood Cells 2.41 10^6/uL (4.0-5.20); Red Cell Distribution Width 16.4 % (11.8-14.3); White Blood Cell 6.3 10^3/uL (4.4-10.8)
[2022-01-12] MEDS: PHENYLEPHRINE IV 250 ML IV SCH ×2 (06:36→14:05)
[2022-01-12 06:48] LABS: Albumin 3.1 g/dL (3.4-5.0); Calcium 7.9 mg/dL (8.5-10.1); Potassium 3.7 mmol/L (3.5-5.1)
[2022-01-12 06:51] LABS: BUN/Creatinine Ratio 8.2; Bilirubin, Total 0.6 mg/dL (0.2-1.0); Total Protein 7.3 g/dL (6.4-8.2)
[2022-01-12 06:58] LABS: INR 3.36 (0.9-1.15); Partial Thromboplastin Time 67.5 sec (23.6-33.0)
[2022-01-12] MEDS ORDERED: ALBUMIN 25% 100 ML IV PRN (07:00)
[2022-01-12] MEDS: SEVELAMER 800 MG TAB PO SCH ×3 (08:00→17:07)
[2022-01-12] MEDS ORDERED: ENOXAPARIN SOD 30 MG/0.3 ML SYRINGE SC SCH (10:00)
[2022-01-12] MEDS: PANTOPRAZOLE 40 MG/10 ML VIAL INJ IV SCH (10:16)
[2022-01-12] MEDS ORDERED: VANCOMYCIN 1GM/250ML 250 ML IV ONE (13:00)
[2022-01-12] MEDS ORDERED: WARFARIN SODIUM 2.5 MG TAB PO SCH (17:00)
[2022-01-13] VITALS (107 sets, daily range): BP systolic 114–182; BP diastolic 61–87
[2022-01-13] MEDS: cloNIDine HCL 0.1 MG TAB PO PRN ×4 (00:09→23:17)
[2022-01-13] MEDS: PIPERACILLIN-TAZOB 2.25GM 50 ML IV SCH ×3 (04:17→20:34)
[2022-01-13 04:24] LABS: Basophils # (auto) 0 10 ^3/uL (0-0.2); Hematocrit 23.7 % (36.0-46.0); Hemoglobin 7.9 g/dL (12.2-16.2); Lymphocytes # (auto) 0.8 10 ^3/uL (0.4-5.4); Monocytes # (auto) 0.6 10 ^3/uL (0-1.3); Neutrophils # (auto) 3.8 10 ^3/uL (1.6-8.6); Nucleated Red Blood Cells % 0.1 %
[2022-01-13 04:30] LABS: Basophils % (auto) 0.5 % (0.0-2.0); Eosinophils # (auto) 0 10 ^3/uL (0-0.8); Eosinophils % (auto) 0.8 % (0.0-7.0); Lymphocytes % (auto) 14.6 % (10.0-50.0); Mean Corpuscular Hgb Conc. 33.3 g/dL (32.0-36.0); Mean Corpuscular Volume 105.3 fL (80.0-100.0); Monocytes % (auto) 10.7 % (0.0-12.0); Neutrophils % (auto) 73.4 % (37.0-80.0); Red Blood Cells 2.25 10^6/uL (4.0-5.20); Red Cell Distribution Width 16.7 % (11.8-14.3); White Blood Cell 5.3 10^3/uL (4.4-10.8)
[2022-01-13 04:50] LABS: BUN/Creatinine Ratio 8.5; Calcium 8.5 mg/dL (8.5-10.1); Potassium 3.6 mmol/L (3.5-5.1)
[2022-01-13] MEDS: SUCRALFATE 1 GM TAB PO SCH ×2 (06:28→11:30)
[2022-01-13] MEDS: LEVOTHYROXINE SODIUM 100 MCG TAB PO SCH (06:28)
[2022-01-13] MEDS: PHENYLEPHRINE IV 250 ML IV SCH ×3 (06:45→23:25)
[2022-01-13] MEDS: SEVELAMER 800 MG TAB PO SCH ×3 (08:00→17:23)
[2022-01-13] MEDS: fentaNYL Drip 2500mCg/250mlNS 250 ML IV SCH (10:35)
[2022-01-13] MEDS: PANTOPRAZOLE 40 MG/10 ML VIAL INJ IV SCH (10:37)
[2022-01-13] MEDS ORDERED: ENOXAPARIN SOD 60 MG/0.6 ML SYRINGE SC ONE (11:30)
[2022-01-13] MEDS: SUCRALFATE 1 GM/10 ML ORAL SUSP PO SCH (22:16)
[2022-01-14] VITALS (104 sets, daily range): BP systolic 84–180; BP diastolic 37–89
[2022-01-14] MEDS: hydrALAZINE HCL 20 MG/ML VL IV PRN ×3 (02:10→22:49)
[2022-01-14 04:33] LABS: Basophils # (auto) 0 10 ^3/uL (0-0.2); Eosinophils # (auto) 0.2 10 ^3/uL (0-0.8); Lymphocytes # (auto) 0.8 10 ^3/uL (0.4-5.4); Monocytes # (auto) 0.5 10 ^3/uL (0-1.3); Neutrophils # (auto) 3.5 10 ^3/uL (1.6-8.6); Nucleated Red Blood Cells % 0.2 %; White Blood Cell 5.1 10^3/uL (4.4-10.8)
[2022-01-14 04:34] LABS: Calcium 8.4 mg/dL (8.5-10.1); Potassium 3.7 mmol/L (3.5-5.1)
[2022-01-14 04:36] LABS: BUN/Creatinine Ratio 8.2
[2022-01-14 04:37] LABS: Basophils % (auto) 0.6 % (0.0-2.0); Eosinophils % (auto) 3.8 % (0.0-7.0); Hemoglobin 8.5 g/dL (12.2-16.2); Mean Corpuscular Hgb Conc. 32.9 g/dL (32.0-36.0); Mean Corpuscular Volume 103.6 fL (80.0-100.0); Monocytes % (auto) 9.5 % (0.0-12.0); Neutrophils % (auto) 70.1 % (37.0-80.0); Red Blood Cells 2.51 10^6/uL (4.0-5.20); Red Cell Distribution Width 16.6 % (11.8-14.3)
[2022-01-14] MEDS: PIPERACILLIN-TAZOB 2.25GM 50 ML IV SCH ×4 (04:45→22:31)
[2022-01-14] MEDS: SUCRALFATE 1 GM/10 ML ORAL SUSP PO SCH ×4 (06:11→22:28)
[2022-01-14] MEDS: LEVOTHYROXINE SODIUM 100 MCG TAB PO SCH (06:12)
[2022-01-14] MEDS: PHENYLEPHRINE IV 250 ML IV SCH ×2 (07:16→15:11)
[2022-01-14] MEDS: SEVELAMER 800 MG TAB PO SCH ×3 (08:00→17:46)
[2022-01-14 10:06] LABS: INR 1.38 (0.9-1.15); Partial Thromboplastin Time 37.4 sec (23.6-33.0)
[2022-01-14] MEDS: fentaNYL Drip 2500mCg/250mlNS 250 ML IV SCH (10:14)
[2022-01-14] MEDS: PANTOPRAZOLE 40 MG/10 ML VIAL INJ IV SCH (10:14)
[2022-01-14] MEDS: PROPOFOL 100 ML IV SCH ×2 (10:14→17:46)
[2022-01-14] MEDS: MIDAZOLAM DRIP 50 mg/50mL 50 ML IV SCH (10:14)
[2022-01-14] MEDS ORDERED: SODIUM CHL 0.9% 1000 ML BAG XX ONE (11:45)
[2022-01-14] MEDS ORDERED: PIPERACILLIN-TAZOB 2.25GM 50 ML IV SCH (14:45)
[2022-01-14] MEDS ORDERED: ENOXAPARIN SOD 60 MG/0.6 ML SYRINGE SC SCH (19:15)
[2022-01-14] MEDS: ENOXAPARIN SOD 60 MG/0.6 ML SYRINGE SC SCH (20:31)
[2022-01-14] MEDS ORDERED: EPOETIN ALFA-EPBX 10,000 UNIT/1ML VIAL SC ONE (21:00)
[2022-01-15] VITALS (83 sets, daily range): BP systolic 84–173; BP diastolic 37–116
[2022-01-15] MEDS: PHENYLEPHRINE IV 250 ML IV SCH ×3 (00:25→17:05)
[2022-01-15 04:25] LABS: Albumin 3.3 g/dL (3.4-5.0); Potassium 4.3 mmol/L (3.5-5.1)
[2022-01-15 04:27] LABS: BUN/Creatinine Ratio 6.6; Calcium 9.5 mg/dL (8.5-10.1)
[2022-01-15 04:34] LABS: Bilirubin, Total 0.9 mg/dL (0.2-1.0)
[2022-01-15] MEDS: PIPERACILLIN-TAZOB 2.25GM 50 ML IV SCH ×3 (06:33→23:10)
[2022-01-15] MEDS: SUCRALFATE 1 GM/10 ML ORAL SUSP PO SCH ×4 (06:33→22:17)
[2022-01-15] MEDS: LEVOTHYROXINE SODIUM 100 MCG TAB PO SCH (06:33)
[2022-01-15] MEDS: hydrALAZINE HCL 20 MG/ML VL IV PRN (06:51)
[2022-01-15 07:42] LABS: Basophils # (auto) 0 10 ^3/uL (0-0.2); Basophils % (auto) 0.5 % (0.0-2.0); Eosinophils # (auto) 0.2 10 ^3/uL (0-0.8); Nucleated Red Blood Cells % 0.1 %
[2022-01-15 07:46] LABS: Eosinophils % (auto) 3.1 % (0.0-7.0); Hematocrit 25.9 % (36.0-46.0); Hemoglobin 8.6 g/dL (12.2-16.2); Lymphocytes # (auto) 0.8 10 ^3/uL (0.4-5.4); Lymphocytes % (auto) 11.3 % (10.0-50.0); Mean Corpuscular Hgb Conc. 33.1 g/dL (32.0-36.0); Mean Corpuscular Volume 102.9 fL (80.0-100.0); Monocytes # (auto) 0.8 10 ^3/uL (0-1.3); Monocytes % (auto) 10.7 % (0.0-12.0); Neutrophils # (auto) 5.3 10 ^3/uL (1.6-8.6); Neutrophils % (auto) 74.4 % (37.0-80.0); Red Blood Cells 2.52 10^6/uL (4.0-5.20); Red Cell Distribution Width 16.3 % (11.8-14.3); White Blood Cell 7.2 10^3/uL (4.4-10.8)
[2022-01-15] MEDS: SEVELAMER 800 MG TAB PO SCH ×3 (08:00→18:00)
[2022-01-15] MEDS: PANTOPRAZOLE 40 MG/10 ML VIAL INJ IV SCH (09:46)
[2022-01-15] MEDS: fentaNYL Drip 2500mCg/250mlNS 250 ML IV SCH (09:48)
[2022-01-15] MEDS: MIDAZOLAM DRIP 50 mg/50mL 50 ML IV SCH (09:48)
[2022-01-15] MEDS: HYDROcodone-ACET 5/325MG TAB PO PRN (13:22)
[2022-01-15] MEDS: PROPOFOL 100 ML IV SCH (17:45)
[2022-01-15] MEDS: ENOXAPARIN SOD 60 MG/0.6 ML SYRINGE SC SCH (19:46)
[2022-01-15] MEDS: ACETAMINOPHEN 325 MG TAB PO PRN (19:55)
[2022-01-15] MEDS ORDERED: WARFARIN SODIUM 1 MG TAB PO ONE (20:00)
[2022-01-16] VITALS (18 sets, daily range): BP systolic 105–183; BP diastolic 41–83
[2022-01-16] MEDS: HYDROcodone-ACET 5/325MG TAB PO PRN ×3 (00:01→14:15)
[2022-01-16] MEDS ORDERED: TEMAZEPAM 15 MG CAP PO ONE (00:45)
[2022-01-16] MEDS ORDERED: TEMAZEPAM 15 MG CAP ONE (00:53)
[2022-01-16] MEDS: hydrALAZINE HCL 20 MG/ML VL IV PRN ×2 (01:04→16:47)
[2022-01-16] MEDS: PHENYLEPHRINE IV 250 ML IV SCH ×2 (01:25→09:45)
[2022-01-16] MEDS: SUCRALFATE 1 GM/10 ML ORAL SUSP PO SCH ×4 (05:37→22:00)
[2022-01-16] MEDS: LEVOTHYROXINE SODIUM 100 MCG TAB PO SCH (05:38)
[2022-01-16] MEDS: PIPERACILLIN-TAZOB 2.25GM 50 ML IV SCH ×3 (05:38→22:30)
[2022-01-16 06:48] LABS: Eosinophils # (auto) 0.5 10 ^3/uL (0-0.8); Mean Corpuscular Hgb Conc. 32.3 g/dL (32.0-36.0); Neutrophils # (auto) 6.6 10 ^3/uL (1.6-8.6)
[2022-01-16 06:50] LABS: Basophils # (auto) 0 10 ^3/uL (0-0.2); Basophils % (auto) 0.5 % (0.0-2.0); Eosinophils % (auto) 5.1 % (0.0-7.0); Hematocrit 26.9 % (36.0-46.0); Hemoglobin 8.7 g/dL (12.2-16.2); Lymphocytes % (auto) 11.2 % (10.0-50.0); Mean Corpuscular Hemoglobin 33.6 pg (28.0-32.0); Mean Corpuscular Volume 104.1 fL (80.0-100.0); Monocytes % (auto) 11.4 % (0.0-12.0); Neutrophils % (auto) 71.8 % (37.0-80.0); Red Blood Cells 2.59 10^6/uL (4.0-5.20); Red Cell Distribution Width 16.2 % (11.8-14.3); White Blood Cell 9.1 10^3/uL (4.4-10.8)
[2022-01-16 07:06] LABS: Albumin 3.2 g/dL (3.4-5.0); Calcium 8.7 mg/dL (8.5-10.1); Potassium 4.1 mmol/L (3.5-5.1)
[2022-01-16 07:07] LABS: INR 1.19 (0.9-1.15); Partial Thromboplastin Time 40.1 sec (23.6-33.0)
[2022-01-16 07:09] LABS: BUN/Creatinine Ratio 6.4; Bilirubin, Total 0.8 mg/dL (0.2-1.0); Total Protein 7.9 g/dL (6.4-8.2)
[2022-01-16] MEDS: SEVELAMER 800 MG TAB PO SCH ×3 (09:09→17:59)
[2022-01-16] MEDS: PANTOPRAZOLE 40 MG/10 ML VIAL INJ IV SCH (09:10)
[2022-01-16] MEDS: ACETAMINOPHEN 325 MG TAB PO PRN ×2 (15:13→17:52)
[2022-01-16] MEDS ORDERED: WARFARIN SODIUM 1 MG TAB PO ONE (17:00)
[2022-01-16] MEDS ORDERED: ONDANSETRON HCL 4 MG/2 ML VIAL ONE (22:19)
[2022-01-16] MEDS: ONDANSETRON HCL 4 MG/2 ML VIAL IV PRN (22:38)
[2022-01-16] MEDS: HYDROcodone-ACET 10/325MG TAB PO PRN (23:32)
[2022-01-17] VITALS (8 sets, daily range): BP systolic 123–188; BP diastolic 51–85
[2022-01-17] MEDS ORDERED: TEMAZEPAM 15 MG CAP ONE (03:27)
[2022-01-17] MEDS: TEMAZEPAM 15 MG CAP PO PRN ×2 (03:30→22:01)
[2022-01-17 04:57] LABS: Basophils # (auto) 0 10 ^3/uL (0-0.2); Basophils % (auto) 0.2 % (0.0-2.0); Eosinophils # (auto) 0.5 10 ^3/uL (0-0.8); Hemoglobin 7.9 g/dL (12.2-16.2); Lymphocytes # (auto) 0.8 10 ^3/uL (0.4-5.4); Lymphocytes % (auto) 7.3 % (10.0-50.0); Mean Corpuscular Hemoglobin 33.3 pg (28.0-32.0); Mean Corpuscular Hgb Conc. 31.6 g/dL (32.0-36.0); Mean Corpuscular Volume 105.4 fL (80.0-100.0); Neutrophils # (auto) 9.1 10 ^3/uL (1.6-8.6); Neutrophils % (auto) 79.5 % (37.0-80.0); Nucleated Red Blood Cells % 0.1 %; Red Blood Cells 2.37 10^6/uL (4.0-5.20); Red Cell Distribution Width 16.5 % (11.8-14.3); White Blood Cell 11.5 10^3/uL (4.4-10.8)
[2022-01-17 05:14] LABS: Potassium 4.3 mmol/L (3.5-5.1)
[2022-01-17 05:16] LABS: INR 1.27 (0.9-1.15); Partial Thromboplastin Time 38.6 sec (23.6-33.0)
[2022-01-17 05:20] LABS: BUN/Creatinine Ratio 6.8; Calcium 8.9 mg/dL (8.5-10.1); Phosphorus 3.6 mg/dL (2.5-4.90)
[2022-01-17] MEDS: PIPERACILLIN-TAZOB 2.25GM 50 ML IV SCH ×3 (06:30→22:00)
[2022-01-17] MEDS: LEVOTHYROXINE SODIUM 100 MCG TAB PO SCH (06:30)
[2022-01-17] MEDS: HYDROcodone-ACET 10/325MG TAB PO PRN (06:31)
[2022-01-17] MEDS: SUCRALFATE 1 GM/10 ML ORAL SUSP PO SCH ×4 (06:31→20:48)
[2022-01-17] MEDS ORDERED: HYDROcodone-ACET 5/325MG TAB PO ONE (08:30)
[2022-01-17] MEDS: SEVELAMER 800 MG TAB PO SCH ×3 (10:30→18:24)
[2022-01-17] MEDS: ONDANSETRON HCL 4 MG/2 ML VIAL IV PRN (10:31)
[2022-01-17] MEDS: PANTOPRAZOLE 40 MG TAB PO SCH (10:33)
[2022-01-17] MEDS ORDERED: ALPR0.5T7 PO (13:07)
[2022-01-17] MEDS ORDERED: ATOR40TA52 PO (13:09)
[2022-01-17] MEDS ORDERED: cloNIDine HCL 0.1 MG TAB PO ONE (14:30)
[2022-01-17] MEDS ORDERED: hydrALAZINE HCL 20 MG/ML VL IV PRN (14:30)
[2022-01-17] MEDS ORDERED: VANCOMYCIN 1GM/250ML 250 ML IV ONE (16:00)
[2022-01-17] MEDS ORDERED: WARFARIN SODIUM 2 MG TAB PO ONE (17:00)
[2022-01-17] MEDS: Nepro With Carbsteady ButterPecan 8oz Carton PO SCH (18:25)
[2022-01-17] MEDS: cloNIDine HCL 0.1 MG TAB PO SCH (20:48)
[2022-01-17] MEDS: CARVEDILOL 12.5 MG TAB PO SCH (20:49)
[2022-01-17] MEDS: HYDROcodone-ACET 5/325MG TAB PO PRN (20:50)
[2022-01-18 05:00] VITALS: BP 99/51
[2022-01-18] MEDS: PIPERACILLIN-TAZOB 2.25GM 50 ML IV SCH ×2 (05:22→17:19)
[2022-01-18 05:25] LABS: Basophils # (auto) 0 10 ^3/uL (0-0.2); Basophils % (auto) 0.5 % (0.0-2.0); Eosinophils # (auto) 0.3 10 ^3/uL (0-0.8); Eosinophils % (auto) 2.9 % (0.0-7.0); Hematocrit 21.8 % (36.0-46.0); Hemoglobin 7.1 g/dL (12.2-16.2); Lymphocytes % (auto) 11.2 % (10.0-50.0); Mean Corpuscular Hemoglobin 34.3 pg (28.0-32.0); Mean Corpuscular Hgb Conc. 32.6 g/dL (32.0-36.0); Monocytes % (auto) 11.2 % (0.0-12.0); Neutrophils # (auto) 6.5 10 ^3/uL (1.6-8.6); Neutrophils % (auto) 74.2 % (37.0-80.0); Nucleated Red Blood Cells % 0.2 %; Red Blood Cells 2.08 10^6/uL (4.0-5.20); Red Cell Distribution Width 16.5 % (11.8-14.3); White Blood Cell 8.8 10^3/uL (4.4-10.8)
[2022-01-18 05:43] LABS: INR 1.32 (0.9-1.15); Partial Thromboplastin Time 40.3 sec (23.6-33.0)
[2022-01-18 05:46] LABS: BUN/Creatinine Ratio 5.6; Calcium 9.1 mg/dL (8.5-10.1); Potassium 4.7 mmol/L (3.5-5.1)
[2022-01-18] MEDS: LEVOTHYROXINE SODIUM 100 MCG TAB PO SCH (06:20)
[2022-01-18] MEDS: SUCRALFATE 1 GM/10 ML ORAL SUSP PO SCH ×3 (06:20→17:00)
[2022-01-18] MEDS: HYDROcodone-ACET 5/325MG TAB PO PRN (08:02)
[2022-01-18 08:52] VITALS: BP 155/68
[2022-01-18] MEDS: SEVELAMER 800 MG TAB PO SCH ×3 (09:48→18:00)
[2022-01-18] MEDS: PANTOPRAZOLE 40 MG TAB PO SCH (09:49)
[2022-01-18] MEDS: cloNIDine HCL 0.1 MG TAB PO SCH (09:49)
[2022-01-18] MEDS: CARVEDILOL 12.5 MG TAB PO SCH (09:50)
[2022-01-18] MEDS: Nepro With Carbsteady ButterPecan 8oz Carton PO SCH ×3 (10:01→18:00)
[2022-01-18 13:00] VITALS: BP 106/44
[2022-01-18] MEDS ORDERED: WARFARIN SODIUM 2 MG TAB PO ONE (17:00)
[2022-01-18 17:12] VITALS: BP 111/51
[2022-01-18 17:19] VITALS: BP 110/69
[2022-01-18 20:00] VITALS: BP 145/76
== END 2022-01-18 20:35 | disposition home health service (06) | DRG 314 ==
LOC: TELE-EAST 21:42 → ICU WEST 01-11 10:43 → ICU CENTRL 01-16 01:45 → DOU IN ICU 01-16 01:50 → TELE-WESTW 01-17 08:58
PROVIDERS: ADMIT Internal Medicine; ATTEND Internal Medicine
PROC: 5A1945Z Respiratory Ventilation, 24-96 Consecutive Hours (ICD-10-PCS; principal; 2022-01-11)
PROC: 0BH17EZ Insertion of Endotracheal Airway into Trachea, Via Natural or Artificial Opening (ICD-10-PCS; 2022-01-11)
PROC: 30233K1 Transfusion of Nonautologous Frozen Plasma into Peripheral Vein, Percutaneous Approach (ICD-10-PCS; 2022-01-11)
PROC: 5A1D70Z Performance of Urinary Filtration, Intermittent, Less than 6 Hours Per Day (ICD-10-PCS; 2022-01-11)
PROC: B246ZZ4 Ultrasonography of Right and Left Heart, Transesophageal (ICD-10-PCS; 2022-01-12)
PROC: 5A1D70Z Performance of Urinary Filtration, Intermittent, Less than 6 Hours Per Day (ICD-10-PCS; 2022-01-12)
PROC: 5A1D70Z Performance of Urinary Filtration, Intermittent, Less than 6 Hours Per Day (ICD-10-PCS; 2022-01-14)
PROC: 5A1D70Z Performance of Urinary Filtration, Intermittent, Less than 6 Hours Per Day (ICD-10-PCS; 2022-01-17)
DX: T82.7XXA Infection and inflammatory reaction due to other cardiac and vascular devices, implants and grafts, initial encounter (principal); A41.9 Sepsis, unspecified organism; I50.43 Acute on chronic combined systolic (congestive) and diastolic (congestive) heart failure; N18.6 End stage renal disease; J18.9 Pneumonia, unspecified organism; R65.21 Severe sepsis with septic shock; J96.01 Acute respiratory failure with hypoxia; I13.2 Hypertensive heart and chronic kidney disease with heart failure and with stage 5 chronic kidney disease, or end stage renal disease; L03.114 Cellulitis of left upper limb; D68.69 Other thrombophilia; I42.9 Cardiomyopathy, unspecified; D68.9 Coagulation defect, unspecified; I27.20 Pulmonary hypertension, unspecified; E03.9 Hypothyroidism, unspecified; I48.0 Paroxysmal atrial fibrillation; Y83.2 Surgical operation with anastomosis, bypass or graft as the cause of abnormal reaction of the patient, or of later complication, without mention of misadventure at the time of the procedure; D63.1 Anemia in chronic kidney disease; I25.10 Atherosclerotic heart disease of native coronary artery without angina pectoris; D69.6 Thrombocytopenia, unspecified; I08.3 Combined rheumatic disorders of mitral, aortic and tricuspid valves; R56.9 Unspecified convulsions; Z79.01 Long term (current) use of anticoagulants; Z95.0 Presence of cardiac pacemaker; Y92.89 Other specified places as the place of occurrence of the external cause; Z99.2 Dependence on renal dialysis; Z95.1 Presence of aortocoronary bypass graft; Z95.3 Presence of xenogenic heart valve
CPT/HCPCS: 36415; 36600; 70450; 71045; 80048; 80053; 80069; 80202; 82805; 82962; 84443; 85025; 85610; 85652; 85730; 86141; 86850; 86900; 86901; 87040; 87070; 87081; 87205; 90935; 93306; 93312; 94003; 94640; C9113; G0378; J0330; J0696; J2250; J2405; J2543; J2704; J3430; P9047

== ENCOUNTER 2022-01-26 10:49 | Inpatient (IN) | payer MEDICARE, MEDICAID ==
[2022-01-26] VITALS (9 sets, daily range): BP systolic 110–134; BP diastolic 59–68
[~2022-01-26] VITALS: Ht 152.4 cm; Wt 54.9 kg
[~2022-01-26 10:49] MED LIST changes: -ALPR0.25 PO; +ALPR0.5T7 PO; +ATOR40TA52 PO; -CARV12.544 PO; -CLON0.3T PO; +LEV100T PO; -LEVO50TA7 PO; -NIFE1TAB36 PO; -ONDA-144 PO; -PANT40T PO; -SEVE800T8 PO; -WARF1TAB36 PO
[2022-01-26] MEDS ORDERED: ASPirin 81 mg TAB PO ONE (11:00)
[2022-01-26 11:40] LABS: Albumin 2.8 g/dL (3.4-5.0); BUN/Creatinine Ratio 7.5; Calcium 8.6 mg/dL (8.5-10.1); Potassium 3.6 mmol/L (3.5-5.1)
[2022-01-26 11:48] LABS: Bilirubin, Total 1.1 mg/dL (0.2-1.0); Total Protein 7.7 g/dL (6.4-8.2)
[2022-01-26 11:52] LABS: INR 1.37 (0.9-1.15); Partial Thromboplastin Time 36.4 sec (23.6-33.0)
[2022-01-26 11:58] LABS: Basophils # (auto) 0 10 ^3/uL (0-0.2); Basophils % (auto) 0.3 % (0.0-2.0); Eosinophils # (auto) 0 10 ^3/uL (0-0.8); Eosinophils % (auto) 0.1 % (0.0-7.0); Hematocrit 20.2 % (36.0-46.0); Lymphocytes # (auto) 0.7 10 ^3/uL (0.4-5.4); Lymphocytes % (auto) 5.1 % (10.0-50.0); Mean Corpuscular Hemoglobin 32.9 pg (28.0-32.0); Mean Corpuscular Hgb Conc. 32.5 g/dL (32.0-36.0); Mean Corpuscular Volume 101.5 fL (80.0-100.0); Monocytes # (auto) 1.9 10 ^3/uL (0-1.3); Monocytes % (auto) 13.9 % (0.0-12.0); Neutrophils # (auto) 11.1 10 ^3/uL (1.6-8.6); Neutrophils % (auto) 80.6 % (37.0-80.0); Nucleated Red Blood Cells % 0.2 %; Red Blood Cells 1.99 10^6/uL (4.0-5.20); Red Cell Distribution Width 16.8 % (11.8-14.3); White Blood Cell 13.8 10^3/uL (4.4-10.8)
[2022-01-26 12:08] LABS: Hemoglobin 6.6 g/dL (12.2-16.2)
[2022-01-26] MEDS ORDERED: PIPERACILLIN-TAZOB 3.375GM 100 ML IV ONE (13:30)
[2022-01-26] MEDS ORDERED: MORPHINE SULFATE INJ 2 MG/ml SYRG IV PRN (15:45)
[2022-01-26] MEDS: CARVEDILOL 3.125 MG TAB PO SCH (21:51)
[2022-01-26] MEDS: HYDROcodone-ACET 5/325MG TAB PO PRN (23:02)
[2022-01-27 05:00] VITALS: BP 116/66
[2022-01-27 07:27] LABS: Basophils # (auto) 0.1 10 ^3/uL (0-0.2); Basophils % (auto) 0.6 % (0.0-2.0); Eosinophils # (auto) 0 10 ^3/uL (0-0.8); Eosinophils % (auto) 0.1 % (0.0-7.0); Lymphocytes # (auto) 0.6 10 ^3/uL (0.4-5.4); Monocytes # (auto) 1.3 10 ^3/uL (0-1.3); Neutrophils # (auto) 10.2 10 ^3/uL (1.6-8.6)
[2022-01-27 07:29] LABS: Hematocrit 21.9 % (36.0-46.0); Hemoglobin 7.3 g/dL (12.2-16.2); Lymphocytes % (auto) 4.8 % (10.0-50.0); Mean Corpuscular Hemoglobin 32.6 pg (28.0-32.0); Mean Corpuscular Hgb Conc. 33.3 g/dL (32.0-36.0); Mean Corpuscular Volume 97.9 fL (80.0-100.0); Neutrophils % (auto) 83.5 % (37.0-80.0); Red Blood Cells 2.24 10^6/uL (4.0-5.20); Red Cell Distribution Width 18.9 % (11.8-14.3); White Blood Cell 12.2 10^3/uL (4.4-10.8)
[2022-01-27 07:30] VITALS: BP 134/77
[2022-01-27 07:49] LABS: Albumin 2.6 g/dL (3.4-5.0); BUN/Creatinine Ratio 7.9; Calcium 8.3 mg/dL (8.5-10.1)
[2022-01-27 07:50] LABS: INR 1.32 (0.9-1.15); Partial Thromboplastin Time 36.1 sec (23.6-33.0)
[2022-01-27 07:52] LABS: Bilirubin, Total 1.3 mg/dL (0.2-1.0); Total Protein 7.2 g/dL (6.4-8.2)
[2022-01-27 09:11] VITALS: BP 134/77
[2022-01-27] MEDS ORDERED: ENOXAPARIN SOD 30 MG/0.3 ML SYRINGE SC SCH (10:00)
[2022-01-27] MEDS: CARVEDILOL 3.125 MG TAB PO SCH ×2 (10:39→21:51)
[2022-01-27 13:00] VITALS: BP 122/64
[2022-01-27] MEDS: HYDROcodone-ACET 5/325MG TAB PO PRN ×2 (15:02→21:52)
[2022-01-27 16:57] VITALS: BP 109/66
[2022-01-27] MEDS ORDERED: PANTOPRAZOLE 40 MG/10 ML VIAL INJ IV ONE (17:45)
[2022-01-27] MEDS: SILDENAFIL CITRATE 20 MG TAB PO SCH (20:45)
[2022-01-27] MEDS: ATORVASTATIN 20 MG TAB PO SCH (21:49)
[2022-01-27 22:00] VITALS: BP 117/66
[2022-01-27] MEDS: ALPRAZolam 0.25 MG TAB PO PRN (23:13)
[2022-01-28 05:00] VITALS: BP 129/57
[2022-01-28] MEDS: LEVOTHYROXINE SODIUM 100 MCG TAB PO SCH (06:15)
[2022-01-28] MEDS: HYDROcodone-ACET 5/325MG TAB PO PRN ×3 (06:16→23:14)
[2022-01-28 06:56] LABS: Basophils # (auto) 0 10 ^3/uL (0-0.2); Eosinophils # (auto) 0 10 ^3/uL (0-0.8); Hemoglobin 7.4 g/dL (12.2-16.2); Lymphocytes # (auto) 0.5 10 ^3/uL (0.4-5.4); Neutrophils # (auto) 7.9 10 ^3/uL (1.6-8.6); White Blood Cell 9.4 10^3/uL (4.4-10.8)
[2022-01-28 07:00] LABS: Basophils % (auto) 0.3 % (0.0-2.0); Eosinophils % (auto) 0.3 % (0.0-7.0); Hematocrit 22.4 % (36.0-46.0); Lymphocytes % (auto) 4.8 % (10.0-50.0); Mean Corpuscular Hemoglobin 32.4 pg (28.0-32.0); Mean Corpuscular Volume 98.2 fL (80.0-100.0); Monocytes % (auto) 10.3 % (0.0-12.0); Neutrophils % (auto) 84.3 % (37.0-80.0); Nucleated Red Blood Cells % 0.2 %; Red Blood Cells 2.28 10^6/uL (4.0-5.20); Red Cell Distribution Width 18.7 % (11.8-14.3)
[2022-01-28 07:18] LABS: Calcium 8.2 mg/dL (8.5-10.1); Potassium 4.2 mmol/L (3.5-5.1)
[2022-01-28 07:21] LABS: BUN/Creatinine Ratio 8.1
[2022-01-28 07:30] VITALS: BP 137/70
[2022-01-28] MEDS: SILDENAFIL CITRATE 20 MG TAB PO SCH ×3 (08:31→23:12)
[2022-01-28] MEDS: CARVEDILOL 3.125 MG TAB PO SCH ×2 (08:32→23:13)
[2022-01-28] MEDS: PANTOPRAZOLE 40 MG/10 ML VIAL INJ IV SCH (08:32)
[2022-01-28] MEDS: ALPRAZolam 0.25 MG TAB PO PRN ×2 (08:48→23:14)
[2022-01-28 09:22] VITALS: BP 119/59
[2022-01-28 13:18] VITALS: BP 87/56
[2022-01-28 17:01] VITALS: BP 123/69
[2022-01-28 22:00] VITALS: BP 126/71
[2022-01-28] MEDS: ATORVASTATIN 20 MG TAB PO SCH (23:14)
[2022-01-29 05:00] VITALS: BP 101/62
[2022-01-29] MEDS: LEVOTHYROXINE SODIUM 100 MCG TAB PO SCH (05:42)
[2022-01-29] MEDS ORDERED: SODIUM CHL 0.9% 1000 ML BAG XX ONE (07:00)
[2022-01-29 08:00] VITALS: BP 134/74
[2022-01-29] MEDS: SILDENAFIL CITRATE 20 MG TAB PO SCH ×3 (08:00→21:11)
[2022-01-29] MEDS: CARVEDILOL 3.125 MG TAB PO SCH ×2 (10:32→21:16)
[2022-01-29] MEDS: PANTOPRAZOLE 40 MG/10 ML VIAL INJ IV SCH (10:32)
[2022-01-29] MEDS: HYDROcodone-ACET 5/325MG TAB PO PRN ×2 (10:33→17:46)
[2022-01-29] MEDS ORDERED: ONDANSETRON HCL 4 MG/2 ML VIAL IV PRN (11:30)
[2022-01-29] MEDS ORDERED: EPOETIN ALFA-EPBX 4,000 UNIT/ML VIAL SC ONE (21:00)
[2022-01-29] MEDS: ALPRAZolam 0.25 MG TAB PO PRN (21:12)
[2022-01-29] MEDS: ATORVASTATIN 20 MG TAB PO SCH (21:13)
[2022-01-29 22:00] VITALS: BP 123/46
[2022-01-30] MEDS: HYDROcodone-ACET 5/325MG TAB PO PRN ×2 (01:46→11:14)
[2022-01-30] MEDS ORDERED: dilTIAZem 120MG ER CAP PO ONE (03:15)
[2022-01-30] MEDS: ALPRAZolam 0.25 MG TAB PO PRN (04:49)
[2022-01-30 05:00] VITALS: BP 110/69
[2022-01-30] MEDS: LEVOTHYROXINE SODIUM 100 MCG TAB PO SCH (06:04)
[2022-01-30 08:00] VITALS: BP 95/45
[2022-01-30 09:00] VITALS: BP 95/45
[2022-01-30] MEDS: CARVEDILOL 3.125 MG TAB PO SCH (09:23)
[2022-01-30] MEDS: SILDENAFIL CITRATE 20 MG TAB PO SCH ×2 (09:23→15:04)
[2022-01-30] MEDS: PANTOPRAZOLE 40 MG/10 ML VIAL INJ IV SCH (09:23)
[2022-01-30] MEDS ORDERED: dilTIAZem 120MG ER CAP PO SCH (10:00)
[2022-01-30] MEDS ORDERED: KETOROLAC TROMETH 30 MG/ML 1ML VIAL IV ONE (12:30)
[2022-01-30] MEDS ORDERED: PANT40TA2 PO (12:33)
[2022-01-30] MEDS ORDERED: B-CO1TAB33 PO (12:33)
[2022-01-30] MEDS ORDERED: CAR3125T PO (12:33)
[2022-01-30] MEDS ORDERED: DILT180C62 PO (12:33)
[2022-01-30 12:51] VITALS: BP 95/45
[2022-01-30 13:00] VITALS: BP 115/49
== END 2022-01-30 17:19 | disposition home or self-care (01) | DRG 280 ==
LOC: ER 10:49 → EDBD 10:49 → EDUNIT# 10:49 → TELE 15:42 → TELE-WESTW 20:45
PROVIDERS: ADMIT Internal Medicine; ATTEND Internal Medicine
PROC: 30233N1 Transfusion of Nonautologous Red Blood Cells into Peripheral Vein, Percutaneous Approach (ICD-10-PCS; principal; 2022-01-26)
PROC: 5A1D70Z Performance of Urinary Filtration, Intermittent, Less than 6 Hours Per Day (ICD-10-PCS; 2022-01-29)
DX: I13.2 Hypertensive heart and chronic kidney disease with heart failure and with stage 5 chronic kidney disease, or end stage renal disease (principal); I50.33 Acute on chronic diastolic (congestive) heart failure; I21.A1 Myocardial infarction type 2; N18.6 End stage renal disease; D68.69 Other thrombophilia; I24.9 Acute ischemic heart disease, unspecified; I25.10 Atherosclerotic heart disease of native coronary artery without angina pectoris; I48.0 Paroxysmal atrial fibrillation; I27.21 Secondary pulmonary arterial hypertension; D69.6 Thrombocytopenia, unspecified; E88.09 Other disorders of plasma-protein metabolism, not elsewhere classified; D64.9 Anemia, unspecified; E11.22 Type 2 diabetes mellitus with diabetic chronic kidney disease; Z20.822 Contact with and (suspected) exposure to COVID-19; D72.829 Elevated white blood cell count, unspecified; D63.1 Anemia in chronic kidney disease; I27.20 Pulmonary hypertension, unspecified; E03.9 Hypothyroidism, unspecified; Z79.891 Long term (current) use of opiate analgesic; Z79.899 Other long term (current) drug therapy; Z79.01 Long term (current) use of anticoagulants; Z95.1 Presence of aortocoronary bypass graft; Z99.2 Dependence on renal dialysis; Z95.2 Presence of prosthetic heart valve; Z95.0 Presence of cardiac pacemaker; Z79.84 Long term (current) use of oral hypoglycemic drugs
CPT/HCPCS: 36415; 71045; 78452; 80048; 80053; 82270; 83880; 84484; 85025; 85610; 85730; 86850; 86900; 86901; 86920; 90935; 93005; 96365; 96374; 96375; 99291; C9113; G0378; J0153; J1642; J1885; J2405; J2543

== ENCOUNTER 2022-03-01 14:58 | Inpatient (IN) | payer MEDICARE, MEDICAID ==
[~2022-03-01] VITALS: Ht 154.9 cm; Wt 67.3 kg
[~2022-03-01 14:58] MED LIST changes: +B-CO1TAB33 PO; +CAR3125T PO; +DILT180C62 PO; +PANT40TA2 PO
[2022-03-01] MEDS ORDERED: SODIUM CHLORIDE 0.9% 1,000 ML IVB ONE (18:00)
[2022-03-01 18:54] LABS: Basophils # (auto) 0.1 10 ^3/uL (0-0.2); Eosinophils # (auto) 0 10 ^3/uL (0-0.8); Mean Corpuscular Volume 101.5 fL (80.0-100.0); White Blood Cell 11.8 10^3/uL (4.4-10.8)
[2022-03-01 19:00] LABS: Basophils % (auto) 0.9 % (0.0-2.0); Hematocrit 29.9 % (36.0-46.0); Hemoglobin 8.9 g/dL (12.2-16.2); Lymphocytes # (auto) 0.7 10 ^3/uL (0.4-5.4); Lymphocytes % (auto) 5.8 % (10.0-50.0); Mean Corpuscular Hemoglobin 30.3 pg (28.0-32.0); Mean Corpuscular Hgb Conc. 29.9 g/dL (32.0-36.0); Monocytes % (auto) 8.3 % (0.0-12.0); Red Blood Cells 2.95 10^6/uL (4.0-5.20)
[2022-03-01 19:01] LABS: Red Cell Distribution Width 21.5 % (11.8-14.3)
[2022-03-01 19:12] LABS: Albumin 2.5 g/dL (3.4-5.0); Anion Gap 10 (5-15); BUN/Creatinine Ratio 10.5; Blood Alcohol < 3.0 mg/dL (0-5); Blood Urea Nitrogen 72 mg/dL (7-18); Calcium 8.2 mg/dL (8.5-10.1); Carbon Dioxide 23 mmol/L (21-32); Chloride 103 mmol/L (98-107); GFR African American 8 mL/min; GFR Non-African American 6 mL/min; Glucose 90 mg/dL (74-106); Sodium 136 mmol/L (136-145)
[2022-03-01 19:15] LABS: Alanine Aminotransferase 28 U/L (13-56); Alkaline Phosphatase 316 U/L (45-117); Aspartate Aminotransferase 10 U/L (15-37); Total Protein 7.7 g/dL (6.4-8.2)
[2022-03-01 19:23] LABS: Potassium 5.7 mmol/L (3.5-5.1)
[2022-03-01] MEDS ORDERED: ONDANSETRON HCL 4 MG/2 ML VIAL IV PRN (21:45)
[2022-03-01] MEDS ORDERED: PIPERACILLIN-TAZOB 2.25GM 50 ML IV ONE (21:45)
[2022-03-01] MEDS ORDERED: cefTRIAXone 1GM/50ML D5W 50 ML IV ONE (21:45)
[2022-03-01] MEDS ORDERED: ALBUMIN 5% 250 ML IV ONE (21:45)
[2022-03-01] MEDS ORDERED: VANCOMYCIN 1GM/250ML 250 ML IV ONE (21:45)
[2022-03-01] MEDS ORDERED: MORPHINE SULFATE INJ 2 MG/ml SYRG IV PRN (21:45)
[2022-03-01] MEDS ORDERED: NITROGLYCERIN 0.4 MG SL TAB SL PRN (21:45)
[2022-03-01] MEDS ORDERED: APIXABAN 2.5 MG TAB PO SCH (22:00)
[2022-03-01] MEDS ORDERED: PHENYLEPHRINE IV 250 ML IV ONE (22:33)
[2022-03-01] MEDS: PHENYLEPHRINE IV 250 ML IV SCH ×2 (22:37→23:07)
[2022-03-01] MEDS ORDERED: ETOMIDATE (2MG/ML) 20ML VIAL IV ONE (23:24)
[2022-03-01] MEDS ORDERED: SUCCINYLCHOLINE CHLORIDE 20 MG/ML 10ML VIAL IV ONE (23:25)
[2022-03-01] MEDS ORDERED: PHENYLEPHRINE IV 250 ML IV SCH (23:30)
[2022-03-01] MEDS ORDERED: MIDAZOLAM DRIP 50 mg/50mL 50 ML IV SCH (23:30)
[2022-03-01] MEDS ORDERED: NOREPINEPHRINE 8 MG/250ML KIT 250 ML IV SCH ×2 (23:30→23:45)
[2022-03-01] MEDS ORDERED: NOREPINEPHRINE 8 MG/250ML KIT 250 ML IV ONE (23:41)
[2022-03-01] MEDS: MIDAZOLAM DRIP 50 mg/50mL 50 ML IV SCH (23:45)
[2022-03-01] MEDS ORDERED: SODIUM CHLORIDE 0.9% 500 ML IV ONE (23:45)
[2022-03-02] VITALS (76 sets, daily range): BP systolic 44–174; BP diastolic 19–99
[2022-03-02] MEDS ORDERED: AMIODARONE HCL (50 MG/ ML) 3 ML VIAL IV ONE (00:43)
[2022-03-02] MEDS ORDERED: AMIODARONE 450mg/250ml AE 250 ML IV ONE (00:45)
[2022-03-02] MEDS ORDERED: AMIODARONE HCL 150 MG in D5W 5% 100 ML IV ONE (00:45)
[2022-03-02] MEDS ORDERED: AMIODARONE 450mg/250ml AE 250 ML IV SCH (01:00)
[2022-03-02] MEDS ORDERED: CALCIUM GLUC 1,000mg/50ml-NS 50 ML IV ONE (01:15)
[2022-03-02] MEDS ORDERED: SODIUM ZIRCONIUM CYCL 10 GM PAK GT ONE (01:15)
[2022-03-02] MEDS ORDERED: DEXTROSE (50%) 50ML SYRG IV ONE (01:15)
[2022-03-02] MEDS ORDERED: InsuLIN REG 1unit/0.01ml Soln (100units/ml) IV ONE (01:15)
[2022-03-02] MEDS: VASOPRESSIN 50 UNITS in D5W 5% 247.5 ML IV SCH (02:00)
[2022-03-02] MEDS ORDERED: SODIUM CHLORIDE 0.9% 500 ML IV ONE (02:00)
[2022-03-02] MEDS ORDERED: VASOPRESSIN 20 UNIT/ML ONE (02:22)
[2022-03-02 02:41] LABS: Hematocrit 35.1 % (36.0-46.0); Hemoglobin 10.3 g/dL (12.2-16.2)
[2022-03-02] MEDS ORDERED: SODIUM BICARBONATE 8.4 % INJ 50ML VIAL IV ONE (03:45)
[2022-03-02] MEDS ORDERED: SODIUM BICARBONATE 8.4% INJ 50ML SYRINGE ONE (03:50)
[2022-03-02] MEDS ORDERED: EPINEPHrine HCL 250 ML IV ONE (04:58)
[2022-03-02] MEDS ORDERED: EPINEPHrine HCL 250 ML IV SCH (05:00)
[2022-03-02] MEDS ORDERED: ALBUMIN 25% 100 ML IV ONE ×3 (05:45→09:46)
[2022-03-02 07:11] LABS: Basophils # (auto) 0 10 ^3/uL (0-0.2); Basophils % (auto) 0.1 % (0.0-2.0); Eosinophils # (auto) 0 10 ^3/uL (0-0.8); Eosinophils % (auto) 0.1 % (0.0-7.0); Hematocrit 32.5 % (36.0-46.0); Hemoglobin 9.3 g/dL (12.2-16.2); Lymphocytes # (auto) 0.6 10 ^3/uL (0.4-5.4); Mean Corpuscular Hemoglobin 30.5 pg (28.0-32.0); Mean Corpuscular Hgb Conc. 28.5 g/dL (32.0-36.0); Mean Corpuscular Volume 107.1 fL (80.0-100.0); Monocytes # (auto) 1.9 10 ^3/uL (0-1.3); Monocytes % (auto) 6.6 % (0.0-12.0); Neutrophils # (auto) 26.9 10 ^3/uL (1.6-8.6); Neutrophils % (auto) 91.2 % (37.0-80.0); Nucleated Red Blood Cells % 0.3 %; Red Blood Cells 3.03 10^6/uL (4.0-5.20); White Blood Cell 29.5 10^3/uL (4.4-10.8)
[2022-03-02] MEDS ORDERED: VANCOMYCIN PER PHARMACY 0 MG IV SCH (07:15)
[2022-03-02 07:43] LABS: Alkaline Phosphatase 261 U/L (45-117); Anion Gap 8 (5-15); Aspartate Aminotransferase 44 U/L (15-37); BUN/Creatinine Ratio 10.9; Blood Urea Nitrogen 73 mg/dL (7-18); Carbon Dioxide 24 mmol/L (21-32); Chloride 106 mmol/L (98-107); GFR African American 8 mL/min; GFR Non-African American 7 mL/min; Glucose 98 mg/dL (74-106); Sodium 138 mmol/L (136-145)
[2022-03-02 07:44] LABS: Alanine Aminotransferase 33 U/L (13-56); Albumin 2.7 g/dL (3.4-5.0); Bilirubin, Total 1.3 mg/dL (0.2-1.0); Calcium 8.1 mg/dL (8.5-10.1); Total Protein 7.3 g/dL (6.4-8.2)
[2022-03-02 07:45] LABS: Potassium 5.6 mmol/L (3.5-5.1)
[2022-03-02] MEDS: EPINEPHrine HCL INJECTION 16 MG in D5W 5% 234 ML IV SCH (09:00)
[2022-03-02] MEDS ORDERED: SODIUM CHL 0.9% 1000 ML BAG XX ONE (09:30)
[2022-03-02] MEDS: PHENYLEPHRINE INJ 80 MG in SODIUM CHL 0.9% 242 ML IV SCH ×2 (09:53→17:13)
[2022-03-02] MEDS: SODIUM BICARBONATE 50ML VIAL 150 ML in D5W 5% 1,000 ML IV SCH ×3 (09:55→22:34)
[2022-03-02] MEDS ORDERED: PANTOPRAZOLE 40 MG TAB PO SCH (10:00)
[2022-03-02] MEDS: AMIODARONE 450mg/250ml AE 250 ML IV SCH ×2 (10:00→22:34)
[2022-03-02] MEDS ORDERED: ASPirin 81 mg TAB PO SCH (10:00)
[2022-03-02] MEDS: cefTRIAXone 1GM/50ML D5W 50 ML IV SCH (10:07)
[2022-03-02] MEDS ORDERED: ENOXAPARIN SOD 60 MG/0.6 ML SYRINGE SC ONE (13:30)
[2022-03-02] MEDS ORDERED: PANTOPRAZOLE 40 MG/10 ML VIAL INJ IV ONE (13:30)
[2022-03-02] MEDS ORDERED: VANCOMYCIN 1GM/250ML 250 ML IV ONE (16:00)
[2022-03-02] MEDS: LEVOTHYROXINE SODIUM 100 MCG TAB PO SCH (16:14)
[2022-03-02] MEDS: NOREPINEPHRINE BITARTRATE 32 MG in SODIUM CHL 0.9% 218 ML IV SCH (16:15)
[2022-03-02] MEDS: B-COMPLEX W/ C & FOLIC ACID(NEPHROVITE TAB) PO SCH (16:15)
[2022-03-02] MEDS ORDERED: EPINEPHrine HCL 1 MG/10 ML SYRG IV ONE (18:53)
[2022-03-02] MEDS ORDERED: CALCIUM CHLOR(10%) 100MG/ML 10ML SYRINGE IV ONE (18:53)
[2022-03-02] MEDS ORDERED: SODIUM BICARBONATE 8.4% INJ 50ML SYRINGE IV ONE (18:53)
[2022-03-03] VITALS (106 sets, daily range): BP systolic 64–166; BP diastolic 34–89
[2022-03-03] MEDS: PHENYLEPHRINE INJ 80 MG in SODIUM CHL 0.9% 242 ML IV SCH ×2 (00:21→08:39)
[2022-03-03] MEDS: MIDAZOLAM DRIP 50 mg/50mL 50 ML IV SCH ×2 (00:21→12:05)
[2022-03-03 04:17] LABS: Basophils # (auto) 0.1 10 ^3/uL (0-0.2); Basophils % (auto) 0.4 % (0.0-2.0); Eosinophils # (auto) 0.3 10 ^3/uL (0-0.8); Eosinophils % (auto) 1.8 % (0.0-7.0); Hematocrit 24.1 % (36.0-46.0); Hemoglobin 7.2 g/dL (12.2-16.2); Mean Corpuscular Hemoglobin 31.1 pg (28.0-32.0); Mean Corpuscular Hgb Conc. 29.8 g/dL (32.0-36.0); Mean Corpuscular Volume 104.6 fL (80.0-100.0); Monocytes % (auto) 5.9 % (0.0-12.0); Neutrophils # (auto) 14.4 10 ^3/uL (1.6-8.6); Neutrophils % (auto) 85.9 % (37.0-80.0); Nucleated Red Blood Cells % 0.3 %; Red Blood Cells 2.31 10^6/uL (4.0-5.20); White Blood Cell 16.8 10^3/uL (4.4-10.8)
[2022-03-03] MEDS: VASOPRESSIN 50 UNITS in D5W 5% 247.5 ML IV SCH (04:25)
[2022-03-03] MEDS: LEVOTHYROXINE SODIUM 100 MCG TAB PO SCH (06:06)
[2022-03-03 06:40] LABS: Potassium 4.1 mmol/L (3.5-5.1)
[2022-03-03 06:42] LABS: BUN/Creatinine Ratio 9.5
[2022-03-03] MEDS: EPINEPHrine HCL INJECTION 16 MG in D5W 5% 234 ML IV SCH (08:38)
[2022-03-03] MEDS: SODIUM BICARBONATE 50ML VIAL 150 ML in D5W 5% 1,000 ML IV SCH (08:39)
[2022-03-03] MEDS: cefTRIAXone 1GM/50ML D5W 50 ML IV SCH (08:49)
[2022-03-03] MEDS: NOREPINEPHRINE BITARTRATE 32 MG in SODIUM CHL 0.9% 218 ML IV SCH (09:20)
[2022-03-03] MEDS: B-COMPLEX W/ C & FOLIC ACID(NEPHROVITE TAB) PO SCH (09:43)
[2022-03-03] MEDS: PANTOPRAZOLE 40 MG/10 ML VIAL INJ IV SCH (09:43)
[2022-03-03] MEDS ORDERED: ENOXAPARIN SOD 60 MG/0.6 ML SYRINGE SC SCH (10:00)
[2022-03-03] MEDS: ENOXAPARIN SOD 30 MG/0.3 ML SYRINGE SC SCH (12:04)
[2022-03-03] MEDS: AMIODARONE 450mg/250ml AE 250 ML IV SCH (15:12)
[2022-03-04] VITALS (104 sets, daily range): BP systolic 87–156; BP diastolic 35–80
[2022-03-04] MEDS: VASOPRESSIN 50 UNITS in D5W 5% 247.5 ML IV SCH (02:00)
[2022-03-04] MEDS: AMIODARONE 450mg/250ml AE 250 ML IV SCH ×3 (04:00→22:35)
[2022-03-04 04:01] LABS: Basophils # (auto) 0.1 10 ^3/uL (0-0.2); Basophils % (auto) 0.9 % (0.0-2.0); Eosinophils # (auto) 0.3 10 ^3/uL (0-0.8); Eosinophils % (auto) 3.1 % (0.0-7.0); Hematocrit 20.2 % (36.0-46.0); Lymphocytes # (auto) 1.1 10 ^3/uL (0.4-5.4); Mean Corpuscular Hemoglobin 31.5 pg (28.0-32.0); Mean Corpuscular Volume 95.2 fL (80.0-100.0); Monocytes # (auto) 0.5 10 ^3/uL (0-1.3); Monocytes % (auto) 4.7 % (0.0-12.0); Neutrophils # (auto) 8.8 10 ^3/uL (1.6-8.6); Neutrophils % (auto) 81.3 % (37.0-80.0); Nucleated Red Blood Cells % 0.3 %; Red Blood Cells 2.12 10^6/uL (4.0-5.20); White Blood Cell 10.8 10^3/uL (4.4-10.8)
[2022-03-04] MEDS: MIDAZOLAM DRIP 50 mg/50mL 50 ML IV SCH (04:16)
[2022-03-04 04:18] LABS: Hemoglobin 6.7 g/dL (12.2-16.2); Red Cell Distribution Width 21.3 % (11.8-14.3)
[2022-03-04 04:29] LABS: BUN/Creatinine Ratio 9.5; Calcium 7.8 mg/dL (8.5-10.1); Potassium 3.5 mmol/L (3.5-5.1)
[2022-03-04] MEDS ORDERED: SODIUM CHL 0.9% 1000 ML BAG XX ONE (07:00)
[2022-03-04] MEDS: LEVOTHYROXINE SODIUM 100 MCG TAB PO SCH (07:03)
[2022-03-04] MEDS: cefTRIAXone 1GM/50ML D5W 50 ML IV SCH (08:45)
[2022-03-04] MEDS: EPINEPHrine HCL INJECTION 16 MG in D5W 5% 234 ML IV SCH (09:00)
[2022-03-04] MEDS: PHENYLEPHRINE INJ 80 MG in SODIUM CHL 0.9% 242 ML IV SCH (09:00)
[2022-03-04] MEDS: ENOXAPARIN SOD 30 MG/0.3 ML SYRINGE SC SCH (10:00)
[2022-03-04] MEDS: B-COMPLEX W/ C & FOLIC ACID(NEPHROVITE TAB) PO SCH (10:00)
[2022-03-04] MEDS: PANTOPRAZOLE 40 MG/10 ML VIAL INJ IV SCH (10:00)
[2022-03-04] MEDS: NOREPINEPHRINE BITARTRATE 32 MG in SODIUM CHL 0.9% 218 ML IV SCH (13:39)
[2022-03-04] MEDS ORDERED: EPOETIN ALFA-EPBX 10,000 UNIT/1ML VIAL SC ONE (21:00)
[2022-03-05] VITALS (111 sets, daily range): BP systolic 92–162; BP diastolic 48–80
[2022-03-05] MEDS: ALBUTEROL SULF 2.5 MG/0.5ML(0.5%) NEB SOLN NEB PRN (00:11)
[2022-03-05] MEDS: VASOPRESSIN 50 UNITS in D5W 5% 247.5 ML IV SCH (02:00)
[2022-03-05 03:45] LABS: Eosinophils # (auto) 0.2 10 ^3/uL (0-0.8); Monocytes # (auto) 0.4 10 ^3/uL (0-1.3); Neutrophils # (auto) 5.5 10 ^3/uL (1.6-8.6)
[2022-03-05 03:47] LABS: Basophils # (auto) 0.1 10 ^3/uL (0-0.2); Basophils % (auto) 1.2 % (0.0-2.0); Eosinophils % (auto) 3.4 % (0.0-7.0); Hematocrit 19.4 % (36.0-46.0); Lymphocytes # (auto) 0.7 10 ^3/uL (0.4-5.4); Mean Corpuscular Hemoglobin 31.4 pg (28.0-32.0); Mean Corpuscular Hgb Conc. 32.5 g/dL (32.0-36.0); Mean Corpuscular Volume 96.5 fL (80.0-100.0); Monocytes % (auto) 5.7 % (0.0-12.0); Neutrophils % (auto) 79.7 % (37.0-80.0); Nucleated Red Blood Cells % 0.4 %; Red Blood Cells 2.01 10^6/uL (4.0-5.20); White Blood Cell 6.9 10^3/uL (4.4-10.8)
[2022-03-05 03:53] LABS: Hemoglobin 6.3 g/dL (12.2-16.2); Red Cell Distribution Width 21.5 % (11.8-14.3)
[2022-03-05 04:09] LABS: Albumin 2.2 g/dL (3.4-5.0); BUN/Creatinine Ratio 9.5; Calcium 8.1 mg/dL (8.5-10.1); Phosphorus 3.7 mg/dL (2.5-4.90); Potassium 3.6 mmol/L (3.5-5.1)
[2022-03-05] MEDS: LEVOTHYROXINE SODIUM 100 MCG TAB PO SCH (06:34)
[2022-03-05] MEDS: NOREPINEPHRINE BITARTRATE 32 MG in SODIUM CHL 0.9% 218 ML IV SCH (09:00)
[2022-03-05] MEDS: PHENYLEPHRINE INJ 80 MG in SODIUM CHL 0.9% 242 ML IV SCH (09:00)
[2022-03-05] MEDS: EPINEPHrine HCL INJECTION 16 MG in D5W 5% 234 ML IV SCH (09:00)
[2022-03-05] MEDS: PANTOPRAZOLE 40 MG/10 ML VIAL INJ IV SCH (10:09)
[2022-03-05] MEDS: B-COMPLEX W/ C & FOLIC ACID(NEPHROVITE TAB) PO SCH (10:09)
[2022-03-05] MEDS: ENOXAPARIN SOD 30 MG/0.3 ML SYRINGE SC SCH (10:09)
[2022-03-05] MEDS: cefTRIAXone 1GM/50ML D5W 50 ML IV SCH (10:18)
[2022-03-05] MEDS ORDERED: HEPARIN 1,000 UNITS/ml 1ML VIAL ONE (13:09)
[2022-03-05] MEDS ORDERED: HEPARIN 1,000 UNITS/ml 1ML VIAL IV ONE (13:15)
[2022-03-05] MEDS: MIDAZOLAM DRIP 50 mg/50mL 50 ML IV SCH (23:45)
[2022-03-06] VITALS (103 sets, daily range): BP systolic 76–203; BP diastolic 40–94
[2022-03-06] MEDS: AMIODARONE 450mg/250ml AE 250 ML IV SCH ×2 (01:00→06:53)
[2022-03-06] MEDS: VASOPRESSIN 50 UNITS in D5W 5% 247.5 ML IV SCH (02:00)
[2022-03-06 04:43] LABS: Eosinophils # (auto) 0.3 10 ^3/uL (0-0.8); Hematocrit 27.8 % (36.0-46.0); Hemoglobin 9.2 g/dL (12.2-16.2); Lymphocytes # (auto) 0.6 10 ^3/uL (0.4-5.4); Monocytes # (auto) 0.5 10 ^3/uL (0-1.3); Neutrophils # (auto) 5.6 10 ^3/uL (1.6-8.6)
[2022-03-06 04:44] LABS: Basophils # (auto) 0 10 ^3/uL (0-0.2); Basophils % (auto) 0.6 % (0.0-2.0); Lymphocytes % (auto) 9.1 % (10.0-50.0); Mean Corpuscular Hemoglobin 31.2 pg (28.0-32.0); Mean Corpuscular Hgb Conc. 32.9 g/dL (32.0-36.0); Mean Corpuscular Volume 94.8 fL (80.0-100.0); Monocytes % (auto) 7.3 % (0.0-12.0); Nucleated Red Blood Cells % 0.4 %; Red Blood Cells 2.93 10^6/uL (4.0-5.20); White Blood Cell 7.1 10^3/uL (4.4-10.8)
[2022-03-06 04:52] LABS: Albumin 2.4 g/dL (3.4-5.0); BUN/Creatinine Ratio 8.2; Calcium 8.2 mg/dL (8.5-10.1); Potassium 3.9 mmol/L (3.5-5.1)
[2022-03-06 04:55] LABS: Total Protein 6.3 g/dL (6.4-8.2)
[2022-03-06] MEDS: LEVOTHYROXINE SODIUM 100 MCG TAB PO SCH (06:43)
[2022-03-06] MEDS: MIDAZOLAM DRIP 50 mg/50mL 50 ML IV SCH (06:54)
[2022-03-06] MEDS: PHENYLEPHRINE INJ 80 MG in SODIUM CHL 0.9% 242 ML IV SCH (09:00)
[2022-03-06] MEDS: cefTRIAXone 1GM/50ML D5W 50 ML IV SCH (10:03)
[2022-03-06] MEDS: PANTOPRAZOLE 40 MG/10 ML VIAL INJ IV SCH (10:04)
[2022-03-06] MEDS: CARVEDILOL 3.125 MG TAB PO SCH ×2 (10:04→20:35)
[2022-03-06] MEDS: ENOXAPARIN SOD 30 MG/0.3 ML SYRINGE SC SCH (10:04)
[2022-03-06] MEDS: B-COMPLEX W/ C & FOLIC ACID(NEPHROVITE TAB) PO SCH (10:04)
[2022-03-06] MEDS ORDERED: fentaNYL Drip 2500mCg/250mlNS 250 ML IV ONE (11:11)
[2022-03-06] MEDS: fentaNYL Drip 2500mCg/250mlNS 250 ML IV SCH (11:15)
[2022-03-06] MEDS: PROPOFOL 100 ML IV SCH (11:15)
[2022-03-06] MEDS: NOREPINEPHRINE BITARTRATE 32 MG in SODIUM CHL 0.9% 218 ML IV SCH (13:39)
[2022-03-06] MEDS: SILDENAFIL CITRATE 20 MG TAB PO SCH ×2 (14:11→20:34)
[2022-03-07] VITALS (106 sets, daily range): BP systolic 85–197; BP diastolic 45–85
[2022-03-07 04:06] LABS: Basophils # (auto) 0 10 ^3/uL (0-0.2); Basophils % (auto) 0.3 % (0.0-2.0); Eosinophils # (auto) 0.3 10 ^3/uL (0-0.8); Eosinophils % (auto) 3.4 % (0.0-7.0); Hematocrit 29.4 % (36.0-46.0); Hemoglobin 9.7 g/dL (12.2-16.2); Lymphocytes # (auto) 0.7 10 ^3/uL (0.4-5.4); Lymphocytes % (auto) 8.3 % (10.0-50.0); Mean Corpuscular Hemoglobin 31.6 pg (28.0-32.0); Mean Corpuscular Volume 95.7 fL (80.0-100.0); Monocytes # (auto) 0.9 10 ^3/uL (0-1.3); Monocytes % (auto) 10.3 % (0.0-12.0); Neutrophils # (auto) 6.5 10 ^3/uL (1.6-8.6); Neutrophils % (auto) 77.7 % (37.0-80.0); Nucleated Red Blood Cells % 0.4 %; Red Blood Cells 3.07 10^6/uL (4.0-5.20); Red Cell Distribution Width 19.3 % (11.8-14.3); White Blood Cell 8.4 10^3/uL (4.4-10.8)
[2022-03-07 04:28] LABS: Calcium 7.5 mg/dL (8.5-10.1); Potassium 4.5 mmol/L (3.5-5.1)
[2022-03-07 04:30] LABS: BUN/Creatinine Ratio 8.7
[2022-03-07] MEDS: MIDAZOLAM DRIP 50 mg/50mL 50 ML IV SCH ×3 (05:19→18:26)
[2022-03-07] MEDS: LEVOTHYROXINE SODIUM 100 MCG TAB PO SCH (06:26)
[2022-03-07] MEDS ORDERED: SODIUM CHL 0.9% 1000 ML BAG XX ONE (07:00)
[2022-03-07] MEDS: AMIODARONE 450mg/250ml AE 250 ML IV SCH (07:00)
[2022-03-07] MEDS: SILDENAFIL CITRATE 20 MG TAB PO SCH ×3 (08:00→21:51)
[2022-03-07] MEDS: ALBUMIN 25% 100 ML IV PRN (08:07)
[2022-03-07] MEDS: PHENYLEPHRINE INJ 80 MG in SODIUM CHL 0.9% 242 ML IV SCH (09:00)
[2022-03-07] MEDS: ENOXAPARIN SOD 30 MG/0.3 ML SYRINGE SC SCH (11:09)
[2022-03-07] MEDS: B-COMPLEX W/ C & FOLIC ACID(NEPHROVITE TAB) PO SCH (11:10)
[2022-03-07] MEDS: cefTRIAXone 1GM/50ML D5W 50 ML IV SCH (11:10)
[2022-03-07] MEDS: PANTOPRAZOLE 40 MG/10 ML VIAL INJ IV SCH (11:10)
[2022-03-07] MEDS: fentaNYL Drip 2500mCg/250mlNS 250 ML IV SCH (11:15)
[2022-03-07] MEDS: PROPOFOL 100 ML IV SCH (11:15)
[2022-03-07] MEDS: NOREPINEPHRINE BITARTRATE 32 MG in SODIUM CHL 0.9% 218 ML IV SCH (11:45)
[2022-03-07] MEDS ORDERED: VANCOMYCIN 500 MG in D5W 5% 100 ML IV ONE (12:30)
[2022-03-07] MEDS ORDERED: EPOETIN ALFA-EPBX 10,000 UNIT/1ML VIAL SC ONE (21:00)
[2022-03-08] VITALS (106 sets, daily range): BP systolic 80–199; BP diastolic 37–101
[2022-03-08] MEDS: MIDAZOLAM DRIP 50 mg/50mL 50 ML IV SCH (00:40)
[2022-03-08 03:57] LABS: Basophils # (auto) 0 10 ^3/uL (0-0.2); Basophils % (auto) 0.4 % (0.0-2.0); Eosinophils # (auto) 0.2 10 ^3/uL (0-0.8); Eosinophils % (auto) 2.4 % (0.0-7.0); Hematocrit 29.6 % (36.0-46.0); Hemoglobin 9.5 g/dL (12.2-16.2); Lymphocytes # (auto) 0.6 10 ^3/uL (0.4-5.4); Lymphocytes % (auto) 7.9 % (10.0-50.0); Mean Corpuscular Hemoglobin 30.8 pg (28.0-32.0); Mean Corpuscular Hgb Conc. 32.2 g/dL (32.0-36.0); Mean Corpuscular Volume 95.8 fL (80.0-100.0); Monocytes # (auto) 0.8 10 ^3/uL (0-1.3); Monocytes % (auto) 10.7 % (0.0-12.0); Neutrophils % (auto) 78.6 % (37.0-80.0); Nucleated Red Blood Cells % 0.3 %; Red Blood Cells 3.09 10^6/uL (4.0-5.20); Red Cell Distribution Width 19.6 % (11.8-14.3); White Blood Cell 7.7 10^3/uL (4.4-10.8)
[2022-03-08 04:15] LABS: BUN/Creatinine Ratio 7.9; Calcium 8.3 mg/dL (8.5-10.1); Potassium 3.9 mmol/L (3.5-5.1)
[2022-03-08] MEDS: AMIODARONE 450mg/250ml AE 250 ML IV SCH ×2 (06:35→20:10)
[2022-03-08] MEDS: LEVOTHYROXINE SODIUM 100 MCG TAB PO SCH (06:35)
[2022-03-08] MEDS: SILDENAFIL CITRATE 20 MG TAB PO SCH ×3 (08:25→20:07)
[2022-03-08] MEDS: cefTRIAXone 1GM/50ML D5W 50 ML IV SCH (09:30)
[2022-03-08] MEDS: PANTOPRAZOLE 40 MG/10 ML VIAL INJ IV SCH (09:57)
[2022-03-08] MEDS: B-COMPLEX W/ C & FOLIC ACID(NEPHROVITE TAB) PO SCH (09:57)
[2022-03-08] MEDS: ENOXAPARIN SOD 30 MG/0.3 ML SYRINGE SC SCH (09:57)
[2022-03-08] MEDS: ALBUTEROL SULF 2.5 MG/0.5ML(0.5%) NEB SOLN NEB PRN (18:09)
[2022-03-08] MEDS: PHENYLEPHRINE INJ 80 MG in SODIUM CHL 0.9% 242 ML IV SCH (19:00)
[2022-03-08] MEDS: fentaNYL Drip 2500mCg/250mlNS 250 ML IV SCH (19:34)
[2022-03-08] MEDS: PROPOFOL 100 ML IV SCH (19:34)
[2022-03-08] MEDS: NOREPINEPHRINE BITARTRATE 32 MG in SODIUM CHL 0.9% 218 ML IV SCH (19:35)
[2022-03-09] VITALS (104 sets, daily range): BP systolic 99–163; BP diastolic 45–91
[2022-03-09] MEDS: MIDAZOLAM DRIP 50 mg/50mL 50 ML IV SCH ×3 (00:03→21:08)
[2022-03-09 03:54] LABS: Basophils # (auto) 0 10 ^3/uL (0-0.2); Eosinophils # (auto) 0.1 10 ^3/uL (0-0.8); Nucleated Red Blood Cells % 0.1 %
[2022-03-09 03:56] LABS: Basophils % (auto) 0.5 % (0.0-2.0); Eosinophils % (auto) 1.4 % (0.0-7.0); Hematocrit 28.8 % (36.0-46.0); Hemoglobin 9.5 g/dL (12.2-16.2); Lymphocytes # (auto) 0.7 10 ^3/uL (0.4-5.4); Lymphocytes % (auto) 9.9 % (10.0-50.0); Mean Corpuscular Hemoglobin 31.4 pg (28.0-32.0); Mean Corpuscular Volume 95.2 fL (80.0-100.0); Monocytes # (auto) 0.8 10 ^3/uL (0-1.3); Monocytes % (auto) 10.8 % (0.0-12.0); Neutrophils # (auto) 5.7 10 ^3/uL (1.6-8.6); Neutrophils % (auto) 77.4 % (37.0-80.0); Red Blood Cells 3.02 10^6/uL (4.0-5.20); White Blood Cell 7.3 10^3/uL (4.4-10.8)
[2022-03-09] MEDS: AMIODARONE 450mg/250ml AE 250 ML IV SCH ×2 (04:00→13:25)
[2022-03-09 04:03] LABS: Red Cell Distribution Width 20.3 % (11.8-14.3)
[2022-03-09 04:12] LABS: BUN/Creatinine Ratio 7.4; Calcium 8.3 mg/dL (8.5-10.1); Potassium 3.9 mmol/L (3.5-5.1)
[2022-03-09] MEDS: LEVOTHYROXINE SODIUM 100 MCG TAB PO SCH (06:38)
[2022-03-09] MEDS ORDERED: SODIUM CHL 0.9% 1000 ML BAG XX ONE (07:00)
[2022-03-09] MEDS: SILDENAFIL CITRATE 20 MG TAB PO SCH ×3 (08:00→21:09)
[2022-03-09] MEDS: PHENYLEPHRINE INJ 80 MG in SODIUM CHL 0.9% 242 ML IV SCH (09:00)
[2022-03-09] MEDS: PROPOFOL 100 ML IV SCH (11:15)
[2022-03-09] MEDS: fentaNYL Drip 2500mCg/250mlNS 250 ML IV SCH (11:15)
[2022-03-09] MEDS: NOREPINEPHRINE BITARTRATE 32 MG in SODIUM CHL 0.9% 218 ML IV SCH (11:45)
[2022-03-09] MEDS: ENOXAPARIN SOD 30 MG/0.3 ML SYRINGE SC SCH (12:17)
[2022-03-09] MEDS: PANTOPRAZOLE 40 MG/10 ML VIAL INJ IV SCH (12:17)
[2022-03-09] MEDS: cefTRIAXone 1GM/50ML D5W 50 ML IV SCH (12:17)
[2022-03-09] MEDS: B-COMPLEX W/ C & FOLIC ACID(NEPHROVITE TAB) PO SCH (12:17)
[2022-03-09] MEDS ORDERED: EPOETIN ALFA-EPBX 10,000 UNIT/1ML VIAL SC ONE (21:00)
[2022-03-09] MEDS: AMIODARONE HCL 200 MG TAB PO SCH (21:13)
[2022-03-10] VITALS (101 sets, daily range): BP systolic 84–288; BP diastolic 40–253
[2022-03-10 04:17] LABS: Basophils # (auto) 0 10 ^3/uL (0-0.2); Eosinophils # (auto) 0.1 10 ^3/uL (0-0.8); Hemoglobin 9.2 g/dL (12.2-16.2); Lymphocytes # (auto) 0.6 10 ^3/uL (0.4-5.4); Neutrophils # (auto) 5.6 10 ^3/uL (1.6-8.6); Nucleated Red Blood Cells % 0.1 %
[2022-03-10 04:19] LABS: Basophils % (auto) 0.6 % (0.0-2.0); Hematocrit 27.6 % (36.0-46.0); Lymphocytes % (auto) 8.4 % (10.0-50.0); Mean Corpuscular Hemoglobin 31.8 pg (28.0-32.0); Mean Corpuscular Hgb Conc. 33.4 g/dL (32.0-36.0); Mean Corpuscular Volume 95.1 fL (80.0-100.0); Monocytes # (auto) 0.7 10 ^3/uL (0-1.3); Monocytes % (auto) 10.4 % (0.0-12.0); Neutrophils % (auto) 79.6 % (37.0-80.0); Red Blood Cells 2.91 10^6/uL (4.0-5.20)
[2022-03-10 04:35] LABS: BUN/Creatinine Ratio 6.6; Calcium 8.3 mg/dL (8.5-10.1); Potassium 3.7 mmol/L (3.5-5.1)
[2022-03-10] MEDS: PROPOFOL 100 ML IV SCH (05:36)
[2022-03-10] MEDS: MIDAZOLAM DRIP 50 mg/50mL 50 ML IV SCH (05:37)
[2022-03-10] MEDS: LEVOTHYROXINE SODIUM 100 MCG TAB PO SCH (06:29)
[2022-03-10] MEDS: PHENYLEPHRINE INJ 80 MG in SODIUM CHL 0.9% 242 ML IV SCH (09:00)
[2022-03-10] MEDS: cefTRIAXone 1GM/50ML D5W 50 ML IV SCH (09:10)
[2022-03-10] MEDS: AMIODARONE 450mg/250ml AE 250 ML IV SCH (10:00)
[2022-03-10] MEDS: B-COMPLEX W/ C & FOLIC ACID(NEPHROVITE TAB) PO SCH (10:05)
[2022-03-10] MEDS: AMIODARONE HCL 200 MG TAB PO SCH ×2 (10:05→21:10)
[2022-03-10] MEDS: PANTOPRAZOLE 40 MG/10 ML VIAL INJ IV SCH (10:06)
[2022-03-10] MEDS: ENOXAPARIN SOD 30 MG/0.3 ML SYRINGE SC SCH (10:06)
[2022-03-10] MEDS: SILDENAFIL CITRATE 20 MG TAB PO SCH ×3 (10:06→21:10)
[2022-03-10] MEDS: fentaNYL Drip 2500mCg/250mlNS 250 ML IV SCH (11:15)
[2022-03-10] MEDS ORDERED: PIPERACILLIN-TAZOB 2.25GM 50 ML IV ONE (12:15)
[2022-03-10] MEDS: NOREPINEPHRINE BITARTRATE 32 MG in SODIUM CHL 0.9% 218 ML IV SCH (12:15)
[2022-03-10] MEDS: PIPERACILLIN-TAZOB 2.25GM 50 ML IV SCH (21:10)
[2022-03-11] VITALS (106 sets, daily range): BP systolic 94–164; BP diastolic 52–78
[2022-03-11] MEDS: PROPOFOL 100 ML IV SCH (00:19)
[2022-03-11] MEDS: MIDAZOLAM DRIP 50 mg/50mL 50 ML IV SCH (00:20)
[2022-03-11] MEDS: AMIODARONE 450mg/250ml AE 250 ML IV SCH ×2 (01:00→16:00)
[2022-03-11 04:06] LABS: Basophils # (auto) 0 10 ^3/uL (0-0.2); Basophils % (auto) 0.7 % (0.0-2.0); Eosinophils # (auto) 0.1 10 ^3/uL (0-0.8); Eosinophils % (auto) 1.1 % (0.0-7.0); Hematocrit 29.9 % (36.0-46.0); Hemoglobin 9.9 g/dL (12.2-16.2); Lymphocytes # (auto) 0.7 10 ^3/uL (0.4-5.4); Lymphocytes % (auto) 11.6 % (10.0-50.0); Mean Corpuscular Hemoglobin 31.3 pg (28.0-32.0); Mean Corpuscular Hgb Conc. 33.1 g/dL (32.0-36.0); Mean Corpuscular Volume 94.3 fL (80.0-100.0); Monocytes # (auto) 0.6 10 ^3/uL (0-1.3); Monocytes % (auto) 10.4 % (0.0-12.0); Neutrophils # (auto) 4.3 10 ^3/uL (1.6-8.6); Neutrophils % (auto) 76.2 % (37.0-80.0); Red Blood Cells 3.17 10^6/uL (4.0-5.20); White Blood Cell 5.6 10^3/uL (4.4-10.8)
[2022-03-11 04:19] LABS: Potassium 3.7 mmol/L (3.5-5.1)
[2022-03-11] MEDS: PIPERACILLIN-TAZOB 2.25GM 50 ML IV SCH ×3 (04:48→21:51)
[2022-03-11 05:22] LABS: Red Cell Distribution Width 20.1 % (11.8-14.3)
[2022-03-11] MEDS: LEVOTHYROXINE SODIUM 100 MCG TAB PO SCH (07:00)
[2022-03-11] MEDS: SILDENAFIL CITRATE 20 MG TAB PO SCH ×3 (08:00→21:50)
[2022-03-11] MEDS ORDERED: SODIUM CHL 0.9% 1000 ML BAG XX ONE (08:45)
[2022-03-11] MEDS: PHENYLEPHRINE INJ 80 MG in SODIUM CHL 0.9% 242 ML IV SCH (09:00)
[2022-03-11] MEDS: fentaNYL Drip 2500mCg/250mlNS 250 ML IV SCH (11:15)
[2022-03-11] MEDS: NOREPINEPHRINE BITARTRATE 32 MG in SODIUM CHL 0.9% 218 ML IV SCH (11:45)
[2022-03-11] MEDS ORDERED: METOCLOPRAMIDE HCL 5MG/ml INJ 2ml VIAL IV ONE (14:30)
[2022-03-11] MEDS: AMIODARONE HCL 200 MG TAB PO SCH ×2 (16:00→21:50)
[2022-03-11] MEDS: B-COMPLEX W/ C & FOLIC ACID(NEPHROVITE TAB) PO SCH (16:01)
[2022-03-11] MEDS: ENOXAPARIN SOD 30 MG/0.3 ML SYRINGE SC SCH (16:01)
[2022-03-11] MEDS: PANTOPRAZOLE 40 MG/10 ML VIAL INJ IV SCH (16:01)
[2022-03-11] MEDS: Nepro With Carb Steady 1 Liter Bottle GT SCH (18:33)
[2022-03-11] MEDS ORDERED: EPOETIN ALFA-EPBX 10,000 UNIT/1ML VIAL SC ONE (21:00)
[2022-03-11] MEDS: METOCLOPRAMIDE HCL 5MG/ml INJ 2ml VIAL IV SCH (21:51)
[2022-03-12] VITALS (54 sets, daily range): BP systolic 93–149; BP diastolic 48–79
[2022-03-12 03:50] LABS: Basophils # (auto) 0.1 10 ^3/uL (0-0.2); Basophils % (auto) 0.8 % (0.0-2.0); Eosinophils # (auto) 0.1 10 ^3/uL (0-0.8); Hematocrit 30.4 % (36.0-46.0); Hemoglobin 9.9 g/dL (12.2-16.2); Lymphocytes # (auto) 0.5 10 ^3/uL (0.4-5.4); Lymphocytes % (auto) 8.5 % (10.0-50.0); Mean Corpuscular Hemoglobin 30.9 pg (28.0-32.0); Mean Corpuscular Hgb Conc. 32.7 g/dL (32.0-36.0); Mean Corpuscular Volume 94.6 fL (80.0-100.0); Monocytes # (auto) 0.6 10 ^3/uL (0-1.3); Monocytes % (auto) 9.2 % (0.0-12.0); Neutrophils # (auto) 5.1 10 ^3/uL (1.6-8.6); Neutrophils % (auto) 80.5 % (37.0-80.0); Nucleated Red Blood Cells % 0.1 %; Red Blood Cells 3.22 10^6/uL (4.0-5.20); White Blood Cell 6.3 10^3/uL (4.4-10.8)
[2022-03-12] MEDS: PIPERACILLIN-TAZOB 2.25GM 50 ML IV SCH ×3 (03:51→20:00)
[2022-03-12 03:59] LABS: Red Cell Distribution Width 20.8 % (11.8-14.3)
[2022-03-12 04:40] LABS: Albumin 2.2 g/dL (3.4-5.0); Calcium 8.1 mg/dL (8.5-10.1); Potassium 3.5 mmol/L (3.5-5.1)
[2022-03-12 04:43] LABS: BUN/Creatinine Ratio 6.2; Bilirubin, Total 0.8 mg/dL (0.2-1.0); Total Protein 5.8 g/dL (6.4-8.2)
[2022-03-12] MEDS: PROPOFOL 100 ML IV SCH ×2 (05:00→18:01)
[2022-03-12] MEDS: LEVOTHYROXINE SODIUM 100 MCG TAB PO SCH (06:43)
[2022-03-12] MEDS: METOCLOPRAMIDE HCL 5MG/ml INJ 2ml VIAL IV SCH ×3 (06:44→21:55)
[2022-03-12] MEDS: AMIODARONE 450mg/250ml AE 250 ML IV SCH (06:57)
[2022-03-12] MEDS: PHENYLEPHRINE INJ 80 MG in SODIUM CHL 0.9% 242 ML IV SCH (09:00)
[2022-03-12] MEDS: ENOXAPARIN SOD 30 MG/0.3 ML SYRINGE SC SCH (10:02)
[2022-03-12] MEDS: SILDENAFIL CITRATE 20 MG TAB PO SCH ×3 (10:02→21:55)
[2022-03-12] MEDS: PANTOPRAZOLE 40 MG/10 ML VIAL INJ IV SCH (10:02)
[2022-03-12] MEDS: AMIODARONE HCL 200 MG TAB PO SCH ×2 (10:02→21:55)
[2022-03-12] MEDS: B-COMPLEX W/ C & FOLIC ACID(NEPHROVITE TAB) PO SCH (10:02)
[2022-03-12] MEDS: fentaNYL Drip 2500mCg/250mlNS 250 ML IV SCH (11:15)
[2022-03-12] MEDS: NOREPINEPHRINE BITARTRATE 32 MG in SODIUM CHL 0.9% 218 ML IV SCH (11:45)
[2022-03-12] MEDS: ALBUTEROL SULF 2.5 MG/0.5ML(0.5%) NEB SOLN NEB PRN ×2 (18:29→22:21)
[2022-03-12] MEDS: MIDAZOLAM DRIP 50 mg/50mL 50 ML IV SCH (21:55)
[2022-03-13] VITALS (101 sets, daily range): BP systolic 104–168; BP diastolic 51–92
[2022-03-13] MEDS: ALBUTEROL SULF 2.5 MG/0.5ML(0.5%) NEB SOLN NEB PRN ×3 (02:34→14:02)
[2022-03-13] MEDS: PIPERACILLIN-TAZOB 2.25GM 50 ML IV SCH ×3 (03:41→20:08)
[2022-03-13] MEDS: LEVOTHYROXINE SODIUM 100 MCG TAB PO SCH (05:58)
[2022-03-13] MEDS: METOCLOPRAMIDE HCL 5MG/ml INJ 2ml VIAL IV SCH ×3 (05:58→22:01)
[2022-03-13] MEDS: Nepro With Carb Steady 1 Liter Bottle GT SCH (06:00)
[2022-03-13] MEDS: B-COMPLEX W/ C & FOLIC ACID(NEPHROVITE TAB) PO SCH (06:07)
[2022-03-13] MEDS: PROPOFOL 100 ML IV SCH (06:18)
[2022-03-13] MEDS: SILDENAFIL CITRATE 20 MG TAB PO SCH ×3 (08:03→20:08)
[2022-03-13 08:23] LABS: Basophils # (auto) 0.1 10 ^3/uL (0-0.2); Basophils % (auto) 0.9 % (0.0-2.0); Eosinophils # (auto) 0.2 10 ^3/uL (0-0.8); Eosinophils % (auto) 2.1 % (0.0-7.0); Hematocrit 31.6 % (36.0-46.0); Lymphocytes # (auto) 0.8 10 ^3/uL (0.4-5.4); Lymphocytes % (auto) 8.3 % (10.0-50.0); Mean Corpuscular Hemoglobin 30.8 pg (28.0-32.0); Mean Corpuscular Hgb Conc. 31.7 g/dL (32.0-36.0); Mean Corpuscular Volume 97.3 fL (80.0-100.0); Monocytes # (auto) 0.8 10 ^3/uL (0-1.3); Monocytes % (auto) 8.6 % (0.0-12.0); Neutrophils # (auto) 7.6 10 ^3/uL (1.6-8.6); Neutrophils % (auto) 80.1 % (37.0-80.0); Red Blood Cells 3.24 10^6/uL (4.0-5.20); White Blood Cell 9.5 10^3/uL (4.4-10.8)
[2022-03-13 08:39] LABS: Calcium 8.2 mg/dL (8.5-10.1)
[2022-03-13 08:41] LABS: Red Cell Distribution Width 22.1 % (11.8-14.3)
[2022-03-13 08:42] LABS: BUN/Creatinine Ratio 6.3
[2022-03-13] MEDS: PHENYLEPHRINE INJ 80 MG in SODIUM CHL 0.9% 242 ML IV SCH (09:00)
[2022-03-13] MEDS: ENOXAPARIN SOD 30 MG/0.3 ML SYRINGE SC SCH (10:15)
[2022-03-13] MEDS: PANTOPRAZOLE 40 MG/10 ML VIAL INJ IV SCH (10:15)
[2022-03-13] MEDS: AMIODARONE HCL 200 MG TAB PO SCH ×2 (10:15→22:01)
[2022-03-13] MEDS: fentaNYL Drip 2500mCg/250mlNS 250 ML IV SCH (11:15)
[2022-03-13] MEDS: NOREPINEPHRINE BITARTRATE 32 MG in SODIUM CHL 0.9% 218 ML IV SCH (11:45)
[2022-03-13] MEDS: MIDAZOLAM DRIP 50 mg/50mL 50 ML IV SCH (23:45)
[2022-03-14] VITALS (79 sets, daily range): BP systolic 84–188; BP diastolic 32–103
[2022-03-14] MEDS: ALBUTEROL SULF 2.5 MG/0.5ML(0.5%) NEB SOLN NEB PRN ×3 (00:19→22:20)
[2022-03-14 03:57] LABS: Basophils # (auto) 0.1 10 ^3/uL (0-0.2); Basophils % (auto) 0.7 % (0.0-2.0); Eosinophils # (auto) 0.2 10 ^3/uL (0-0.8); Eosinophils % (auto) 1.6 % (0.0-7.0); Hematocrit 31.5 % (36.0-46.0); Hemoglobin 10.2 g/dL (12.2-16.2); Lymphocytes # (auto) 0.8 10 ^3/uL (0.4-5.4); Lymphocytes % (auto) 5.9 % (10.0-50.0); Mean Corpuscular Hemoglobin 31.6 pg (28.0-32.0); Mean Corpuscular Hgb Conc. 32.5 g/dL (32.0-36.0); Mean Corpuscular Volume 97.3 fL (80.0-100.0); Monocytes # (auto) 0.8 10 ^3/uL (0-1.3); Monocytes % (auto) 5.9 % (0.0-12.0); Neutrophils # (auto) 11.1 10 ^3/uL (1.6-8.6); Neutrophils % (auto) 85.9 % (37.0-80.0); Red Blood Cells 3.24 10^6/uL (4.0-5.20)
[2022-03-14 04:17] LABS: BUN/Creatinine Ratio 7.3; Calcium 8.8 mg/dL (8.5-10.1)
[2022-03-14 04:22] LABS: Red Cell Distribution Width 21.5 % (11.8-14.3)
[2022-03-14] MEDS: PIPERACILLIN-TAZOB 2.25GM 50 ML IV SCH ×3 (04:33→19:48)
[2022-03-14] MEDS: hydrALAZINE HCL 20 MG/ML VL IV PRN (04:33)
[2022-03-14] MEDS: METOCLOPRAMIDE HCL 5MG/ml INJ 2ml VIAL IV SCH ×3 (06:04→20:13)
[2022-03-14] MEDS: LEVOTHYROXINE SODIUM 100 MCG TAB PO SCH (06:29)
[2022-03-14] MEDS ORDERED: SODIUM CHL 0.9% 1000 ML BAG XX ONE (07:00)
[2022-03-14] MEDS: SILDENAFIL CITRATE 20 MG TAB PO SCH ×3 (08:00→19:48)
[2022-03-14] MEDS: PHENYLEPHRINE INJ 80 MG in SODIUM CHL 0.9% 242 ML IV SCH (08:10)
[2022-03-14] MEDS: fentaNYL Drip 2500mCg/250mlNS 250 ML IV SCH (08:11)
[2022-03-14] MEDS: PROPOFOL 100 ML IV SCH (08:11)
[2022-03-14] MEDS: ENOXAPARIN SOD 30 MG/0.3 ML SYRINGE SC SCH (09:43)
[2022-03-14] MEDS: AMIODARONE HCL 200 MG TAB PO SCH ×2 (09:43→21:11)
[2022-03-14] MEDS: PANTOPRAZOLE 40 MG/10 ML VIAL INJ IV SCH (09:43)
[2022-03-14] MEDS: B-COMPLEX W/ C & FOLIC ACID(NEPHROVITE TAB) PO SCH (09:43)
[2022-03-14] MEDS: NOREPINEPHRINE BITARTRATE 32 MG in SODIUM CHL 0.9% 218 ML IV SCH (09:44)
[2022-03-14] MEDS ORDERED: DIGOXIN (250MCG/ML) 2 ML AMPULE IV ONE (09:45)
[2022-03-14] MEDS ORDERED: EPOETIN ALFA-EPBX 10,000 UNIT/1ML VIAL SC ONE (21:00)
[2022-03-14] MEDS: MIDAZOLAM DRIP 50 mg/50mL 50 ML IV SCH (23:06)
[2022-03-15] VITALS (56 sets, daily range): BP systolic 88–154; BP diastolic 38–64
[2022-03-15] MEDS: PIPERACILLIN-TAZOB 2.25GM 50 ML IV SCH ×3 (03:17→20:11)
[2022-03-15] MEDS: METOCLOPRAMIDE HCL 5MG/ml INJ 2ml VIAL IV SCH ×3 (03:32→20:01)
[2022-03-15 03:44] LABS: Basophils # (auto) 0.1 10 ^3/uL (0-0.2); Basophils % (auto) 0.7 % (0.0-2.0); Eosinophils # (auto) 0.2 10 ^3/uL (0-0.8); Eosinophils % (auto) 1.6 % (0.0-7.0); Hematocrit 27.2 % (36.0-46.0); Hemoglobin 8.7 g/dL (12.2-16.2); Lymphocytes # (auto) 0.8 10 ^3/uL (0.4-5.4); Lymphocytes % (auto) 7.5 % (10.0-50.0); Mean Corpuscular Hemoglobin 31.1 pg (28.0-32.0); Mean Corpuscular Volume 96.9 fL (80.0-100.0); Monocytes # (auto) 0.7 10 ^3/uL (0-1.3); Monocytes % (auto) 6.6 % (0.0-12.0); Neutrophils # (auto) 8.5 10 ^3/uL (1.6-8.6); Neutrophils % (auto) 83.6 % (37.0-80.0); Nucleated Red Blood Cells % 0.1 %; Red Blood Cells 2.81 10^6/uL (4.0-5.20); White Blood Cell 10.2 10^3/uL (4.4-10.8)
[2022-03-15 04:04] LABS: Red Cell Distribution Width 21.8 % (11.8-14.3)
[2022-03-15 04:17] LABS: Potassium 3.9 mmol/L (3.5-5.1)
[2022-03-15 04:24] LABS: BUN/Creatinine Ratio 6.6; Calcium 8.6 mg/dL (8.5-10.1)
[2022-03-15] MEDS: LEVOTHYROXINE SODIUM 100 MCG TAB PO SCH (06:02)
[2022-03-15] MEDS: ALBUTEROL SULF 2.5 MG/0.5ML(0.5%) NEB SOLN NEB PRN ×2 (06:33→18:36)
[2022-03-15] MEDS: PHENYLEPHRINE INJ 80 MG in SODIUM CHL 0.9% 242 ML IV SCH (08:15)
[2022-03-15] MEDS: SILDENAFIL CITRATE 20 MG TAB PO SCH ×3 (08:18→20:11)
[2022-03-15] MEDS: DIGOXIN 0.125 MG TAB PO SCH (10:00)
[2022-03-15] MEDS: PANTOPRAZOLE 40 MG/10 ML VIAL INJ IV SCH (10:14)
[2022-03-15] MEDS: AMIODARONE HCL 200 MG TAB PO SCH ×2 (10:14→21:22)
[2022-03-15] MEDS: B-COMPLEX W/ C & FOLIC ACID(NEPHROVITE TAB) PO SCH (10:15)
[2022-03-15] MEDS: fentaNYL Drip 2500mCg/250mlNS 250 ML IV SCH (11:15)
[2022-03-15] MEDS: PROPOFOL 100 ML IV SCH (11:15)
[2022-03-15] MEDS: NOREPINEPHRINE BITARTRATE 32 MG in SODIUM CHL 0.9% 218 ML IV SCH (11:45)
[2022-03-15] MEDS: MIDAZOLAM DRIP 50 mg/50mL 50 ML IV SCH (23:43)
[2022-03-16] VITALS (56 sets, daily range): BP systolic 123–180; BP diastolic 51–92
[2022-03-16] MEDS: PIPERACILLIN-TAZOB 2.25GM 50 ML IV SCH ×3 (03:15→19:35)
[2022-03-16] MEDS: METOCLOPRAMIDE HCL 5MG/ml INJ 2ml VIAL IV SCH ×3 (03:34→21:25)
[2022-03-16 03:53] LABS: Basophils # (auto) 0.1 10 ^3/uL (0-0.2); Eosinophils # (auto) 0.4 10 ^3/uL (0-0.8); Eosinophils % (auto) 3.5 % (0.0-7.0); Hemoglobin 9.3 g/dL (12.2-16.2); Lymphocytes # (auto) 0.9 10 ^3/uL (0.4-5.4); Lymphocytes % (auto) 7.7 % (10.0-50.0); Mean Corpuscular Hemoglobin 31.3 pg (28.0-32.0); Mean Corpuscular Hgb Conc. 32.1 g/dL (32.0-36.0); Mean Corpuscular Volume 97.6 fL (80.0-100.0); Monocytes # (auto) 0.8 10 ^3/uL (0-1.3); Monocytes % (auto) 7.4 % (0.0-12.0); Neutrophils # (auto) 9.1 10 ^3/uL (1.6-8.6); Neutrophils % (auto) 80.4 % (37.0-80.0); Nucleated Red Blood Cells % 0.1 %; Red Blood Cells 2.97 10^6/uL (4.0-5.20); White Blood Cell 11.3 10^3/uL (4.4-10.8)
[2022-03-16 04:08] LABS: BUN/Creatinine Ratio 7.4; Calcium 8.8 mg/dL (8.5-10.1)
[2022-03-16 04:18] LABS: Red Cell Distribution Width 21.6 % (11.8-14.3)
[2022-03-16] MEDS: LEVOTHYROXINE SODIUM 100 MCG TAB PO SCH (05:58)
[2022-03-16] MEDS: ALBUMIN 25% 100 ML IV PRN (06:23)
[2022-03-16] MEDS ORDERED: SODIUM CHL 0.9% 1000 ML BAG XX ONE (07:00)
[2022-03-16] MEDS: SILDENAFIL CITRATE 20 MG TAB PO SCH ×3 (07:52→19:34)
[2022-03-16] MEDS: PHENYLEPHRINE INJ 80 MG in SODIUM CHL 0.9% 242 ML IV SCH (08:48)
[2022-03-16] MEDS: AMIODARONE HCL 200 MG TAB PO SCH ×2 (10:06→21:42)
[2022-03-16] MEDS: B-COMPLEX W/ C & FOLIC ACID(NEPHROVITE TAB) PO SCH (10:06)
[2022-03-16] MEDS: PANTOPRAZOLE 40 MG/10 ML VIAL INJ IV SCH (10:06)
[2022-03-16] MEDS: PROPOFOL 100 ML IV SCH (11:14)
[2022-03-16] MEDS: fentaNYL Drip 2500mCg/250mlNS 250 ML IV SCH (11:14)
[2022-03-16] MEDS: NOREPINEPHRINE BITARTRATE 32 MG in SODIUM CHL 0.9% 218 ML IV SCH (11:15)
[2022-03-16] MEDS: hydrALAZINE HCL 20 MG/ML VL IV PRN ×2 (11:50→18:39)
[2022-03-16] MEDS: MORPHINE SULFATE INJ 2 MG/ml SYRG IV PRN (17:06)
[2022-03-16] MEDS ORDERED: EPOETIN ALFA-EPBX 10,000 UNIT/1ML VIAL SC ONE (21:00)
[2022-03-16] MEDS: MIDAZOLAM DRIP 50 mg/50mL 50 ML IV SCH (21:26)
[2022-03-17] VITALS (40 sets, daily range): BP systolic 110–176; BP diastolic 51–73
[2022-03-17] MEDS: MORPHINE SULFATE INJ 2 MG/ml SYRG IV PRN (02:35)
[2022-03-17] MEDS: PIPERACILLIN-TAZOB 2.25GM 50 ML IV SCH ×3 (03:00→20:52)
[2022-03-17 03:35] LABS: Basophils # (auto) 0.1 10 ^3/uL (0-0.2); Basophils % (auto) 0.8 % (0.0-2.0); Eosinophils # (auto) 0.2 10 ^3/uL (0-0.8); Eosinophils % (auto) 1.4 % (0.0-7.0); Hematocrit 27.6 % (36.0-46.0); Hemoglobin 8.9 g/dL (12.2-16.2); Lymphocytes # (auto) 0.7 10 ^3/uL (0.4-5.4); Mean Corpuscular Hemoglobin 31.7 pg (28.0-32.0); Mean Corpuscular Hgb Conc. 32.2 g/dL (32.0-36.0); Mean Corpuscular Volume 98.4 fL (80.0-100.0); Monocytes # (auto) 1.3 10 ^3/uL (0-1.3); Monocytes % (auto) 9.6 % (0.0-12.0); Neutrophils # (auto) 10.9 10 ^3/uL (1.6-8.6); Neutrophils % (auto) 83.2 % (37.0-80.0); Nucleated Red Blood Cells % 0.1 %; Red Blood Cells 2.81 10^6/uL (4.0-5.20); White Blood Cell 13.1 10^3/uL (4.4-10.8)
[2022-03-17 03:45] LABS: Red Cell Distribution Width 21.8 % (11.8-14.3)
[2022-03-17 03:52] LABS: Anion Gap 13 (5-15); Blood Urea Nitrogen 22 mg/dL (7-18); Calcium 9.3 mg/dL (8.5-10.1); Carbon Dioxide 25 mmol/L (21-32); Chloride 101 mmol/L (98-107); GFR African American 16 mL/min; GFR Non-African American 13 mL/min; Glucose 74 mg/dL (74-106); Potassium 3.9 mmol/L (3.5-5.1); Sodium 139 mmol/L (136-145)
[2022-03-17] MEDS: METOCLOPRAMIDE HCL 5MG/ml INJ 2ml VIAL IV SCH ×3 (05:36→21:20)
[2022-03-17] MEDS: LEVOTHYROXINE SODIUM 100 MCG TAB PO SCH (05:45)
[2022-03-17] MEDS: hydrALAZINE HCL 20 MG/ML VL IV PRN ×2 (05:45→14:00)
[2022-03-17] MEDS: SILDENAFIL CITRATE 20 MG TAB PO SCH ×3 (08:38→20:52)
[2022-03-17] MEDS: B-COMPLEX W/ C & FOLIC ACID(NEPHROVITE TAB) PO SCH (09:29)
[2022-03-17] MEDS: PANTOPRAZOLE 40 MG/10 ML VIAL INJ IV SCH (09:29)
[2022-03-17] MEDS: AMIODARONE HCL 200 MG TAB PO SCH ×2 (09:29→21:20)
[2022-03-17] MEDS: DIGOXIN 0.125 MG TAB PO SCH (09:30)
[2022-03-17] MEDS: fentaNYL Drip 2500mCg/250mlNS 250 ML IV SCH (11:15)
[2022-03-17] MEDS: PROPOFOL 100 ML IV SCH (11:15)
[2022-03-17] MEDS: CARVEDILOL 3.125 MG TAB PO SCH (21:21)
[2022-03-18] VITALS (50 sets, daily range): BP systolic 130–185; BP diastolic 50–74
[2022-03-18] MEDS ORDERED: SODIUM CHL 0.9% 1000 ML BAG XX ONE (04:45)
[2022-03-18 04:48] LABS: Basophils # (auto) 0.1 10 ^3/uL (0-0.2); Basophils % (auto) 0.7 % (0.0-2.0); Eosinophils # (auto) 0.1 10 ^3/uL (0-0.8); Eosinophils % (auto) 0.5 % (0.0-7.0); Hematocrit 28.7 % (36.0-46.0); Hemoglobin 8.9 g/dL (12.2-16.2); Lymphocytes # (auto) 0.6 10 ^3/uL (0.4-5.4); Lymphocytes % (auto) 4.6 % (10.0-50.0); Mean Corpuscular Hemoglobin 31.1 pg (28.0-32.0); Mean Corpuscular Hgb Conc. 31.1 g/dL (32.0-36.0); Monocytes # (auto) 1.2 10 ^3/uL (0-1.3); Monocytes % (auto) 9.6 % (0.0-12.0); Neutrophils # (auto) 10.9 10 ^3/uL (1.6-8.6); Neutrophils % (auto) 84.6 % (37.0-80.0); Nucleated Red Blood Cells % 0.1 %; Red Blood Cells 2.87 10^6/uL (4.0-5.20); White Blood Cell 12.9 10^3/uL (4.4-10.8)
[2022-03-18 04:56] LABS: Red Cell Distribution Width 22.9 % (11.8-14.3)
[2022-03-18] MEDS: PIPERACILLIN-TAZOB 2.25GM 50 ML IV SCH ×3 (04:59→20:14)
[2022-03-18 05:06] LABS: Calcium 9.8 mg/dL (8.5-10.1); Potassium 3.9 mmol/L (3.5-5.1)
[2022-03-18 05:09] LABS: BUN/Creatinine Ratio 6.8
[2022-03-18] MEDS ORDERED: ALBUMIN 25% 0 ML IV ONE (05:19)
[2022-03-18] MEDS: METOCLOPRAMIDE HCL 5MG/ml INJ 2ml VIAL IV SCH ×3 (05:26→22:32)
[2022-03-18] MEDS: LEVOTHYROXINE SODIUM 100 MCG TAB PO SCH (06:22)
[2022-03-18] MEDS: SILDENAFIL CITRATE 20 MG TAB PO SCH ×3 (10:55→20:13)
[2022-03-18] MEDS: PANTOPRAZOLE 40 MG/10 ML VIAL INJ IV SCH (10:56)
[2022-03-18] MEDS: AMIODARONE HCL 200 MG TAB PO SCH ×2 (10:56→21:49)
[2022-03-18] MEDS: CARVEDILOL 3.125 MG TAB PO SCH ×2 (10:57→21:48)
[2022-03-18] MEDS: B-COMPLEX W/ C & FOLIC ACID(NEPHROVITE TAB) PO SCH (10:57)
[2022-03-18] MEDS: PROPOFOL 100 ML IV SCH (11:15)
[2022-03-18] MEDS: ACETAMINOPHEN 325 MG TAB PO PRN (15:53)
[2022-03-18] MEDS ORDERED: EPOETIN ALFA-EPBX 10,000 UNIT/1ML VIAL SC ONE (21:00)
[2022-03-18] MEDS: hydrALAZINE HCL 20 MG/ML VL IV PRN (23:00)
[2022-03-19] VITALS (49 sets, daily range): BP systolic 124–176; BP diastolic 45–87
[2022-03-19] MEDS: hydrALAZINE HCL 20 MG/ML VL IV PRN ×2 (03:24→04:40)
[2022-03-19] MEDS: PIPERACILLIN-TAZOB 2.25GM 50 ML IV SCH ×3 (04:42→20:54)
[2022-03-19 04:50] LABS: Basophils # (auto) 0.1 10 ^3/uL (0-0.2); Basophils % (auto) 0.7 % (0.0-2.0); Eosinophils # (auto) 0.1 10 ^3/uL (0-0.8); Hematocrit 27.6 % (36.0-46.0); Hemoglobin 8.8 g/dL (12.2-16.2); Lymphocytes # (auto) 0.8 10 ^3/uL (0.4-5.4); Lymphocytes % (auto) 7.9 % (10.0-50.0); Mean Corpuscular Hemoglobin 31.6 pg (28.0-32.0); Mean Corpuscular Hgb Conc. 31.9 g/dL (32.0-36.0); Mean Corpuscular Volume 99.3 fL (80.0-100.0); Monocytes # (auto) 1.1 10 ^3/uL (0-1.3); Monocytes % (auto) 11.1 % (0.0-12.0); Neutrophils % (auto) 79.3 % (37.0-80.0); Nucleated Red Blood Cells % 0.2 %; Red Blood Cells 2.78 10^6/uL (4.0-5.20); White Blood Cell 10.2 10^3/uL (4.4-10.8)
[2022-03-19 05:14] LABS: Potassium 3.7 mmol/L (3.5-5.1)
[2022-03-19 05:22] LABS: Albumin 2.7 g/dL (3.4-5.0); BUN/Creatinine Ratio 6.1; Bilirubin, Total 1.1 mg/dL (0.2-1.0); Calcium 9.6 mg/dL (8.5-10.1); Total Protein 7.2 g/dL (6.4-8.2)
[2022-03-19] MEDS: ACETAMINOPHEN 325 MG TAB PO PRN ×2 (06:06→21:25)
[2022-03-19] MEDS: METOCLOPRAMIDE HCL 5MG/ml INJ 2ml VIAL IV SCH ×3 (06:38→21:26)
[2022-03-19] MEDS: LEVOTHYROXINE SODIUM 100 MCG TAB PO SCH (06:39)
[2022-03-19] MEDS: SILDENAFIL CITRATE 20 MG TAB PO SCH ×3 (08:32→20:54)
[2022-03-19] MEDS: PANTOPRAZOLE 40 MG/10 ML VIAL INJ IV SCH (10:02)
[2022-03-19] MEDS: AMIODARONE HCL 200 MG TAB PO SCH ×2 (10:03→22:00)
[2022-03-19] MEDS: B-COMPLEX W/ C & FOLIC ACID(NEPHROVITE TAB) PO SCH (10:03)
[2022-03-19] MEDS: PROPOFOL 100 ML IV SCH (11:15)
[2022-03-19] MEDS: CARVEDILOL 3.125 MG TAB PO SCH ×2 (11:20→21:26)
[2022-03-20] VITALS (39 sets, daily range): BP systolic 121–170; BP diastolic 44–75
[2022-03-20] MEDS: ACETAMINOPHEN 325 MG TAB PO PRN ×2 (04:23→20:13)
[2022-03-20] MEDS: PIPERACILLIN-TAZOB 2.25GM 50 ML IV SCH (04:54)
[2022-03-20] MEDS: hydrALAZINE HCL 20 MG/ML VL IV PRN (05:05)
[2022-03-20] MEDS: METOCLOPRAMIDE HCL 5MG/ml INJ 2ml VIAL IV SCH ×4 (05:49→22:00)
[2022-03-20] MEDS: LEVOTHYROXINE SODIUM 100 MCG TAB PO SCH (06:47)
[2022-03-20] MEDS ORDERED: SODIUM CHL 0.9% 1000 ML BAG XX ONE (07:00)
[2022-03-20] MEDS: PANTOPRAZOLE 40 MG/10 ML VIAL INJ IV SCH (09:48)
[2022-03-20] MEDS: CARVEDILOL 3.125 MG TAB PO SCH ×2 (09:48→21:44)
[2022-03-20] MEDS: SILDENAFIL CITRATE 20 MG TAB PO SCH ×3 (09:48→20:13)
[2022-03-20] MEDS: AMIODARONE HCL 200 MG TAB PO SCH ×2 (09:48→21:44)
[2022-03-20] MEDS: DIGOXIN 0.125 MG TAB PO SCH (09:49)
[2022-03-20] MEDS: B-COMPLEX W/ C & FOLIC ACID(NEPHROVITE TAB) PO SCH (09:49)
[2022-03-20 10:37] LABS: Hematocrit 29.1 % (36.0-46.0); Hemoglobin 9.1 g/dL (12.2-16.2); Mean Corpuscular Hemoglobin 31.4 pg (28.0-32.0); Mean Corpuscular Hgb Conc. 31.3 g/dL (32.0-36.0); Mean Corpuscular Volume 100.3 fL (80.0-100.0); White Blood Cell 7.8 10^3/uL (4.4-10.8)
[2022-03-20 10:53] LABS: Red Cell Distribution Width 23.6 % (11.8-14.3)
[2022-03-20 10:54] LABS: Band Neutrophils % (manual) 0; Basophils % (manual) 0 (0.0-2.0); Blast Cells 0; Eosinophils % (manual) 0 (0-7); Metamyelocytes % 0; Myelocytes % 0; Promyelocytes % 0; Reactive Lymphocytes 0
[2022-03-20 10:57] LABS: BUN/Creatinine Ratio 6.3; Calcium 9.4 mg/dL (8.5-10.1); Potassium 3.7 mmol/L (3.5-5.1)
[2022-03-20] MEDS: PROPOFOL 100 ML IV SCH (11:15)
[2022-03-20 13:24] LABS: Lymphocytes % (manual) 14 (10.0-50.0); Monocytes % (manual) 12 (0-12)
[2022-03-20] MEDS ORDERED: EPOETIN ALFA-EPBX 10,000 UNIT/1ML VIAL SC ONE (21:00)
[2022-03-21] VITALS (24 sets, daily range): BP systolic 116–191; BP diastolic 50–120
[2022-03-21 04:22] LABS: Basophils # (auto) 0.1 10 ^3/uL (0-0.2); Basophils % (auto) 0.9 % (0.0-2.0); Eosinophils # (auto) 0.1 10 ^3/uL (0-0.8); Eosinophils % (auto) 1.4 % (0.0-7.0); Hematocrit 26.1 % (36.0-46.0); Hemoglobin 8.5 g/dL (12.2-16.2); Lymphocytes # (auto) 0.8 10 ^3/uL (0.4-5.4); Lymphocytes % (auto) 12.3 % (10.0-50.0); Mean Corpuscular Hemoglobin 32.1 pg (28.0-32.0); Mean Corpuscular Hgb Conc. 32.4 g/dL (32.0-36.0); Mean Corpuscular Volume 98.9 fL (80.0-100.0); Monocytes % (auto) 14.2 % (0.0-12.0); Neutrophils # (auto) 4.8 10 ^3/uL (1.6-8.6); Neutrophils % (auto) 71.2 % (37.0-80.0); Nucleated Red Blood Cells % 0.8 %; Red Blood Cells 2.64 10^6/uL (4.0-5.20); White Blood Cell 6.7 10^3/uL (4.4-10.8)
[2022-03-21 04:27] LABS: Red Cell Distribution Width 23.5 % (11.8-14.3)
[2022-03-21 04:31] LABS: Calcium 9.1 mg/dL (8.5-10.1); Potassium 3.6 mmol/L (3.5-5.1)
[2022-03-21 04:44] LABS: BUN/Creatinine Ratio 5.2
[2022-03-21] MEDS: hydrALAZINE HCL 20 MG/ML VL IV PRN (05:02)
[2022-03-21] MEDS: METOCLOPRAMIDE HCL 5MG/ml INJ 2ml VIAL IV SCH ×3 (06:00→22:00)
[2022-03-21] MEDS: LEVOTHYROXINE SODIUM 100 MCG TAB PO SCH (06:58)
[2022-03-21] MEDS: ACETAMINOPHEN 325 MG TAB PO PRN ×2 (09:07→19:45)
[2022-03-21] MEDS: SILDENAFIL CITRATE 20 MG TAB PO SCH ×3 (09:07→19:43)
[2022-03-21] MEDS: CARVEDILOL 3.125 MG TAB PO SCH ×2 (09:51→19:44)
[2022-03-21] MEDS: AMIODARONE HCL 200 MG TAB PO SCH ×2 (09:51→22:00)
[2022-03-21] MEDS: PANTOPRAZOLE 40 MG/10 ML VIAL INJ IV SCH (09:51)
[2022-03-21] MEDS: B-COMPLEX W/ C & FOLIC ACID(NEPHROVITE TAB) PO SCH (09:51)
[2022-03-21] MEDS: PROPOFOL 100 ML IV SCH (11:15)
[2022-03-22] VITALS (25 sets, daily range): BP systolic 93–195; BP diastolic 36–82
[2022-03-22 04:20] LABS: Hematocrit 28.2 % (36.0-46.0); Hemoglobin 8.9 g/dL (12.2-16.2); Mean Corpuscular Hemoglobin 32.1 pg (28.0-32.0); Mean Corpuscular Hgb Conc. 31.6 g/dL (32.0-36.0); Mean Corpuscular Volume 101.5 fL (80.0-100.0); Red Blood Cells 2.77 10^6/uL (4.0-5.20); Red Cell Distribution Width 24.3 % (11.8-14.3); White Blood Cell 7.2 10^3/uL (4.4-10.8)
[2022-03-22 04:22] LABS: Basophils % (manual) 0 (0.0-2.0); Blast Cells 0; Eosinophils % (manual) 0 (0-7); Metamyelocytes % 0; Myelocytes % 0; Promyelocytes % 0; Reactive Lymphocytes 0
[2022-03-22 04:29] LABS: BUN/Creatinine Ratio 6.2; Calcium 9.6 mg/dL (8.5-10.1)
[2022-03-22] MEDS: hydrALAZINE HCL 20 MG/ML VL IV PRN ×2 (05:06→10:47)
[2022-03-22 05:10] LABS: Band Neutrophils % (manual) 2; Lymphocytes % (manual) 16 (10.0-50.0); Monocytes % (manual) 7 (0-12)
[2022-03-22] MEDS: METOCLOPRAMIDE HCL 5MG/ml INJ 2ml VIAL IV SCH ×3 (06:24→22:14)
[2022-03-22] MEDS: LEVOTHYROXINE SODIUM 100 MCG TAB PO SCH (06:25)
[2022-03-22] MEDS ORDERED: SODIUM CHL 0.9% 1000 ML BAG XX ONE (07:00)
[2022-03-22] MEDS: PANTOPRAZOLE 40 MG/10 ML VIAL INJ IV SCH (10:46)
[2022-03-22] MEDS: AMIODARONE HCL 200 MG TAB PO SCH ×2 (10:49→22:14)
[2022-03-22] MEDS: DIGOXIN 0.125 MG TAB PO SCH (10:49)
[2022-03-22] MEDS: SILDENAFIL CITRATE 20 MG TAB PO SCH ×3 (10:49→20:29)
[2022-03-22] MEDS: CARVEDILOL 3.125 MG TAB PO SCH ×2 (10:50→20:34)
[2022-03-22] MEDS: ACETAMINOPHEN 325 MG TAB PO PRN ×2 (10:51→18:04)
[2022-03-22] MEDS: B-COMPLEX W/ C & FOLIC ACID(NEPHROVITE TAB) PO SCH (10:52)
[2022-03-22] MEDS: PROPOFOL 100 ML IV SCH (11:15)
[2022-03-22] MEDS: MORPHINE SULFATE INJ 2 MG/ml SYRG IV PRN (20:31)
[2022-03-22] MEDS ORDERED: EPOETIN ALFA-EPBX 10,000 UNIT/1ML VIAL SC ONE (21:00)
[2022-03-23] VITALS (22 sets, daily range): BP systolic 136–198; BP diastolic 45–98
[2022-03-23] MEDS: hydrALAZINE HCL 20 MG/ML VL IV PRN ×2 (03:23→10:10)
[2022-03-23 04:03] LABS: Monocytes # (auto) 0.9 10 ^3/uL (0-1.3); Neutrophils # (auto) 4.4 10 ^3/uL (1.6-8.6)
[2022-03-23 04:11] LABS: BUN/Creatinine Ratio 6.3; Calcium 9.7 mg/dL (8.5-10.1); Potassium 4.4 mmol/L (3.5-5.1)
[2022-03-23 04:18] LABS: Basophils # (auto) 0.1 10 ^3/uL (0-0.2); Eosinophils # (auto) 0.1 10 ^3/uL (0-0.8); Eosinophils % (auto) 1.1 % (0.0-7.0); Hemoglobin 8.6 g/dL (12.2-16.2); Lymphocytes % (auto) 15.9 % (10.0-50.0); Mean Corpuscular Hemoglobin 32.6 pg (28.0-32.0); Mean Corpuscular Hgb Conc. 31.9 g/dL (32.0-36.0); Mean Corpuscular Volume 102.2 fL (80.0-100.0); Monocytes % (auto) 13.6 % (0.0-12.0); Neutrophils % (auto) 68.4 % (37.0-80.0); Nucleated Red Blood Cells % 1.2 %; Red Blood Cells 2.64 10^6/uL (4.0-5.20); White Blood Cell 6.4 10^3/uL (4.4-10.8)
[2022-03-23 04:30] LABS: Red Cell Distribution Width 25.6 % (11.8-14.3)
[2022-03-23] MEDS: LEVOTHYROXINE SODIUM 100 MCG TAB PO SCH (06:11)
[2022-03-23] MEDS: METOCLOPRAMIDE HCL 5MG/ml INJ 2ml VIAL IV SCH ×3 (06:11→22:06)
[2022-03-23] MEDS: PANTOPRAZOLE 40 MG/10 ML VIAL INJ IV SCH (09:13)
[2022-03-23] MEDS: MORPHINE SULFATE INJ 2 MG/ml SYRG IV PRN (09:13)
[2022-03-23] MEDS: B-COMPLEX W/ C & FOLIC ACID(NEPHROVITE TAB) PO SCH (09:13)
[2022-03-23] MEDS: SILDENAFIL CITRATE 20 MG TAB PO SCH ×3 (09:13→22:03)
[2022-03-23] MEDS: CARVEDILOL 3.125 MG TAB PO SCH ×2 (09:14→22:00)
[2022-03-23] MEDS: AMIODARONE HCL 200 MG TAB PO SCH ×2 (09:14→22:00)
[2022-03-23] MEDS ORDERED: SACUBITRIL-VALSARTAN 24mg/26mg TAB PO ONE (11:00)
[2022-03-23] MEDS: PROPOFOL 100 ML IV SCH (11:15)
[2022-03-23] MEDS ORDERED: ENOXAPARIN SOD 40 MG/0.4 ML SYRINGE SC ONE (12:45)
[2022-03-23] MEDS ORDERED: ENOXAPARIN SOD 30 MG/0.3 ML SYRINGE SC ONE (12:45)
[2022-03-23] MEDS: ACETAMINOPHEN 325 MG TAB PO PRN (13:11)
[2022-03-23] MEDS ORDERED: amLODIPine BESYLATE 5 MG TAB PO ONE (13:45)
[2022-03-23] MEDS ORDERED: ARTIFICIAL TEARS 15ml EACHEYE PRN (13:45)
[2022-03-23] MEDS: SACUBITRIL-VALSARTAN 24mg/26mg TAB PO SCH (22:00)
[2022-03-24] MEDS: MORPHINE SULFATE INJ 2 MG/ml SYRG IV PRN ×4 (00:54→22:10)
[2022-03-24 05:00] VITALS: BP 161/60
[2022-03-24] MEDS: METOCLOPRAMIDE HCL 5MG/ml INJ 2ml VIAL IV SCH ×3 (05:11→21:54)
[2022-03-24] MEDS: hydrALAZINE HCL 20 MG/ML VL IV PRN (05:13)
[2022-03-24] MEDS: LEVOTHYROXINE SODIUM 100 MCG TAB PO SCH (05:25)
[2022-03-24 06:15] LABS: Basophils # (auto) 0.1 10 ^3/uL (0-0.2); Hemoglobin 8.9 g/dL (12.2-16.2)
[2022-03-24 06:36] LABS: Calcium 9.5 mg/dL (8.5-10.1); Potassium 4.6 mmol/L (3.5-5.1)
[2022-03-24 06:39] LABS: Basophils % (auto) 1.1 % (0.0-2.0); Eosinophils # (auto) 0 10 ^3/uL (0-0.8); Eosinophils % (auto) 0.6 % (0.0-7.0); Lymphocytes # (auto) 1.3 10 ^3/uL (0.4-5.4); Mean Corpuscular Hemoglobin 32.7 pg (28.0-32.0); Mean Corpuscular Hgb Conc. 31.9 g/dL (32.0-36.0); Mean Corpuscular Volume 102.4 fL (80.0-100.0); Monocytes % (auto) 11.8 % (0.0-12.0); Neutrophils # (auto) 5.7 10 ^3/uL (1.6-8.6); Neutrophils % (auto) 70.5 % (37.0-80.0); Nucleated Red Blood Cells % 1.4 %; Red Blood Cells 2.73 10^6/uL (4.0-5.20); Red Cell Distribution Width 26.2 % (11.8-14.3); White Blood Cell 8.1 10^3/uL (4.4-10.8)
[2022-03-24] MEDS ORDERED: SODIUM CHL 0.9% 1000 ML BAG XX ONE (07:00)
[2022-03-24] MEDS: SILDENAFIL CITRATE 20 MG TAB PO SCH ×3 (08:06→20:15)
[2022-03-24 09:00] VITALS: BP 157/65
[2022-03-24] MEDS: CIPROFLOXACIN 0.3%OPTH(EYE) SOL 5ML EACHEYE SCH ×4 (11:48→21:53)
[2022-03-24] MEDS: B-COMPLEX W/ C & FOLIC ACID(NEPHROVITE TAB) PO SCH (12:35)
[2022-03-24] MEDS: AMIODARONE HCL 200 MG TAB PO SCH ×2 (12:35→21:54)
[2022-03-24] MEDS: DIGOXIN 0.125 MG TAB PO SCH (12:36)
[2022-03-24] MEDS: PANTOPRAZOLE 40 MG/10 ML VIAL INJ IV SCH (12:37)
[2022-03-24] MEDS: amLODIPine BESYLATE 5 MG TAB PO SCH (12:37)
[2022-03-24] MEDS: SACUBITRIL-VALSARTAN 24mg/26mg TAB PO SCH ×2 (12:37→21:55)
[2022-03-24] MEDS: ENOXAPARIN SOD 30 MG/0.3 ML SYRINGE SC SCH (12:38)
[2022-03-24] MEDS: CARVEDILOL 3.125 MG TAB PO SCH ×2 (12:49→21:54)
[2022-03-24 13:00] VITALS: BP 124/54
[2022-03-24 17:00] VITALS: BP 104/38
[2022-03-24] MEDS ORDERED: diphenhdrAMINE HCL 25 MG CAP PO ONE (17:30)
[2022-03-24] MEDS ORDERED: EPOETIN ALFA-EPBX 10,000 UNIT/1ML VIAL SC ONE (21:00)
[2022-03-24] MEDS: ZOLPIDEM TARTRATE 5 MG TAB PO PRN (21:55)
[2022-03-24 22:00] VITALS: BP 137/49
[2022-03-25] MEDS: CIPROFLOXACIN 0.3%OPTH(EYE) SOL 5ML EACHEYE SCH ×6 (02:18→22:20)
[2022-03-25] MEDS: MORPHINE SULFATE INJ 2 MG/ml SYRG IV PRN ×4 (04:01→22:20)
[2022-03-25 05:00] VITALS: BP 157/56
[2022-03-25 05:08] LABS: Basophils # (auto) 0.1 10 ^3/uL (0-0.2); Eosinophils # (auto) 0.1 10 ^3/uL (0-0.8); Eosinophils % (auto) 0.9 % (0.0-7.0); Hemoglobin 8.8 g/dL (12.2-16.2); Lymphocytes # (auto) 1.1 10 ^3/uL (0.4-5.4)
[2022-03-25 05:11] LABS: Hematocrit 28.3 % (36.0-46.0); Lymphocytes % (auto) 13.5 % (10.0-50.0); Mean Corpuscular Hemoglobin 32.3 pg (28.0-32.0); Mean Corpuscular Volume 104.1 fL (80.0-100.0); Monocytes # (auto) 1.2 10 ^3/uL (0-1.3); Monocytes % (auto) 14.9 % (0.0-12.0); Neutrophils # (auto) 5.4 10 ^3/uL (1.6-8.6); Neutrophils % (auto) 69.7 % (37.0-80.0); Nucleated Red Blood Cells % 0.7 %; Red Blood Cells 2.72 10^6/uL (4.0-5.20); White Blood Cell 7.8 10^3/uL (4.4-10.8)
[2022-03-25 05:17] LABS: BUN/Creatinine Ratio 5.9; Calcium 9.3 mg/dL (8.5-10.1); Potassium 4.1 mmol/L (3.5-5.1)
[2022-03-25] MEDS: METOCLOPRAMIDE HCL 5MG/ml INJ 2ml VIAL IV SCH ×3 (06:11→22:20)
[2022-03-25] MEDS: LEVOTHYROXINE SODIUM 100 MCG TAB PO SCH (06:12)
[2022-03-25] MEDS: SILDENAFIL CITRATE 20 MG TAB PO SCH ×3 (07:13→22:20)
[2022-03-25] MEDS: AMIODARONE HCL 200 MG TAB PO SCH ×2 (08:49→22:20)
[2022-03-25] MEDS: CARVEDILOL 3.125 MG TAB PO SCH ×2 (08:49→22:20)
[2022-03-25] MEDS: PANTOPRAZOLE 40 MG/10 ML VIAL INJ IV SCH (08:49)
[2022-03-25] MEDS: SACUBITRIL-VALSARTAN 24mg/26mg TAB PO SCH ×2 (08:50→22:20)
[2022-03-25] MEDS: B-COMPLEX W/ C & FOLIC ACID(NEPHROVITE TAB) PO SCH (08:50)
[2022-03-25] MEDS: amLODIPine BESYLATE 5 MG TAB PO SCH (08:51)
[2022-03-25] MEDS: ENOXAPARIN SOD 30 MG/0.3 ML SYRINGE SC SCH (08:51)
[2022-03-25 09:00] VITALS: BP_SYST 118; BP_SYST 121; BP_DIAS 35; BP_DIAS 42
[2022-03-25 13:00] VITALS: BP 124/42
[2022-03-25 17:03] VITALS: BP 127/83
[2022-03-25 22:00] VITALS: BP 124/51
[2022-03-26] MEDS: CIPROFLOXACIN 0.3%OPTH(EYE) SOL 5ML EACHEYE SCH ×6 (02:00→21:26)
[2022-03-26 05:00] VITALS: BP 131/37
[2022-03-26] MEDS: MORPHINE SULFATE INJ 2 MG/ml SYRG IV PRN (06:03)
[2022-03-26] MEDS: METOCLOPRAMIDE HCL 5MG/ml INJ 2ml VIAL IV SCH ×3 (06:11→21:26)
[2022-03-26] MEDS: ACETAMINOPHEN 325 MG TAB PO PRN ×2 (06:17→18:25)
[2022-03-26] MEDS: LEVOTHYROXINE SODIUM 100 MCG TAB PO SCH (06:52)
[2022-03-26 07:54] LABS: Hemoglobin 9.4 g/dL (12.2-16.2)
[2022-03-26 07:56] LABS: Hematocrit 29.5 % (36.0-46.0); Mean Corpuscular Hemoglobin 32.5 pg (28.0-32.0); Mean Corpuscular Hgb Conc. 31.7 g/dL (32.0-36.0); Mean Corpuscular Volume 102.3 fL (80.0-100.0); Red Blood Cells 2.88 10^6/uL (4.0-5.20); White Blood Cell 8.5 10^3/uL (4.4-10.8)
[2022-03-26 08:00] LABS: Red Cell Distribution Width 27.2 % (11.8-14.3)
[2022-03-26 08:02] LABS: Basophils % (manual) 0 (0.0-2.0); Blast Cells 0; Metamyelocytes % 0; Promyelocytes % 0; Reactive Lymphocytes 0
[2022-03-26 08:07] LABS: BUN/Creatinine Ratio 6.6; Calcium 9.3 mg/dL (8.5-10.1); Potassium 4.9 mmol/L (3.5-5.1)
[2022-03-26] MEDS: SILDENAFIL CITRATE 20 MG TAB PO SCH ×3 (08:30→20:21)
[2022-03-26 09:00] VITALS: BP 155/61
[2022-03-26 09:01] LABS: Band Neutrophils % (manual) 3; Eosinophils % (manual) 2 (0-7); Lymphocytes % (manual) 20 (10.0-50.0); Monocytes % (manual) 7 (0-12); Myelocytes % 1
[2022-03-26] MEDS: PANTOPRAZOLE 40 MG/10 ML VIAL INJ IV SCH (09:41)
[2022-03-26] MEDS: B-COMPLEX W/ C & FOLIC ACID(NEPHROVITE TAB) PO SCH (09:41)
[2022-03-26] MEDS: SACUBITRIL-VALSARTAN 24mg/26mg TAB PO SCH ×2 (09:41→21:20)
[2022-03-26] MEDS: AMIODARONE HCL 200 MG TAB PO SCH ×2 (09:41→21:17)
[2022-03-26] MEDS: ENOXAPARIN SOD 30 MG/0.3 ML SYRINGE SC SCH (09:42)
[2022-03-26] MEDS: amLODIPine BESYLATE 5 MG TAB PO SCH (09:42)
[2022-03-26] MEDS: CARVEDILOL 12.5 MG TAB PO SCH ×2 (10:20→21:17)
[2022-03-26 12:57] VITALS: BP 133/56
[2022-03-26 17:00] VITALS: BP 98/46
[2022-03-26] MEDS: ZOLPIDEM TARTRATE 5 MG TAB PO PRN (21:27)
[2022-03-26 22:00] VITALS: BP 121/53
[2022-03-27] MEDS: ACETAMINOPHEN 325 MG TAB PO PRN ×3 (00:08→22:02)
[2022-03-27] MEDS: CIPROFLOXACIN 0.3%OPTH(EYE) SOL 5ML EACHEYE SCH ×6 (02:01→21:47)
[2022-03-27 05:00] VITALS: BP 153/56
[2022-03-27 05:15] LABS: Basophils # (auto) 0.1 10 ^3/uL (0-0.2); Basophils % (auto) 1.2 % (0.0-2.0); Eosinophils # (auto) 0.1 10 ^3/uL (0-0.8); Eosinophils % (auto) 1.5 % (0.0-7.0); Hematocrit 24.9 % (36.0-46.0); Hemoglobin 8.1 g/dL (12.2-16.2); Lymphocytes # (auto) 0.8 10 ^3/uL (0.4-5.4); Lymphocytes % (auto) 15.1 % (10.0-50.0); Mean Corpuscular Hemoglobin 33.1 pg (28.0-32.0); Mean Corpuscular Hgb Conc. 32.5 g/dL (32.0-36.0); Mean Corpuscular Volume 101.9 fL (80.0-100.0); Monocytes # (auto) 0.6 10 ^3/uL (0-1.3); Monocytes % (auto) 12.3 % (0.0-12.0); Neutrophils # (auto) 3.6 10 ^3/uL (1.6-8.6); Neutrophils % (auto) 69.9 % (37.0-80.0); Nucleated Red Blood Cells % 0.5 %; Red Blood Cells 2.44 10^6/uL (4.0-5.20); White Blood Cell 5.2 10^3/uL (4.4-10.8)
[2022-03-27 05:16] LABS: Red Cell Distribution Width 26.8 % (11.8-14.3)
[2022-03-27 05:41] LABS: Calcium 8.6 mg/dL (8.5-10.1); Potassium 5.1 mmol/L (3.5-5.1)
[2022-03-27] MEDS: METOCLOPRAMIDE HCL 5MG/ml INJ 2ml VIAL IV SCH ×3 (05:44→21:47)
[2022-03-27] MEDS: LEVOTHYROXINE SODIUM 100 MCG TAB PO SCH (05:52)
[2022-03-27] MEDS ORDERED: SODIUM CHL 0.9% 1000 ML BAG XX ONE (07:00)
[2022-03-27 09:00] VITALS: BP 143/61
[2022-03-27] MEDS: SILDENAFIL CITRATE 20 MG TAB PO SCH ×3 (09:50→21:47)
[2022-03-27] MEDS: PANTOPRAZOLE 40 MG/10 ML VIAL INJ IV SCH (09:50)
[2022-03-27] MEDS: ENOXAPARIN SOD 30 MG/0.3 ML SYRINGE SC SCH (09:50)
[2022-03-27] MEDS: B-COMPLEX W/ C & FOLIC ACID(NEPHROVITE TAB) PO SCH (09:50)
[2022-03-27] MEDS: DIGOXIN 0.125 MG TAB PO SCH (10:00)
[2022-03-27] MEDS: CARVEDILOL 12.5 MG TAB PO SCH ×2 (10:00→21:52)
[2022-03-27] MEDS: amLODIPine BESYLATE 5 MG TAB PO SCH (11:06)
[2022-03-27] MEDS: AMIODARONE HCL 200 MG TAB PO SCH ×2 (11:06→21:52)
[2022-03-27] MEDS: SACUBITRIL-VALSARTAN 24mg/26mg TAB PO SCH ×2 (12:00→21:52)
[2022-03-27 13:00] VITALS: BP 123/55
[2022-03-27] MEDS ORDERED: LEVOTHYROXINE SODIUM 100 MCG TAB PO ONE (14:45)
[2022-03-27 17:00] VITALS: BP 135/47
[2022-03-27] MEDS ORDERED: EPOETIN ALFA-EPBX 10,000 UNIT/1ML VIAL SC ONE (21:00)
[2022-03-27] MEDS: ZOLPIDEM TARTRATE 5 MG TAB PO PRN (22:02)
[2022-03-27 22:54] VITALS: BP 117/41
[2022-03-28] MEDS: CIPROFLOXACIN 0.3%OPTH(EYE) SOL 5ML EACHEYE SCH ×4 (02:00→16:20)
[2022-03-28 05:50] VITALS: BP 153/52
[2022-03-28] MEDS: hydrALAZINE HCL 20 MG/ML VL IV PRN (05:57)
[2022-03-28] MEDS: ACETAMINOPHEN 325 MG TAB PO PRN (05:57)
[2022-03-28] MEDS: METOCLOPRAMIDE HCL 5MG/ml INJ 2ml VIAL IV SCH ×2 (05:58→14:00)
[2022-03-28 06:21] LABS: Basophils # (auto) 0.1 10 ^3/uL (0-0.2); Eosinophils # (auto) 0.1 10 ^3/uL (0-0.8); Hemoglobin 8.9 g/dL (12.2-16.2); Mean Corpuscular Hgb Conc. 32.2 g/dL (32.0-36.0); Monocytes # (auto) 0.8 10 ^3/uL (0-1.3); Neutrophils # (auto) 4.3 10 ^3/uL (1.6-8.6); Nucleated Red Blood Cells % 0.3 %; White Blood Cell 6.2 10^3/uL (4.4-10.8)
[2022-03-28 06:23] LABS: BUN/Creatinine Ratio 6.9; Calcium 8.9 mg/dL (8.5-10.1)
[2022-03-28 06:24] LABS: Basophils % (auto) 0.9 % (0.0-2.0); Eosinophils % (auto) 1.9 % (0.0-7.0); Hematocrit 27.7 % (36.0-46.0); Lymphocytes # (auto) 0.8 10 ^3/uL (0.4-5.4); Lymphocytes % (auto) 13.8 % (10.0-50.0); Mean Corpuscular Hemoglobin 32.9 pg (28.0-32.0); Mean Corpuscular Volume 102.1 fL (80.0-100.0); Monocytes % (auto) 13.3 % (0.0-12.0); Neutrophils % (auto) 70.1 % (37.0-80.0); Red Blood Cells 2.72 10^6/uL (4.0-5.20); Red Cell Distribution Width 26.6 % (11.8-14.3)
[2022-03-28] MEDS ORDERED: LEVOTHYROXINE SODIUM 25 MCG TAB PO SCH (07:00)
[2022-03-28 07:36] LABS: Potassium 5.8 mmol/L (3.5-5.1)
[2022-03-28] MEDS: SILDENAFIL CITRATE 20 MG TAB PO SCH ×2 (08:00→14:00)
[2022-03-28 09:00] VITALS: BP 172/80
[2022-03-28] MEDS ORDERED: SODIUM CHL 0.9% 1000 ML BAG XX ONE (09:15)
[2022-03-28] MEDS: PANTOPRAZOLE 40 MG/10 ML VIAL INJ IV SCH (10:00)
[2022-03-28] MEDS: SACUBITRIL-VALSARTAN 24mg/26mg TAB PO SCH (10:00)
[2022-03-28] MEDS: B-COMPLEX W/ C & FOLIC ACID(NEPHROVITE TAB) PO SCH (10:00)
[2022-03-28] MEDS: AMIODARONE HCL 200 MG TAB PO SCH (10:00)
[2022-03-28] MEDS: amLODIPine BESYLATE 5 MG TAB PO SCH (10:00)
[2022-03-28] MEDS: CARVEDILOL 12.5 MG TAB PO SCH (10:00)
[2022-03-28] MEDS ORDERED: AMIO200T33 PO (10:10)
[2022-03-28 12:24] LABS: Free T4 (Free Thyroxine) 1.34 ng/dL (0.89-1.76)
[2022-03-28 12:25] LABS: Free T3 1.56 pg/mL (2.3-4.2)
[2022-03-28 13:00] VITALS: BP 145/62
[2022-03-28] MEDS ORDERED: ALPRAZolam 0.5 MG TAB PO ONE (14:00)
[2022-03-28 16:21] VITALS: BP 123/57
[2022-03-28 19:31] VITALS: BP 122/78
[2022-03-28] MEDS ORDERED: EPOETIN ALFA-EPBX 10,000 UNIT/1ML VIAL SC ONE (21:00)
== END 2022-03-28 20:00 | DRG 870 ==
LOC: ER 14:58 → EDBD 14:58 → UNDOADMIN 21:34 → TELE 21:34 → EDUNIT# 21:56 → ICU WEST 03-02 06:09 → TELE-EAST 03-23 13:40
PROVIDERS: ADMIT Nurse Practitioner; ATTEND Internal Medicine Pulmonary Disease
PROC: 5A1955Z Respiratory Ventilation, Greater than 96 Consecutive Hours (ICD-10-PCS; principal; 2022-03-02)
PROC: 0BH17EZ Insertion of Endotracheal Airway into Trachea, Via Natural or Artificial Opening (ICD-10-PCS; 2022-03-02)
PROC: 5A12012 Performance of Cardiac Output, Single, Manual (ICD-10-PCS; 2022-03-02)
PROC: 03HY32Z Insertion of Monitoring Device into Upper Artery, Percutaneous Approach (ICD-10-PCS; 2022-03-02)
PROC: 4A133B1 Monitoring of Arterial Pressure, Peripheral, Percutaneous Approach (ICD-10-PCS; 2022-03-02)
PROC: 4A133J1 Monitoring of Arterial Pulse, Peripheral, Percutaneous Approach (ICD-10-PCS; 2022-03-02)
PROC: 5A1D70Z Performance of Urinary Filtration, Intermittent, Less than 6 Hours Per Day (ICD-10-PCS; 2022-03-02)
PROC: 30233N1 Transfusion of Nonautologous Red Blood Cells into Peripheral Vein, Percutaneous Approach (ICD-10-PCS; 2022-03-05)
PROC: 4B02XSZ Measurement of Cardiac Pacemaker, External Approach (ICD-10-PCS; 2022-03-05)
PROC: 5A1D70Z Performance of Urinary Filtration, Intermittent, Less than 6 Hours Per Day (ICD-10-PCS; 2022-03-05)
PROC: 5A1D70Z Performance of Urinary Filtration, Intermittent, Less than 6 Hours Per Day (ICD-10-PCS; 2022-03-07)
PROC: 5A1D70Z Performance of Urinary Filtration, Intermittent, Less than 6 Hours Per Day (ICD-10-PCS; 2022-03-09)
PROC: 4B02XSZ Measurement of Cardiac Pacemaker, External Approach (ICD-10-PCS; 2022-03-09)
PROC: 5A1D70Z Performance of Urinary Filtration, Intermittent, Less than 6 Hours Per Day (ICD-10-PCS; 2022-03-11)
PROC: 5A1D70Z Performance of Urinary Filtration, Intermittent, Less than 6 Hours Per Day (ICD-10-PCS; 2022-03-14)
PROC: 5A09357 Assistance with Respiratory Ventilation, Less than 24 Consecutive Hours, Continuous Positive Airway Pressure (ICD-10-PCS; 2022-03-16)
PROC: 5A1D70Z Performance of Urinary Filtration, Intermittent, Less than 6 Hours Per Day (ICD-10-PCS; 2022-03-16)
PROC: 5A09457 Assistance with Respiratory Ventilation, 24-96 Consecutive Hours, Continuous Positive Airway Pressure (ICD-10-PCS; 2022-03-17)
PROC: 5A1D70Z Performance of Urinary Filtration, Intermittent, Less than 6 Hours Per Day (ICD-10-PCS; 2022-03-18)
PROC: 5A1D70Z Performance of Urinary Filtration, Intermittent, Less than 6 Hours Per Day (ICD-10-PCS; 2022-03-20)
PROC: 5A1D70Z Performance of Urinary Filtration, Intermittent, Less than 6 Hours Per Day (ICD-10-PCS; 2022-03-22)
PROC: 5A1D70Z Performance of Urinary Filtration, Intermittent, Less than 6 Hours Per Day (ICD-10-PCS; 2022-03-24)
PROC: 5A1D70Z Performance of Urinary Filtration, Intermittent, Less than 6 Hours Per Day (ICD-10-PCS; 2022-03-28)
DX: A41.9 Sepsis, unspecified organism (principal); J96.01 Acute respiratory failure with hypoxia; G93.41 Metabolic encephalopathy; I21.4 Non-ST elevation (NSTEMI) myocardial infarction; I46.9 Cardiac arrest, cause unspecified; J69.0 Pneumonitis due to inhalation of food and vomit; N18.6 End stage renal disease; J96.02 Acute respiratory failure with hypercapnia; R65.21 Severe sepsis with septic shock; I42.9 Cardiomyopathy, unspecified; I13.2 Hypertensive heart and chronic kidney disease with heart failure and with stage 5 chronic kidney disease, or end stage renal disease; E87.3 Alkalosis; E07.9 Disorder of thyroid, unspecified; E87.5 Hyperkalemia; I48.0 Paroxysmal atrial fibrillation; E11.22 Type 2 diabetes mellitus with diabetic chronic kidney disease; I50.9 Heart failure, unspecified; I27.20 Pulmonary hypertension, unspecified; D63.1 Anemia in chronic kidney disease; N25.0 Renal osteodystrophy; R00.1 Bradycardia, unspecified; Z20.822 Contact with and (suspected) exposure to COVID-19; G89.4 Chronic pain syndrome; D69.6 Thrombocytopenia, unspecified; E88.09 Other disorders of plasma-protein metabolism, not elsewhere classified; Z99.2 Dependence on renal dialysis; I25.2 Old myocardial infarction; Z95.0 Presence of cardiac pacemaker; Z95.3 Presence of xenogenic heart valve; Z95.2 Presence of prosthetic heart valve
CPT/HCPCS: 36415; 36600; 70450; 71045; 74176; 80048; 80053; 80069; 80162; 80202; 80320; 82805; 82962; 83605; 83735; 83880; 84439; 84443; 84481; 84484; 85007; 85014; 85018; 85025; 85027; 86850; 86900; 86901; 86920; 87040; 87070; 87077; 87081; 87186; 87205; 90935; 92610; 92950; 93005; 93306; 93970; 93971; 94002; 94003; 94640; 94660; 96361; 96365; 96366; 96367; 96368; 96375; 97110; 97116; 97163; 97530; C9113; G0378; J0171; J0330; J0696; J1642; J1815; J2250; J2543; J2704; J7060; P9047

== ENCOUNTER 2022-07-30 00:48 | Inpatient (IN) | payer MEDICARE, MEDICAID ==
[~2022-07-30] VITALS: Ht 152.4 cm; Wt 52.0 kg
[~2022-07-30 00:48] MED LIST changes: +AMIO200T33 PO; -WARF5TAB71 PO
[2022-07-30 02:12] LABS: BUN/Creatinine Ratio 8.5; Calcium 8.9 mg/dL (8.5-10.1); Hemoglobin 8.3 g/dL (12.2-16.2); Magnesium 2.5 mg/dL (1.6-2.6); Mean Corpuscular Volume 102.9 fL (80.0-100.0); Potassium 4.2 mmol/L (3.5-5.1)
[2022-07-30 02:14] LABS: Hematocrit 25.6 % (36.0-46.0); Mean Corpuscular Hemoglobin 33.5 pg (28.0-32.0); Mean Corpuscular Hgb Conc. 32.5 g/dL (32.0-36.0); Red Blood Cells 2.49 10^6/uL (4.0-5.20); Red Cell Distribution Width 16.3 % (11.8-14.3)
[2022-07-30 02:15] LABS: Bilirubin, Total 1.1 mg/dL (0.2-1.0); Total Protein 7.6 g/dL (6.4-8.2)
[2022-07-30 02:18] LABS: Lactic Acid w/Reflex 5.9 mmol/L (0.4-2.0)
[2022-07-30 02:22] LABS: White Blood Cell 31.4 10^3/uL (4.4-10.8)
[2022-07-30 02:26] LABS: Basophils % (manual) 0 (0.0-2.0); Blast Cells 0; Eosinophils % (manual) 0 (0-7); Metamyelocytes % 0; Myelocytes % 0; Promyelocytes % 0; Reactive Lymphocytes 0
[2022-07-30] MEDS ORDERED: MIDAZOLAM HCL 5 MG/ML-1ML VIAL IV ONE (02:30)
[2022-07-30] MEDS ORDERED: fentaNYL CITRATE 100 MCG/2 ML VL IV ONE (02:30)
[2022-07-30 02:36] LABS: INR 1.31 (0.9-1.15); Partial Thromboplastin Time 33.7 sec (24.6-33.4)
[2022-07-30] MEDS ORDERED: MIDAZOLAM HCL 2MG/2ML 2ml VIAL (1mg/ml) ONE ×2 (02:36→02:41)
[2022-07-30 04:02] LABS: Band Neutrophils % (manual) 12; Lymphocytes % (manual) 4 (10.0-50.0); Monocytes % (manual) 1 (0-12)
[2022-07-30] MEDS ORDERED: HEPARIN DRIP/D5W 100UNITS/ML 250 ML IV SCH (05:30)
[2022-07-30] MEDS ORDERED: VANCOMYCIN 1GM/250ML 250 ML IV ONE (05:30)
[2022-07-30] MEDS ORDERED: PIPERACILLIN-TAZOB 3.375GM 100 ML IV ONE (05:30)
[2022-07-30] MEDS ORDERED: NITROGLYCERIN 0.4 MG SL TAB SL PRN (05:45)
[2022-07-30] MEDS ORDERED: VANCOMYCIN PER PHARMACY 0 MG IV SCH (05:45)
[2022-07-30 05:55] LABS: Hemoglobin 7.4 g/dL (12.2-16.2)
[2022-07-30 05:57] LABS: Hematocrit 22.3 % (36.0-46.0); Mean Corpuscular Hemoglobin 33.8 pg (28.0-32.0); Mean Corpuscular Hgb Conc. 33.4 g/dL (32.0-36.0); Mean Corpuscular Volume 101.4 fL (80.0-100.0); Red Cell Distribution Width 16.3 % (11.8-14.3); White Blood Cell 22.6 10^3/uL (4.4-10.8)
[2022-07-30 06:04] LABS: Basophils % (manual) 0 (0.0-2.0); Blast Cells 0; Eosinophils % (manual) 0 (0-7); Metamyelocytes % 0; Myelocytes % 0; Promyelocytes % 0; Reactive Lymphocytes 0
[2022-07-30 06:42] LABS: INR 1.33 (0.9-1.15); Partial Thromboplastin Time 34.6 sec (24.6-33.4)
[2022-07-30] MEDS: SODIUM CHLORIDE 0.9% 1,000 ML IV SCH ×3 (06:50→22:06)
[2022-07-30 07:37] LABS: Band Neutrophils % (manual) 20; Lymphocytes % (manual) 3 (10.0-50.0); Monocytes % (manual) 2 (0-12)
[2022-07-30] MEDS: ONDANSETRON HCL 4 MG/2 ML VIAL IV PRN ×2 (08:06→23:33)
[2022-07-30] MEDS: MORPHINE SULFATE 4 MG/ML SYR/VIAL IV PRN ×2 (08:07→23:34)
[2022-07-30] MEDS ORDERED: LISINOPRIL 5 MG TAB PO SCH (10:00)
[2022-07-30] MEDS ORDERED: PIPERACILLIN-TAZOB 3.375GM 100 ML IV SCH (10:00)
[2022-07-30] MEDS ORDERED: dilTIAZem HCL 180MG ER CAP PO SCH (10:00)
[2022-07-30] MEDS: ENOXAPARIN SOD 60 MG/0.6 ML SYRINGE SC SCH ×2 (10:18→10:40)
[2022-07-30] MEDS: B-COMPLEX W/ C & FOLIC ACID(NEPHROVITE TAB) PO SCH (10:19)
[2022-07-30] MEDS: LEVOTHYROXINE SODIUM 100 MCG TAB PO SCH (10:19)
[2022-07-30] MEDS: CARVEDILOL 3.125 MG TAB PO SCH ×3 (10:20→22:00)
[2022-07-30] MEDS: ASPirin 81 mg TAB PO SCH (10:20)
[2022-07-30] MEDS: PANTOPRAZOLE 40 MG TAB PO SCH (10:21)
[2022-07-30] MEDS: AMIODARONE HCL 200 MG TAB PO SCH ×3 (10:21→22:00)
[2022-07-30] MEDS: DOCUSATE SOD 100 MG CAP PO SCH (10:22)
[2022-07-30] MEDS: CLOPIDOGREL BISULFATE 75 MG TAB PO SCH (10:22)
[2022-07-30] MEDS: ATORVASTATIN 20 MG TAB PO SCH ×2 (10:22→22:02)
[2022-07-30] MEDS: LORazepam 0.5 MG TAB PO PRN (21:28)
[2022-07-31] MEDS ORDERED: guaiFENesin 200 MG/10 ML UD GT PRN (06:30)
[2022-07-31] MEDS: guaiFENesin 200 MG/10 ML UD GT PRN (07:19)
[2022-07-31] MEDS ORDERED: VANCOMYCIN 1GM/250ML 250 ML IV ONE (09:15)
[2022-07-31] MEDS: DOCUSATE SOD 100 MG CAP PO SCH (10:00)
[2022-07-31] MEDS: AMIODARONE HCL 200 MG TAB PO SCH ×2 (10:00→23:10)
[2022-07-31] MEDS: LEVOTHYROXINE SODIUM 100 MCG TAB PO SCH (10:07)
[2022-07-31] MEDS: ASPirin 81 mg TAB PO SCH (10:07)
[2022-07-31] MEDS: ATORVASTATIN 20 MG TAB PO SCH ×2 (10:07→23:10)
[2022-07-31] MEDS: B-COMPLEX W/ C & FOLIC ACID(NEPHROVITE TAB) PO SCH (10:07)
[2022-07-31] MEDS: PANTOPRAZOLE 40 MG TAB PO SCH (10:07)
[2022-07-31] MEDS: CLOPIDOGREL BISULFATE 75 MG TAB PO SCH (10:07)
[2022-07-31] MEDS: ENOXAPARIN SOD 60 MG/0.6 ML SYRINGE SC SCH (10:08)
[2022-07-31] MEDS: NOREPINEPHRINE 8 MG/250ML KIT 250 ML IV SCH (11:27)
[2022-07-31] MEDS: PIPERACILLIN-TAZOB 2.25GM 50 ML IV SCH ×2 (13:20→23:09)
[2022-07-31 14:54] LABS: INR 1.19 (0.9-1.15)
[2022-07-31] MEDS: ACETAMINOPHEN 325 MG TAB PO PRN (16:01)
[2022-07-31] MEDS ORDERED: WARFARIN SODIUM 2 MG TAB PO ONE (17:00)
[2022-08-01] MEDS: LORazepam 0.5 MG TAB PO PRN (00:04)
[2022-08-01] MEDS: ACETAMINOPHEN 325 MG TAB PO PRN ×2 (01:29→05:54)
[2022-08-01] MEDS: PIPERACILLIN-TAZOB 2.25GM 50 ML IV SCH ×2 (06:07→14:25)
[2022-08-01 06:29] LABS: Basophils # (auto) 0.1 10 ^3/uL (0-0.2); Eosinophils # (auto) 0.1 10 ^3/uL (0-0.8); INR 1.22 (0.9-1.15); Partial Thromboplastin Time 37.3 sec (24.6-33.4)
[2022-08-01 06:32] LABS: Basophils % (auto) 0.3 % (0.0-2.0); Eosinophils % (auto) 0.2 % (0.0-7.0); Hematocrit 20.9 % (36.0-46.0); Lymphocytes # (auto) 1.1 10 ^3/uL (0.4-5.4); Lymphocytes % (auto) 3.2 % (10.0-50.0); Mean Corpuscular Hemoglobin 32.7 pg (28.0-32.0); Mean Corpuscular Volume 102.1 fL (80.0-100.0); Monocytes % (auto) 2.9 % (0.0-12.0); Neutrophils # (auto) 32.2 10 ^3/uL (1.6-8.6); Neutrophils % (auto) 93.4 % (37.0-80.0); Nucleated Red Blood Cells % 0.3 %; Red Blood Cells 2.05 10^6/uL (4.0-5.20); Red Cell Distribution Width 16.1 % (11.8-14.3)
[2022-08-01 06:44] LABS: Albumin 2.4 g/dL (3.4-5.0); Calcium 8.3 mg/dL (8.5-10.1); Potassium 4.8 mmol/L (3.5-5.1)
[2022-08-01 06:49] LABS: BUN/Creatinine Ratio 9.2; Bilirubin, Total 1.1 mg/dL (0.2-1.0); Total Protein 6.3 g/dL (6.4-8.2)
[2022-08-01] MEDS ORDERED: SODIUM CHL 0.9% 1000 ML BAG XX ONE (07:00)
[2022-08-01 07:23] LABS: Hemoglobin 6.7 g/dL (12.2-16.2); White Blood Cell 34.5 10^3/uL (4.4-10.8)
[2022-08-01] MEDS ORDERED: HYDROmorphone HCL 2 MG/ML VL/or syr IV ONE (09:15)
[2022-08-01] MEDS: ASPirin 81 mg TAB PO SCH (10:59)
[2022-08-01] MEDS: CLOPIDOGREL BISULFATE 75 MG TAB PO SCH (10:59)
[2022-08-01] MEDS: NOREPINEPHRINE 8 MG/250ML KIT 250 ML IV SCH (11:15)
[2022-08-01] MEDS: DOCUSATE SOD 100 MG CAP PO SCH (11:30)
[2022-08-01] MEDS: PANTOPRAZOLE 40 MG TAB PO SCH (11:31)
[2022-08-01] MEDS: ATORVASTATIN 20 MG TAB PO SCH (11:31)
[2022-08-01] MEDS: AMIODARONE HCL 200 MG TAB PO SCH (11:31)
[2022-08-01] MEDS: B-COMPLEX W/ C & FOLIC ACID(NEPHROVITE TAB) PO SCH (11:36)
[2022-08-01] MEDS: LEVOTHYROXINE SODIUM 100 MCG TAB PO SCH (11:36)
[2022-08-01] MEDS ORDERED: BUMETANIDE 2.5mg/10ml (0.25 mg/ml) INJ IV ONE (13:15)
[2022-08-01] MEDS ORDERED: WARFARIN SODIUM 2.5 MG TAB PO ONE (17:00)
[2022-08-01] MEDS: BUMETANIDE 2.5mg/10ml (0.25 mg/ml) INJ IV SCH (18:00)
[2022-08-01] MEDS: diphenhdrAMINE HCL 50 MG/1 ML VL IV PRN (19:11)
[2022-08-01] MEDS: guaiFENesin 200 MG/10 ML UD GT PRN (19:11)
[2022-08-01] MEDS ORDERED: EPOETIN ALFA-EPBX 4,000 UNIT/ML VIAL SC ONE (21:00)
[2022-08-02] MEDS: PIPERACILLIN-TAZOB 2.25GM 50 ML IV SCH ×3 (01:48→15:27)
[2022-08-02] MEDS: AMIODARONE HCL 200 MG TAB PO SCH ×3 (01:48→23:34)
[2022-08-02] MEDS: ATORVASTATIN 20 MG TAB PO SCH ×3 (01:48→23:33)
[2022-08-02] MEDS: NOREPINEPHRINE 8 MG/250ML KIT 250 ML IV SCH (02:17)
[2022-08-02 09:00] VITALS: BP 137/56
[2022-08-02 09:09] LABS: Hemoglobin 7.1 g/dL (12.2-16.2)
[2022-08-02 09:12] LABS: BUN/Creatinine Ratio 9.2; Calcium 8.2 mg/dL (8.5-10.1); Hematocrit 21.9 % (36.0-46.0); Mean Corpuscular Hemoglobin 34.3 pg (28.0-32.0); Mean Corpuscular Hgb Conc. 32.5 g/dL (32.0-36.0); Mean Corpuscular Volume 105.5 fL (80.0-100.0); Potassium 5.5 mmol/L (3.5-5.1); Red Blood Cells 2.08 10^6/uL (4.0-5.20); Red Cell Distribution Width 16.5 % (11.8-14.3); White Blood Cell 25.4 10^3/uL (4.4-10.8)
[2022-08-02 09:14] LABS: Basophils % (manual) 0 (0.0-2.0); Blast Cells 0; Eosinophils % (manual) 0 (0-7); Metamyelocytes % 0; Promyelocytes % 0; Reactive Lymphocytes 0
[2022-08-02 09:15] VITALS: BP 127/56
[2022-08-02 09:51] VITALS: BP 139/58
[2022-08-02] MEDS: diphenhdrAMINE HCL 50 MG/1 ML VL IV PRN ×2 (09:57→15:31)
[2022-08-02 10:32] LABS: Band Neutrophils % (manual) 47; Lymphocytes % (manual) 3 (10.0-50.0); Monocytes % (manual) 3 (0-12); Myelocytes % 1
[2022-08-02] MEDS: ENOXAPARIN SOD 100 MG/1 ML SYRINGE SC SCH (11:49)
[2022-08-02] MEDS: ASPirin 81 mg TAB PO SCH (12:03)
[2022-08-02] MEDS: LEVOTHYROXINE SODIUM 100 MCG TAB PO SCH (12:03)
[2022-08-02] MEDS: PANTOPRAZOLE 40 MG TAB PO SCH (12:04)
[2022-08-02] MEDS: B-COMPLEX W/ C & FOLIC ACID(NEPHROVITE TAB) PO SCH (12:04)
[2022-08-02] MEDS: CLOPIDOGREL BISULFATE 75 MG TAB PO SCH (12:04)
[2022-08-02] MEDS: DOCUSATE SOD 100 MG CAP PO SCH (12:04)
[2022-08-02] MEDS: BUMETANIDE 2.5mg/10ml (0.25 mg/ml) INJ IV SCH ×2 (18:00→19:06)
[2022-08-02] MEDS ORDERED: EPOETIN ALFA-EPBX 4,000 UNIT/ML VIAL SC ONE (21:00)
[2022-08-02] MEDS: guaiFENesin 200 MG/10 ML UD GT PRN (23:33)
[2022-08-02] MEDS: LORazepam 0.5 MG TAB PO PRN (23:34)
[2022-08-03] MEDS: diphenhdrAMINE HCL 50 MG/1 ML VL IV PRN ×3 (00:44→21:22)
[2022-08-03] MEDS: BUMETANIDE 2.5mg/10ml (0.25 mg/ml) INJ IV SCH ×2 (06:00→17:27)
[2022-08-03] MEDS: ENOXAPARIN SOD 100 MG/1 ML SYRINGE SC SCH (10:00)
[2022-08-03] MEDS: ASPirin 81 mg TAB PO SCH (10:09)
[2022-08-03] MEDS: DOCUSATE SOD 100 MG CAP PO SCH (10:09)
[2022-08-03] MEDS: CLOPIDOGREL BISULFATE 75 MG TAB PO SCH (10:09)
[2022-08-03] MEDS: ATORVASTATIN 20 MG TAB PO SCH ×2 (10:09→21:21)
[2022-08-03] MEDS: LEVOTHYROXINE SODIUM 100 MCG TAB PO SCH (10:09)
[2022-08-03] MEDS: AMIODARONE HCL 200 MG TAB PO SCH ×2 (10:09→21:21)
[2022-08-03] MEDS: B-COMPLEX W/ C & FOLIC ACID(NEPHROVITE TAB) PO SCH (10:09)
[2022-08-03] MEDS: PANTOPRAZOLE 40 MG TAB PO SCH (10:12)
[2022-08-03] MEDS: LORazepam 0.5 MG TAB PO PRN ×2 (10:39→23:09)
[2022-08-03] MEDS: NOREPINEPHRINE 8 MG/250ML KIT 250 ML IV SCH (11:48)
[2022-08-03 12:24] LABS: Basophils # (auto) 0.1 10 ^3/uL (0-0.2); Basophils % (auto) 0.4 % (0.0-2.0); Hemoglobin 8.2 g/dL (12.2-16.2); Mean Corpuscular Hemoglobin 33.2 pg (28.0-32.0); Mean Corpuscular Hgb Conc. 33.6 g/dL (32.0-36.0)
[2022-08-03 12:26] LABS: BUN/Creatinine Ratio 7.9; Calcium 8.4 mg/dL (8.5-10.1); Potassium 4.9 mmol/L (3.5-5.1)
[2022-08-03 12:27] LABS: Eosinophils # (auto) 0.1 10 ^3/uL (0-0.8); Eosinophils % (auto) 0.4 % (0.0-7.0); Hematocrit 24.5 % (36.0-46.0); Lymphocytes # (auto) 0.5 10 ^3/uL (0.4-5.4); Lymphocytes % (auto) 2.4 % (10.0-50.0); Mean Corpuscular Volume 98.8 fL (80.0-100.0); Monocytes % (auto) 4.7 % (0.0-12.0); Neutrophils # (auto) 18.9 10 ^3/uL (1.6-8.6); Neutrophils % (auto) 92.1 % (37.0-80.0); Nucleated Red Blood Cells % 0.1 %; Red Blood Cells 2.48 10^6/uL (4.0-5.20); Red Cell Distribution Width 17.5 % (11.8-14.3); White Blood Cell 20.5 10^3/uL (4.4-10.8)
[2022-08-03 17:00] VITALS: BP 103/51
[2022-08-03 18:59] VITALS: BP 103/51
[2022-08-03] MEDS ORDERED: EPOETIN ALFA-EPBX 4,000 UNIT/ML VIAL SC ONE (21:00)
[2022-08-03 22:00] VITALS: BP 124/60
[2022-08-04] MEDS: diphenhdrAMINE HCL 50 MG/1 ML VL IV PRN ×2 (03:28→21:44)
[2022-08-04 04:00] VITALS: BP 137/68
[2022-08-04] MEDS: LORazepam 0.5 MG TAB PO PRN ×2 (05:46→20:39)
[2022-08-04] MEDS: BUMETANIDE 2.5mg/10ml (0.25 mg/ml) INJ IV SCH ×2 (05:46→18:51)
[2022-08-04] MEDS: ACETAMINOPHEN 325 MG TAB PO PRN ×2 (06:59→21:44)
[2022-08-04] MEDS: B-COMPLEX W/ C & FOLIC ACID(NEPHROVITE TAB) PO SCH (08:54)
[2022-08-04] MEDS: ATORVASTATIN 20 MG TAB PO SCH ×2 (08:55→21:44)
[2022-08-04] MEDS: PANTOPRAZOLE 40 MG TAB PO SCH (08:55)
[2022-08-04] MEDS: AMIODARONE HCL 200 MG TAB PO SCH ×2 (08:55→21:43)
[2022-08-04] MEDS: DOCUSATE SOD 100 MG CAP PO SCH (08:55)
[2022-08-04] MEDS: LEVOTHYROXINE SODIUM 100 MCG TAB PO SCH (08:55)
[2022-08-04] MEDS: ASPirin 81 mg TAB PO SCH (08:55)
[2022-08-04] MEDS: ENOXAPARIN SOD 100 MG/1 ML SYRINGE SC SCH (08:56)
[2022-08-04 09:00] VITALS: BP 136/64
[2022-08-04] MEDS: MORPHINE SULFATE 4 MG/ML SYR/VIAL IV PRN (12:50)
[2022-08-04 13:00] VITALS: BP 120/65
[2022-08-04] MEDS ORDERED: NITROGLYCERIN 0.2MG/HR TOPICAL PATCH TD ONE (13:30)
[2022-08-04 15:01] LABS: BUN/Creatinine Ratio 7.3; Calcium 8.3 mg/dL (8.5-10.1); Potassium 4.2 mmol/L (3.5-5.1)
[2022-08-04 17:00] VITALS: BP 108/56
[2022-08-04] MEDS ORDERED: EPOETIN ALFA-EPBX 10,000 UNIT/1ML VIAL SC ONE (21:00)
[2022-08-04 22:00] VITALS: BP 140/68
[2022-08-05] MEDS: MORPHINE SULFATE 4 MG/ML SYR/VIAL IV PRN (00:02)
[2022-08-05] MEDS ORDERED: TEMAZEPAM 15 MG CAP PO ONE (00:30)
[2022-08-05 05:00] VITALS: BP 123/58
[2022-08-05] MEDS: diphenhdrAMINE HCL 50 MG/1 ML VL IV PRN ×2 (06:37→17:12)
[2022-08-05] MEDS: BUMETANIDE 2.5mg/10ml (0.25 mg/ml) INJ IV SCH ×2 (06:37→18:03)
[2022-08-05 08:10] VITALS: BP 126/63
[2022-08-05 09:00] VITALS: BP 126/63
[2022-08-05] MEDS: LORazepam 0.5 MG TAB PO PRN (09:23)
[2022-08-05] MEDS: ACETAMINOPHEN 325 MG TAB PO PRN (09:23)
[2022-08-05] MEDS: LEVOTHYROXINE SODIUM 100 MCG TAB PO SCH (10:18)
[2022-08-05] MEDS: B-COMPLEX W/ C & FOLIC ACID(NEPHROVITE TAB) PO SCH (10:18)
[2022-08-05] MEDS: DOCUSATE SOD 100 MG CAP PO SCH (10:18)
[2022-08-05] MEDS: PANTOPRAZOLE 40 MG TAB PO SCH (10:18)
[2022-08-05] MEDS: AMIODARONE HCL 200 MG TAB PO SCH ×2 (10:19→21:42)
[2022-08-05] MEDS: ENOXAPARIN SOD 100 MG/1 ML SYRINGE SC SCH (10:19)
[2022-08-05] MEDS: ASPirin 81 mg TAB PO SCH (10:19)
[2022-08-05] MEDS ORDERED: VANCOMYCIN 1GM/250ML 250 ML IV ONE (11:00)
[2022-08-05 13:00] VITALS: BP 134/72
[2022-08-05] MEDS ORDERED: SODIUM CHL 0.9% 1000 ML BAG XX ONE (14:30)
[2022-08-05 17:00] VITALS: BP 132/63
[2022-08-05] MEDS ORDERED: EPOETIN ALFA-EPBX 10,000 UNIT/1ML VIAL SC ONE (21:00)
[2022-08-05] MEDS: ATORVASTATIN 20 MG TAB PO SCH (21:42)
[2022-08-05] MEDS: TEMAZEPAM 15 MG CAP PO PRN (21:43)
[2022-08-05 22:00] VITALS: BP 148/67
[2022-08-06 05:00] VITALS: BP 135/64
[2022-08-06] MEDS: BUMETANIDE 2.5mg/10ml (0.25 mg/ml) INJ IV SCH ×2 (06:24→18:06)
[2022-08-06] MEDS: diphenhdrAMINE HCL 50 MG/1 ML VL IV PRN ×2 (06:24→22:06)
[2022-08-06 06:34] LABS: Basophils # (auto) 0 10 ^3/uL (0-0.2); Basophils % (auto) 0.3 % (0.0-2.0); Eosinophils # (auto) 0.1 10 ^3/uL (0-0.8); Eosinophils % (auto) 0.5 % (0.0-7.0); Hematocrit 25.9 % (36.0-46.0); Hemoglobin 8.2 g/dL (12.2-16.2); Lymphocytes # (auto) 0.7 10 ^3/uL (0.4-5.4); Lymphocytes % (auto) 4.9 % (10.0-50.0); Mean Corpuscular Hemoglobin 31.9 pg (28.0-32.0); Mean Corpuscular Hgb Conc. 31.7 g/dL (32.0-36.0); Mean Corpuscular Volume 100.5 fL (80.0-100.0); Monocytes # (auto) 1.2 10 ^3/uL (0-1.3); Monocytes % (auto) 8.3 % (0.0-12.0); Neutrophils # (auto) 11.9 10 ^3/uL (1.6-8.6); Nucleated Red Blood Cells % 0.1 %; Red Blood Cells 2.58 10^6/uL (4.0-5.20); Red Cell Distribution Width 18.3 % (11.8-14.3); White Blood Cell 13.9 10^3/uL (4.4-10.8)
[2022-08-06 06:41] LABS: BUN/Creatinine Ratio 7.5; Calcium 8.4 mg/dL (8.5-10.1); Potassium 4.6 mmol/L (3.5-5.1)
[2022-08-06 08:00] VITALS: BP 136/69
[2022-08-06] MEDS: DOCUSATE SOD 100 MG CAP PO SCH (09:50)
[2022-08-06] MEDS: ASPirin 81 mg TAB PO SCH (09:50)
[2022-08-06] MEDS: B-COMPLEX W/ C & FOLIC ACID(NEPHROVITE TAB) PO SCH (09:51)
[2022-08-06] MEDS: ENOXAPARIN SOD 100 MG/1 ML SYRINGE SC SCH (09:51)
[2022-08-06] MEDS: PANTOPRAZOLE 40 MG TAB PO SCH (09:51)
[2022-08-06] MEDS: AMIODARONE HCL 200 MG TAB PO SCH ×2 (09:51→22:05)
[2022-08-06] MEDS: LEVOTHYROXINE SODIUM 100 MCG TAB PO SCH (09:51)
[2022-08-06] MEDS: LORazepam 0.5 MG TAB PO PRN (09:55)
[2022-08-06] MEDS: ACETAMINOPHEN 325 MG TAB PO PRN ×2 (09:56→22:06)
[2022-08-06 12:00] VITALS: BP 113/55
[2022-08-06 16:00] VITALS: BP 133/63
[2022-08-06 22:00] VITALS: BP 164/77
[2022-08-06] MEDS: ATORVASTATIN 20 MG TAB PO SCH (22:05)
[2022-08-06] MEDS: TEMAZEPAM 15 MG CAP PO PRN (22:06)
[2022-08-06] MEDS: MORPHINE SULFATE INJ 2 MG/ml SYRG IV PRN (23:56)
[2022-08-07] VITALS (8 sets, daily range): BP systolic 114–169; BP diastolic 64–84
[2022-08-07] MEDS: LORazepam 0.5 MG TAB PO PRN (02:22)
[2022-08-07] MEDS: diphenhdrAMINE HCL 50 MG/1 ML VL IV PRN ×2 (06:25→16:11)
[2022-08-07] MEDS: BUMETANIDE 2.5mg/10ml (0.25 mg/ml) INJ IV SCH ×2 (06:26→17:32)
[2022-08-07 07:28] LABS: Eosinophils # (auto) 0.1 10 ^3/uL (0-0.8); Hemoglobin 7.8 g/dL (12.2-16.2); Monocytes # (auto) 1.2 10 ^3/uL (0-1.3); Monocytes % (auto) 8.7 % (0.0-12.0); Nucleated Red Blood Cells % 0.1 %
[2022-08-07 07:32] LABS: Basophils # (auto) 0 10 ^3/uL (0-0.2); Basophils % (auto) 0.3 % (0.0-2.0); Eosinophils % (auto) 0.7 % (0.0-7.0); Hematocrit 24.6 % (36.0-46.0); Lymphocytes # (auto) 1.1 10 ^3/uL (0.4-5.4); Lymphocytes % (auto) 7.7 % (10.0-50.0); Mean Corpuscular Hemoglobin 31.9 pg (28.0-32.0); Mean Corpuscular Hgb Conc. 31.8 g/dL (32.0-36.0); Mean Corpuscular Volume 100.4 fL (80.0-100.0); Neutrophils # (auto) 11.6 10 ^3/uL (1.6-8.6); Neutrophils % (auto) 82.6 % (37.0-80.0); Red Blood Cells 2.45 10^6/uL (4.0-5.20); Red Cell Distribution Width 18.7 % (11.8-14.3)
[2022-08-07 07:42] LABS: BUN/Creatinine Ratio 8.4; Calcium 8.5 mg/dL (8.5-10.1); INR 1.08 (0.9-1.15); Partial Thromboplastin Time 39.1 sec (24.6-33.4); Potassium 5.2 mmol/L (3.5-5.1)
[2022-08-07] MEDS: ASPirin 81 mg TAB PO SCH (09:13)
[2022-08-07] MEDS: MORPHINE SULFATE INJ 2 MG/ml SYRG IV PRN ×2 (09:13→19:53)
[2022-08-07] MEDS: DOCUSATE SOD 100 MG CAP PO SCH (09:13)
[2022-08-07] MEDS: AMIODARONE HCL 200 MG TAB PO SCH ×2 (09:13→22:16)
[2022-08-07] MEDS: LEVOTHYROXINE SODIUM 100 MCG TAB PO SCH (09:14)
[2022-08-07] MEDS: B-COMPLEX W/ C & FOLIC ACID(NEPHROVITE TAB) PO SCH (09:14)
[2022-08-07] MEDS: PANTOPRAZOLE 40 MG TAB PO SCH (09:14)
[2022-08-07] MEDS ORDERED: ENOXAPARIN SOD 60 MG/0.6 ML SYRINGE SC SCH (10:00)
[2022-08-07] MEDS ORDERED: HEPARIN SODIUM (PORCINE) 5000 UNITS/ML 1ML VIAL ONE (14:14)
[2022-08-07] MEDS ORDERED: fentaNYL CITRATE 100 MCG/2 ML VL ONE (14:14)
[2022-08-07] MEDS ORDERED: MIDAZOLAM HCL 2MG/2ML 2ml VIAL (1mg/ml) ONE (14:14)
[2022-08-07] MEDS ORDERED: IODIXANOL 320MG/ML 100ML BTL IV ONE (14:15)
[2022-08-07] MEDS ORDERED: LIDOCAINE 2%HCL (LOCAL ANESTH.) INJ 10ml MDV ONE (14:15)
[2022-08-07] MEDS ORDERED: SODIUM CHL 0.9% 1000 ML BAG XX ONE (14:45)
[2022-08-07] MEDS: FERROUS SULFATE 325mg EC TAB PO SCH (17:33)
[2022-08-07] MEDS: ATORVASTATIN 20 MG TAB PO SCH (22:16)
[2022-08-07] MEDS: TEMAZEPAM 15 MG CAP PO PRN (22:17)
[2022-08-07] MEDS: guaiFENesin 200 MG/10 ML UD GT PRN (22:17)
[2022-08-08] MEDS: guaiFENesin 200 MG/10 ML UD GT PRN ×2 (02:56→08:46)
[2022-08-08] MEDS: LORazepam 0.5 MG TAB PO PRN (03:10)
[2022-08-08] MEDS: diphenhdrAMINE HCL 50 MG/1 ML VL IV PRN ×3 (03:10→23:30)
[2022-08-08] MEDS: MORPHINE SULFATE INJ 2 MG/ml SYRG IV PRN ×3 (04:13→18:30)
[2022-08-08 05:00] VITALS: BP 164/106
[2022-08-08] MEDS: BUMETANIDE 2.5mg/10ml (0.25 mg/ml) INJ IV SCH ×2 (05:16→18:00)
[2022-08-08 05:32] LABS: Basophils # (auto) 0.1 10 ^3/uL (0-0.2); Eosinophils # (auto) 0 10 ^3/uL (0-0.8); Eosinophils % (auto) 0.1 % (0.0-7.0); Hemoglobin 7.8 g/dL (12.2-16.2); Mean Corpuscular Hgb Conc. 30.9 g/dL (32.0-36.0); Monocytes # (auto) 1.6 10 ^3/uL (0-1.3); Monocytes % (auto) 7.1 % (0.0-12.0); Red Blood Cells 2.44 10^6/uL (4.0-5.20)
[2022-08-08 05:35] LABS: Basophils % (auto) 0.4 % (0.0-2.0); Hematocrit 25.2 % (36.0-46.0); Lymphocytes # (auto) 0.8 10 ^3/uL (0.4-5.4); Lymphocytes % (auto) 3.7 % (10.0-50.0); Mean Corpuscular Hemoglobin 31.9 pg (28.0-32.0); Mean Corpuscular Volume 103.3 fL (80.0-100.0); Neutrophils # (auto) 19.5 10 ^3/uL (1.6-8.6); Neutrophils % (auto) 88.7 % (37.0-80.0); Red Cell Distribution Width 19.1 % (11.8-14.3)
[2022-08-08 05:49] LABS: Potassium 4.7 mmol/L (3.5-5.1)
[2022-08-08 05:52] LABS: BUN/Creatinine Ratio 8.6
[2022-08-08] MEDS ORDERED: SODIUM CHL 0.9% 1000 ML BAG XX ONE (07:00)
[2022-08-08 08:00] VITALS: BP 132/75
[2022-08-08] MEDS: FERROUS SULFATE 325mg EC TAB PO SCH ×2 (08:45→18:29)
[2022-08-08 09:00] VITALS: BP 132/75
[2022-08-08] MEDS ORDERED: SILDENAFIL CITRATE 20 MG TAB PO ONE (09:15)
[2022-08-08] MEDS ORDERED: CARVEDILOL 3.125 MG TAB PO ONE (09:15)
[2022-08-08] MEDS: CARVEDILOL 3.125 MG TAB PO SCH ×2 (10:00→22:00)
[2022-08-08] MEDS: B-COMPLEX W/ C & FOLIC ACID(NEPHROVITE TAB) PO SCH (11:13)
[2022-08-08] MEDS: LEVOTHYROXINE SODIUM 100 MCG TAB PO SCH (11:13)
[2022-08-08] MEDS: AMIODARONE HCL 200 MG TAB PO SCH ×2 (11:14→22:00)
[2022-08-08] MEDS: PANTOPRAZOLE 40 MG TAB PO SCH (11:14)
[2022-08-08] MEDS: DOCUSATE SOD 100 MG CAP PO SCH (11:16)
[2022-08-08] MEDS: ASPirin 81 mg TAB PO SCH (11:16)
[2022-08-08 13:00] VITALS: BP 145/65
[2022-08-08] MEDS: SILDENAFIL CITRATE 20 MG TAB PO SCH ×2 (13:34→21:59)
[2022-08-08 17:00] VITALS: BP 101/53
[2022-08-08] MEDS ORDERED: EPOETIN ALFA-EPBX 10,000 UNIT/1ML VIAL SC ONE (21:00)
[2022-08-08] MEDS: TEMAZEPAM 15 MG CAP PO PRN (21:59)
[2022-08-08 22:00] VITALS: BP 114/56
[2022-08-08] MEDS: ATORVASTATIN 20 MG TAB PO SCH (22:01)
[2022-08-09] VITALS (12 sets, daily range): BP systolic 89–151; BP diastolic 46–75
[2022-08-09] MEDS: MORPHINE SULFATE INJ 2 MG/ml SYRG IV PRN (00:44)
[2022-08-09] MEDS: BUMETANIDE 2.5mg/10ml (0.25 mg/ml) INJ IV SCH (06:00)
[2022-08-09 06:51] LABS: Potassium 5.3 mmol/L (3.5-5.1)
[2022-08-09 06:52] LABS: BUN/Creatinine Ratio 8.6
[2022-08-09 06:56] LABS: Basophils # (auto) 0.1 10 ^3/uL (0-0.2); Eosinophils # (auto) 0.1 10 ^3/uL (0-0.8); Nucleated Red Blood Cells % 0.1 %
[2022-08-09 06:58] LABS: Basophils % (auto) 0.5 % (0.0-2.0); Eosinophils % (auto) 0.4 % (0.0-7.0); Hemoglobin 7.9 g/dL (12.2-16.2); Lymphocytes # (auto) 0.9 10 ^3/uL (0.4-5.4); Lymphocytes % (auto) 4.4 % (10.0-50.0); Mean Corpuscular Hemoglobin 32.3 pg (28.0-32.0); Mean Corpuscular Hgb Conc. 31.4 g/dL (32.0-36.0); Mean Corpuscular Volume 103.1 fL (80.0-100.0); Monocytes # (auto) 1.3 10 ^3/uL (0-1.3); Monocytes % (auto) 6.4 % (0.0-12.0); Neutrophils # (auto) 17.5 10 ^3/uL (1.6-8.6); Neutrophils % (auto) 88.3 % (37.0-80.0); Red Blood Cells 2.43 10^6/uL (4.0-5.20); Red Cell Distribution Width 19.4 % (11.8-14.3); White Blood Cell 19.8 10^3/uL (4.4-10.8)
[2022-08-09] MEDS: FERROUS SULFATE 325mg EC TAB PO SCH ×2 (08:00→17:48)
[2022-08-09] MEDS: SILDENAFIL CITRATE 20 MG TAB PO SCH ×3 (08:00→20:22)
[2022-08-09] MEDS ORDERED: SODIUM CHL 0.9% 1000 ML BAG XX ONE (08:15)
[2022-08-09] MEDS: diphenhdrAMINE HCL 50 MG/1 ML VL IV PRN (08:42)
[2022-08-09] MEDS: PANTOPRAZOLE 40 MG TAB PO SCH (10:00)
[2022-08-09] MEDS: B-COMPLEX W/ C & FOLIC ACID(NEPHROVITE TAB) PO SCH (10:00)
[2022-08-09] MEDS: ASPirin 81 mg TAB PO SCH (10:00)
[2022-08-09] MEDS: CARVEDILOL 3.125 MG TAB PO SCH ×2 (10:00→22:29)
[2022-08-09] MEDS: LEVOTHYROXINE SODIUM 100 MCG TAB PO SCH (10:00)
[2022-08-09] MEDS: DOCUSATE SOD 100 MG CAP PO SCH (10:00)
[2022-08-09] MEDS: AMIODARONE HCL 200 MG TAB PO SCH ×2 (10:00→22:33)
[2022-08-09] MEDS ORDERED: ALBUMIN 5% 250 ML IV ONE (11:30)
[2022-08-09] MEDS ORDERED: fentaNYL CITRATE 100 MCG/2 ML VL IV ONE (12:15)
[2022-08-09] MEDS ORDERED: LIDOCAINE VISCOUS 2% 15ML UD MT ONE (12:15)
[2022-08-09] MEDS ORDERED: MIDAZOLAM HCL 2MG/2ML 2ml VIAL (1mg/ml) IV ONE (12:15)
[2022-08-09] MEDS ORDERED: VANCOMYCIN 500 MG in D5W 5% 100 ML IV ONE (16:00)
[2022-08-09] MEDS: ACETAMINOPHEN 325 MG TAB PO PRN (20:30)
[2022-08-09] MEDS ORDERED: EPOETIN ALFA-EPBX 10,000 UNIT/1ML VIAL SC ONE (21:00)
[2022-08-09] MEDS: ATORVASTATIN 20 MG TAB PO SCH (22:28)
[2022-08-10] MEDS: diphenhdrAMINE HCL 50 MG/1 ML VL IV PRN ×2 (02:25→13:10)
[2022-08-10] MEDS: ACETAMINOPHEN 325 MG TAB PO PRN (04:27)
[2022-08-10 05:00] VITALS: BP 102/45
[2022-08-10 06:12] LABS: Basophils # (auto) 0.1 10 ^3/uL (0-0.2); Basophils % (auto) 0.5 % (0.0-2.0); Eosinophils # (auto) 0.1 10 ^3/uL (0-0.8); Eosinophils % (auto) 0.6 % (0.0-7.0); Hematocrit 23.2 % (36.0-46.0); Hemoglobin 7.5 g/dL (12.2-16.2); Lymphocytes # (auto) 0.8 10 ^3/uL (0.4-5.4); Lymphocytes % (auto) 6.3 % (10.0-50.0); Mean Corpuscular Hemoglobin 33.4 pg (28.0-32.0); Mean Corpuscular Hgb Conc. 32.5 g/dL (32.0-36.0); Mean Corpuscular Volume 102.8 fL (80.0-100.0); Monocytes # (auto) 1.2 10 ^3/uL (0-1.3); Monocytes % (auto) 8.7 % (0.0-12.0); Neutrophils # (auto) 11.2 10 ^3/uL (1.6-8.6); Neutrophils % (auto) 83.9 % (37.0-80.0); Nucleated Red Blood Cells % 0.1 %; Red Blood Cells 2.25 10^6/uL (4.0-5.20); Red Cell Distribution Width 19.4 % (11.8-14.3); White Blood Cell 13.4 10^3/uL (4.4-10.8)
[2022-08-10 06:28] LABS: Potassium 4.1 mmol/L (3.5-5.1)
[2022-08-10 06:33] LABS: Albumin 2.3 g/dL (3.4-5.0); Calcium 8.4 mg/dL (8.5-10.1)
[2022-08-10 06:36] LABS: Bilirubin, Total 0.8 mg/dL (0.2-1.0); Total Protein 6.3 g/dL (6.4-8.2)
[2022-08-10] MEDS: SILDENAFIL CITRATE 20 MG TAB PO SCH ×3 (08:00→20:24)
[2022-08-10 09:00] VITALS: BP 100/48
[2022-08-10] MEDS ORDERED: MORPHINE SULFATE INJ 2 MG/ml SYRG IV ONE (09:45)
[2022-08-10] MEDS: PANTOPRAZOLE 40 MG TAB PO SCH (09:46)
[2022-08-10] MEDS: B-COMPLEX W/ C & FOLIC ACID(NEPHROVITE TAB) PO SCH (09:46)
[2022-08-10] MEDS: MORPHINE SULFATE INJ 2 MG/ml SYRG IV PRN ×2 (09:46→17:35)
[2022-08-10] MEDS: DOCUSATE SOD 100 MG CAP PO SCH (09:46)
[2022-08-10] MEDS: FERROUS SULFATE 325mg EC TAB PO SCH ×2 (09:46→17:35)
[2022-08-10] MEDS: ASPirin 81 mg TAB PO SCH (09:46)
[2022-08-10] MEDS: LEVOTHYROXINE SODIUM 100 MCG TAB PO SCH (09:46)
[2022-08-10] MEDS: AMIODARONE HCL 200 MG TAB PO SCH ×2 (09:59→21:51)
[2022-08-10] MEDS: CARVEDILOL 3.125 MG TAB PO SCH ×2 (09:59→21:50)
[2022-08-10 12:36] VITALS: BP 98/42
[2022-08-10 13:06] LABS: Hepatitis A Ab IgM Negative; Hepatitis B Core IgM Negative
[2022-08-10 13:07] LABS: Hepatitis C Antibody Negative (Negative)
[2022-08-10] MEDS: LORazepam 0.5 MG TAB PO PRN (13:10)
[2022-08-10 17:00] VITALS: BP 118/65
[2022-08-10 17:30] LABS: % Iron Saturation 13.8 % (15-50)
[2022-08-10] MEDS: ATORVASTATIN 20 MG TAB PO SCH (21:51)
[2022-08-10 22:00] VITALS: BP 118/69
[2022-08-11] MEDS: MORPHINE SULFATE INJ 2 MG/ml SYRG IV PRN ×2 (00:25→08:56)
[2022-08-11] MEDS: TEMAZEPAM 15 MG CAP PO PRN ×2 (01:03→22:12)
[2022-08-11] MEDS: diphenhdrAMINE HCL 50 MG/1 ML VL IV PRN ×3 (03:01→23:06)
[2022-08-11 05:00] VITALS: BP 127/70
[2022-08-11 08:02] LABS: Basophils # (auto) 0.1 10 ^3/uL (0-0.2); Eosinophils # (auto) 0.1 10 ^3/uL (0-0.8); Hemoglobin 7.5 g/dL (12.2-16.2)
[2022-08-11 08:07] LABS: Basophils % (auto) 0.6 % (0.0-2.0); Eosinophils % (auto) 0.6 % (0.0-7.0); Hematocrit 23.6 % (36.0-46.0); Lymphocytes % (auto) 7.2 % (10.0-50.0); Mean Corpuscular Hemoglobin 32.9 pg (28.0-32.0); Mean Corpuscular Hgb Conc. 31.9 g/dL (32.0-36.0); Mean Corpuscular Volume 102.9 fL (80.0-100.0); Monocytes # (auto) 1.1 10 ^3/uL (0-1.3); Monocytes % (auto) 7.8 % (0.0-12.0); Neutrophils # (auto) 12.2 10 ^3/uL (1.6-8.6); Neutrophils % (auto) 83.8 % (37.0-80.0); Nucleated Red Blood Cells % 0.2 %; Red Blood Cells 2.29 10^6/uL (4.0-5.20); Red Cell Distribution Width 19.3 % (11.8-14.3); White Blood Cell 14.5 10^3/uL (4.4-10.8)
[2022-08-11 08:22] LABS: BUN/Creatinine Ratio 8.8; Calcium 8.7 mg/dL (8.5-10.1); Potassium 4.4 mmol/L (3.5-5.1)
[2022-08-11] MEDS: ASPirin 81 mg TAB PO SCH (08:56)
[2022-08-11] MEDS: B-COMPLEX W/ C & FOLIC ACID(NEPHROVITE TAB) PO SCH (08:56)
[2022-08-11] MEDS: FERROUS SULFATE 325mg EC TAB PO SCH ×2 (08:57→19:15)
[2022-08-11] MEDS: DOCUSATE SOD 100 MG CAP PO SCH (08:57)
[2022-08-11] MEDS: SILDENAFIL CITRATE 20 MG TAB PO SCH ×3 (08:57→20:04)
[2022-08-11] MEDS: PANTOPRAZOLE 40 MG TAB PO SCH (08:57)
[2022-08-11] MEDS: LEVOTHYROXINE SODIUM 100 MCG TAB PO SCH (08:57)
[2022-08-11] MEDS: AMIODARONE HCL 200 MG TAB PO SCH ×2 (08:57→22:12)
[2022-08-11] MEDS: CARVEDILOL 3.125 MG TAB PO SCH ×2 (08:58→22:12)
[2022-08-11 09:00] VITALS: BP 138/75
[2022-08-11] MEDS ORDERED: SODIUM CHL 0.9% 1000 ML BAG XX ONE (10:45)
[2022-08-11] MEDS ORDERED: ALBUMIN 25% 100 ML IV PRN (12:45)
[2022-08-11 13:00] VITALS: BP 100/58
[2022-08-11] MEDS: LORazepam 0.5 MG TAB PO PRN (16:00)
[2022-08-11 16:29] LABS: INR 1.26 (0.9-1.15)
[2022-08-11 16:52] VITALS: BP 138/51
[2022-08-11] MEDS ORDERED: VANCOMYCIN 750mg/250ml 250 ML IV ONE (18:30)
[2022-08-11] MEDS ORDERED: EPOETIN ALFA-EPBX 10,000 UNIT/1ML VIAL SC ONE (21:00)
[2022-08-11 22:00] VITALS: BP 117/56
[2022-08-11] MEDS: ATORVASTATIN 20 MG TAB PO SCH (22:12)
[2022-08-12] MEDS: ACETAMINOPHEN 325 MG TAB PO PRN (02:10)
[2022-08-12] MEDS: MORPHINE SULFATE INJ 2 MG/ml SYRG IV PRN ×3 (04:52→20:10)
[2022-08-12 05:00] VITALS: BP 117/76
[2022-08-12 07:08] LABS: Hematocrit 23.3 % (36.0-46.0); Hemoglobin 7.3 g/dL (12.2-16.2); Mean Corpuscular Hgb Conc. 31.1 g/dL (32.0-36.0); Mean Corpuscular Volume 106.1 fL (80.0-100.0); Red Blood Cells 2.19 10^6/uL (4.0-5.20); Red Cell Distribution Width 19.8 % (11.8-14.3); White Blood Cell 21.3 10^3/uL (4.4-10.8)
[2022-08-12 07:26] LABS: Basophils % (manual) 0 (0.0-2.0); Blast Cells 0; Metamyelocytes % 0; Myelocytes % 0; Promyelocytes % 0; Reactive Lymphocytes 0
[2022-08-12 07:31] LABS: Calcium 8.8 mg/dL (8.5-10.1); Potassium 4.6 mmol/L (3.5-5.1)
[2022-08-12 07:34] LABS: BUN/Creatinine Ratio 7.1
[2022-08-12 08:00] VITALS: BP 98/58
[2022-08-12] MEDS: SILDENAFIL CITRATE 20 MG TAB PO SCH ×3 (08:00→20:09)
[2022-08-12 08:04] LABS: Band Neutrophils % (manual) 15; Eosinophils % (manual) 1 (0-7); Lymphocytes % (manual) 5 (10.0-50.0); Monocytes % (manual) 6 (0-12)
[2022-08-12 09:00] VITALS: BP 98/58
[2022-08-12] MEDS: LEVOTHYROXINE SODIUM 100 MCG TAB PO SCH (09:55)
[2022-08-12] MEDS: FERROUS SULFATE 325mg EC TAB PO SCH ×2 (09:55→18:33)
[2022-08-12] MEDS: B-COMPLEX W/ C & FOLIC ACID(NEPHROVITE TAB) PO SCH (09:55)
[2022-08-12] MEDS: ASPirin 81 mg TAB PO SCH (09:55)
[2022-08-12] MEDS: PANTOPRAZOLE 40 MG TAB PO SCH (09:55)
[2022-08-12] MEDS: LORazepam 0.5 MG TAB PO PRN ×2 (09:56→18:33)
[2022-08-12] MEDS: DOCUSATE SOD 100 MG CAP PO SCH (09:56)
[2022-08-12] MEDS: CARVEDILOL 3.125 MG TAB PO SCH ×2 (10:00→20:11)
[2022-08-12] MEDS: AMIODARONE HCL 200 MG TAB PO SCH ×2 (10:00→20:10)
[2022-08-12] MEDS ORDERED: diphenhdrAMINE HCL 25 MG CAP PO PRN (11:00)
[2022-08-12 13:00] VITALS: BP 104/60
[2022-08-12 17:00] VITALS: BP 110/63
[2022-08-12] MEDS: ATORVASTATIN 20 MG TAB PO SCH (20:10)
[2022-08-12 22:00] VITALS: BP 125/68
[2022-08-13] VITALS (70 sets, daily range): BP systolic 60–150; BP diastolic 16–67
[2022-08-13] MEDS: TEMAZEPAM 15 MG CAP PO PRN (01:29)
[2022-08-13] MEDS: MORPHINE SULFATE INJ 2 MG/ml SYRG IV PRN (03:00)
[2022-08-13] MEDS: LORazepam 0.5 MG TAB PO PRN (04:51)
[2022-08-13] MEDS ORDERED: AMIODARONE HCL (50 MG/ ML) 3 ML VIAL IV ONE (05:28)
[2022-08-13] MEDS ORDERED: AMIODARONE 450mg/250ml AE 250 ML IV ONE (05:28)
[2022-08-13] MEDS ORDERED: NOREPINEPHRINE 8 MG/250ML KIT 250 ML IV ONE (05:28)
[2022-08-13] MEDS ORDERED: SUCCINYLCHOLINE CHLORIDE 20 MG/ML 10ML VIAL IV ONE (05:32)
[2022-08-13] MEDS ORDERED: ETOMIDATE (2MG/ML) 20ML VIAL IV ONE (05:32)
[2022-08-13] MEDS ORDERED: PHENYLEPHRINE IV 250 ML IV ONE (05:45)
[2022-08-13] MEDS ORDERED: MIDAZOLAM DRIP 50 mg/50mL 50 ML IV ONE (06:10)
[2022-08-13] MEDS ORDERED: fentaNYL Drip 2500mCg/250mlNS 250 ML IV ONE (06:10)
[2022-08-13] MEDS: VASOPRESSIN 20 UNITS in SODIUM CHL 0.9% 99 ML IV SCH ×2 (06:15→17:22)
[2022-08-13] MEDS ORDERED: NOREPINEPHRINE 8 MG/250ML KIT 250 ML IV SCH (06:15)
[2022-08-13] MEDS: EPINEPHrine HCL 250 ML IV SCH (06:15)
[2022-08-13] MEDS ORDERED: PHENYLEPHRINE IV 250 ML IV SCH (06:15)
[2022-08-13] MEDS ORDERED: AMIODARONE HCL 150 MG in D5W 5% 100 ML IV ONE (06:30)
[2022-08-13] MEDS ORDERED: AMIODARONE 450mg/250ml AE 250 ML IV SCH ×3 (06:30→12:30)
[2022-08-13] MEDS: MIDAZOLAM DRIP 50 mg/50mL 50 ML IV SCH ×3 (07:00→22:00)
[2022-08-13] MEDS ORDERED: SODIUM BICARBONATE 8.4 % INJ 50ML VIAL IV ONE ×2 (07:00→07:10)
[2022-08-13] MEDS: fentaNYL Drip 2500mCg/250mlNS 250 ML IV SCH (07:00)
[2022-08-13] MEDS ORDERED: SODIUM CHL 0.9% 1000 ML BAG XX ONE (07:00)
[2022-08-13] MEDS: SILDENAFIL CITRATE 20 MG TAB PO SCH ×3 (08:00→19:46)
[2022-08-13] MEDS: FERROUS SULFATE 325mg EC TAB PO SCH ×2 (08:00→18:00)
[2022-08-13 08:13] LABS: Mean Corpuscular Hemoglobin 32.4 pg (28.0-32.0); Mean Corpuscular Hgb Conc. 28.9 g/dL (32.0-36.0); Mean Corpuscular Volume 112.3 fL (80.0-100.0); Red Blood Cells 2.05 10^6/uL (4.0-5.20); White Blood Cell 29.3 10^3/uL (4.4-10.8)
[2022-08-13 08:30] LABS: INR 2.1 (0.9-1.15); Partial Thromboplastin Time 50.3 sec (24.6-33.4)
[2022-08-13 08:33] LABS: Albumin 2.5 g/dL (3.4-5.0); Calcium 9.1 mg/dL (8.5-10.1); Magnesium 2.8 mg/dL (1.6-2.6)
[2022-08-13 08:36] LABS: BUN/Creatinine Ratio 7.5; Bilirubin, Total 2.7 mg/dL (0.2-1.0); Total Protein 6.2 g/dL (6.4-8.2)
[2022-08-13 08:41] LABS: Potassium 6.3 mmol/L (3.5-5.1)
[2022-08-13 08:44] LABS: Hemoglobin 6.6 g/dL (12.2-16.2); Red Cell Distribution Width 21.2 % (11.8-14.3)
[2022-08-13] MEDS ORDERED: InsuLIN REG 1unit/0.01ml Soln (100units/ml) IV ONE ×2 (08:45→11:45)
[2022-08-13] MEDS ORDERED: SODIUM ZIRCONIUM CYCL 10 GM PAK PO ONE (08:45)
[2022-08-13] MEDS ORDERED: DEXTROSE (50%) 50ML SYRG IV ONE ×2 (08:45→11:45)
[2022-08-13] MEDS ORDERED: DEXTROSE 50% SYRINGE 50 ML IV ONE (08:53)
[2022-08-13] MEDS ORDERED: SODIUM ZIRCONIUM CYCL 10 GM PAK ONE (08:54)
[2022-08-13 09:02] LABS: Basophils % (manual) 0 (0.0-2.0); Blast Cells 0; Eosinophils % (manual) 0 (0-7); Metamyelocytes % 0; Promyelocytes % 0; Reactive Lymphocytes 0
[2022-08-13 09:05] LABS: Band Neutrophils % (manual) 23; Lymphocytes % (manual) 1 (10.0-50.0); Monocytes % (manual) 1 (0-12); Myelocytes % 3
[2022-08-13] MEDS: PHENYLEPHRINE INJ 80 MG in SODIUM CHL 0.9% 242 ML IV SCH (09:30)
[2022-08-13] MEDS: NOREPINEPHRINE BITARTRATE 32 MG in SODIUM CHL 0.9% 218 ML IV SCH (09:56)
[2022-08-13] MEDS: ASPirin 81 mg TAB PO SCH (10:00)
[2022-08-13] MEDS: LEVOTHYROXINE SODIUM 100 MCG TAB PO SCH (10:00)
[2022-08-13] MEDS: DOCUSATE SOD 100 MG CAP PO SCH (10:00)
[2022-08-13] MEDS: PANTOPRAZOLE 40 MG TAB PO SCH (10:00)
[2022-08-13] MEDS: CARVEDILOL 3.125 MG TAB PO SCH ×2 (10:00→21:25)
[2022-08-13] MEDS: AMIODARONE HCL 200 MG TAB PO SCH ×2 (10:00→22:07)
[2022-08-13] MEDS: B-COMPLEX W/ C & FOLIC ACID(NEPHROVITE TAB) PO SCH (10:00)
[2022-08-13] MEDS: EPINEPHrine HCL INJECTION 16 MG in D5W 5% 234 ML IV SCH (11:00)
[2022-08-13] MEDS ORDERED: CALCIUM GLUC 1,000mg/50ml-NS 50 ML IV ONE (11:45)
[2022-08-13] MEDS ORDERED: SODIUM BICARBONATE 8.4% INJ 50ML SYRINGE IV ONE (11:45)
[2022-08-13] MEDS: AMIODARONE 450mg/250ml AE 250 ML IV SCH (12:30)
[2022-08-13] MEDS ORDERED: CEFEPIME 1GM/ 50ML 50 ML IV ONE (13:00)
[2022-08-13] MEDS: SODIUM ZIRCONIUM CYCL 10 GM PAK PO SCH ×2 (14:00→22:07)
[2022-08-13] MEDS ORDERED: EPOETIN ALFA-EPBX 10,000 UNIT/1ML VIAL SC ONE (21:00)
[2022-08-13] MEDS: ATORVASTATIN 20 MG TAB PO SCH (22:30)
[2022-08-14] VITALS (105 sets, daily range): BP systolic 40–148; BP diastolic 18–66
[2022-08-14] MEDS: AMIODARONE 450mg/250ml AE 250 ML IV SCH (03:22)
[2022-08-14] MEDS: VASOPRESSIN 20 UNITS in SODIUM CHL 0.9% 99 ML IV SCH ×2 (03:54→15:36)
[2022-08-14 04:01] LABS: Basophils # (auto) 0.1 10 ^3/uL (0-0.2); Eosinophils # (auto) 0 10 ^3/uL (0-0.8); Eosinophils % (auto) 0.1 % (0.0-7.0); Monocytes # (auto) 0.8 10 ^3/uL (0-1.3); White Blood Cell 23.1 10^3/uL (4.4-10.8)
[2022-08-14 04:04] LABS: Basophils % (auto) 0.5 % (0.0-2.0); Hemoglobin 8.5 g/dL (12.2-16.2); Lymphocytes # (auto) 1.4 10 ^3/uL (0.4-5.4); Lymphocytes % (auto) 5.9 % (10.0-50.0); Mean Corpuscular Hgb Conc. 32.6 g/dL (32.0-36.0); Mean Corpuscular Volume 101.3 fL (80.0-100.0); Monocytes % (auto) 3.6 % (0.0-12.0); Neutrophils # (auto) 20.8 10 ^3/uL (1.6-8.6); Neutrophils % (auto) 89.9 % (37.0-80.0); Nucleated Red Blood Cells % 1.1 %; Red Blood Cells 2.56 10^6/uL (4.0-5.20); Red Cell Distribution Width 18.5 % (11.8-14.3)
[2022-08-14 04:15] LABS: BUN/Creatinine Ratio 9.2; Calcium 8.6 mg/dL (8.5-10.1); Potassium 4.5 mmol/L (3.5-5.1)
[2022-08-14] MEDS: MIDAZOLAM DRIP 50 mg/50mL 50 ML IV SCH ×2 (06:00→11:45)
[2022-08-14] MEDS: EPINEPHrine HCL 250 ML IV SCH (06:15)
[2022-08-14] MEDS: SODIUM ZIRCONIUM CYCL 10 GM PAK PO SCH (06:22)
[2022-08-14] MEDS: NOREPINEPHRINE BITARTRATE 32 MG in SODIUM CHL 0.9% 218 ML IV SCH (06:30)
[2022-08-14] MEDS ORDERED: ALBUMIN 25% 100 ML IV ONE (06:30)
[2022-08-14] MEDS: EPINEPHrine HCL INJECTION 16 MG in D5W 5% 234 ML IV SCH ×2 (07:15→16:00)
[2022-08-14] MEDS: PHENYLEPHRINE INJ 80 MG in SODIUM CHL 0.9% 242 ML IV SCH ×2 (07:24→16:00)
[2022-08-14] MEDS: ALBUMIN 25% 100 ML IV PRN ×2 (07:40→12:37)
[2022-08-14] MEDS: SILDENAFIL CITRATE 20 MG TAB PO SCH ×2 (08:00→09:25)
[2022-08-14] MEDS: ASPirin 81 mg TAB PO SCH (09:23)
[2022-08-14] MEDS: AMIODARONE HCL 200 MG TAB PO SCH ×2 (09:23→22:00)
[2022-08-14] MEDS: FERROUS SULFATE 325mg EC TAB PO SCH ×2 (09:23→17:19)
[2022-08-14] MEDS: PANTOPRAZOLE 40 MG TAB PO SCH (09:24)
[2022-08-14] MEDS: DOCUSATE SOD 100 MG CAP PO SCH (09:24)
[2022-08-14] MEDS: LEVOTHYROXINE SODIUM 100 MCG TAB PO SCH (09:24)
[2022-08-14] MEDS: CARVEDILOL 3.125 MG TAB PO SCH (09:24)
[2022-08-14] MEDS: B-COMPLEX W/ C & FOLIC ACID(NEPHROVITE TAB) PO SCH (09:25)
[2022-08-14] MEDS ORDERED: CEFEPIME 1GM/ 50ML 50 ML IV SCH (10:00)
[2022-08-14] MEDS ORDERED: GENTAMICIN PER PHARMACY 0 ML IV SCH (11:00)
[2022-08-14] MEDS: fentaNYL Drip 2500mCg/250mlNS 250 ML IV SCH ×2 (11:45)
[2022-08-14] MEDS ORDERED: CALCIUM CHLOR(10%) 100MG/ML 10ML SYRINGE IV ONE (12:57)
[2022-08-14] MEDS ORDERED: DEXTROSE (50%) 50ML SYRG IV ONE (12:57)
[2022-08-14] MEDS ORDERED: EPINEPHrine HCL 1 MG/10 ML SYRG IV ONE (12:57)
[2022-08-14] MEDS: ACETAMINOPHEN 325 MG TAB PO PRN (14:41)
[2022-08-14] MEDS ORDERED: D5W 5% IV ONE (16:00)
[2022-08-14] MEDS ORDERED: GENTAMICIN SULFATE IV ONE (16:00)
[2022-08-14] MEDS ORDERED: VASOPRESSIN 20 UNIT/ML ONE (16:13)
[2022-08-14] MEDS ORDERED: SODIUM CHLORIDE 0.9% 500 ML IV ONE (16:30)
[2022-08-14] MEDS: ATORVASTATIN 20 MG TAB PO SCH (22:00)
[2022-08-14] MEDS ORDERED: DOPamine 1600MCG/ML D5W 250 ML IV SCH (23:00)
[2022-08-15] VITALS (8 sets, daily range): BP systolic 46–132; BP diastolic 24–105
[2022-08-15] MEDS ORDERED: SODIUM BICARBONATE 8.4 % INJ 50ML VIAL IV ONE
[2022-08-15] MEDS: NOREPINEPHRINE BITARTRATE 32 MG in SODIUM CHL 0.9% 218 ML IV SCH (00:15)
[2022-08-15] MEDS: PHENYLEPHRINE INJ 80 MG in SODIUM CHL 0.9% 242 ML IV SCH (00:15)
[2022-08-15] MEDS: VASOPRESSIN 20 UNITS in SODIUM CHL 0.9% 99 ML IV SCH (02:00)
[2022-08-15 04:10] LABS: BUN/Creatinine Ratio 7.8; Calcium 10.7 mg/dL (8.5-10.1)
[2022-08-15 04:13] LABS: Potassium 6.8 mmol/L (3.5-5.1)
[2022-08-15 04:19] LABS: Bilirubin, Total 5.6 mg/dL (0.2-1.0); Total Protein 6.4 g/dL (6.4-8.2)
[2022-08-15 05:37] LABS: Hemoglobin 8.1 g/dL (12.2-16.2)
[2022-08-15 05:40] LABS: Hematocrit 28.1 % (36.0-46.0); Mean Corpuscular Hemoglobin 33.3 pg (28.0-32.0); Mean Corpuscular Hgb Conc. 28.9 g/dL (32.0-36.0); Mean Corpuscular Volume 115.2 fL (80.0-100.0); Red Blood Cells 2.44 10^6/uL (4.0-5.20); White Blood Cell 15.5 10^3/uL (4.4-10.8)
[2022-08-15 06:17] LABS: Red Cell Distribution Width 22.5 % (11.8-14.3)
[2022-08-15 06:24] LABS: Basophils % (manual) 0 (0.0-2.0); Blast Cells 0; Eosinophils % (manual) 0 (0-7); Metamyelocytes % 0; Myelocytes % 0; Promyelocytes % 0; Reactive Lymphocytes 0
[2022-08-15 06:28] LABS: Band Neutrophils % (manual) 6; Lymphocytes % (manual) 4 (10.0-50.0); Monocytes % (manual) 1 (0-12)
[2022-08-15] MEDS ORDERED: EPINEPHrine HCL 1 MG/10 ML SYRG IV ONE (08:59)
[2022-08-15] MEDS ORDERED: SODIUM BICARBONATE 8.4% INJ 50ML SYRINGE IV ONE (08:59)
[2022-08-15] MEDS ORDERED: ALBUTEROL MEDNEB 2.5 mg/3ml NEB ONE (10:48)
== END 2022-08-15 09:00 | DRG 871 ==
LOC: EDBD 00:48 → ER 00:48 → OVERFLOW 05:43 → TELE-EAST 08-03 16:32 → ICU WEST 08-13 06:14
PROVIDERS: ADMIT Hospitalist; ATTEND Internal Medicine
PROC: B24BZZ4 Ultrasonography of Heart with Aorta, Transesophageal (ICD-10-PCS; 2022-07-30)
PROC: 06HY33Z Insertion of Infusion Device into Lower Vein, Percutaneous Approach (ICD-10-PCS; 2022-08-01)
PROC: B54BZZA Ultrasonography of Right Lower Extremity Veins, Guidance (ICD-10-PCS; 2022-08-01)
PROC: 05HY33Z Insertion of Infusion Device into Upper Vein, Percutaneous Approach (ICD-10-PCS; 2022-08-01)
PROC: B543ZZA Ultrasonography of Right Jugular Veins, Guidance (ICD-10-PCS; 2022-08-01)
PROC: 30233N1 Transfusion of Nonautologous Red Blood Cells into Peripheral Vein, Percutaneous Approach (ICD-10-PCS; 2022-08-02)
PROC: 5A1D70Z Performance of Urinary Filtration, Intermittent, Less than 6 Hours Per Day (ICD-10-PCS; 2022-08-03)
PROC: 5A1D70Z Performance of Urinary Filtration, Intermittent, Less than 6 Hours Per Day (ICD-10-PCS; principal; 2022-08-04)
PROC: 5A1D70Z Performance of Urinary Filtration, Intermittent, Less than 6 Hours Per Day (ICD-10-PCS; 2022-08-05)
PROC: 5A1D70Z Performance of Urinary Filtration, Intermittent, Less than 6 Hours Per Day (ICD-10-PCS; 2022-08-07)
PROC: 0JH63XZ Insertion of Tunneled Vascular Access Device into Chest Subcutaneous Tissue and Fascia, Percutaneous Approach (ICD-10-PCS; 2022-08-07)
PROC: 02HV33Z Insertion of Infusion Device into Superior Vena Cava, Percutaneous Approach (ICD-10-PCS; 2022-08-07)
PROC: B518ZZA Fluoroscopy of Superior Vena Cava, Guidance (ICD-10-PCS; 2022-08-07)
PROC: B548ZZA Ultrasonography of Superior Vena Cava, Guidance (ICD-10-PCS; 2022-08-07)
PROC: 5A1D70Z Performance of Urinary Filtration, Intermittent, Less than 6 Hours Per Day (ICD-10-PCS; 2022-08-09)
PROC: 5A1D70Z Performance of Urinary Filtration, Intermittent, Less than 6 Hours Per Day (ICD-10-PCS; 2022-08-11)
PROC: 05H933Z Insertion of Infusion Device into Right Brachial Vein, Percutaneous Approach (ICD-10-PCS; 2022-08-11)
PROC: B54MZZA Ultrasonography of Right Upper Extremity Veins, Guidance (ICD-10-PCS; 2022-08-11)
PROC: 5A1945Z Respiratory Ventilation, 24-96 Consecutive Hours (ICD-10-PCS; 2022-08-13)
PROC: 0BH17EZ Insertion of Endotracheal Airway into Trachea, Via Natural or Artificial Opening (ICD-10-PCS; 2022-08-13)
PROC: 5A12012 Performance of Cardiac Output, Single, Manual (ICD-10-PCS; 2022-08-13)
PROC: 5A1D70Z Performance of Urinary Filtration, Intermittent, Less than 6 Hours Per Day (ICD-10-PCS; 2022-08-14)
PROC: 5A12012 Performance of Cardiac Output, Single, Manual (ICD-10-PCS; 2022-08-15)
DX: A41.2 Sepsis due to unspecified staphylococcus (principal); I21.A1 Myocardial infarction type 2; I33.0 Acute and subacute infective endocarditis; N18.6 End stage renal disease; R65.21 Severe sepsis with septic shock; J96.01 Acute respiratory failure with hypoxia; K72.00 Acute and subacute hepatic failure without coma; E87.20 Acidosis, unspecified; I12.0 Hypertensive chronic kidney disease with stage 5 chronic kidney disease or end stage renal disease; D68.69 Other thrombophilia; E44.0 Moderate protein-calorie malnutrition; D62 Acute posthemorrhagic anemia; I47.20 Ventricular tachycardia, unspecified; Z20.822 Contact with and (suspected) exposure to COVID-19; I46.9 Cardiac arrest, cause unspecified; D63.1 Anemia in chronic kidney disease; I48.91 Unspecified atrial fibrillation; Z99.2 Dependence on renal dialysis; D69.6 Thrombocytopenia, unspecified; I27.20 Pulmonary hypertension, unspecified; I50.9 Heart failure, unspecified; E03.9 Hypothyroidism, unspecified; E78.5 Hyperlipidemia, unspecified; G89.4 Chronic pain syndrome; I25.10 Atherosclerotic heart disease of native coronary artery without angina pectoris; Z79.2 Long term (current) use of antibiotics; Z95.0 Presence of cardiac pacemaker; Z95.1 Presence of aortocoronary bypass graft; Z95.2 Presence of prosthetic heart valve; Z68.20 Body mass index [BMI] 20.0-20.9, adult
CPT/HCPCS: 36415; 36558; 36600; 71045; 76000; 76942; 77001; 80048; 80053; 80074; 80202; 82140; 82565; 82728; 82805; 82962; 83540; 83550; 83605; 83735; 83880; 84484; 85007; 85025; 85027; 85610; 85652; 85730; 86850; 86900; 86901; 86920; 87040; 87070; 87077; 87081; 87186; 87205; 87426; 90935; 92950; 92960; 93005; 93306; 93312; 94003; 96374; 99152; 99153; G0378; J0171; J0330; J1642; J2001; J2250; J2405; J2543; J7060; P9047; Q9967